=== PATIENT | male | born 1940 | race Caucasian/White ===

== ENCOUNTER 2017-08-26 00:15 | Inpatient (IN) | payer MEDICARE, OTHER ==
[2017-08-26] MEDS ORDERED: Sodium Chloride 0.9% 1,000 ML IV ONE (00:52)
--- NOTE | 2017-08-26 01:06 | ED PDOC ---
Arrival/HPI - General Chief Complaint: Altered Mental Status Time Seen by Provider: 08/26/17 00:44 Historian: Patient, Partner EM Caveat: Language Barrier - History of Present Illness Narrative History of Present Illness (Text): 08/26/17 01:05 77 year old male, whose past medical history includes stroke 1 1/2 years ago and hypertension, presents to the emergency department as per partner complaining of weakness and fatigue that began 4-6 hours ago. Partner reports he was eating dinner when he began to feel tired and weak. She states he was so weak he could not sit up and began bobbing his head. Patient also reports cough and fever of 101 measured at home, but denies any chills, chest pain, shortness of breath, nausea, vomiting, diarrhea, urinary symptoms, back pain, neck pain, headache, dizziness, or any other complaints. Time/Duration: 4-6 hours Symptom Onset: Sudden Symptom Course: Unchanged Activities at Onset: Light Context: Home Past Medical History - Provider Review Nursing Documentation Reviewed: Yes - Cardiac Hx Hypertension: Yes Other/Comment: CVA, - Musculoskeletal/Rheumatological Hx Arthritis: Yes - Psychiatric Hx Substance Use: No Family/Social History - Physician Review Nursing Documentation Reviewed: Yes Family/Social History: No Known Family HX Smoking Status: Never Smoked Hx Alcohol Use: No Frequency of alcohol use: Socially Hx Substance Use: No Allergies/Home Meds Allergies/Adverse Reactions: Allergies Penicillins Allergy (Verified 08/26/17 16:23) RASH Home Medications: Home Meds Medication Instructions Recorded Confirmed Allopurinol [Zyloprim] 100 mg PO TID 08/26/17 08/26/17 amLODIPine [Norvasc] 5 mg PO DAILY 08/26/17 08/26/17 Review of Systems - Physician Review All systems were reviewed & negative as marked: Yes - Review of Systems Constitutional: Fatigue, Fevers. absent: Other (Chills ) Respiratory: Cough. absent: SOB Cardiovascular: absent: Chest Pain Gastrointestinal: absent: Abdominal Pain, Diarrhea, Nausea, Vomiting Musculoskeletal: absent: Back Pain, Neck Pain Neurological: Other (weakness). absent: Headache, Dizziness Physical Exam Vital Signs Reviewed: Yes Vital Signs Temp Pulse Resp BP Pulse Ox 08/27/17 11:39 100.1 F H 08/27/17 10:57 90 141/93 H 01/09/18 07:42 86 18 157/92 H 99 08/26/17 19:18 98.9 F 75 20 135/82 08/26/17 19:15 77 20 140/64 08/26/17 19:00 75 20 135/82 08/26/17 18:45 72 20 132/74 08/26/17 18:30 74 20 130/72 08/26/17 18:15 98.9 F 75 20 138/85 08/26/17 18:00 90 20 150/101 H 08/26/17 17:45 96 H 20 199/118 H 08/26/17 17:30 100 H 20 177/102 H 08/26/17 17:15 104 H 20 176/99 H 08/26/17 17:06 101 H 177/102 H 08/26/17 17:00 102 H 20 171/87 H 08/26/17 16:45 105 H 20 170/82 H 08/26/17 16:30 99.8 F H 105 H 20 180/100 H 96 08/26/17 16:05 98.9 F 75 20 138/85 08/26/17 15:42 104 H 174/118 H 08/26/17 14:45 82 164/111 H 08/26/17 14:30 80 20 178/91 H 08/26/17 14:15 79 20 151/83 H 08/26/17 14:00 80 20 162/92 H 08/26/17 13:45 72 20 168/93 H 08/26/17 13:30 62 20 173/92 H 97 08/26/17 06:30 98.9 F 93 H 16 163/92 H 99 08/26/17 06:00 98.7 F 76 15 155/82 H 98 08/26/17 04:08 99 F 100 H 15 113/101 H 100 08/26/17 04:00 98.9 F 74 16 150/82 97 08/26/17 02:00 100 F H 99 H 16 151/93 H 99 08/26/17 00:37 99.8 F H 100 H 16 173/101 H 99 Temperature: Febrile Blood Pressure: Hypertensive Pulse: Tachycardic Respiratory Rate: Normal Appearance: Positive for: Well-Appearing, Non-Toxic, Comfortable Pain Distress: None Mental Status: Positive for: Confused, other Finger Stick Blood Glucose: 152 - Systems Exam Head: Present: Atraumatic, Normocephalic Pupils: Present: PERRL Extroacular Muscles: Present: EOMI Conjunctiva: Present: Normal Mouth: Present: Moist Mucous Membranes Neck: Present: Normal Range of Motion Respiratory/Chest: Present: Rhonchi. No: Respiratory Distress, Accessory Muscle Use Cardiovascular: Present: Regular Rate and Rhythm, Normal S1, S2. No: Murmurs Abdomen: Present: Normal Bowel Sounds. No: Tenderness, Distention, Peritoneal Signs Back: Present: Normal Inspection Upper Extremity: Present: Normal Inspection. No: Cyanosis, Edema Lower Extremity: Present: Normal Inspection. No: Edema Neurological: Present: GCS=15, CN II-XII Intact, Speech Normal Skin: Present: Warm, Dry, Normal Color. No: Rashes Psychiatric: Present: Alert, Oriented x 3, Normal Insight, Normal Concentration Medical Decision Making ED Course and Treatment: 08/26/17 01:05 Impression: 77 year old male presents as per partner, for fatigue, cough, fever, and weakness hat began 4-6 hours ago. PE shows Rhonchi Plan: -- VBG -- EKG -- Chest X-ray -- Labs -- Blood Culture -- Urine Culture -- Urinalysis -- Tylenol -- Reassess and disposition Progress Notes: 08/26/17 02:11 EKG shows Sinus Tachycardia at 126 BPM with Normal axis. Normal intervals. Interpreted by me. 08/26/17 02:30 CXR Impression: As read by me, Atelectasis VS infiltrate in the right lower lobe. 08/26/17 08:31 Attempted LP in usual fashion, patient sitting up; 3-4 attempts with no CSF. 08/26/17 08:[address] Rodrigez, radiologist, who is willing to do LP under fluoroscopy. I ordered fluids, Dr. Rodrgiez will collect CSF from LP and give it to lab. - Lab Interpretations Microbiology Results: Microbiology Results 08/26/17 00:30 Blood Blood Culture - Preliminary NO GROWTH AFTER 4 DAYS 08/26/17 01:00 Blood Blood Culture - Preliminary NO GROWTH AFTER 4 DAYS 08/26/17 01:12 Urine,Clean Catch Urine Culture - Final No Growth (<1,000 CFU/ML) Lab Results: 08/26/17 01:00 08/26/17 01:00 Lab Results 08/26/17 01:12: Urine Color Yellow, Urine Appearance Clear, Urine pH 8.5, Ur Specific [place] 1.020, Urine Protein 100 H, Urine Glucose (UA) Negative, Urine Ketones Negative, Urine Blood Trace-intact H, Urine Nitrate Negative, Urine Bilirubin Negative, Urine Urobilinogen 0.2, Ur Leukocyte Esterase Negative, Urine RBC 2 - 5, Urine WBC 0 - 2, Ur Epithelial Cells 0 - 2 08/26/17 01:00: Procalcitonin 0.05 L 08/26/17 01:00: Prostate Specific Ag 2.7 H 08/26/17 01:00: Uric Acid 9.3 H 08/26/17 01:00: Sodium 138, Chloride 101, Potassium 4.3, Carbon Dioxide 28, Anion Gap 13, BUN 25 H, Creatinine 2.5 H, Est GFR ( Amer) 31, Est GFR ( Non-Af Amer) 25, Random Glucose 141 H, Calcium 9.7, Phosphorus 2.0 L, Magnesium 2.2, Total Bilirubin 0.3, AST 34, ALT 18, Alkaline Phosphatase 60, Total Protein 8.2, Albumin 4.4, Globulin 3.8, Albumin/Globulin Ratio 1.2 08/26/17 01:00: pO2 31, VBG pH 7.39, VBG pCO2 50.0, VBG HCO3 30.3 H, VBG Total CO2 31.8 H, VBG O2 Sat (Calc) 62.8, VBG Base Excess 4.2 H, VBG Potassium 4.5, Sodium 136.0, Chloride 101.0, Glucose 140 H, Lactate 1.4, FiO2 21.0, Venous Blood Potassium 4.5 08/26/17 01:00: PT 11.4, INR 1.00, APTT 40.0 H 08/26/17 01:00: WBC 11.5 H, RBC 4.74, Hgb 13.3 L, Hct 40.5 L, MCV 85.4, MCH 28.1 , MCHC 32.8, RDW 15.0 H, Plt Count 299, MPV 10.4, Gran % 81.5 H, Lymph % (Auto) 8.1 L, [place] % (Auto) 7.8 H, Eos % (Auto) 2.3, Baso % (Auto) 0.3, Gran # 9.38 H, Lymph # 0.9 L, [place] # 0.9 H, Eos # 0.3, Baso # 0.03 08/26/17 00:33: POC Glucose (mg/dL) 135 H I have reviewed the lab results: Yes - RAD Interpretation Radiology Orders: 08/26/17 00:53 CHEST PORTABLE [RAD] Stat 08/26/17 03:07 HEAD W/O CONTRAST [CT] Stat - EKG Interpretation Interpreted by ED Physician: Yes Type: 12 lead EKG - Medication Orders Current Medication Orders: Discontinued Medications Acetaminophen (Tylenol 325mg Tab) 975 mg PO ONCE PRN PRN Reason: Fever >100.4 F Last Admin: 08/26/17 01:57 Dose: 975 mg MAR Pain/Vitals Document 08/26/17 01:57 AB (Rec: 08/26/17 01:57 AB [facility] [id number] Pain Reassessment Is This A Pain ReAssessment? No Acetaminophen (Tylenol 325 Mg Supp) 650 mg RC Q6H PRN PRN Reason: FOR TEMP>=99.5F Acetaminophen (Tylenol 325mg Tab) 650 mg PO Q6H PRN PRN Reason: FOR TEMP>=99.5F Last Admin: 08/27/17 12:00 Dose: 650 mg MAR Pain/Vitals Document 08/27/17 12:00 SF (Rec: 08/27/17 12:00 SF [facility] [id number]) Pain Reassessment Is This A Pain ReAssessment? Yes Sleep Is patient sleeping during reassessment? No Presence of Pain Presence of Pain Yes Pain Scale Used Pain Scale Used Numeric Vitals Temperature (97.6 F-99.6 F) 100.1 F Temperature Source Oral Acetylcysteine (Acetylcysteine 20%) 4 ml IH [id number] [facility] Last Admin: 08/29/17 07:38 Dose: 4 ml Allopurinol (Zyloprim) 100 mg PO TID [facility] Last Admin: 08/29/17 13:50 Dose: 100 mg Amlodipine Besylate (Norvasc) 5 mg PO DAILY [facility] Last Admin: 08/26/17 15:42 Dose: 5 mg MAR Pulse and Blood Pressure Document 08/26/17 15:42 JFR (Rec: 08/26/17 15:42 JFR [facility] [id number]) Pulse Pulse Rate (60-90) 104 Blood Pressure Blood Pressure (100/60-150/90) 174/118 Amlodipine Besylate (Norvasc) 5 mg PO DAILY [facility] Last Admin: 08/29/17 09:32 Dose: 5 mg MAR Pulse and Blood Pressure Document 08/29/17 09:32 SPA (Rec: 08/29/17 09:33 SPA [id number]) Pulse Pulse Rate (60-90) 80 Blood Pressure Blood Pressure (100/60-150/90) 162/96 Aspirin (Ecotrin) 325 mg PO DAILY [facility] Last Admin: 08/29/17 09:32 Dose: 325 mg Atorvastatin Calcium (Lipitor) 10 mg PO DIN [facility] Last Admin: 08/27/17 18:11 Dose: 10 mg Atorvastatin Calcium (Lipitor) 40 mg PO DIN [facility] Last Admin: 08/28/17 17:58 Dose: 40 mg Benzonatate (Tessalon Perles) 200 mg PO TID [facility] Last Admin: 08/29/17 13:50 Dose: 200 mg Clonidine HCl (Catapres) 0.1 mg PO Q6 PRN PRN Reason: Other Last Admin: 08/29/17 05:54 Dose: 0.1 mg MAR Pulse and Blood Pressure Document 08/29/17 05:54 MS (Rec: 08/29/17 05:54 MS [id number]) Blood Pressure Blood Pressure (100/60-150/90) 190/94 Clonidine HCl (Catapres) 0.2 mg PO BID PRN PRN Reason: Other Enoxaparin Sodium (Lovenox) 40 mg SC DAILY [facility] PRN Reason: Protocol Last Admin: 08/26/17 13:24 Dose: Enoxaparin Sodium (Lovenox) 30 mg SC DAILY [facility] PRN Reason: Protocol Last Admin: 08/29/17 09:33 Dose: 30 mg Subcutaneous Administrations Document 08/29/17 09:33 SPA (Rec: 08/29/17 09:33 SPA [id number]) Charges for Administration # of Subcutaneous Administrations 1 Guaifenesin (Robitussin) 100 mg PO Q4H PRN PRN Reason: Cough Sodium Chloride (Sodium Chloride 0.9%) 1,000 mls @ 2,000 mls/hr IV .Q30M ONE Stop: 08/26/17 01:21 Last Admin: 08/26/17 01:57 Dose: 2,000 mls/hr eMAR Start Stop Document 08/26/17 01:57 AB (Rec: 08/26/17 01:57 AB [facility] [id number][place] Intravenous Solution Start Date 08/26/17 Start Time 01:57 End Date 08/26/17 Levofloxacin/Dextrose (Levaquin 750mg) 750 mg in 150 mls @ 100 mls/hr IVPB STAT STA PRN Reason: Protocol Stop: 08/26/17 04:01 Last Admin: 08/26/17 03:06 Dose: 100 mls/hr eMAR Start Stop Document 08/26/17 03:06 AB (Rec: 08/26/17 03:06 AB [facility] [id number]) Intravenous Solution Start Date 08/26/17 Start Time 03:06 End Date 08/26/17 Doxycycline Hyclate 100 mg/ (Sodium Chloride) 100 mls @ 100 mls/hr IVPB Q12 CAROL PRN Reason: Protocol Last Admin: 08/27/17 21:53 Dose: Ceftriaxone Sodium (Rocephin 2 Gm Ivpb) 2 gm in 100 mls @ 100 mls/hr IVPB DAILY CAROL PRN Reason: Protocol Last Admin: 08/26/17 13:25 Dose: Sodium Chloride (Sodium Chloride 0.9%) 1,000 mls @ 100 mls/hr IV .Q10H CAROL Stop: 08/30/17 21:44 Last Admin: 08/28/17 05:15 Dose: 100 mls/hr eMAR Start Stop Document 08/28/17 05:15 MS (Rec: 08/28/17 05:15 MS [id number]) Intravenous Solution Start Date 08/28/17 Start Time 05:15 Acyclovir 500 mg/ Sodium (Chloride) 100 mls @ 100 mls/hr IV Q12H CAROL PRN Reason: Protocol Last Admin: 08/26/17 13:25 Dose: Acyclovir 900 mg/ Sodium (Chloride) 100 mls @ 100 mls/hr IV Q12H CAROL PRN Reason: Protocol Last Admin: 08/27/17 23:37 Dose: 100 mls/hr eMAR Start Stop Document 08/27/17 23:37 MS (Rec: 08/27/17 23:38 MS [id number]) Intravenous Solution Start Date 08/27/17 Start Time 23:38 End Date 08/28/17 End time 00:38 Total Infusion Time 60 Meropenem 500 mg/ Sodium (Chloride) 50 mls @ 100 mls/hr IVPB Q12 CAROL PRN Reason: Protocol Stop: 09/02/17 10:31 Last Admin: 08/27/17 11:04 Dose: 100 mls/hr Comments: discontinued eMAR Start Stop Document 08/27/17 11:04 MANAGER [employer]FORMAT[employer] (Rec: 08/27/17 11:04 MANAGER CLINICAL INFORMATICS [facility] [id number][place] Intravenous Solution Start Date 08/27/17 Start Time 11:04 Meropenem 500 mg/ Sodium (Chloride) 100 mls @ 100 mls/hr IVPB Q12 CAROL Last Admin: 08/28/17 11:28 Dose: 100 mls/hr eMAR Start Stop Document 08/28/17 11:28 KARLAMIRLANDE (Rec: 08/28/17 11:28 DINORA [id number]) Intravenous Solution Start Date 08/28/17 Start Time 11:28 End Date 08/28/17 End time 12:28 Total Infusion Time 60 Levalbuterol HCl (Xopenex) 0.63 mg IH [id number] [facility] Last Admin: 08/29/17 14:33 Dose: Memantine (Namenda) 10 mg PO DAILY [facility] Last Admin: 08/29/17 09:33 Dose: 10 mg Metoprolol Tartrate (Lopressor) 25 mg PO Q12 [facility] Last Admin: 08/29/17 09:33 Dose: 25 mg MAR Pulse and Blood Pressure Document 08/29/17 09:33 SPA (Rec: 08/29/17 09:33 SPA [id number]) Pulse Pulse Rate (60-90) 80 Blood Pressure Blood Pressure (100/60-150/90) 162/96 Oseltamivir Phosphate (Tamiflu Susp) 30 mg PO DAILY CAROL PRN Reason: Protocol Last Admin: 08/27/17 11:03 Dose: 30 mg Pantoprazole Sodium (Protonix Ec Tab) 40 mg PO DAILY [facility] Last Admin: 08/29/17 10:54 Dose: 40 mg Pneumococcal Polyvalent Vaccine (Pneumovax 23 Vaccine) 0.5 ml IM .ONCE ONE Stop: 08/26/17 19:50 Last Admin: 01/08/18 21:51 Dose: 0.5 ml MAR Immunization Data Document 08/26/17 21:51 AB (Rec: 08/26/17 21:51 AB [facility] [id number][place] Immunization Data Vaccine Information Sheet Given Yes Immunization Registry Document 08/26/17 21:51 AB (Rec: 08/26/17 21:51 AB [facility] [id number]) Immunization Registry Consent Date 08/26/17 - PA / [employer]OO[employer] 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 - Scribe Statement The provider has reviewed the documentation as recorded by the Scribe Sonido Landeros Provider Scribe Attestation: All medical record entries made by the Ericibbhumi were at my direction and personally dictated by me. I have reviewed the chart and agree that the record accurately reflects my personal performance of the history, physical exam, medical decision making, and the department course for this patient. I have also personally directed, reviewed, and agree with the discharge instructions and disposition. Disposition/Present on Arrival - Present on Arrival Any Indicators Present on Arrival: No History of DVT/PE: No History of Uncontrolled Diabetes: No Urinary Catheter: No History of Decub. Ulcer: No History Surgical Site Infection Following: None - Disposition Have Diagnosis and Disposition been Completed?: Yes Diagnosis: Fever, Weakness, Cough, Confusion Disposition: HOSPITALIZED Disposition Time: 09:00 Patient Plan: Admission Condition: IMPROVED
[2017-08-26 01:30] LABS: BASO # 0.03 K/mm3 (0.0-2.0); BASO % 0.3 % (0.0-3.0); EOS # 0.3 (0.0-0.7); EOS % 2.3 % (1.5-5.0); GRAN # 9.38 (1.4-6.5); GRAN % 81.5 % (50.0-68.0); HEMOGLOBIN 13.3 g/dL (14.0-18.0); LYMPH # 0.9 (1.2-3.4); LYMPH % 8.1 % (22.0-35.0); MEAN CELL VOLUME 85.4 fl (80.0-105.0); MEAN CORPUSCULAR HEMOGLOBIN 28.1 pg (25.0-35.0); MEAN CORPUSCULAR HGB CONC 32.8 g/dl (31.0-37.0); MEAN PLATELET VOLUME 10.4 fl (7.0-11.0); MONO # 0.9 (0.1-0.6); MONO % 7.8 % (1.0-6.0); RBC 4.74 10^6/uL (3.5-6.1); VENOUS BLOOD GAS BASE EXCESS 4.2 mmol/L (0.0-2.0); VENOUS BLOOD GAS PO2 31 mm/Hg (30-55); VENOUS BLOOD PH 7.39 (7.32-7.43); WHITE BLOOD COUNT 11.5 10^3/ul (4.5-11.0)
[2017-08-26 01:35] LABS: ALB/GLOB RATIO 1.2 (1.1-1.8); ALBUMIN 4.4 g/dL (3.0-4.8); CALCIUM 9.7 mg/dL (8.4-10.5); MAGNESIUM 2.2 mg/dL (1.7-2.2)
[2017-08-26 01:37] LABS: PROTHROMBIN TIME 11.4 SECONDS (9.4-12.5)
[2017-08-26 01:41] LABS: PH,URINE 8.5 (4.7-8.0); URINE BILIRUBIN NEGATIVE (NEGATIVE); URINE BLOOD TRACE-INTACT (NEGATIVE); URINE GLUCOSE (UA) NEGATIVE (NEGATIVE); URINE LEUKOCYTE ESTERASE NEGATIVE Leu/uL (NEGATIVE); URINE NITRATE NEGATIVE (NEGATIVE); URINE PROTEIN 100 mg/dL (<30 mg/dL); URINE UROBILINOGEN 0.2 E.U./dL (<1 E.U./dL)
[2017-08-26 01:44] LABS: URINE APPEARANCE CLEAR (CLEAR); URINE COLOR YELLOW (YELLOW)
[2017-08-26 01:51] LABS: URINE EPITHELIAL CELLS 0 - 2 /hpf (0-5); URINE WBC 0 - 2 /hpf (0-6)
[2017-08-26] MEDS ORDERED: levoFLOXacin 750 mg in D5W 750 MG/150 ML BAG IVPB STA (02:32)
--- NOTE | 2017-08-26 06:57 | CT ---
EXAM: CT Head Without Intravenous Contrast CLINICAL HISTORY: 77 years old, male; Signs and symptoms; Altered mental status/memory loss; Confusion or disorientation TECHNIQUE: Axial computed tomography images of the head/brain without intravenous contrast. All CT scans at this facility use one or more dose reduction techniques, viz.: automated exposure control; ma/kV adjustment per patient size (including targeted exams where dose is matched to indication; i.e. head); or iterative reconstruction technique. Coronal and sagittal reformatted images were created and reviewed. COMPARISON: No relevant prior studies available. FINDINGS: Brain: There is low attenuation abnormality in the periventricular white matter, likely reflecting chronic microvascular ischemic disease. No hemorrhage. Ventricles: Unremarkable. No ventriculomegaly. Bones/joints: Unremarkable. No acute fracture. Soft tissues: Unremarkable. Sinuses: Unremarkable as visualized. No acute sinusitis. Mastoid air cells: Unremarkable as visualized. No mastoid effusion. IMPRESSION: There is low attenuation abnormality in the periventricular white matter, likely reflecting chronic microvascular ischemic disease.
[2017-08-26] MEDS ORDERED: Lidocaine 1% Inj (20ml) ONE (08:15)
[2017-08-26] MEDS ORDERED: Acyclovir 500 MG in Sodium Chloride 0.9% 100 ML IV SCH (09:30)
[2017-08-26 09:51] LABS: TROPONIN I 0.05 ng/mL
[2017-08-26 09:57] LABS: FREE T4 1.02 ng/dL (0.78-2.19); T4 7.4 ug/dL (5.5-11.0)
--- NOTE | 2017-08-26 09:59 | RAD ---
HISTORY: Sepsis patient. Portable study 01:32. COMPARISON: No prior. FINDINGS: LUNGS: No active pulmonary disease. PLEURA: No significant pleural effusion identified, no pneumothorax apparent. CARDIOVASCULAR: No radiographic findings to suggest acute or significant cardiovascular disease. OSSEOUS STRUCTURES: No significant abnormalities. VISUALIZED UPPER ABDOMEN: Normal. OTHER FINDINGS: None. IMPRESSION: No active disease.
[2017-08-26] MEDS ORDERED: cefTRIAXone 2 GM IN NS 2 GM/100 ML BAG IVPB SCH ×2 (10:00→18:00)
[2017-08-26] MEDS ORDERED: Enoxaparin 40 mg Syringe SC SCH (10:00)
[2017-08-26] MEDS: Acetylcysteine 20% Inhal Soln (4ml) IH SCH ×2 (10:00→16:04)
[2017-08-26] MEDS: Levalbuterol 0.63 MG/3 ML Inhal Soln UD IH SCH ×2 (10:00→16:04)
--- NOTE | 2017-08-26 11:17 | US ---
PROCEDURE: Ultrasound of the Kidneys HISTORY: ISABELL COMPARISON: None available. TECHNIQUE: Sonogram of the kidneys. FINDINGS: RIGHT KIDNEY: Measures: 4.6 x 4.6 x 9.8 cm. Normal in size, contour and echogenicity. No stone, solid mass lesion or hydronephrosis visualized. LEFT KIDNEY: Measures: 4.6 x 5 x 9.8 cm. Normal in size, contour and echogenicity. No stone, solid mass lesion or hydronephrosis visualized. Incidental finding(s): Cyst lower pole 2.1 x 2.4 x 2 cm OTHER FINDINGS: None. IMPRESSION: Unremarkable renal sonogram.
--- NOTE | 2017-08-26 11:30 | CP.PCM.HP ---
History of Present Illness - History of Present Illness History of Present Illness: Laura Doe, PGY1, Medicine H&P for Dr Asencio: CC: cough, generalized weakness 77 years old male with PMH 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 at bedside, history obtained from patient and his . Patient has been having an ongoing cough for past few months, however, the cough has worsened since yesterday with white sputum, low grade fever. Pt also verbalizes ongoing dizziness for many years that has worsened since yesterday. As per , pt seemed altered last night and was not appropriately responding to her questions. However, she states that he is back to his baseline currently. Pt also c/o increased fatigue and generalized weakness. Denies LOC, sob, wheezing, cp, nausea, vomiting, appetite changes, weight loss, back pain, neck stiffness, headache, abdominal pain, urinary symptoms, leg swelling. In ED, pt had low grade fever 100F, BP 163/93, HR 93, saturating well on RA. Labs showed mild leukocytosis 11.5, elevated BUN/Cr 25/2.5, initial trop 0.05. Given 2L NS bolus and Levaquin IVx1. CT head neg for any acute changes. CXR neg for any infiltrates. 12 point ROS neg, except as noted per HPI. PMH: CVA 1.5 years ago ([facility] [place]), HTN, dementia, gout, venous stasis - left leg ulcer healed, nephrolithiasis, enlarged prostate? PSH: None All: PCN - rash FH: HTN SH: lives with . Walks by self/sometimes, uses a cane. Denies etoh/tobacco/ drug use. PMD: Dr Francisco Barnes Present on Admission - Present on Admission Any Indicators Present on Admission: No History of DVT/PE: No History of Uncontrolled Diabetes: No Urinary Catheter: No Decubitus Ulcer Present: No Review of Systems - Review of Systems All systems: reviewed and no additional remarkable complaints except Review of Systems: as per hPI Past Patient History - Past Social History Smoking Status: Never Smoked - CARDIAC Hx Hypertension: Yes Other/Comment: CVA, - MUSCULOSKELETAL/RHEUMATOLOGICAL Hx Arthritis: Yes - PSYCHIATRIC Hx Substance Use: No Meds Allergies/Adverse Reactions: Allergies Allergy/AdvReac Type Severity Reaction Status Date / Time Penicillins Allergy RASH Verified 08/26/17 00:52 Physical Exam - Constitutional Appears: Non-toxic, No Acute Distress - Head Exam Head Exam: ATRAUMATIC, NORMOCEPHALIC - Eye Exam Eye Exam: EOMI, PERRL. absent: Conjunctival injection, Scleral icterus Pupil Exam: PERRL - ENT Exam ENT Exam: Mucous Membranes Moist - Neck Exam Neck exam: Positive for: Full Rom, Normal Inspection. Negative for: Tenderness , Thyromegaly - Respiratory Exam Respiratory Exam: Decreased Breath Sounds. absent: Accessory Muscle Use, Chest Wall Tenderness, Rales, Rhonchi, Wheezes, Respiratory Distress - Cardiovascular Exam Cardiovascular Exam: RRR, +S1, +S2. absent: Systolic Murmur - GI/Abdominal Exam GI & Abdominal Exam: Normal Bowel Sounds, Soft. absent: Distended, Guarding, Rebound, Rigid, Tenderness - Extremities Exam Extremities exam: Positive for: pedal edema, pedal pulses present. Negative for : calf tenderness Additional comments: + venous stasis changes bilaterally. - Back Exam Back exam: NORMAL INSPECTION. absent: CVA tenderness (L), CVA tenderness (R) - Neurological Exam Neurological exam: Alert, Oriented x3 - Psychiatric Exam Psychiatric exam: Agitated - Skin Skin Exam: Dry, Normal Color, Warm Results - Vital Signs Recent Vital Signs: Last Vital Signs Temp 98.9 F 08/26/17 06:30 Pulse 93 H 08/26/17 06:30 Resp 16 08/26/17 06:30 BP 163/92 H 08/26/17 06:30 Pulse Ox 99 08/26/17 06:30 - Labs Result Diagrams: 08/26/17 01:00 08/26/17 01:00 Labs: Laboratory Results - last 24 hr 08/26/17 08/26/17 08/26/17 09:00 09:00 09:00 Lactic Acid 0.9 Total Creatine Kinase 213 Troponin I 0.05 Free T4 1.02 Thyroxine (T4) 7.4 TSH 3rd Generation 0.76 Influenza Typ A,B (EIA) 08/26/17 09:40 Lactic Acid Total Creatine Kinase Troponin I Free T4 Thyroxine (T4) TSH 3rd Generation Influenza Typ A,B (EIA) Negative for flu a/b Assessment & Plan - Assessment and Plan (Free Text) Assessment: 77 years old male with PMH CVA (with residual dementia), HTN, gout, presents for cough, generalized weakness, transient AMS: Transient AMS: - likely TIA vs worsening dementia - Started on ASA 325 mg daily. F/u lipid panel and carotid doppler - CT head negative. MRI brain w/o contrast ordered. F/u results. - Neurology consulted. F/u recs. Generalized weakness: 2/2 hypothyroid vs influenza vs dehydration vs sepsis related - Given 2L NS bolus in ED - Thyroid panel normal. Influenza neg. - C/w IVF - F/u orthostatics - CXR negative for any infiltrates. UA neg for infection. F/u CT chest/abd/ pelvis for sepsis source. - Lactate 1.4. - Temp 100F, wbc 11.5 - Started Robitussin for cough - ID and Neurology consulted. f/u recs. - Started on IV Vanco, Merrem, Acyclovir, Tamiflu per ID. Elevated trop: - Initial trop 0.05. EKG HR 126 Sinus tachy. - F/u serial trops. - Consider Cardio consult. Elevated BUN/Cr 25/2.5: likely prerenal vs intrarenal, r/o obstructive uropathy - Renal US neg for hydronephrosis or stones. - Pt denies hx of kidney disease - IVF @ 100. Cont to monitor Elevated PSA: - PSA 2.7. Consider Urology consult. Hx of Dementia: - Continue home Memantine Hx of HTN: - C/w home med Norvasc. - Will hold ARB in setting of ISABELL PPX: Protonix, Lovenox Sq Discussed with Dr Asencio. Laura Doe, PGY1 - Date & Time Date: 08/26/17 Time: 11:30
[2017-08-26] MEDS ORDERED: guaiFENesin 100 mg/5 ml Syrup UD PO PRN (11:40)
[2017-08-26 11:54] LABS: FLUID TYPE SPINAL FLUID
--- NOTE | 2017-08-26 12:24 | CT ---
PROCEDURE: CT Chest, Abdomen and Pelvis without intravenous contrast HISTORY: ISABELL/SEPSIS COMPARISON: None. TECHNIQUE: Radiation dose: Total exam DLP = 1413 mGy-cm. This CT exam was performed using one or more of the following dose reduction techniques: Automated exposure control, adjustment of the mA and/or kV according to patient size, and/or use of iterative reconstruction technique. FINDINGS: CT CHEST WITHOUT CONTRAST: LUNGS: Clear. No nodule, mass or consolidation. MEDIASTINUM: Unremarkable. Normal caliber aorta and pulmonary arterial trunk. Normal size heart. LYMPH NODES: Unremarkable. PLEURA: Unremarkable. No pneumothorax. No pleural fluid. BONES: Unremarkable. OTHER FINDINGS: Coronary artery calcifications are seen. CT ABDOMEN AND PELVIS: LIVER: Unremarkable. No gross lesion or ductal dilatation. GALLBLADDER AND BILE DUCTS: Unremarkable. PANCREAS: Unremarkable. No gross lesion or ductal dilatation. SPLEEN: Unremarkable. ADRENALS: Unremarkable. No mass. KIDNEYS AND URETERS: Unremarkable. No hydronephrosis. No solid mass. VASCULATURE: Unremarkable. No aortic aneurysm. BOWEL: Unremarkable. No obstruction. No gross mural thickening. Mild diverticulosis of the descending and sigmoid colon APPENDIX: Normal appendix. PERITONEUM: Unremarkable. No free fluid. No free air. LYMPH NODES: Unremarkable. No enlarged lymph nodes. BLADDER: Unremarkable. REPRODUCTIVE: Unremarkable. BONES: No acute fracture. OTHER FINDINGS: None. IMPRESSION: No acute findings
--- NOTE | 2017-08-26 12:29 | RAD ---
PROCEDURE: Fluoro lumbar puncture spinal tap HISTORY: Confusion and Fever, Spoke with Dr. Rodrigez COMPARISON: TECHNIQUE: Spinal tap was attempted earlier but was unsuccessful in the emergency department. Using sterile technique under fluoroscopic guidance a 20 gauge needle was placed in the spinal canal at the L3 level. 10 cc of clear colorless CSF were obtained. The patient tolerated the procedure well. FINDINGS: IMPRESSION: Successful lumbar puncture
[2017-08-26 12:30] LABS: CSF APPEARANCE CLEAR/COLORLESS (CLEAR); CSF VOLUME 3 mL (0-1)
[2017-08-26] MEDS: Sodium Chloride 0.9% 1,000 ML IV SCH ×2 (13:01→17:54)
[2017-08-26] MEDS: Meropenem 500 MG in Sodium Chloride 0.9% 50 ML IVPB SCH (13:02)
[2017-08-26] MEDS: Oseltamivir 6 MG/ML PO SCH (13:02)
[2017-08-26] MEDS: Pantoprazole 40 mg EC Tab PO SCH (13:05)
[2017-08-26] MEDS: Aspirin 325 mg EC Tablets PO SCH (13:05)
[2017-08-26 13:44] LABS: TROPONIN I 0.05 ng/mL
[2017-08-26 13:50] LABS: CK-MB 0.7 ng/mL (0.0-3.6)
--- NOTE | 2017-08-26 13:50 | CP.PCM.CON ---
History of Present Illness - History of Present Illness History of Present Illness: 77 year old male with PMH of HTN, CVA, obesity with BMI 30 was brought in to [facility] [place] because of weakness and lethargy since yesterday. The patient has been feeling tired and weak for the past 2 days and was also having cough and a fever of 101 F at home. He was brought in weak but currently more awake and able to answer questions. He denies headache or dizziness, no SOB, no sore throat, no rhinorrhea, no chest pain, no abdominal pain, no diarrhea, no dysuria , no nausea or vomiting. CT C/A/P was done without acute findings and LP has been done. Infectious diseases consult is requested to further evaluate and manage. Review of Systems - Review of Systems All systems: reviewed and no additional remarkable complaints except (as per HPI ) Past Patient History - Past Social History Smoking Status: Never Smoked - CARDIAC Hx Hypertension: Yes Other/Comment: CVA, - MUSCULOSKELETAL/RHEUMATOLOGICAL Hx Arthritis: Yes - PSYCHIATRIC Hx Substance Use: No Meds Allergies/Adverse Reactions: Allergies Allergy/AdvReac Type Severity Reaction Status Date / Time Penicillins Allergy RASH Verified 08/26/17 00:52 - Medications Medications: Current Medications Acetaminophen (Tylenol 325 Mg Supp) 650 mg RC Q6H PRN PRN Reason: FOR TEMP>=99.5F Acetaminophen (Tylenol 325mg Tab) 650 mg PO Q6H PRN PRN Reason: FOR TEMP>=99.5F Acetylcysteine (Acetylcysteine 20%) 4 ml IH [id number] CAROL Aspirin (Ecotrin) 325 mg PO DAILY CAROL Enoxaparin Sodium (Lovenox) 40 mg SC DAILY CAROL PRN Reason: Protocol Doxycycline Hyclate 100 mg/ (Sodium Chloride) 100 mls @ 100 mls/hr IVPB Q12 CAROL PRN Reason: Protocol Sodium Chloride (Sodium Chloride 0.9%) 1,000 mls @ 100 mls/hr IV .Q10H CAROL Stop: 08/30/17 21:44 Acyclovir 900 mg/ Sodium (Chloride) 100 mls @ 100 mls/hr IV Q12H CAROL PRN Reason: Protocol Meropenem 500 mg/ Sodium (Chloride) 50 mls @ 100 mls/hr IVPB Q12 CAROL PRN Reason: Protocol Stop: 09/02/17 10:31 Levalbuterol HCl (Xopenex) 0.63 mg IH [id number] CAROL Pantoprazole Sodium (Protonix Ec Tab) 40 mg PO DAILY CAROL Physical Exam - Constitutional Appears: Non-toxic - Head Exam Head Exam: NORMAL INSPECTION - ENT Exam ENT Exam: Mucous Membranes Moist - Neck Exam Neck exam: Negative for: Meningismus - Respiratory Exam Respiratory Exam: Decreased Breath Sounds - Cardiovascular Exam Cardiovascular Exam: +S1, +S2 - GI/Abdominal Exam GI & Abdominal Exam: Soft. absent: Tenderness Results - Vital Signs Recent Vital Signs: Last Vital Signs Temp 98.9 F 08/26/17 06:30 Pulse 93 H 08/26/17 06:30 Resp 16 08/26/17 06:30 BP 163/92 H 08/26/17 06:30 Pulse Ox 99 08/26/17 06:30 - Labs Result Diagrams: 08/26/17 01:00 08/26/17 01:00 Labs: Laboratory Results - last 24 hr 08/26/17 08/26/17 08/26/17 09:00 09:00 09:00 Lactic Acid 0.9 Total Creatine Kinase 213 Troponin I 0.05 Free T4 1.02 Thyroxine (T4) 7.4 TSH 3rd Generation 0.76 Influenza Typ A,B (EIA) 08/26/17 09:40 Lactic Acid Total Creatine Kinase Troponin I Free T4 Thyroxine (T4) TSH 3rd Generation Influenza Typ A,B (EIA) Negative for flu a/b Assessment & Plan - Assessment and Plan (Free Text) Plan: Assessment Systemic Inflammatory Response Syndrome, R/O sepsis from upper respiratory tract infection, R/O meningitis HTN CVA obesity with BMI 30 Plan Patient has been started on a dose of IV Vancomycin and started on Merrem, Acyclovir and Tamiflu pending blood cx, urine cx, CSF cx and analysis reviewed CT C/A/P and did not show acute findings will monitor clinically follow up MRI brain
--- NOTE | 2017-08-26 16:03 | US ---
PROCEDURE: Bilateral carotid artery duplex ultrasound HISTORY: Carotid stenosis TIA PHYSICIAN(S): Epifanio Hubbard MD. TECHNIQUE: Duplex sonography and color-flow Doppler were used to evaluate the carotid bifurcations and limited segments of the vertebral arteries bilaterally. FINDINGS: There is mild smooth heterogeneous plaque noted at the carotid bifurcations bilaterally. The peak systolic velocity in the proximal right internal carotid artery is 85 cm/sec. This corresponds to a 20 to 39% proximal right ICA stenosis. Normal systolic velocities are noted in the proximal right external carotid artery. There is antegrade flow in the dominant right vertebral artery. The peak systolic velocity in the proximal left internal carotid artery is 53 cm/sec. This corresponds to a 20 to 39% proximal left ICA stenosis. Normal systolic velocities are noted in the proximal left external carotid artery. There is antegrade flow in the small left vertebral artery. IMPRESSION: 1. Bilateral 20-39% proximal ICA stenoses. 2. Antegrade flow in both vertebral arteries.
[2017-08-26 17:35] LABS: FOLATE > 20.0 ng/mL
--- NOTE | 2017-08-26 19:45 | CON ---
DATE: 08/26/2017 CHIEF COMPLAINT: Generalized weakness. HISTORY OF PRESENT ILLNESS: A 77-year-old male with past medical history of CVA one and half years ago with some cognitive impairment, hypertension, gout, with elevated uric acid, today came with cough, generalized weakness. Apparently, verbalized dizziness many years ago worsened today. but was not appropriate, asking us questions . Currently, he is back to his baseline. CAT scan of the head showed no acute intracranial abnormalities, had a lumbar puncture which showed no features consistent with meningitis, his protein was normal. His WBC was normal. He moves all extremities, has minimal movement on his left shoulder due to injury while pulling out an air condition in his apartment with no focal paraesthesia of the extremities. PAST MEDICAL HISTORY: History of CVA one and half years ago, hypertension, cognitive impairment, gout, venous stasis of left leg ulcer healed, nephrolithiasis. PAST SURGICAL HISTORY: None. FAMILY HISTORY: None. SOCIAL HISTORY: No illicit drug use, smoking or EtOH abuse. REVIEW OF SYSTEMS: A 14-point review of systems is negative except as per the HPI. ALLERGIES: PENICILLIN GIVES RASH. MEDICATIONS: Reviewed by nurse per reconciliation sheet. PHYSICAL EXAMINATION: VITAL SIGNS: Temperature 99.8, pulse rate 101, blood pressure 177/102, respiratory rate 20 and oxygen saturation 96% by room air. GENERAL: The patient is sitting up in bed in no acute distress. HEENT: Head is atraumatic and normocephalic. PERRLA. Extraocular muscles intact. NECK: Supple. No JVD. No adenopathy noted. LUNGS: Clear to auscultation. No adventitious sounds. HEART: S1 and S2. Normal rate and rhythm. No murmurs, rubs, or gallops. ABDOMEN: Soft, nontender and nondistended. Bowel sounds are present. EXTREMITIES: No clubbing, no cyanosis. Peripheral pulses are 2+ felt bilaterally. NEUROLOGIC: The patient is alert and oriented to person, place, and year. Recall after 5 minutes is 0/3. Poor attention span. Slow thought process. Cranial nerves II through XII are intact. Motor exam, moves all extremities equally. Toes are downgoing bilaterally. Sensory exam, decreased light touch, pinprick, proprioception up to the calves bilaterally. Decreased vibration to the toes. DTRs are 1 to 2+ throughout, 1 at the knees and ankles. Coordination, [id number] intact. LABORATORY DATA: CSF; protein is 556 which is normal, glucose normal and CSF WBC is normal. Uric acid elevated 9.3. Sodium is 138, potassium 4.3, chloride 101, carbon dioxide 28, BUN of 13, glucose 141. Lactic acid 0.9. Carotid Doppler showed 20% to 39% proximal ICA stenosis with antegrade flow in the vertebral arteries. ASSESSMENT AND PLAN: This is a 77-year-old male with history of questionable transient ischemic attack with residual cognitive impairment, hypertension, gout, presented with cough, generalized weakness and change in altered mental status and change in altered mental status could be secondary to hypertensive emergency superimposed and underlying cognitive impairment. 1. Recommend MRI of the brain to rule out for any acute infarction. 2. Aspirin 325 mg p.o. daily and atorvastatin 40 mg p.o. daily for stroke prevention. 3. IV hydration and orthostatic vital signs. 4. Continue with ID recommendations this is not meningitis at all. 5. Has elevated BUN and creatinine, likely prerenal. Ultrasound of the renal is negative acute. At this time continue with Namenda 10 mg p.o. daily for cognitive impairment and continue to keep his blood pressure between 130 to 140 systolic and diastolic 70 and 80. Thank you for this consult. Johnny Solares MD
[2017-08-26 19:49] VITALS: BMI 30.4
[2017-08-26] MEDS ORDERED: Pneumococcal 23-Valent Vaccine IM ONE (19:49)
[2017-08-26] MEDS ORDERED: Influenza Vaccine 60 mcg/0.5 mL SYR (4YR UP) IM ONE (19:49)
--- NOTE | 2017-08-26 20:32 | CARD ---
APPROVED REPORT EKG Measurement Heart [id number] <Conclusion> Normal sinus rhythm Normal ECG
--- NOTE | 2017-08-26 20:51 | CARD ---
APPROVED REPORT EKG Measurement Heart [id number] <Conclusion> Sinus tachycardia Otherwise normal ECG
[2017-08-27 04:31] LABS: BARBITURATES, UR NEGATIVE (NEGATIVE); BENZODIAZEPINES, UR NEGATIVE (NEGATIVE); OPIATES, UR NEGATIVE (NEGATIVE); PHENCYCLIDINE, UR NEGATIVE (NEGATIVE)
[2017-08-27] MEDS: Levalbuterol 0.63 MG/3 ML Inhal Soln UD IH SCH ×6 (05:40→19:24)
[2017-08-27] MEDS: Acetylcysteine 20% Inhal Soln (4ml) IH SCH ×5 (05:40→19:24)
[2017-08-27 07:11] LABS: BASO # 0.03 K/mm3 (0.0-2.0); BASO % 0.4 % (0.0-3.0); EOS # 0.2 (0.0-0.7); GRAN # 4.72 (1.4-6.5); GRAN % 64.1 % (50.0-68.0); HEMOGLOBIN 11.9 g/dL (14.0-18.0); LYMPH # 1.6 (1.2-3.4); LYMPH % 21.1 % (22.0-35.0); MEAN CELL VOLUME 84.3 fl (80.0-105.0); MEAN CORPUSCULAR HEMOGLOBIN 27.5 pg (25.0-35.0); MEAN CORPUSCULAR HGB CONC 32.6 g/dl (31.0-37.0); MEAN PLATELET VOLUME 10.5 fl (7.0-11.0); MONO # 0.9 (0.1-0.6); MONO % 12.4 % (1.0-6.0); RBC 4.33 10^6/uL (3.5-6.1); RED CELL DISTRIBUTION WIDTH 15.1 % (11.5-14.5); WHITE BLOOD COUNT 7.4 10^3/ul (4.5-11.0)
[2017-08-27 07:24] LABS: TROPONIN I 0.06 ng/mL
[2017-08-27 07:46] LABS: ALB/GLOB RATIO 1.1 (1.1-1.8); ALBUMIN 3.4 g/dL (3.0-4.8); BILIRUBIN,DIRECT 0.3 mg/dL (0.0-0.4); CALCIUM 8.8 mg/dL (8.4-10.5); MAGNESIUM 1.7 mg/dL (1.7-2.2)
[2017-08-27 08:11] LABS: CK-MB 0.6 ng/mL (0.0-3.6)
--- NOTE | 2017-08-27 08:28 | HP ---
HISTORY OF PRESENT ILLNESS: The patient is a 77-year-old male came to the Emergency Room, accompanied by the patient's via EMS, [facility]. According to the patient's 's history obtained through the patient's and through the medical coordinator pesticide use and through the ER chart and ER physician. The patient has been found to have altered mental status since 08:00 p.m. last night. The patient's stated that the patient's altered mental status was new. The patient had a stroke a year ago. The patient also complained of some cough and dizziness according to the ER residents. In addition according to the ER physician evaluation, the patient's past medical history is significant stroke and dementia and hypertension. According to the , the patient complained of weakness, fatigue, which became 4-6 hours ago, also feels tired and weak and unable to sit up. Also had a fever of 101 which was checked at home. A 13 system review was done, pertinent positive negative dictated above. CODE STATUS: Full code. LIVING WILL ADVANCE DIRECTIVE: None. Height is 5 feet 8 inches. Body weight is 200. BMI is 30.4. HOME MEDICATIONS: Allopurinol 100 mg three times a day, Micardis 80 mg daily, memantine 10 mg daily, and Norvasc 5 mg daily. SOCIAL HISTORY: Negative for smoking. Negative for alcohol. Negative for substance abuse. OCCUPATIONAL HISTORY: Disabled. FAMILY HISTORY: Not available. PAST MEDICAL AND SURGICAL HISTORY: History of hypertension, history of questionable dementia, history of cerebral infarct, history of CVA, history of arthritis, history of hyperuricemia, history of social alcohol use, history of penicillin allergy. The patient's previous [facility] stay was reviewed from 2006. The patient has history of hypertension and alcohol use. The patient has been seen in the Emergency Room for that. The patient's past medical history is significant for hypertension, history of arthritis, history of questionable dementia, history of cerebral infarct. The patient is seen in the Emergency Room, in the ultrasound and on the floor. PHYSICAL EXAMINATION: VITAL SIGNS: T-max is 100 degrees Fahrenheit in the ER. Telemetry shows sinus tachycardia, heart rate 93, 99, 100, blood pressure 173/101, 151/93, 113/101, 163/92, respiration 16, O2 sat 99-100%. The patient is seen lying in the stretcher. HEAD: Normocephalic, atraumatic. HEENT: Shows pinkish pale conjunctivae. Dry oral mucosa. No neck rigidity. Questionable soft carotid bruit. CHEST: Kyphosis. LUNGS: Shows positive rhonchi bilaterally, occasional crepitus. CARDIOVASCULAR: Shows S1, S2, tachycardic rhythm. Questionable soft systolic murmur, right second intercostal space, left sternal border. ABDOMEN: Soft. Positive bowel sounds. No hepatosplenomegaly noted. GENITALIA: Male. Rectal examination is deferred. Extremity shows no pitting, no calf tenderness, no Homans' sign. NEUROLOGIC: The patient is alert, awake, responsive at present. Cranial nerves II-XII was grossly intact and limited. The patient at present in the ER was noted to be alert, awake, oriented x3. The patient follows command, able to move upper lower extremity.. MUSCULOSKELETAL: Shows a body mass index of 30. DIAGNOSTICS: WBC 11.5, hemoglobin/hematocrit 13.3, 40.5, platelet 299. Granulocytes 81% segs. PT/PTT 11.4, 40.0. ABG shows a pH of 7.39. Lactate is 1.4. Sodium 138, potassium 4.3, chloride 101, CO2 28, anion gap 13, BUN 25, creatinine 2.5, GFR 25, glucose 141, uric acid 9.3, lactic acid 0.9, phosphorus 2.0, magnesium 2.2. LFTs are normal. PSA is 2.7, which is slightly elevated. Troponin 0.05. Urine pH 8.5, specific gravity 1.020, urine protein 100, trace blood. Influenza A and B negative. The patient had a chest x-ray done in the Emergency Room, which shows questionable atelectasis and increased marking as per my interpretation at the right lower lobe and the left lower lobe. CAT scan of the head was done. The patient had a renal ultrasound done for acute kidney injury, which was reviewed. EKG done in the emergency room shows sinus tachycardia, Q-wave in lead III, left ventricular hypertrophy noted. The patient was seen in the emergency room by Dr. Gauthier, ER physician. ER physician attempted a lumbar puncture without any success. The patient's case was then referred by the ER physician to the Radiologist, Dr. Rodrigez to do an LP under fluoroscopy. The patient was given IV fluid. The patient was given Levaquin in the Emergency Room. The patient was given IV fluid in the emergency room. The patient was advised to be admitted. IMPRESSION AND PLAN: This is a 77-year-old male with history of dementia, hypertension, cerebrovascular accident, presents with cough, dizziness altered mental status. and also had a fever at home. 1. Questionable systemic inflammatory response syndrome. 2. Fever. 3. Tachycardia. 4. Uncontrolled hypertension. 5. Leukocytosis with granulocytosis. 6. Questionable acute kidney injury versus underlying chronic kidney disease stage III. 7. Hyperglycemia. 8. Hyperuricemia. 9. Mildly elevated PSA of 2.7. 10. Proteinuria, microscopic hematuria. 11. Questionable bibasilar atelectasis. 12. Left renal cyst. 13. Chronic microvascular ischemic disease of the brain. 14. Sinus tachycardia. 15. Questionable cardiomegaly. PLAN: At this time, the patient will be admitted to telemetry in front of the nursing station. The patient will be started on broad-spectrum IV antibiotics. The patient has been ordered ammonia level, urine drug screen, B12, folate, hemoglobin A1c, lipid panel, B12, repeat CMP, CPK, LFT, magnesium, phosphorus has been ordered, repeat troponin ordered, repeat CBC ordered. Blood urine cultures ordered. CONSULTATION: Infectious Disease and Neurology ordered. Procalcitonin level and RPR ordered. MEDICATIONS: The patient has been ordered Mucomyst nebulizer every 6 hours with Xopenex nebulizer. The patient is on doxycycline 100 mg IV q. 12, aspirin 325 daily. The patient received Levaquin 750 one dose in the ER. The patient is on DVT prophylaxis with Lovenox 40 mg subcu daily. The patient is started on meropenem 500 IV q. 12, Protonix 40 daily. the patient is on IV fluid 0.9 normal saline at 100 mL an hour. The patient was given Tamiflu suppository 30 mg p.o. daily. The patient is on Tylenol suppository p.o. for fever. The patient is on Zovirax 900 mg IV q. 12. The patient has been ordered. Carotid Doppler, MRI of the brain without CT chest, abdomen, pelvis without repeat EKG ordered. Carotid Doppler ordered. MRA of the brain without contrast ordered. The patient will be ordered out of bed to chair. The patient will be ordered Physical Therapy and Occupational Therapy. At present, the patient was seen and evaluated. The patient's further management will be dependent upon the patient's clinical condition, hemodynamic status and as per the patient response to therapeutic intervention as per the patient's diagnostic test results and as per recommendation by all the biometrics consultant involved in the care of the patient... Dictated and electronically signed, not read. Signing off, Bogdan Asencio MD
--- NOTE | 2017-08-27 08:40 | MRI ---
PROCEDURE: MRI BRAIN WITHOUT CONTRAST HISTORY: AMS COMPARISON: None. TECHNIQUE: Multiplanar, multisequence MR images of the brain were obtained without intravenous contrast enhancement. FINDINGS: HEMORRHAGE: None DWI: There is a small 6 mm focus of restricted diffusion in the left parietal white matter consistent with a small acute or subacute lacunar type infarct. The finding is seen on image 20 series 3 BRAIN PARENCHYMA: No mass effect or edema. Severe chronic microvascular changes are seen in the periventricular white matter. VENTRICLES: Moderate atrophy CRANIUM: Unremarkable. ORBITS: Grossly unremarkable. PARANASAL SINUSES/MASTOIDS: Clear VASCULAR SYSTEM: Skull base flow voids intact. OTHER FINDINGS: The report concurs with the preliminary [facility] report IMPRESSION: 6 mm acute or subacute white matter infarct in the left parietal lobe. Severe chronic microvascular changes. Moderate atrophy
--- NOTE | 2017-08-27 08:43 | MRI ---
PROCEDURE: Magnetic Resonance Angiography Brain HISTORY: AMS COMPARISON: None available. TECHNIQUE: 3D time of flight MR angiography of the intracranial arteries was performed. Rotating maximum intensity projection images were generated. FINDINGS: INTERNAL CAROTID ARTERIES: Unremarkable. The skull base, petrous, cavernous and supraclinoid segments are bilaterally widely patient. ANTERIOR CEREBRAL ARTERIES: Unremarkable. A1 and A2 segments are widely patent. Smaller distal branches unremarkable, as visualized. MIDDLE CEREBRAL ARTERIES: Unremarkable. M1 and M2 segments are widely patent. Perisylvian branches grossly symmetric. POSTERIOR CIRCULATION: Basilar Artery: Unremarkable. Distal Vertebral Arteries: Unremarkable. Posterior Cerebral Arteries: Unremarkable. Posterior Inferior Cerebellar Arteries: Unremarkable. ANEURYSM/ VASCULAR MALFORMATIONS: None. OTHER FINDINGS: The report concurs with the preliminary [facility] report IMPRESSION: Unremarkable MR angiography of the brain.
--- NOTE | 2017-08-27 10:16 | CP.PCM.PN ---
Subjective - Date & Time of Evaluation Date of Evaluation: 08/27/17 Time of Evaluation: 10:12 - Subjective Subjective: Laura Doe, PGY1, Medicine Progress Note for Dr Asencio: Patient seen and examined at bedside. No acute events overnight. Denies any new focal deficits, cp, sob, fever, chills, nausea, vomiting. States that his cough is better. Objective - Vital Signs/Intake and Output Vital Signs (last 24 hours): Temp Pulse Resp BP Pulse Ox 98.9 F 86 18 157/92 H 99 08/26/17 19:18 08/27/17 07:42 08/27/17 07:42 08/27/17 07:42 08/27/17 07:42 - Medications Medications: Current Medications Acetaminophen (Tylenol 325 Mg Supp) 650 mg RC Q6H PRN PRN Reason: FOR TEMP>=99.5F Acetaminophen (Tylenol 325mg Tab) 650 mg PO Q6H PRN PRN Reason: FOR TEMP>=99.5F Acetylcysteine (Acetylcysteine 20%) 4 ml IH [id number] [facility] Last Admin: 08/27/17 08:37 Dose: 4 ml Allopurinol (Zyloprim) 100 mg PO TID [facility] Last Admin: 08/26/17 18:54 Dose: 100 mg Aspirin (Ecotrin) 325 mg PO DAILY [facility] Last Admin: 08/26/17 13:05 Dose: 325 mg Atorvastatin Calcium (Lipitor) 10 mg PO DIN [facility] Benzonatate (Tessalon Perles) 200 mg PO TID [facility] Last Admin: 08/26/17 18:54 Dose: 200 mg Clonidine HCl (Catapres) 0.1 mg PO Q6 PRN PRN Reason: Other Last Admin: 08/26/17 17:06 Dose: 0.1 mg Enoxaparin Sodium (Lovenox) 30 mg SC DAILY [facility] PRN Reason: Protocol Guaifenesin (Robitussin) 100 mg PO Q4H PRN PRN Reason: Cough Doxycycline Hyclate 100 mg/ (Sodium Chloride) 100 mls @ 100 mls/hr IVPB Q12 [facility] PRN Reason: Protocol Last Admin: 08/27/17 04:22 Dose: 100 mls/hr Sodium Chloride (Sodium Chloride 0.9%) 1,000 mls @ 100 mls/hr IV .Q10H [facility] Stop: 08/30/17 21:44 Last Admin: 08/26/17 17:54 Dose: Not Given Acyclovir 900 mg/ Sodium (Chloride) 100 mls @ 100 mls/hr IV Q12H [facility] PRN Reason: Protocol Last Admin: 08/27/17 04:22 Dose: 100 mls/hr Meropenem 500 mg/ Sodium (Chloride) 50 mls @ 100 mls/hr IVPB Q12 [facility] PRN Reason: Protocol Stop: 09/02/17 10:31 Last Admin: 08/26/17 13:02 Dose: 100 mls/hr Meropenem 500 mg/ Sodium (Chloride) 100 mls @ 100 mls/hr IVPB Q12 [facility] Levalbuterol HCl (Xopenex) 0.63 mg IH [id number] [facility] Last Admin: 08/27/17 08:36 Dose: 0.63 mg Memantine (Namenda) 10 mg PO DAILY [facility] Last Admin: 08/26/17 15:42 Dose: 10 mg Metoprolol Tartrate (Lopressor) 25 mg PO Q12 [facility] Last Admin: 08/27/17 04:36 Dose: Not Given Oseltamivir Phosphate (Tamiflu Susp) 30 mg PO DAILY [facility] PRN Reason: Protocol Last Admin: 08/26/17 13:02 Dose: 30 mg Pantoprazole Sodium (Protonix Ec Tab) 40 mg PO DAILY [facility] Last Admin: 08/26/17 13:05 Dose: 40 mg - Labs Labs: 08/27/17 06:30 08/27/17 06:30 PT 11.4 SECONDS (9.4-12.5) 08/26/17 01:00 INR 1.00 (0.93-1.08) 08/26/17 01:00 APTT 40.0 Seconds (25.1-36.5) H 08/26/17 01:00 - Additional Findings Additional findings: - Constitutional Appears: Non-toxic, No Acute Distress - Head Exam Head Exam: ATRAUMATIC, NORMOCEPHALIC - Eye Exam Eye Exam: EOMI, PERRL. absent: Conjunctival injection, Scleral icterus Pupil Exam: PERRL - ENT Exam ENT Exam: Mucous Membranes Moist - Neck Exam Neck exam: Positive for: Full Rom, Normal Inspection. Negative for: Tenderness , Thyromegaly - Respiratory Exam Respiratory Exam: Decreased Breath Sounds. absent: Accessory Muscle Use, Chest Wall Tenderness, Rales, Rhonchi, Wheezes, Respiratory Distress - Cardiovascular Exam Cardiovascular Exam: RRR, +S1, +S2. absent: Systolic Murmur - GI/Abdominal Exam GI & Abdominal Exam: Normal Bowel Sounds, Soft. absent: Distended, Guarding, Rebound, Rigid, Tenderness - Extremities Exam Extremities exam: Positive for: pedal edema, pedal pulses present. Negative for : calf tenderness Additional comments: + venous stasis changes bilaterally. - Back Exam Back exam: NORMAL INSPECTION. absent: CVA tenderness (L), CVA tenderness (R) - Neurological Exam Neurological exam: Alert, Oriented x3 - Psychiatric Exam Psychiatric exam: Agitated - Skin Skin Exam: Dry, Normal Color, Warm Assessment and Plan - Assessment and Plan (Free Text) Assessment: 77 years old male with PMH CVA (with residual dementia), HTN, gout, presents for cough, generalized weakness, transient AMS, found to have acute left parietal lobe infarct: Transient AMS: - 2/2 acute ischemic CVA stroke vs worsening dementia - Triglycerides 77, Chol 155, LDL 95, HDL 36. - Carotid doppler US neg for significant stenosis. - CT head negative. MRI brain shows 6 mm acute.subacute white matter infarct in left parietal lobe. Moderate atrophy. - Neurology consulted. Appreciate recs. - C/w ASA 325 mg daily. Added low dose lipitor. Generalized weakness: 2/2 hypothyroid vs influenza vs dehydration vs sepsis related - Temp 100F, wbc 11.5 in ED. Given 2L NS bolus in ED - Thyroid panel normal. Influenza neg. - F/u orthostatics - CXR negative for any infiltrates. UA neg for infection. F/u CT chest/abd/ pelvis for sepsis source. - Lactate 1.4. - Lumbar puncture done yesterday negative for any infection, clear, colorless, 0 wbcs, 8 rbcs, glucose 55, protein 56. - C/w IVF, Robitussin for cough - ID and Neurology consulted. f/u recs. - Started on IV Vanco, Merrem, Acyclovir, Tamiflu per ID. Elevated trop: - Trop 0.05->0.05->0.06. EKG HR 126 Sinus tachy. - pt has no complaints of chest pain. - Consider Cardio consult. Elevated BUN/Cr: likely prerenal vs intrarenal; obstructive uropathy ruled out - Renal US neg for hydronephrosis or stones. - Pt denies hx of kidney disease - IVF @ 100. Cont to monitor Elevated PSA: - PSA 2.7. Consider Urology consult. Hx of Dementia: - Continue home Memantine Hx of HTN: - C/w home med Norvasc. - Will hold ARB in setting of ISABELL PPX: Protonix, Lovenox Sq Discussed with Dr Asencio. Laura Doe, PGY1
[2017-08-27] MEDS: Pantoprazole 40 mg EC Tab PO SCH (10:57)
[2017-08-27] MEDS: Aspirin 325 mg EC Tablets PO SCH (10:57)
[2017-08-27] MEDS: Enoxaparin 30 mg Syringe SC SCH (11:02)
[2017-08-27] MEDS: Oseltamivir 6 MG/ML PO SCH (11:03)
[2017-08-27] MEDS: Meropenem 500 MG in Sodium Chloride 0.9% 50 ML IVPB SCH (11:04)
[2017-08-27] MEDS: Meropenem 500 MG in Sodium Chloride 0.9% 100 ML IVPB SCH ×3 (13:01→21:54)
--- NOTE | 2017-08-27 14:44 | PN ---
DATE: 08/27/2017 NEUROLOGY FOLLOWUP CHIEF COMPLAINT: Followup for altered mental status. SUBJECTIVE: The patient was seen and examined at bedside. No acute events overnight. No focal deficits. His MRI of the brain showed an acute small left 6 mm parietal lobe infarct, likely secondary to uncontrolled hypertension and diffuse atherosclerotic disease. He is on the baby aspirin of 325 mg p.o. daily and Lipitor 10 mg. His blood pressures are much more controlled today. The carotid Doppler showed 20% to 39% proximal ICA stenosis with antegrade flow in the vertebral arteries. No acute events overnight. He is on Namenda for dementia at home. PAST MEDICAL HISTORY: TIA, hypertension, cognitive impairment, gout, venous stasis of left leg ulcer healed, nephrolithiasis. PAST SURGICAL HISTORY: None. FAMILY HISTORY: None. SOCIAL HISTORY: No illicit drug use, smoking, or EtOH abuse. REVIEW OF SYSTEMS: A 14-point review of systems is negative except as per the HPI. ALLERGIES: ALLERGIC TO PENICILLIN GIVES RASH. MEDICATIONS: Reviewed by nurse per reconciliation sheet. PHYSICAL EXAMINATION: VITAL SIGNS: Temperature 99.5, pulse rate 74, blood pressure 124/80, and respiratory rate 19. GENERAL: The patient is sitting up in bed, in no acute distress. HEENT: Head is atraumatic and normocephalic. PERRLA. Extraocular muscles are intact. NECK: Supple. No JVD. No adenopathy noted. LUNGS: Clear to auscultation. No adventitious sounds. HEART: S1 and S2. Normal rate and rhythm. No murmurs, rubs, or gallops. ABDOMEN: Soft, nontender, and nondistended. Bowel sounds are present. EXTREMITIES: No clubbing. No cyanosis. Peripheral pulses are 2+ bilaterally. NEUROLOGIC: The patient is alert and oriented to person, place, month, and year. Speech is fluent without any errors. Recall after 5 minutes is 0 out of 3. Poor attention. Slow thought process. Cranial nerves II through XII intact. Motor exam: Moves all extremities equally except for some reduced finger tap on the right when compared to the left. Toes are equivocal. Sensory exam: Decreased light touch, pinprick up to the calves bilaterally, decreased vibration of the toes and knees. DTRs are 1+ throughout. Coordination, [id number] intact. Gait is deferred for now. LABORATORY DATA: MRI of the brain shows a 6 mm left parietal acute infarct. Sodium was 140, potassium 4.1, chloride of 107, carbon dioxide 24, BUN of 25, creatinine 2.2, and random glucose is 96. ASSESSMENT: A 77-year-old man with history of transient ischemic attack, history of cognitive impairment on Namenda, hypertension, gout, presented with cough, generalized weakness, and had change in mental status with hypertensive urgency, found to have an acute infarct in the left parietal lobe small in nature secondary to uncontrolled hypertension and diffuse atherosclerotic disease. PLAN: At this time, we will recommend; 1. Aspirin 325 p.o. daily and atorvastatin of 40 mg daily for stroke prevention. 2. Continue on hydration and orthostatic vital signs. 3. Follow up with ID in regards to his generalized weakness and cough and continue current present medical management and get PT/OT evaluation. Thank you for this followup. No further neurological workup needed at this time. Johnny Solares MD
[2017-08-27] MEDS: Sodium Chloride 0.9% 1,000 ML IV SCH ×2 (15:35→15:36)
--- NOTE | 2017-08-27 16:39 | CP.PCM.PN ---
Subjective - Date & Time of Evaluation Date of Evaluation: 08/27/17 Time of Evaluation: 11:25 - Subjective Subjective: Comfortable, no fevers, not in distress. More awake. Objective - Vital Signs/Intake and Output Vital Signs (last 24 hours): Temp Pulse Resp BP Pulse Ox 98.9 F 86 18 157/92 H 99 08/26/17 19:18 08/27/17 07:42 08/27/17 07:42 08/27/17 07:42 08/27/17 07:42 - Medications Medications: Current Medications Acetaminophen (Tylenol 325 Mg Supp) 650 mg RC Q6H PRN PRN Reason: FOR TEMP>=99.5F Acetaminophen (Tylenol 325mg Tab) 650 mg PO Q6H PRN PRN Reason: FOR TEMP>=99.5F Acetylcysteine (Acetylcysteine 20%) 4 ml IH [id number] [facility] Last Admin: 08/27/17 05:40 Dose: Not Given Allopurinol (Zyloprim) 100 mg PO TID [facility] Last Admin: 08/26/17 18:54 Dose: 100 mg Aspirin (Ecotrin) 325 mg PO DAILY [facility] Last Admin: 08/26/17 13:05 Dose: 325 mg Benzonatate (Tessalon Perles) 200 mg PO TID [facility] Last Admin: 08/26/17 18:54 Dose: 200 mg Clonidine HCl (Catapres) 0.1 mg PO Q6 PRN PRN Reason: Other Last Admin: 08/26/17 17:06 Dose: 0.1 mg Enoxaparin Sodium (Lovenox) 30 mg SC DAILY [facility] PRN Reason: Protocol Guaifenesin (Robitussin) 100 mg PO Q4H PRN PRN Reason: Cough Doxycycline Hyclate 100 mg/ (Sodium Chloride) 100 mls @ 100 mls/hr IVPB Q12 [facility] PRN Reason: Protocol Last Admin: 08/27/17 04:22 Dose: 100 mls/hr Sodium Chloride (Sodium Chloride 0.9%) 1,000 mls @ 100 mls/hr IV .Q10H [facility] Stop: 08/30/17 21:44 Last Admin: 08/26/17 17:54 Dose: Not Given Acyclovir 900 mg/ Sodium (Chloride) 100 mls @ 100 mls/hr IV Q12H [facility] PRN Reason: Protocol Last Admin: 08/27/17 04:22 Dose: 100 mls/hr Meropenem 500 mg/ Sodium (Chloride) 50 mls @ 100 mls/hr IVPB Q12 [facility] PRN Reason: Protocol Stop: 09/02/17 10:31 Last Admin: 08/26/17 13:02 Dose: 100 mls/hr Meropenem 500 mg/ Sodium (Chloride) 100 mls @ 100 mls/hr IVPB Q12 [facility] Levalbuterol HCl (Xopenex) 0.63 mg IH [id number] [facility] Last Admin: 08/27/17 05:40 Dose: 0.63 mg Memantine (Namenda) 10 mg PO DAILY [facility] Last Admin: 08/26/17 15:42 Dose: 10 mg Metoprolol Tartrate (Lopressor) 25 mg PO Q12 [facility] Last Admin: 08/27/17 04:36 Dose: Not Given Oseltamivir Phosphate (Tamiflu Susp) 30 mg PO DAILY [facility] PRN Reason: Protocol Last Admin: 08/26/17 13:02 Dose: 30 mg Pantoprazole Sodium (Protonix Ec Tab) 40 mg PO DAILY [facility] Last Admin: 08/26/17 13:05 Dose: 40 mg - Labs Labs: 08/27/17 06:30 08/27/17 06:30 PT 11.4 SECONDS (9.4-12.5) 08/26/17 01:00 INR 1.00 (0.93-1.08) 08/26/17 01:00 APTT 40.0 Seconds (25.1-36.5) H 08/26/17 01:00 - Constitutional Appears: Non-toxic, No Acute Distress - Head Exam Head Exam: NORMAL INSPECTION - ENT Exam ENT Exam: Mucous Membranes Moist - Neck Exam Neck Exam: absent: Meningismus - Respiratory Exam Respiratory Exam: Decreased Breath Sounds - Cardiovascular Exam Cardiovascular Exam: +S1, +S2 - GI/Abdominal Exam GI & Abdominal Exam: Soft. absent: Tenderness Assessment and Plan - Assessment and Plan (Free Text) Plan: Assessment Systemic Inflammatory Response Syndrome, R/O sepsis from upper respiratory tract infection, R/O meningitis HTN CVA obesity with BMI 30 Plan Patient has been started on a dose of IV Vancomycin and continue Merrem, Acyclovir and Tamiflu pending final blood cx, urine cx, CSF cx; CSF not showing WBC's making meningitis and encephalitis unlikely reviewed CT C/A/P and did not show acute findings will monitor clinically follow up MRI brain
--- NOTE | 2017-08-27 21:44 | CARD ---
APPROVED REPORT EKG Measurement Heart [id number] <Conclusion> Sinus rhythm with premature atrial complexes Otherwise normal ECG
--- NOTE | 2017-08-27 22:51 | PN ---
DATE: 08/27/2017 SUBJECTIVE: The patient is still in the ER holding, bed 17. The patient is seen lying in the bed. The patient's is at bedside. Overnight nurse's notes were reviewed. The patient is alert, awake, and responsive. The patient denies any falls or syncope today in last 24 hours. PHYSICAL EXAMINATION: VITAL SIGNS: T-max is 100.1. Telemetry shows sinus rhythm, heart rate [id number]. Respirations 18-19. Blood pressure in the last 24 hours ranging going up to 180/100, 170/82, 177/106, 199/118, 150/101, 130/85, 132/74, 140/64, 157/92, 124/80, 137/85. O2 sat is 96-99%. HEENT: Head, normocephalic, atraumatic. HEENT examination shows pinkish conjunctivae. Anicteric sclerae. No oropharyngeal lesion. Questionable soft carotid bruit. No jugular venous distention noted. Chest: Kyphosis. LUNGS: Shows no rales, crackles, or wheezing. CARDIOVASCULAR: S1, S2, regular rhythm. Questionable soft systolic murmur left sternal border, right second intercostal space. ABDOMEN: Protuberant, soft. Positive bowel sounds noted. No hepatosplenomegaly. No organomegaly noted. No costovertebral angle tenderness. Genitalia: Male. RECTAL: Examination is deferred. EXTREMITIES: Shows no pitting, no calf tenderness, no Homans' sign. NEUROLOGIC: The patient is alert, awake, responsive. MUSCULOSKELETAL: Shows a body mass index of 30. Gait examination is not tested. Motor strength; the patient is able to move upper and lower extremity without assistance. PSYCHIATRIC: Negative. DIAGNOSTIC DATA: 08/27/2017, WBC down to 7.4, hemoglobin/hematocrit 12 and 36.5, platelet 244. Sodium 140, potassium 4.1, chloride 107, CO2 24, anion gap 14, BUN still 25, creatinine is still elevated at 2.3, GFR 34, glucose 96, hemoglobin A1c 6.2, magnesium is 1.7. LFTs are normal. Ammonia is less than 9. CPK is 450. Troponin is 0.06. Cholesterol 155, LDL 95, HDL 36, vitamin B12 greater than 1000. Thyroid profile is within normal limit. Phosphorus is 2.9 which is normal. Urine drug screen is negative. RPR negative. Influenza negative. CSF cultures, no growth. Urine cultures, no growth. Blood cultures, no growth. The patient underwent fluoroscopy-guided lumbar puncture done by Radiology. MRI of the brain, carotid ultrasound, MRA of the head reviewed. IMPRESSION AND PLAN: 1. 6-mm ifqhx-hb-sowybmqm white matter infarct of the left parietal lobe with 6-mm focus of restricted diffusion in the left parietal white matter consistent with small piwqk-pq-tulynxqb lacunar-type infarct. 2. Severe microvascular ischemic disease of the periventricular white mater. 3. Cerebral cortical atrophy of the brain. 4. Status post fluoroscopy-guided spinal tap. 5. Left renal cyst. 6. Fever. 7. Coronary artery calcification. 8. Diverticulosis of the descending and sigmoid colon. 9. Sinus tachycardia. 10. Systemic inflammatory response. 11. Obesity. 12. Deconditioning. 13. Gait dysfunction. 14. History of transient ischemic attack. 15. Cough cognitive impairment. 16. Uncontrolled hypertension. 17. History of gout. 18. Hypertensive urgency. 19. Vgner-sz-fjwvqovl left parietal lobe infarct secondary to uncontrolled hypertension and diffuse atherosclerotic disease. 20. Tachycardia. 21. Mild normocytic anemia. 22. Granulocytosis. 23. Proteinuria. 24. Microscopic hematuria. 25. Acute kidney injury with underlying chronic kidney disease. 26. Hyperuricemia. 27. Mildly elevated prostate-specific antigen. 28. Prediabetes with hemoglobin A1c of 6.2. Plan at this time, the patient has been seen by Infectious Disease. The patient has been seen by Neurology. Their recommendations are noted. Serial repeat labs ordered. Requested consults are Infectious Disease. The patient has been also requested to be evaluated by Nephrology. TCU evaluation ordered. CURRENT MEDICATIONS: 1. Mucomyst nebulizer with Xopenex nebulizer every 6 hours. 2. Clonidine 0.1 mg q.6h. p.r.n. for systolic blood pressure greater than or equal to 170, and diastolic blood pressure greater than or equal to 100. 3. Doxycycline 100 mg IV q.12. 4. Ecotrin 325 mg p.o. daily. 5. Lipitor 10 mg daily, which will be increased to Lipitor 40 mg daily. 6. The patient is on Lopressor 25 mg q.12. 7. Lovenox 30 mg subcu daily. 8. Meropenem 500 mg IV q.12. 9. Namenda 10 mg daily. 10. Protonix 40 mg daily. 11. The patient is on Tessalon Perles 200 mg three times a day. 12. The patient is on IV fluid 0.9 normal saline at 100 mL an hour. 13. The patient is on Tamiflu 30 mg daily by Infectious Disease. 14. Tylenol suppository p.o. q.6. p.r.n. for temperature greater than or equal to 99.5. 15. Xopenex nebulizer q.6 hours. 16. The patient is on acyclovir 900 mg IV q.12. 17. Allopurinol 100 mg three times a day. The patient has been ordered heart healthy diet. The patient has been ordered out of bed to chair. SCDs, ELICEO stockings has been ordered. At present, the patient's further management will be dependent upon the patient's clinical condition, hemodynamic status, and after evaluation by the physical therapist. The patient is yet to be evaluated by Physical Therapy. Occupational Therapy evaluation was noted. Physical Therapy evaluation is pending. The patient's case is referred for Transitional Care Unit evaluation. The patient's blood pressure has been stable in the last 12-24 hours, we will keep an eye on the blood pressure and medications will be titrated depending upon the patient's clinical condition. Dictated and electronically signed, not read. Bogdan Asencio MD
[2017-08-28] MEDS: Levalbuterol 0.63 MG/3 ML Inhal Soln UD IH SCH ×4 (02:07→20:50)
[2017-08-28] MEDS: Acetylcysteine 20% Inhal Soln (4ml) IH SCH ×4 (02:07→20:50)
[2017-08-28] MEDS: Sodium Chloride 0.9% 1,000 ML IV SCH (05:15)
[2017-08-28 06:27] LABS: BASO # 0.04 K/mm3 (0.0-2.0); BASO % 0.5 % (0.0-3.0); EOS # 0.4 (0.0-0.7); EOS % 4.9 % (1.5-5.0); GRAN # 4.96 (1.4-6.5); GRAN % 57.7 % (50.0-68.0); HEMOGLOBIN 12.1 g/dL (14.0-18.0); LYMPH # 2.2 (1.2-3.4); LYMPH % 25.6 % (22.0-35.0); MEAN CELL VOLUME 84.8 fl (80.0-105.0); MEAN CORPUSCULAR HEMOGLOBIN 27.4 pg (25.0-35.0); MEAN CORPUSCULAR HGB CONC 32.3 g/dl (31.0-37.0); MEAN PLATELET VOLUME 10.8 fl (7.0-11.0); MONO % 11.3 % (1.0-6.0); RBC 4.42 10^6/uL (3.5-6.1); RED CELL DISTRIBUTION WIDTH 15.3 % (11.5-14.5); WHITE BLOOD COUNT 8.6 10^3/ul (4.5-11.0)
[2017-08-28 06:48] LABS: ALBUMIN 3.3 g/dL (3.0-4.8); BILIRUBIN,DIRECT 0.4 mg/dL (0.0-0.4); CALCIUM 8.7 mg/dL (8.4-10.5); MAGNESIUM 1.8 mg/dL (1.7-2.2)
[2017-08-28 06:49] LABS: TROPONIN I 0.04 ng/mL
[2017-08-28 07:06] LABS: CK-MB 0.9 ng/mL (0.0-3.6)
--- NOTE | 2017-08-28 08:52 | CON ---
DATE: 08/28/2017 CARDIOLOGY CONSULTATION HISTORY OF PRESENT ILLNESS: The patient is a 77-year-old male who presents with confusion. Currently, his symptoms have improved. However, the patient still remains slow in mentation. PAST MEDICAL HISTORY: The patient's past medical history is notable for hypertension. He is unaware of whether he has had a history of cardiac disease, no diabetes mellitus. He denies chest pain, denies shortness of breath. SOCIAL HISTORY: He denies smoking. REVIEW OF SYSTEMS: 14 point review of systems is reviewed in detail. No cardiac symptomatology is noted. PHYSICAL EXAMINATION: VITAL SIGNS: Blood pressure 136/94, heart rate in the 60s. NECK: Negative JVD. LUNGS: Without rales. HEART: S1, S2. EXTREMITIES: Without edema. LABORATORY DATA; Includes EKG which is unremarkable. BUN and creatinine is 31 and 2.2 with a troponin of 0.04. The hemoglobin is 12.1. IMPRESSION: 1. Altered mental status. 2. Renal insufficiency. 3. Hypertension. 4. Need to rule out cerebrovascular accident. 5. Confusion. PLAN: Given these findings, it is likely the patient's altered mental status represents a new ischemic cerebral event. His borderline troponins are likely from his renal insufficiency. We will obtain an echocardiogram today to evaluate LV function. Epifanio Martinez MD
--- NOTE | 2017-08-28 11:21 | CARD ---
APPROVED REPORT EXAM: Two-dimensional and M-mode echocardiogram with Doppler and color Doppler. INDICATION CVA/TIA 2D DIMENSIONS Left Atrium (2D)3.5 (1.6-4.0cm)IVSd1.2 (0.7-1.1cm) LVDd4.6 (3.9-5.9cm)PWd1.0 (0.7-1.1cm) LVDs2.8 (2.5-4.0cm)FS (%) 39.0 % LVEF (%)69.6 (>50%) Aortic Valve AoV Peak Wkjxeryo546.0cm/Bobby Peak GR.8mmHg Mitral Valve MV E Kyzrmzbr01.5cm/sMV A Mtseyqel69.1cm/sE/A ratio0.6 TDI E/Lateral E'0.0E/Medial E'0.0 Tricuspid Valve TR Peak Ppxboble857hg/sRAP [id number] Peak Gr.6mmHg [id number] LEFT VENTRICLE The left ventricle is normal size. There is borderline concentric left ventricular hypertrophy. The left ventricular ejection fraction is within the normal range. Apical hypokinesis Transmitral Doppler flow pattern is Grade I-abnormal relaxation pattern. RIGHT VENTRICLE The right ventricle is normal size. There is normal right ventricular wall thickness. The right ventricular systolic function is normal. ATRIA The left atrium size is normal. The right atrium size is normal. AORTIC VALVE The aortic valve is not well visualized. No aortic regurgitation is present. There is no aortic valvular stenosis. MITRAL VALVE The mitral valve is mildly thickened. There is no mitral valve regurgitation noted. There is no mitral valve stenosis. TRICUSPID VALVE The tricuspid valve is normal in structure. GREAT VESSELS The aortic root is normal in size. The IVC collapses <50% with inspiration. PERICARDIAL EFFUSION There is a trace loculated anterior pericardial effusion. <Conclusion> The left ventricle is normal size. There is borderline concentric left ventricular hypertrophy. The left ventricular ejection fraction is within the normal range. Apical hypokinesis Transmitral Doppler flow pattern is Grade I-abnormal relaxation pattern.
[2017-08-28] MEDS: Pantoprazole 40 mg EC Tab PO SCH (11:27)
[2017-08-28] MEDS: Meropenem 500 MG in Sodium Chloride 0.9% 100 ML IVPB SCH (11:28)
[2017-08-28] MEDS: Enoxaparin 30 mg Syringe SC SCH (11:28)
[2017-08-28] MEDS: Aspirin 325 mg EC Tablets PO SCH (11:29)
--- NOTE | 2017-08-28 12:35 | US ---
PROCEDURE: Ultrasound of the Kidneys HISTORY: renal insuff COMPARISON: 04/05/2018 renal ultrasound. TECHNIQUE: Sonogram of the kidneys. FINDINGS: RIGHT KIDNEY: Measures: 4.5 x 10.4 cm. Normal in size, contour and echogenicity. No stone, solid mass lesion or hydronephrosis visualized. LEFT KIDNEY: Measures: 5.3 x 80.9 cm. Normal in size, contour and echogenicity. No stone, solid mass lesion or hydronephrosis visualized. Poorly visualized cyst lower pole left kidney 2.3 x 2.5 cm. OTHER FINDINGS: None. IMPRESSION: No acute findings related to/accounting for the clinical presentation. No significant interval change compared to the prior examination(s).
--- NOTE | 2017-08-28 13:16 | CP.PCM.PN ---
Subjective - Date & Time of Evaluation Date of Evaluation: 08/28/17 Time of Evaluation: 13:08 - Subjective Subjective: Laura Doe, PGY1, Medicine Progress Note for Dr Asencio: Patient seen and examined at bedside. No acute events overnight. Denies any new focal deficits, cp, sob, fever, chills, nausea, vomiting. States that his cough is better. Objective - Vital Signs/Intake and Output Vital Signs (last 24 hours): Temp Pulse Resp BP Pulse Ox 98.7 F 83 20 135/90 99 08/28/17 12:00 08/28/17 12:00 08/28/17 12:00 08/28/17 12:00 08/28/17 05:47 Intake and Output: 08/28/17 08/28/17 06:59 18:59 Intake Total 1360 Output Total 1700 Balance -340 - Medications Medications: Current Medications Acetaminophen (Tylenol 325 Mg Supp) 650 mg RC Q6H PRN PRN Reason: FOR TEMP>=99.5F Acetaminophen (Tylenol 325mg Tab) 650 mg PO Q6H PRN PRN Reason: FOR TEMP>=99.5F Last Admin: 08/27/17 12:00 Dose: 650 mg Acetylcysteine (Acetylcysteine 20%) 4 ml IH [id number] [facility] Last Admin: 08/28/17 08:10 Dose: 4 ml Allopurinol (Zyloprim) 100 mg PO TID [facility] Last Admin: 08/28/17 11:27 Dose: 100 mg Aspirin (Ecotrin) 325 mg PO DAILY [facility] Last Admin: 08/28/17 11:29 Dose: 325 mg Atorvastatin Calcium (Lipitor) 40 mg PO DIN [facility] Benzonatate (Tessalon Perles) 200 mg PO TID [facility] Last Admin: 08/28/17 11:27 Dose: 200 mg Clonidine HCl (Catapres) 0.1 mg PO Q6 PRN PRN Reason: Other Last Admin: 08/28/17 05:15 Dose: 0.1 mg Enoxaparin Sodium (Lovenox) 30 mg SC DAILY [facility] PRN Reason: Protocol Last Admin: 08/28/17 11:28 Dose: 30 mg Guaifenesin (Robitussin) 100 mg PO Q4H PRN PRN Reason: Cough Sodium Chloride (Sodium Chloride 0.9%) 1,000 mls @ 100 mls/hr IV .Q10H [facility] Stop: 08/30/17 21:44 Last Admin: 08/28/17 05:15 Dose: 100 mls/hr Meropenem 500 mg/ Sodium (Chloride) 100 mls @ 100 mls/hr IVPB Q12 [facility] Last Admin: 08/28/17 11:28 Dose: 100 mls/hr Levalbuterol HCl (Xopenex) 0.63 mg IH [id number] [facility] Last Admin: 08/28/17 08:10 Dose: 0.63 mg Memantine (Namenda) 10 mg PO DAILY [facility] Last Admin: 08/28/17 11:27 Dose: 10 mg Metoprolol Tartrate (Lopressor) 25 mg PO Q12 [facility] Last Admin: 08/28/17 11:26 Dose: 25 mg Oseltamivir Phosphate (Tamiflu Susp) 30 mg PO DAILY [facility] PRN Reason: Protocol Last Admin: 08/27/17 11:03 Dose: 30 mg Pantoprazole Sodium (Protonix Ec Tab) 40 mg PO DAILY [facility] Last Admin: 08/28/17 11:27 Dose: 40 mg - Labs Labs: 08/28/17 06:00 08/28/17 06:00 PT 11.4 SECONDS (9.4-12.5) 08/26/17 01:00 INR 1.00 (0.93-1.08) 08/26/17 01:00 APTT 40.0 Seconds (25.1-36.5) H 08/26/17 01:00 Assessment and Plan - Assessment and Plan (Free Text) Assessment: 77 years old male with PMH 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 - Carotid doppler US neg for significant stenosis. - CT head negative. MRI brain shows 6 mm acute/subacute white matter infarct in left parietal lobe. Moderate atrophy. - Neurology consulted. Appreciate recs. - C/w ASA 325 mg daily. Added low dose lipitor. Generalized weakness, resolved: 2/2 hypothyroid vs influenza vs dehydration vs sepsis related - Temp 100F, wbc 11.5 in ED. Given 2L NS bolus in ED - Thyroid panel normal. Influenza neg. - CXR negative for any infiltrates. UA neg for infection. F/u CT chest/abd/ pelvis for sepsis source. - Lactate 1.4. - Lumbar puncture done yesterday negative for any infection, clear, colorless, 0 wbcs, 8 rbcs, glucose 55, protein 56. - C/w IVF, Robitussin for cough - ID and Neurology consulted. Appreciate recs. Elevated trop: 2/2 renal insufficiency - Trop 0.05->0.05->0.06. EKG HR 126 Sinus tachy. - pt has no complaints of chest pain. - Cardio consulted. Appreciate recs Elevated BUN/Cr: likely prerenal vs intrarenal; obstructive uropathy ruled out - Renal US neg for hydronephrosis or stones. - Pt denies hx of kidney disease - IVF @ 100. Cont to monitor - Avoid nephrotoxic drugs. - renal consulted. F/u recs. Elevated PSA: - PSA 2.7. Consider Urology consult. Hx of Dementia: - Continue home Memantine Hx of HTN: - C/w home med Norvasc. - Will hold ARB in setting of ISABELL PPX: Protonix, Lovenox Sq Discussed with Dr Asencio. Laura Doe, PGY1
--- NOTE | 2017-08-28 14:52 | CP.PCM.PN ---
Subjective - Date & Time of Evaluation Date of Evaluation: 08/28/17 Time of Evaluation: 10:05 - Subjective Subjective: Comfortable, much more awake, no fevers, not in distress, improved cough, no diarrhea, no abdominal pain. Objective - Vital Signs/Intake and Output Vital Signs (last 24 hours): Temp Pulse Resp BP Pulse Ox 98.6 F 68 20 136/94 H 99 08/28/17 05:47 08/28/17 05:47 08/28/17 05:47 08/28/17 06:41 08/28/17 05:47 Intake and Output: 08/27/17 08/28/17 18:59 06:59 Intake Total 1360 Output Total 1700 Balance -340 - Medications Medications: Current Medications Acetaminophen (Tylenol 325 Mg Supp) 650 mg RC Q6H PRN PRN Reason: FOR TEMP>=99.5F Acetaminophen (Tylenol 325mg Tab) 650 mg PO Q6H PRN PRN Reason: FOR TEMP>=99.5F Last Admin: 08/27/17 12:00 Dose: 650 mg Acetylcysteine (Acetylcysteine 20%) 4 ml IH [id number] [facility] Last Admin: 08/28/17 02:07 Dose: 4 ml Allopurinol (Zyloprim) 100 mg PO TID [facility] Last Admin: 08/27/17 18:11 Dose: 100 mg Aspirin (Ecotrin) 325 mg PO DAILY [facility] Last Admin: 08/27/17 10:57 Dose: 325 mg Atorvastatin Calcium (Lipitor) 40 mg PO DIN [facility] Benzonatate (Tessalon Perles) 200 mg PO TID [facility] Last Admin: 08/27/17 18:11 Dose: 200 mg Clonidine HCl (Catapres) 0.1 mg PO Q6 PRN PRN Reason: Other Last Admin: 08/28/17 05:15 Dose: 0.1 mg Enoxaparin Sodium (Lovenox) 30 mg SC DAILY [facility] PRN Reason: Protocol Last Admin: 08/27/17 11:02 Dose: 30 mg Guaifenesin (Robitussin) 100 mg PO Q4H PRN PRN Reason: Cough Doxycycline Hyclate 100 mg/ (Sodium Chloride) 100 mls @ 100 mls/hr IVPB Q12 [facility] PRN Reason: Protocol Last Admin: 08/27/17 21:53 Dose: Not Given Sodium Chloride (Sodium Chloride 0.9%) 1,000 mls @ 100 mls/hr IV .Q10H [facility] Stop: 08/30/17 21:44 Last Admin: 08/28/17 05:15 Dose: 100 mls/hr Meropenem 500 mg/ Sodium (Chloride) 100 mls @ 100 mls/hr IVPB Q12 [facility] Last Admin: 08/27/17 21:54 Dose: 100 mls/hr Levalbuterol HCl (Xopenex) 0.63 mg IH [id number] [facility] Last Admin: 08/28/17 02:07 Dose: 0.63 mg Memantine (Namenda) 10 mg PO DAILY [facility] Last Admin: 08/27/17 10:57 Dose: 10 mg Metoprolol Tartrate (Lopressor) 25 mg PO Q12 [facility] Last Admin: 08/27/17 22:27 Dose: 25 mg Oseltamivir Phosphate (Tamiflu Susp) 30 mg PO DAILY [facility] PRN Reason: Protocol Last Admin: 08/27/17 11:03 Dose: 30 mg Pantoprazole Sodium (Protonix Ec Tab) 40 mg PO DAILY [facility] Last Admin: 08/27/17 10:57 Dose: 40 mg - Labs Labs: 08/28/17 06:00 08/28/17 06:00 PT 11.4 SECONDS (9.4-12.5) 08/26/17 01:00 INR 1.00 (0.93-1.08) 08/26/17 01:00 APTT 40.0 Seconds (25.1-36.5) H 08/26/17 01:00 - Constitutional Appears: Non-toxic - Head Exam Head Exam: NORMAL INSPECTION - Neck Exam Neck Exam: absent: Meningismus - Respiratory Exam Respiratory Exam: Decreased Breath Sounds - Cardiovascular Exam Cardiovascular Exam: +S1, +S2 - GI/Abdominal Exam GI & Abdominal Exam: Soft. absent: Tenderness Assessment and Plan - Assessment and Plan (Free Text) Plan: Assessment Systemic Inflammatory Response Syndrome, probably from acute CVA on the left lacunar area, no evidence of infection noted HTN CVA obesity with BMI 30 Plan will d/c antibiotics and observe, discussed with Dr. Asencio
--- NOTE | 2017-08-28 17:10 | PN ---
DATE: 08/28/2017 SUBJECTIVE: The patient is seen in room 275, bed 1. The patient is sitting up in the bed with the patient's at bedside. The patient was seen and examined with the medical oncologist. Overnight nurse's notes were reviewed.. The patient offered no complaint. The patient was found to be alert, awake, oriented x3 as per the nurse's notes. The patient stayed at the bedside most of the time during the last overnight nurse's notes. The patient was found to be alert, awake, oriented x3. PHYSICAL EXAMINATION: VITAL SIGNS: T-max is 100.1, down to 98.6. Telemetry shows sinus rhythm, heart rate in 70s/80s beats per minute, blood pressure 136/84, 136/94, 196/104, 151/98, 186/102, 175/100, 137/85, 124/80, respirations 20, O2 sat 99%. HEENT: Head: Normocephalic, atraumatic. HEENT: Shows pink conjunctivae. Anicteric sclerae. No facial asymmetry. NECK: Questionable soft carotid bruit. No visible jugular venous distention. CHEST: Kyphosis. LUNGS: Examination shows no rales, crackles, or wheezing. CARDIOVASCULAR: S1, S2, regular rhythm. Questionable soft systolic murmur, left sternal border, right second intercostal space, left second intercostal space, left sternal border. ABDOMEN: Soft, protuberant. Positive bowel sounds. No hepatosplenomegaly noted. No costovertebral angle tenderness. No guarding. No rigidity. No rebound tenderness. GENITALIA: Male. RECTAL: Deferred. EXTREMITIES: Show no pitting edema, no calf tenderness, no Homans signs. VASCULAR: Palpable pulses. No clubbing, no cyanosis. MUSCULOSKELETAL: Shows a body mass index of 30. Gait examination not tested. NEUROLOGIC: Cranial nerves II-XII limited. The patient is alert, awake, oriented x3. DIAGNOSTICS: From 08/28/2017: WBC 8.6, hemoglobin/hematocrit 12.1/37.5, platelets 261. Sodium 141, potassium 4.1, chloride 109, CO2 24, anion gap 12, BUN 31, creatinine 2.2, GFR 35, glucose 94, calcium 8.7, phosphorus 3.7, magnesium 1.8. LFTs are normal. CPK is down to 397. Troponin peak is 0.06, down to 0.04. Urine drug screen negative. RPR influenza negative. Microbiology, CSF, urine and blood cultures negative. The patient's renal ultrasound was done, report pending. Echocardiogram was reviewed. IMPRESSION AND PLAN: 1. 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 2. 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 3. Episodic uncontrolled hypertension. 4. Leukocytosis. 5. Mild normocytic anemia. 6. Transient granulocytosis leukocytosis. 7. Acute kidney injury versus underlying chronic kidney disease stage 3. 8. Prediabetes with hyperglycemia and hemoglobin A1c of 6.2. 9. Hyperuricemia. 10. Slightly elevated PSA of 2.7. 11. Most likely underlying chronic kidney disease stage 3. 12. Mild rhabdomyolysis with elevated CPK. 13. Proteinuria. 14. Microscopic hematuria. 15. Status post fluoroscopic guided spinal tap. 16. Left ventricular ejection fraction of 70%. 17. Concentric left ventricular hypertrophy. 18. Apical hypokinesis with grade 1 abnormal relaxation pattern. 19. Mildly thickened mitral valve. 20. Apical hypokinesis. 21. Deconditioning. 22. Gait dysfunction. 23. History of hypertension, dementia and hyperuricemia. 24. Hypertension. 25. Dyslipidemia. 26. Dementia. 27. Cough. PLAN: At this time, the patient's case has been referred for TCU evaluation. The patient has been ordered repeat chemistry. Current medications, Mucomyst and Xopenex nebulizer every 6 hours, clonidine 0.1 mg q.6 h. p.r.n., Ecotrin 325 daily, Lipitor 40 mg daily, Lopressor 25 mg q.12 h., Lovenox 30 mg subcu daily, meropenem 500 mg IV q.12 h., Namenda 10 mg daily, Protonix 40 mg daily, Robitussin 100 mg q.4 h. p.r.n. The patient is on 0.9 normal saline at 100 mL an hour, Tamiflu 30 mg p.o. daily, Tessalon Perles 200 three times a day, Tylenol 650 q.6 h. p.r.n., Xopenex 0.63 mg every 6 hours, Zyloprim 100 mg three times a day. The patient's case was discussed with Dr. De Jesus. He is recommending we will stop all the IV antibiotics. The patient was ordered renal ultrasound after the patient was seen by Dr. Epifanio Martinez. Current consultation: Cardiology, Infectious Disease, Nephrology, Neurology. The patient's case has been referred for physical therapy, occupational therapy, Tonya, ELICEO herbert. The patient's condition, diagnosis, test results, recommendation by all the physician involved in the care of the patient were extensively explained to the patient's who was present at the bedside. All questions and concerns answered. I have explained to the patient's and the patient in layman's language about the patient having a brain stroke and all other diagnostic details, test results were explained to the patient and the patient's in layman's language. All questions and concerns answered. At present, the patient is yet to be seen by the physical therapist though the physical therapy and occupational therapy orders are in since 08/26/2017 Dictated and electronically signed, not read. Bogdan Asencio MD
--- NOTE | 2017-08-28 17:18 | CP.PCM.PN ---
Subjective - Date & Time of Evaluation Date of Evaluation: 08/28/17 Time of Evaluation: 16:00 - Subjective Subjective: DATE: 08/28/2017 NEUROLOGY FOLLOWUP CHIEF COMPLAINT: Followup for altered mental status. SUBJECTIVE: The patient was seen and examined at bedside. No acute events overnight. No focal deficits. His MRI of the brain showed an acute small left 6 mm parietal lobe infarct, likely secondary to uncontrolled hypertension and diffuse atherosclerotic disease. He is on the baby aspirin of 325 mg p.o. daily and Lipitor 10 mg. The carotid Doppler showed 20% to 39% proximal ICA stenosis with antegrade flow in the vertebral arteries. No acute events overnight. PAST MEDICAL HISTORY: TIA, hypertension, cognitive impairment, gout, venous stasis of left leg ulcer healed, nephrolithiasis. PAST SURGICAL HISTORY: None. FAMILY HISTORY: None. SOCIAL HISTORY: No illicit drug use, smoking, or EtOH abuse. REVIEW OF SYSTEMS: A 14-point review of systems is negative except as per the HPI. ALLERGIES: ALLERGIC TO PENICILLIN GIVES RASH. MEDICATIONS: Reviewed by nurse per reconciliation sheet. PHYSICAL EXAMINATION: VITAL SIGNS: Reviewed GENERAL: The patient is sitting up in bed, in no acute distress. HEENT: Head is atraumatic and normocephalic. PERRLA. Extraocular muscles are intact. NECK: Supple. No JVD. No adenopathy noted. LUNGS: Clear to auscultation. No adventitious sounds. HEART: S1 and S2. Normal rate and rhythm. No murmurs, rubs, or gallops. ABDOMEN: Soft, nontender, and nondistended. Bowel sounds are present. EXTREMITIES: No clubbing. No cyanosis. Peripheral pulses are 2+ bilaterally. NEUROLOGIC: The patient is alert and oriented to person, place, month, and year. Speech is fluent without any errors. Recall after 5 minutes is 0 out of 3. Poor attention. Slow thought process. Cranial nerves II through XII intact. Motor exam: Moves all extremities equally except for some reduced finger tap on the right when compared to the left. Toes are equivocal. Sensory exam: Decreased light touch, pinprick up to the calves bilaterally, decreased vibration of the toes and knees. DTRs are 1+ throughout. Coordination, [id number] intact. Gait is deferred for now. LABORATORY DATA: MRI of the brain shows a 6 mm left parietal acute infarct. ASSESSMENT: A 77-year-old man with history of transient ischemic attack, history of cognitive impairment on Namenda, hypertension, gout, presented with cough, generalized weakness, and had change in mental status with hypertensive urgency, found to have an acute infarct in the left parietal lobe small in nature secondary to uncontrolled hypertension and diffuse atherosclerotic disease. PLAN: At this time, we will recommend; 1. Aspirin 325 p.o. daily and atorvastatin of 40 mg daily for stroke prevention. 2. Continue on hydration and orthostatic vital signs. 3. Follow up with ID in regards to his generalized weakness and cough and continue current present medical management and get PT/OT evaluation. Thank you for this followup. Johnny Solares MD Objective - Vital Signs/Intake and Output Vital Signs (last 24 hours): Temp Pulse Resp BP Pulse Ox 98.7 F 83 20 135/90 99 08/28/17 12:00 08/28/17 12:00 08/28/17 12:00 08/28/17 12:00 08/28/17 05:47 Intake and Output: 08/28/17 08/28/17 06:59 18:59 Intake Total 1360 300 Output Total 1700 300 Balance -340 0 - Medications Medications: Current Medications Acetaminophen (Tylenol 325 Mg Supp) 650 mg RC Q6H PRN PRN Reason: FOR TEMP>=99.5F Acetaminophen (Tylenol 325mg Tab) 650 mg PO Q6H PRN PRN Reason: FOR TEMP>=99.5F Last Admin: 08/27/17 12:00 Dose: 650 mg Acetylcysteine (Acetylcysteine 20%) [id number] [facility] Last Admin: 08/28/17 08:10 Dose: 4 ml Allopurinol (Zyloprim) [address] [facility] Last Admin: 08/28/17 14:41 Dose: 100 mg Aspirin (Ecotrin) [address] [facility] Last Admin: 08/28/17 11:29 Dose: 325 mg Atorvastatin Calcium (Lipitor) [address] [facility] Benzonatate (Tessalon Perles) [address] [facility] Last Admin: 08/28/17 14:41 Dose: 200 mg Clonidine HCl (Catapres) 0.1 mg PO Q6 PRN PRN Reason: Other Last Admin: 08/28/17 05:15 Dose: 0.1 mg Enoxaparin Sodium (Lovenox) [address] [facility] PRN Reason: Protocol Last Admin: 08/28/17 11:28 Dose: 30 mg Guaifenesin (Robitussin) 100 mg PO Q4H PRN PRN Reason: Cough Levalbuterol HCl (Xopenex) 0.[id number] [facility] Last Admin: 08/28/17 08:10 Dose: 0.63 mg Memantine (Namenda) [address] [facility] Last Admin: 08/28/17 11:27 Dose: 10 mg Metoprolol Tartrate (Lopressor) [address] [facility] Last Admin: 08/28/17 11:26 Dose: 25 mg Pantoprazole Sodium (Protonix Ec Tab) [address] [facility] Last Admin: 08/28/17 11:27 Dose: 40 mg - Labs Labs: 08/28/17 06:00 08/28/17 06:00 PT 11.4 SECONDS (9.4-12.5) 08/26/17 01:00 INR 1.00 (0.93-1.08) 08/26/17 01:00 APTT 40.0 Seconds (25.1-36.5) H 08/26/17 01:00
[2017-08-28 23:24] VITALS: O2SAT 94
[2017-08-29] MEDS: Acetylcysteine 20% Inhal Soln (4ml) IH SCH ×2 (01:39→07:38)
[2017-08-29] MEDS: Levalbuterol 0.63 MG/3 ML Inhal Soln UD IH SCH ×3 (01:39→14:33)
--- NOTE | 2017-08-29 02:10 | CON ---
DATE: REASON FOR CONSULTATION: Renal insufficiency, altered mental status, CVA? HISTORY OF PRESENT ILLNESS: A 77-year-old male previously unknown to me, was admitted on 08/26/2017. The patient was brought to the emergency room with complaints of weakness and fatigue that started 4-6 hours prior to presentation. As per the history the patient was eating dinner when he began to feel tired and weak. He was unable to keep his head up. Reportedly the patient had cough and fever of 101 at home. There was no history of chills or chest pain. No history of any shortness of breath, nausea, vomiting or diarrhea. Extreme weakness, inability to walk. Some dizziness. Some lightheadedness. In the emergency room, he was found to have blood pressure of 178/91, temperature of 99.8. He was also found to have elevated BUN and creatinine of 25/2.5. The patient was admitted for an altered mental status. His CT of the head showed no attenuation abnormality in periventricular white matter consistent with microvascular disease. CT of the abdomen, pelvis and chest showed no acute findings. Renal ultrasound showed right kidney to be 9.8 cm and left kidney to be also 9.8 cm, no stone or masses. MRI of the brain showed a 6 mm acute or subacute white matter infarct in the left parietal lobe. The patient is being treated for acute stroke. All his cultures have been negative. He is also receiving IV fluids. Consultation is requested for elevated BUN and creatinine. PAST MEDICAL AND SURGICAL HISTORY: Longstanding hypertension, CVA x2, chronic kidney disease, no history of diabetes, no history of any CAD. FAMILY HISTORY: Hypertension. REFERRING PHYSICIAN: No smoking, no alcohol use, no IV drug abuse. ALLERGIES: PENICILLIN. MEDICATIONS AT HOME: Amlodipine 5 mg daily, Micardis 80 mg daily, Namenda and Allopurinol. CURRENT MEDICATIONS: Clonidine 0.1 q.6 p.r.n., aspirin 325, Lipitor 40, Lopressor 25 q.12, Lovenox 30, Namenda 10, Protonix 40, normal saline at 100, Tylenol, Xopenex and allopurinol. PHYSICAL EXAMINATION GENERAL: Elderly male lying in bed. VITAL SIGNS: Blood pressure 135/90, heart rate 83, respiratory rate 20 and temperature 98.7. HEENT: Normocephalic and atraumatic, positive pallor. NECK: Supple, no JVD. LUNGS: Bilateral equal air entry, bilateral equal expansion, no rales. CARDIAC: S1 and S2, regular rate and rhythm, no murmur, no rub. ABDOMEN: Obese, distended, soft, nontender, bowel sounds present. EXTREMITIES: No lower extremity edema. INTAKE AND OUTPUT: 1365/1700. LABORATORY DATA: WBC 8.6, hemoglobin 12, hematocrit 37.5 and platelets 261. Sodium 141, potassium 4.1, chloride 109, CO2 of 24, BUN 31, creatinine 2.2, glucose 94, calcium 8.7, phosphorus 3.7 magnesium 1.8 and albumin 3.3. REVIEW OF SYSTEMS: All systems are reviewed, pertinent positives as mentioned in history of presenting illness, rest unremarkable. ASSESSMENT: 1. Acute kidney injury superimposed on chronic kidney disease stage 3, suspect. 2. Acute cerebrovascular accident. 3. Severe hypertension. 4. Mild hypernatremia. 5. Proteinuria. PLAN: 1. Continue to monitor urine output closely. 2. Monitor daily electrolytes. 3. Continue current antihypertensives. 4. Discontinue IV fluids. 5. Get outpatient lab work from primary care doctor. 6. Further recommendations to follow. Thank you for the courtesy of this consultation. We will follow this patient closely with you. Jo Prieto MD
[2017-08-29 06:45] LABS: ALBUMIN 3.2 g/dL (3.0-4.8); BILIRUBIN,DIRECT 0.4 mg/dL (0.0-0.4); CALCIUM 8.6 mg/dL (8.4-10.5); MAGNESIUM 1.7 mg/dL (1.7-2.2)
[2017-08-29 06:47] LABS: TROPONIN I 0.03 ng/mL
[2017-08-29] MEDS: Aspirin 325 mg EC Tablets PO SCH (09:32)
[2017-08-29] MEDS: Enoxaparin 30 mg Syringe SC SCH (09:33)
--- NOTE | 2017-08-29 10:30 | PN ---
DATE: 08/29/2017 CARDIOLOGY FOLLOWUP SUBJECTIVE: The patient is comfortable in bed. OBJECTIVE: VITAL SIGNS: Blood pressure 162/96, heart rate is in the 80s. NECK: Negative JVD. LUNGS: Without rales. HEART: S1, S2. EXTREMITIES: Without edema. LABORATORY DATA: Includes a hemoglobin which was 12.1. Chemistries, BUN and creatinine are 35 and 2.1 which is stable over the past several days. Echocardiogram reveals good LV function without aortic stenosis. There is report of segmental wall motion abnormality of the apex. Renal ultrasound reveals no acute findings. IMPRESSION: 1. Confusion. 2. Hypertension which is better controlled. 3. Rule out cerebrovascular accident. 4. Normal left ventricular function. 5. Renal insufficiency. 6. Segmental wall motion abnormality of the left ventricle implying coronary artery disease. Given these findings, we will DC telemetry today. From a cardiac perspective, the patient will need to go home on antihypertensive medications. We will increase his increase clonidine to 0.2 q.8 h. We will arrange for an outpatient stress test for next week. Epifanio Martinez MD
[2017-08-29] MEDS: Pantoprazole 40 mg EC Tab PO SCH (10:54)
[2017-08-29 13:23] VITALS: BP 160/90; PULSE 60; RESP 18; TEMP 98.1
--- NOTE | 2017-08-29 14:34 | CP.PCM.PN ---
Subjective - Date & Time of Evaluation Date of Evaluation: 08/29/17 Time of Evaluation: 10:20 - Subjective Subjective: Comfortable, no fevers. Objective - Vital Signs/Intake and Output Vital Signs (last 24 hours): Temp Pulse Resp BP Pulse Ox 99.3 F 63 20 190/94 H 94 L 08/29/17 06:00 08/29/17 06:00 08/29/17 06:00 08/29/17 06:00 08/29/17 06:00 Intake and Output: 08/28/17 08/29/17 18:59 06:59 Intake Total 300 100 Output Total 300 150 Balance 0 -50 - Medications Medications: Current Medications Acetaminophen (Tylenol 325 Mg Supp) 650 mg RC Q6H PRN PRN Reason: FOR TEMP>=99.5F Acetaminophen (Tylenol 325mg Tab) 650 mg PO Q6H PRN PRN Reason: FOR TEMP>=99.5F Last Admin: 08/27/17 12:00 Dose: 650 mg Acetylcysteine (Acetylcysteine 20%) 4 ml IH [id number] [facility] Last Admin: 08/29/17 01:39 Dose: Not Given Allopurinol (Zyloprim) 100 mg PO TID [facility] Last Admin: 08/28/17 17:58 Dose: 100 mg Aspirin (Ecotrin) 325 mg PO DAILY [facility] Last Admin: 08/28/17 11:29 Dose: 325 mg Atorvastatin Calcium (Lipitor) 40 mg PO DIN [facility] Last Admin: 08/28/17 17:58 Dose: 40 mg Benzonatate (Tessalon Perles) 200 mg PO TID [facility] Last Admin: 08/28/17 17:58 Dose: 200 mg Clonidine HCl (Catapres) 0.1 mg PO Q6 PRN PRN Reason: Other Last Admin: 08/29/17 05:54 Dose: 0.1 mg Enoxaparin Sodium (Lovenox) 30 mg SC DAILY [facility] PRN Reason: Protocol Last Admin: 08/28/17 11:28 Dose: 30 mg Guaifenesin (Robitussin) 100 mg PO Q4H PRN PRN Reason: Cough Levalbuterol HCl (Xopenex) 0.63 mg IH [id number] [facility] Last Admin: 08/29/17 01:39 Dose: Not Given Memantine (Namenda) 10 mg PO DAILY [facility] Last Admin: 08/28/17 11:27 Dose: 10 mg Metoprolol Tartrate (Lopressor) 25 mg PO Q12 [facility] Last Admin: 08/28/17 22:05 Dose: 25 mg Pantoprazole Sodium (Protonix Ec Tab) 40 mg PO DAILY [facility] Last Admin: 08/28/17 11:27 Dose: 40 mg - Labs Labs: 08/28/17 06:00 08/29/17 05:30 PT 11.4 SECONDS (9.4-12.5) 08/26/17 01:00 INR 1.00 (0.93-1.08) 08/26/17 01:00 APTT 40.0 Seconds (25.1-36.5) H 08/26/17 01:00 - Constitutional Appears: Non-toxic - Head Exam Head Exam: NORMAL INSPECTION - Respiratory Exam Respiratory Exam: Decreased Breath Sounds - Cardiovascular Exam Cardiovascular Exam: +S1, +S2 - GI/Abdominal Exam GI & Abdominal Exam: Soft. absent: Tenderness Assessment and Plan - Assessment and Plan (Free Text) Plan: Assessment Systemic Inflammatory Response Syndrome, probably from acute CVA on the left lacunar area, no evidence of infection noted HTN CVA obesity with BMI 30 Plan monitor off antibiotics and observe, discussed with Dr. Asencio previously
--- NOTE | 2017-08-29 15:00 | CP.PCM.DIS ---
Provider - Provider Date of Admission: 08/26/17 07:41 Attending physician: Bogdan Asencio MD Consults: Dr Estefany Lazo Time Spent in preparation of Discharge (in minutes): 35 Diagnosis - Discharge Diagnosis (1) CVA (cerebral vascular accident) Status: Acute (2) Bronchitis Status: Acute (3) Weakness Status: Acute Hospital Course - Lab Results Lab Results: Micro Results 08/26/17 07:45 Cerebral Spinal Fluid CSF Culture - Preliminary NO GROWTH AFTER 3 DAYS Most Recent Lab Values WBC 8.6 10^3/ul (4.5-11.0) 08/28/17 06:00 RBC 4.42 10^6/uL (3.5-6.1) 08/28/17 06:00 Hgb 12.1 g/dL (14.0-18.0) L 08/28/17 06:00 Hct 37.5 % (42.0-52.0) L 08/28/17 06:00 MCV 84.8 fl (80.0-105.0) 08/28/17 06:00 MCH 27.4 pg (25.0-35.0) 08/28/17 06:00 MCHC 32.3 g/dl (31.0-37.0) 08/28/17 06:00 RDW 15.3 % (11.5-14.5) H 08/28/17 06:00 Plt Count 261 10^3/uL (120.0-450.0) 08/28/17 06:00 MPV 10.8 fl (7.0-11.0) 08/28/17 06:00 Gran % 57.7 % (50.0-68.0) 08/28/17 06:00 Lymph % (Auto) 25.6 % (22.0-35.0) 08/28/17 06:00 [place] % (Auto) 11.3 % (1.0-6.0) H 08/28/17 06:00 Eos % (Auto) 4.9 % (1.5-5.0) 08/28/17 06:00 Baso % (Auto) 0.5 % (0.0-3.0) 08/28/17 06:00 Gran # 4.96 (1.4-6.5) 08/28/17 06:00 Lymph # 2.2 (1.2-3.4) 08/28/17 06:00 [place] # 1.0 (0.1-0.6) H 08/28/17 06:00 Eos # 0.4 (0.0-0.7) 08/28/17 06:00 Baso # 0.04 K/mm3 (0.0-2.0) 08/28/17 06:00 PT 11.4 SECONDS (9.4-12.5) 08/26/17 01:00 INR 1.00 (0.93-1.08) 08/26/17 01:00 APTT 40.0 Seconds (25.1-36.5) H 08/26/17 01:00 pO2 31 mm/Hg (30-55) 08/26/17 01:00 VBG pH 7.39 (7.32-7.43) 08/26/17 01:00 VBG pCO2 50.0 (40-60) 08/26/17 01:00 VBG HCO3 30.3 mmol/l (21-28) H 08/26/17 01:00 VBG Total CO2 31.8 mmol.L (22-28) H 08/26/17 01:00 VBG O2 Sat (Calc) 62.8 % (40-65) 08/26/17 01:00 VBG Base Excess 4.2 mmol/L (0.0-2.0) H 08/26/17 01:00 VBG Potassium 4.5 mmol/L (3.6-5.2) 08/26/17 01:00 Sodium 136.0 mmol/L (132-148) 08/26/17 01:00 Chloride 101.0 mmol/L (98-107) 08/26/17 01:00 Glucose 140 mg/dl (75-110) H 08/26/17 01:00 Lactate 1.4 mmol/L (0.7-2.1) 08/26/17 01:00 FiO2 21.0 % 08/26/17 01:00 Sodium 141 mmol/L (132-148) 08/29/17 05:30 Potassium 3.7 mmol/L (3.6-5.0) 08/29/17 05:30 Chloride 110 mmol/L (98-107) H 08/29/17 05:30 Carbon Dioxide 24 mmol/L (21-33) 08/29/17 05:30 Anion Gap 11 (10-20) 08/29/17 05:30 BUN 35 mg/dL (7-21) H 08/29/17 05:30 Creatinine 2.1 mg/dl (0.8-1.5) H 08/29/17 05:30 Est GFR ( Amer) 37 08/29/17 05:30 Est GFR (Non-Af Amer) 31 08/29/17 05:30 POC Glucose (mg/dL) 135 mg/dL (65-110) H 08/26/17 00:33 Random Glucose 93 mg/dL (70-110) 08/29/17 05:30 Hemoglobin A1c 6.2 % (4.2-6.5) 08/26/17 12:00 Lactic Acid 0.9 mmol/L (0.7-2.1) 08/26/17 09:00 Uric Acid 9.3 mg/dL (3.5-8.5) H 08/26/17 01:00 Calcium 8.6 mg/dL (8.4-10.5) 08/29/17 05:30 Phosphorus 4.1 mg/dL (2.5-4.5) 08/29/17 05:30 Magnesium 1.7 mg/dL (1.7-2.2) 08/29/17 05:30 Total Bilirubin 0.4 mg/dL (0.2-1.3) 08/29/17 05:30 Direct Bilirubin 0.4 mg/dL (0.0-0.4) 08/29/17 05:30 AST 34 U/L (17-59) 08/29/17 05:30 ALT 21 U/L (7-56) 08/29/17 05:30 Alkaline Phosphatase 37 U/L (38-126) L 08/29/17 05:30 Ammonia < 9 umol/L (9-33) L 08/26/17 13:10 Total Creatine Kinase 215 U/L (35-230) 08/29/17 05:30 CK-MB (CK-2) 0.9 ng/mL (0.0-3.6) 08/28/17 06:00 CK-MB (CK-2) % Cancelled 08/26/17 13:10 Troponin I 0.03 ng/mL D 08/29/17 05:30 Total Protein 6.4 g/dL (5.8-8.3) 08/29/17 05:30 Albumin 3.2 g/dL (3.0-4.8) 08/29/17 05:30 Globulin 3.2 gm/dL 08/29/17 05:30 Albumin/Globulin Ratio 1.0 (1.1-1.8) L 08/29/17 05:30 Triglycerides 77 mg/dL (35-160) 08/26/17 13:10 Cholesterol 155 mg/dL (130-200) 08/26/17 13:10 LDL Cholesterol Direct 95 mg/dL (0-129) 08/26/17 13:10 HDL Cholesterol 36 mg/dL (29-60) 08/26/17 13:10 Prostate Specific Ag 2.7 ng/mL (0.00-2.5) H 08/26/17 01:00 Vitamin B12 > 1000 pg/mL (239-931) H 08/26/17 09:00 Folate > 20.0 ng/mL 08/26/17 09:00 Procalcitonin 0.05 NG/ML (0.19-0.49) L 08/26/17 01:00 Free T4 1.02 ng/dL (0.78-2.19) 08/26/17 09:00 Thyroxine (T4) 7.4 ug/dL (5.5-11.0) 08/26/17 09:00 TSH 3rd Generation 0.76 mIU/mL (0.46-4.68) 08/26/17 09:00 Venous Blood Potassium 4.5 mmol/L (3.6-5.2) 08/26/17 01:00 Urine Color Yellow (YELLOW) 08/26/17 01:12 Urine Appearance Clear (CLEAR) 08/26/17 01:12 Urine pH 8.5 (4.7-8.0) 08/26/17 01:12 Ur Specific [place] 1.020 (1.005-1.035) 08/26/17 01:12 Urine Protein 100 mg/dL (<30 mg/dL) H 08/26/17 01:12 Urine Glucose (UA) Negative mg/dL (NEGATIVE) 08/26/17 01:12 Urine Ketones Negative mg/dL (NEGATIVE) 08/26/17 01:12 Urine Blood Trace-intact (NEGATIVE) H 08/26/17 01:12 Urine Nitrate Negative (NEGATIVE) 08/26/17 01:12 Urine Bilirubin Negative (NEGATIVE) 08/26/17 01:12 Urine Urobilinogen 0.2 E.U./dL (<1 E.U./dL) 08/26/17 01:12 Ur Leukocyte Esterase Negative Jany/uL (NEGATIVE) 08/26/17 01:12 Urine RBC 2 - 5 /hpf (0-2) 08/26/17 01:12 Urine WBC 0 - 2 /hpf (0-6) 08/26/17 01:12 Ur Epithelial Cells 0 - 2 /hpf (0-5) 08/26/17 01:12 Fluid Type Spinal fluid 08/26/17 07:45 CSF Volume 3 mL (0-1) H 08/26/17 07:45 CSF Appearance Clear/colorless (CLEAR) 08/26/17 07:45 CSF WBC 0.0 /uL (0.0-5.0) 08/26/17 07:45 CSF RBC 8.0 /uL (0.0-0.0) H 08/26/17 07:45 CSF Total Cell Counted TEST NOT PERFORMED 08/26/17 07:45 CSF Monos/Macrophages TEST NOT PERFORMED 08/26/17 07:45 CSF Comment TEST NOT PERFORMED 08/26/17 07:45 CSF Glucose 55 mg/dL (40-70) 08/26/17 07:45 CSF Total Protein 56.0 mg/dL (12-60) 08/26/17 07:45 Urine Opiates Screen Negative (NEGATIVE) 08/27/17 00:50 Urine Methadone Screen Negative (NEGATIVE) 08/27/17 00:50 Ur Barbiturates Screen Negative (NEGATIVE) 08/27/17 00:50 Ur Phencyclidine Scrn Negative (NEGATIVE) 08/27/17 00:50 Ur Amphetamines Screen Negative (NEGATIVE) 08/27/17 00:50 U Benzodiazepines Scrn Negative (NEGATIVE) 08/27/17 00:50 U Oth Cocaine Metabols Negative (NEGATIVE) 08/27/17 00:50 U Cannabinoids Screen Negative (NEGATIVE) 08/27/17 00:50 RPR Nonreactive (NONREACTIVE) 08/26/17 09:00 Influenza Typ A,B (EIA) Negative for flu a/b (NEGATIVE) 08/26/17 23:30 Ur L.pneumophila Ag Negative (NEGATIVE) 08/27/17 20:45 - Hospital Course Hospital Course: 77 years old male with PMH 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 at bedside, history obtained from patient and his . Patient has been having an ongoing cough for past few months, however, the cough has worsened since yesterday with white sputum, low grade fever. Pt also verbalizes ongoing dizziness for many years that has worsened since yesterday. As per , pt seemed altered last night and was not appropriately responding to her questions. However, she states that he is back to his baseline currently. Pt also c/o increased fatigue and generalized weakness. Denies LOC, sob, wheezing, cp, nausea, vomiting, appetite changes, weight loss, back pain, neck stiffness, headache, abdominal pain, urinary symptoms, leg swelling. In ED, pt had low grade fever 100F, BP 163/93, HR 93, saturating well on RA. Labs showed mild leukocytosis 11.5, elevated BUN/ Cr 25/2.5, initial trop 0.05. Given 2L NS bolus and Levaquin IVx1. CT head neg for any acute changes. CXR neg for any infiltrates. Carotid US neg for any significant stenosis. Brain MRI showed acute CVA 6 mm in left parietal lobe. Head MRA neg. Lumbar puncture in ED was also negative for any infetious/AI etiology. CSF culture showed no growth. Echocardiogram showed EF 70% and LH, no valvular abnormalities. Pt started on statin, ASA. Discussed the medication regimen well with patient and his . Follow up with PMD in 1 week. Discharge Exam - Head Exam Head Exam: NORMAL INSPECTION - Eye Exam Eye Exam: Normal appearance, PERRL Pupil Exam: PERRL - ENT Exam ENT Exam: Mucous Membranes Moist - Neck Exam Neck exam: Full Rom - Respiratory Exam Respiratory Exam: Clear to PA & Lateral. absent: Chest Wall Tenderness, Respiratory Distress - Cardiovascular Exam Cardiovascular Exam: RRR, +S1, +S2. absent: Systolic Murmur - GI/Abdominal Exam GI & Abdominal Exam: Normal Bowel Sounds, Soft. absent: Distended, Firm - Extremities Exam Extremities exam: normal inspection - Neurological Exam Neurological exam: Alert, Oriented x3 - Psychiatric Exam Psychiatric exam: Normal Mood - Skin Skin Exam: Dry, Normal Color, Warm Discharge Plan - Discharge Medications Prescriptions: Atorvastatin [Lipitor] 40 mg PO DAILY #30 tab Benzonatate [Tessalon Perles] 200 mg PO TID #30 sgl Memantine [Namenda] 10 mg PO DAILY #90 tab Pantoprazole [Protonix EC Tab] 40 mg PO DAILY #30 ect - Follow Up Plan Condition: GOOD Disposition: HOME/ ROUTINE Instructions: Ischemic Stroke (DC), Altered Mental Status (GEN) Additional Instructions: DISCHARGE HOME WITH VNA AND HOME PT FOLLOW UP WITHIN 1 WEEK DISCHARGE MEDS PER NEW SCRIPTS Referrals: Bogdan Asencio MD [Staff Provider] - 1 Week (DISCHARGE HOME WITH VNA AND HOME PT FOLLOW UP WITHIN 1 WEEK DISCHARGE MEDS PER NEW SCRIPTS )
--- NOTE | 2017-08-29 17:15 | PN ---
DATE: 08/29/2017 SUBJECTIVE: The patient is seen lying in bed. He is resting comfortably. He does not appear to be in any kind of distress. PHYSICAL EXAMINATION: GENERAL: Elderly male, lying in bed. VITAL SIGNS: Blood pressure 162/96, heart rate 80, respiratory rate 18, temperature 98.1. HEENT: Normocephalic, atraumatic. NECK: Supple, no JVD. LUNGS: Bilateral equal air entry, no rales. CARDIAC: S1, S2, regular rate and rhythm, no murmur, no rub. ABDOMEN: Obese, distended, soft, nontender, bowel sounds present. EXTREMITIES: No lower extremity edema. INTAKE AND OUTPUT: 400/450. LABORATORY DATA: WBC 8.6, hemoglobin 12, hematocrit 37.5, platelets 261. Sodium 141, potassium 3.7, chloride 110, CO2 of 24, BUN 35, creatinine 2.1, glucose 93, calcium 8.6, phosphorus 4.1 magnesium 1.7. CURRENT MEDICATIONS: Mucomyst, Catapres 0.2 b.i.d., Ecotrin, Lipitor, Lopressor 25 q.12, Lovenox, Namenda, amlodipine 5 started today, Protonix, Robitussin, Tessalon Perles, Tylenol, Xopenex, allopurinol. ASSESSMENT: 1. Altered mental status, fever. 2. Severe hypertension. 3. Acute cerebrovascular accident. 4. Acute kidney injury, superimposed on chronic kidney disease, stage III/IV? 5. Proteinuria. PLAN: 1. Acute kidney injury, appears to be resolving. Need to find out baseline creatinine from PMD. 2. Agree with addition of amlodipine, blood pressure remains high, recommend REJI inhibitor or ARB once renal function stabilizes. 3. Monitor daily labs. 4. Neuro followup. 5. Physical therapy. Jo Prieto MD
--- NOTE | 2017-08-30 12:38 | DS ---
LOCATION: Patient was seen with his in room 275, bed 1. Patient has been out of bed to chair. Patient is alert, awake and response. Overnight nurses' notes are reviewed. No adverse events documented. According to the nurses' notes, patient has been found to be alert, awake, oriented x3. Patient denies any chest pain. Denies shortness of breath. Denies nausea, vomiting or diarrhea. Denies constipation. Denies hemoptysis. Denies syncope. Denies fall. PHYSICAL EXAMINATION: VITAL SIGNS: T-max 98.4. Telemetry shows sinus rhythm. Heart rate 80, 77, 86. Blood pressure 174/100, 166/99, 162/96, 160/90. Respirations 18. O2 saturation 94% to 99%. HEENT: Head examination, normocephalic, atraumatic. HEENT examination shows pinkish conjunctivae. Anicteric sclerae. No oropharyngeal lesion. No visible jugular venous distention. Questionable soft carotid bruit. CHEST: Kyphosis. LUNGS: Shows no rales, crackles or wheezing. CARDIOVASCULAR: S1 and S2. Regular rhythm. Questionable soft systolic murmur, left sternal border, right second intercostal space and left second intercostal space. ABDOMEN: Soft, protuberant. Positive bowel sounds. No hepatomegaly noted. No costovertebral angle tenderness. No guarding. No rigidity. No rebound tenderness. GENITALIA: Male. RECTAL: Examination is deferred. EXTREMITIES: Shows no pitting edema. No calf tenderness. No Homans' sign. No clubbing, no cyanosis. VASCULAR: Palpable pulses. MUSCULOSKELETAL: Shows a body mass index of 30.3. Cranial nerves II-XII limited. Gait examination is not tested. DIAGNOSTICS: On 08/29, sodium 141, potassium 3.7, chloride 110, CO2 24, anion gap 11, BUN 35, creatinine 2.1, GFR 37, glucose 93, calcium 8.6, phosphorus 4.1, magnesium 1.7. LFTs are normal. CPK 215. Troponin 0.03. MICROBIOLOGY: Cultures negative. Patient seen by physical therapy. Recommend TCU, but the patient was declined by TCU because of the diagnosis versus home with services and outpatient physical therapy. FINAL IMPRESSION, PLAN AND DISCHARGE DIAGNOSES: 1. A 6-mm [id number] white matter left parietal lobe lacunar type infarct with restricted diffusion of the left parietal matter. 2. Severe chronic microvascular ischemic disease of the brain. 3. Cerebral cortical atrophy of the brain. 4. Uncontrolled hypertension. 5. Transient leukocytosis with granulocytosis. 6. Mild normocytic anemia. 7. Chronic kidney disease stage IV. 8. Hyperuricemia. 9. Prediabetes with hemoglobin A1c of 6.2. 10. Prostate surface antigen of 2.7, which is slightly elevated. 11. Mild rhabdomyolysis. 12. Proteinuria. 13. Microscopic hematuria. 14. Status post fluoroscopic guided lumbar puncture and spinal tap. 15. Left ventricle ejection fraction of 69% with concentric left ventricular hypertrophy and apical hypokinesis and grade 1 abnormal relaxation pattern. 16. Mildly thickened mitral valve. 17. Apical hypokinesis. 18. Left renal cyst. 19. Deconditioning. 20. Status post altered mental status. 21. Fever. 22. Questionable acute kidney injury superimposed on chronic kidney disease, stage III/IV. 23. Systemic inflammatory response syndrome. PLAN: Plan at this time, patient's case was referred to [facility] [employer] and TCU, but the patient was not eligible for TCU secondary to his diagnoses. Patient was seen by the physical therapist. Their recommendation was that the patient was not accepted to TCU. The patient can be discharged home with home with services with outpatient physical therapy. Patient was cleared for discharge. Patient's family and the patient was advised and explained about the logistics of discharge planning, which the and the understood. DISCHARGE MEDICATIONS: 1. Allopurinol 100 mg three times a day. 2. Norvasc 5 mg daily. 3. Lipitor 40 mg daily. 4. Tessalon Perles 200 three times a day. 5. Namenda 10 mg daily. 6. Lopressor 25 mg q.12. 7. Protonix 40 mg daily. Patient was discharged home. Discharge followup with Dr. Asencio within 1 week. Discharge home with VNA and home PT. Discharge medications as per new scripts. Patient's home medications were verified. Patient's Micardis was stopped. Time spent in the entire discharge process, more than 45 minutes. Bogdan Asencio MD [facility] # [id number]
== END 2017-08-29 15:03 | disposition home or self-care (01) | DRG 65 ==
LOC: ED 00:15 → ERH 07:41 → 2RSO 08-27 12:15
PROVIDERS: ADMIT Internal Medicine; ATTEND Internal Medicine
PROC: 009U3ZX Drainage of Spinal Canal, Percutaneous Approach, Diagnostic (ICD-10-PCS; principal; 2017-08-26)
PROC: B01BZZZ Fluoroscopy of Spinal Cord (ICD-10-PCS; 2017-08-26)
PROC: 3E0F7GC Introduction of Other Therapeutic Substance into Respiratory Tract, Via Natural or Artificial Opening (ICD-10-PCS; 2017-08-26)
DX: I63.9 Cerebral infarction, unspecified (principal); R65.10 Systemic inflammatory response syndrome (SIRS) of non-infectious origin without acute organ dysfunction; N17.9 Acute kidney failure, unspecified; F03.90 Unspecified dementia, unspecified severity, without behavioral disturbance, psychotic disturbance, mood disturbance, and anxiety; N28.1 Cyst of kidney, acquired; N18.3 Chronic kidney disease, stage 3 (moderate); R31.29 Other microscopic hematuria; J20.9 Acute bronchitis, unspecified; I16.0 Hypertensive urgency; M10.9 Gout, unspecified; R00.0 Tachycardia, unspecified; K57.30 Diverticulosis of large intestine without perforation or abscess without bleeding; R73.03 Prediabetes; R80.9 Proteinuria, unspecified; I12.9 Hypertensive chronic kidney disease with stage 1 through stage 4 chronic kidney disease, or unspecified chronic kidney disease; E78.5 Hyperlipidemia, unspecified; I65.23 Occlusion and stenosis of bilateral carotid arteries; E66.9 Obesity, unspecified; Z68.30 Body mass index [BMI] 30.0-30.9, adult; Z86.73 Personal history of transient ischemic attack (TIA), and cerebral infarction without residual deficits; Z88.0 Allergy status to penicillin

== ENCOUNTER 2018-07-27 09:38 | Observation (INO) | payer MEDICARE, OTHER ==
[2018-07-27 09:38] VITALS: BMI 30.4
--- NOTE | 2018-07-27 10:14 | ED PDOC ---
Arrival/HPI - General Chief Complaint: GI Problem Historian: Patient, Spouse - History of Present Illness Narrative History of Present Illness (Text): 07/27/18 10:08 78 y o male PMhx HTN, gout, prior CVA 2 y ago, dementia, presents to the ED c/o vomiting. Pt's at bedside provided most of history due to pt's current mental status. States that pt had 3 episodes of vomiting up food at around 2 am this morning, non-bloody, non-bilious emesis. Pt ate last night chicken drumstick, corn pasta, cabbage and carrots, and avocado. Has not eaten or had any PO fluids since vomiting episodes. Pt was also stating last evening that he was not feeling well and kept pointing to his mid-epigastric area, stating he had pain there. Also c/o at time feeling like acid was coming up his throat and associated heartburn-like symptoms. Further ROS unobtainable from pt due to current mental status. Pt's denies hx recent sick contacts, recent URI, or other persons at home with the same symptoms. PMHx: HTN, gout, prior CVA 2 y ago, dementia PSurgHx: hernia repair 9 y ago Allergies: PCN (rash) Home meds: Olmesartan 40 mg daily, Allopurinol 100 mg tid, Amlodipine 5 mg daily Fam hx: denies Soc hx: quit smoking cigarettes 50+ years ago; denies EtOH or illicit drug use PMD: Dr. Francisco Barnes ([place]) Time/Duration: 4-6 hours Symptom Onset: Sudden Symptom Course: Unchanged, Worsening Quality: Unable to Describe Activities at Onset: Sleeping Context: Home Past Medical History - Provider Review Nursing Documentation Reviewed: Yes - Cardiac Hx Cardiac Disorders: Yes Hx Hypertension: Yes - Pulmonary Hx Respiratory Disorders: Yes (USED TO SMOKE CIGARETTES) - Neurological HX Cerebrovascular Accident: Yes (1.5 years ago) - HEENT Hx HEENT Disorder: No - Renal Hx Renal Disorder: Yes (NEPHROLITHIASIS) Other/Comment: HIGH CREATININE - Endocrine/Metabolic Hx Endocrine Disorders: No - Hematological/Oncological Hx Blood Disorders: No - Integumentary Hx Dermatological Disorder: Yes - Musculoskeletal/Rheumatological Hx Musculoskeletal Disorders: Yes Hx Arthritis: Yes Hx Gout: Yes - Gastrointestinal Hx Gastrointestinal Disorders: Yes Hx Vomiting: Yes - Genitourinary/Gynecological Hx Genitourinary Disorders: Yes Hx Prostate Problems: Yes (ENLARGED) - Psychiatric Hx Psychophysiologic Disorder: No Hx Substance Use: No Family/Social History - Physician Review Nursing Documentation Reviewed: Yes Family/Social History: No Known Family HX Smoking Status: Never Smoked Hx Alcohol Use: No Hx Substance Use: No Allergies/Home Meds Allergies/Adverse Reactions: Allergies Penicillins Allergy (Verified 07/27/18 09:42) RASH Home Medications: Home Meds Medication Instructions Recorded Confirmed Allopurinol [Zyloprim] 100 mg PO TID 08/26/17 07/27/18 amLODIPine [Norvasc] 5 mg PO DAILY 08/26/17 07/27/18 Review of Systems - Review of Systems Systems not reviewed;Unavailable: Dementia Physical Exam Vital Signs Temp Pulse Resp BP Pulse Ox 07/27/18 09:57 98.3 F 95 H 18 120/72 97 Temperature: Afebrile Blood Pressure: Normal Pulse: Regular Respiratory Rate: Normal Appearance: Positive for: Well-Appearing, Non-Toxic, Comfortable Pain Distress: None Mental Status: Positive for: Confused - Systems Exam Head: Present: Atraumatic, Normocephalic Pupils: Present: PERRL Extroacular Muscles: Present: EOMI Conjunctiva: Present: Normal Mouth: Present: Moist Mucous Membranes Neck: Present: Normal Range of Motion. No: JVD, Lymphadenopathy Respiratory/Chest: Present: Clear to Auscultation, Good Air Exchange. No: Respiratory Distress, Accessory Muscle Use, Wheezes, Rales, Rhonchi Cardiovascular: Present: Regular Rate and Rhythm, Normal S1, S2. No: Murmurs, Rub, Gallop Abdomen: Present: Distention, Normal Bowel Sounds. No: Tenderness, Peritoneal Signs, Rebound, Guarding, Mass/Organomegaly Upper Extremity: Present: Normal Inspection, Normal ROM, NORMAL PULSES, Neurovascularly Intact, Capillary Refill < 2s. No: Cyanosis, Edema, Temperature Abnormalties Lower Extremity: Present: Normal Inspection, NORMAL PULSES, Normal ROM, Neurovascularly Intact, Capillary Refill < 2 s. No: Edema, CALF TENDERNESS, Tenderness Neurological: Present: GCS=15, CN II-XII Intact, Speech Normal, Motor Func Grossly Intact Skin: Present: Warm, Dry, Normal Color. No: Rashes Psychiatric: Present: Alert, Oriented x 3, Normal Insight, Normal Concentration Medical Decision Making ED Course and Treatment: 07/27/18 10:33 78 y o male PMHx HTN, gout, dementia, CVA 2 y ago presenting with vomiting. Plan: -Labs -EKG -CXR -IVF, [place] Will continue to monitor. 07/27/18 12:56 Cr 3.4 (elevated from 2.6 on outpt labs brought in by pt's on 06/11/18), WBC 12.9 Pt's states that she is POA and makes all medical decisions for pt. Pending Head and abd/pelvis CT. 07/27/18 13:53 CT head demonstrates no acute findings. Spoke with hospitalist Dr. Kauffman about pt case, states he will accept admission. Pt to be admitted under observation for ISABELL. - RAD Interpretation Radiology Orders: 07/27/18 10:05 CHEST PORTABLE [RAD] Stat Disposition/Present on Arrival - Present on Arrival Any Indicators Present on Arrival: No History of DVT/PE: No History of Uncontrolled Diabetes: No Urinary Catheter: No History of Decub. Ulcer: No History Surgical Site Infection Following: None - Disposition Have Diagnosis and Disposition been Completed?: Yes Diagnosis: Acute kidney injury Disposition: HOSPITALIZED Disposition Time: 13:55 Patient Plan: Admission Condition: GUARDED Forms: [employer] ([place])
[2018-07-27 10:42] LABS: BASO # 0.01 K/mm3 (0.0-2.0); BASO % 0.1 % (0.0-3.0); EOS # 0.2 (0.0-0.7); EOS % 1.7 % (1.5-5.0); GRAN # 11.48 (1.4-6.5); GRAN % 88.9 % (50.0-68.0); LYMPH # 0.8 (1.2-3.4); LYMPH % 6.5 % (22.0-35.0); MEAN CELL VOLUME 84.8 fl (80.0-105.0); MEAN CORPUSCULAR HEMOGLOBIN 27.9 pg (25.0-35.0); MEAN CORPUSCULAR HGB CONC 32.9 g/dl (31.0-37.0); MEAN PLATELET VOLUME 10.4 fl (7.0-11.0); MONO # 0.4 (0.1-0.6); MONO % 2.8 % (1.0-6.0); RBC 4.66 10^6/uL (3.5-6.1); RED CELL DISTRIBUTION WIDTH 15.2 % (11.5-14.5); WHITE BLOOD COUNT 12.9 10^3/uL (4.5-11.0)
[2018-07-27 10:49] LABS: INR 1.06; PARTIAL THROMBOPLASTIN TIME 33.9 Seconds (25.1-36.5); PROTHROMBIN TIME 12.2 SECONDS (9.4-12.5)
[2018-07-27 10:52] LABS: ALB/GLOB RATIO 1.1 (1.1-1.8); ALBUMIN 4.1 g/dL (3.0-4.8); ALT/SGPT 23 U/L (7-56); AST/SGOT 30 U/L (17-59); BLOOD UREA NITROGEN 54 mg/dL (7-21); CALCIUM 8.8 mg/dL (8.4-10.5); GFR NON-AFRICAN AMERICAN 18; URIC ACID 10.2 mg/dL (3.5-8.5)
[2018-07-27 11:01] LABS: URINE BILIRUBIN NEGATIVE (NEGATIVE); URINE BLOOD NEGATIVE (NEGATIVE); URINE GLUCOSE (UA) NEGATIVE (NEGATIVE); URINE LEUKOCYTE ESTERASE NEGATIVE Leu/uL (NEGATIVE); URINE PROTEIN >=300 mg/dL (<30 mg/dL); URINE UROBILINOGEN 0.2 E.U./dL (<1 E.U./dL)
[2018-07-27 11:02] LABS: TROPONIN I < 0.01 ng/mL
[2018-07-27 11:05] LABS: URINE APPEARANCE CLEAR (CLEAR); URINE COLOR YELLOW (YELLOW)
[2018-07-27 11:40] LABS: URINE EPITHELIAL CELLS 0 - 2 /hpf (0-5)
--- NOTE | 2018-07-27 11:40 | RAD ---
Date of service: 07/27/2018 HISTORY: epigastric pain COMPARISON: 08/26/2017 FINDINGS: LUNGS: No active pulmonary disease. PLEURA: No significant pleural effusion identified, no pneumothorax apparent. CARDIOVASCULAR: No aortic atherosclerotic calcification present. Aortic tortuosity Normal cardiac size. No pulmonary vascular congestion. OSSEOUS STRUCTURES: No significant abnormalities. VISUALIZED UPPER ABDOMEN: Normal. OTHER FINDINGS: None. IMPRESSION: No active disease.
[2018-07-27 13:44] LABS: INFLUENZA A B NEGATIVE FOR FLU A/B (NEGATIVE)
--- NOTE | 2018-07-27 13:46 | CT ---
Date of service: 07/27/2018 PROCEDURE: CT HEAD WITHOUT CONTRAST. HISTORY: vomiting, dementia at baseline COMPARISON: 08/26/2017 TECHNIQUE: Axial computed tomography images were obtained through the head/brain without intravenous contrast. Radiation dose: Total exam DLP = 914.79 mGy-cm. This CT exam was performed using one or more of the following dose reduction techniques: Automated exposure control, adjustment of the mA and/or kV according to patient size, and/or use of iterative reconstruction technique. FINDINGS: HEMORRHAGE: No intracranial hemorrhage. BRAIN: No mass effect or edema. Severe chronic microvascular changes in the periventricular white matter. VENTRICLES: Moderate atrophy CALVARIUM: Unremarkable. PARANASAL SINUSES: Unremarkable as visualized. No significant inflammatory changes. MASTOID AIR CELLS: Unremarkable as visualized. No inflammatory changes. OTHER FINDINGS: None. IMPRESSION: No acute intracranial findings
--- NOTE | 2018-07-27 13:53 | CT ---
Date of service: 07/27/2018 PROCEDURE: CT Abdomen and Pelvis without intravenous contrast HISTORY: vomiting COMPARISON: 08/26/2017 TECHNIQUE: Without contrast.. Contrast dose: Radiation dose: Total exam DLP = 1093.77 mGy-cm. This CT exam was performed using one or more of the following dose reduction techniques: Automated exposure control, adjustment of the mA and/or kV according to patient size, and/or use of iterative reconstruction technique. FINDINGS: LOWER THORAX: Aortic and coronary artery calcification LIVER: Unremarkable. No gross lesion or ductal dilatation. GALLBLADDER AND BILE DUCTS: Unremarkable. PANCREAS: Unremarkable. No gross lesion or ductal dilatation. SPLEEN: Unremarkable. ADRENALS: Unremarkable. No mass. KIDNEYS AND URETERS: Unremarkable. No hydronephrosis. No solid mass. VASCULATURE: Unremarkable. No aortic aneurysm. Aortic calcifications are seen BOWEL: There is diverticulosis of the sigmoid colon. No evidence of diverticulitis. There is moderate distention of the stomach with an air-fluid level. APPENDIX: Unremarkable. Normal appendix. PERITONEUM: Unremarkable. No free fluid. No free air. LYMPH NODES: Unremarkable. No enlarged lymph nodes. BLADDER: Unremarkable. REPRODUCTIVE: Unremarkable. BONES: No acute fracture. OTHER FINDINGS: None. IMPRESSION: Moderately dilated fluid-filled stomach. Possible gastroparesis. No evidence of small bowel obstruction
[2018-07-27] MEDS ORDERED: Sodium Chloride 0.9% 1,000 ML IV SCH ×2 (15:30→15:45)
--- NOTE | 2018-07-27 15:32 | CARD ---
APPROVED REPORT Date of service: 07/27/2018 EKG Measurement Heart [id number] <Conclusion> Sinus tachycardia with premature atrial complexes Otherwise normal ECG
--- NOTE | 2018-07-27 15:48 | CP.PCM.HP ---
<Jose Deras - Last Filed: 07/27/18 15:43> History of Present Illness - History of Present Illness History of Present Illness: H&P for hospitalist service - Alexis Akhtaradam PGY3 HPI: Patient is a 78yo male with past medical history of hypertension, gout, prior CVA, and dementia that presented to [facility] with c/o nausea/vomiting. Per patients , patient had 3 episodes of nausea and nonbilious, nonbloody vomiting that started suddenly at 2am. He reportedly had no questionable food ingestion the day prior. Since vomiting he has not had anything to eat and has been feeling fatigued with some reported epigastric abdominal discomfort. Prior to this episodes, patient was in his usual state of health and had not been feeling ill. Patients endorses that he had since his PMD 2 weeks prior and was made aware of a kidney problem for which the patient was referred to nephrology for further workup. Patient denied any fever, chills, cough, focal weakness, numbness, tingling, chest pain, palpitations, SOB. 12point ROS as per above otherwise negative PMH; as stated above PSH: hernia repair 9 yrs prior Allergies: PCN Family Hx: reviewd, noncontributory Social Hx: former tobacco use 50+ years ago; denies EtOH or illicit drug use PMD: Dr. Francisco Barnes ([place]) Present on Admission - Present on Admission Any Indicators Present on Admission: No Past Patient History - Past Social History Smoking Status: Former Smoker - CARDIAC Hx Cardiac Disorders: Yes Hx Hypertension: Yes - PULMONARY Hx Respiratory Disorders: Yes (USED TO SMOKE CIGARETTES) - NEUROLOGICAL HX Cerebrovascular Accident: Yes (1.5 years ago) - HEENT Hx HEENT Problems: No - RENAL Hx Chronic Kidney Disease: Yes (NEPHROLITHIASIS) Other/Comment: HIGH CREATININE - ENDOCRINE/METABOLIC Hx Endocrine Disorders: No - HEMATOLOGICAL/ONCOLOGICAL Hx Blood Disorders: No - INTEGUMENTARY Hx Dermatological Problems: Yes - MUSCULOSKELETAL/RHEUMATOLOGICAL Hx Falls: Yes - GASTROINTESTINAL Hx Gastrointestinal Disorders: Yes - GENITOURINARY/GYNECOLOGICAL Hx Genitourinary Disorders: Yes Hx Prostate Problems: Yes (ENLARGED) - PSYCHIATRIC Hx Psychophysiologic Disorder: No Hx Substance Use: No - SURGICAL HISTORY Hx Surgeries: No Meds Allergies/Adverse Reactions: Allergies Allergy/AdvReac Type Severity Reaction Status Date / Time Penicillins Allergy RASH Verified 07/27/18 09:42 Physical Exam - Constitutional Appears: No Acute Distress - Head Exam Head Exam: ATRAUMATIC, NORMAL INSPECTION, NORMOCEPHALIC - Eye Exam Eye Exam: EOMI, PERRL - ENT Exam ENT Exam: Mucous Membranes Moist - Respiratory Exam Respiratory Exam: Clear to Auscultation Bilateral. absent: Rales, Rhonchi, Wheezes - Cardiovascular Exam Cardiovascular Exam: RRR, +S1, +S2. absent: Gallop, JVD, Rubs - GI/Abdominal Exam GI & Abdominal Exam: Soft. absent: Distended, Firm, Guarding, Rebound, Rigid, Tenderness - Extremities Exam Extremities exam: Negative for: calf tenderness, pedal edema - Neurological Exam Neurological exam: Alert, Oriented x3 - Psychiatric Exam Psychiatric exam: Agitated - Skin Skin Exam: Dry, Intact, Normal Color, Warm Results - Vital Signs Recent Vital Signs: Last Vital Signs Temp 98.3 F 07/27/18 09:57 Pulse 88 07/27/18 15:13 Resp 18 07/27/18 15:24 BP 141/90 07/27/18 15:13 Pulse Ox 98 07/27/18 15:13 - Labs Result Diagrams: 07/27/18 10:00 07/27/18 10:00 Labs: Laboratory Results - last 24 hr 07/27/18 07/27/18 07/27/18 10:00 10:00 10:00 WBC 12.9 H RBC 4.66 Hgb 13.0 L Hct 39.5 L MCV 84.8 MCH 27.9 MCHC 32.9 RDW 15.2 H Plt Count 324 MPV 10.4 Gran % 88.9 H Lymph % (Auto) 6.5 L [place] % (Auto) 2.8 Eos % (Auto) 1.7 Baso % (Auto) 0.1 Gran # 11.48 H Lymph # (Auto) 0.8 L [place] # (Auto) 0.4 Eos # (Auto) 0.2 Baso # (Auto) 0.01 PT 12.2 INR 1.06 APTT 33.9 Sodium 139 Potassium 3.6 Chloride 99 Carbon Dioxide 30 Anion Gap 14 BUN 54 H Creatinine 3.4 H Est GFR ( Amer) 21 Est GFR (Non-Af Amer) 18 Random Glucose 137 H Uric Acid 10.2 H Calcium 8.8 Magnesium 3.0 H Total Bilirubin 0.5 AST 30 ALT 23 Alkaline Phosphatase 57 Troponin I < 0.01 D Total Protein 7.8 Albumin 4.1 Globulin 3.7 Albumin/Globulin Ratio 1.1 Urine Color Urine Appearance Urine pH Ur Specific [place] Urine Protein Urine Glucose (UA) Urine Ketones Urine Blood Urine Nitrate Urine Bilirubin Urine Urobilinogen Ur Leukocyte Esterase Urine RBC Urine WBC Ur Epithelial Cells Urine Other Influenza Typ A,B (EIA) Grp A Beta Strep Ag 07/27/18 07/27/18 10:40 13:06 WBC RBC Hgb Hct MCV MCH MCHC RDW Plt Count MPV Gran % Lymph % (Auto) [place] % (Auto) Eos % (Auto) Baso % (Auto) Gran # Lymph # (Auto) [place] # (Auto) Eos # (Auto) Baso # (Auto) PT INR APTT Sodium Potassium Chloride Carbon Dioxide Anion Gap BUN Creatinine Est GFR ( Amer) Est GFR (Non-Af Amer) Random Glucose Uric Acid Calcium Magnesium Total Bilirubin AST ALT Alkaline Phosphatase Troponin I Total Protein Albumin Globulin Albumin/Globulin Ratio Urine Color Yellow Urine Appearance Clear Urine pH 7.0 Ur Specific [place] 1.020 Urine Protein >=300 H Urine Glucose (UA) Negative Urine Ketones Negative Urine Blood Negative Urine Nitrate Negative Urine Bilirubin Negative Urine Urobilinogen 0.2 Ur Leukocyte Esterase Negative Urine RBC 2 - 5 Urine WBC 2 - 5 Ur Epithelial Cells 0 - 2 Urine Other Usperm Influenza Typ A,B (EIA) Negative for flu a/b Grp A Beta Strep Ag Negative Assessment & Plan - Assessment and Plan (Free Text) Plan: 78yo male with history of hypertension, gout, prior CVA, and dementia presents with c/o epigastric abdominal pain associated with nausea/vomiting 1. abdominal pain/nausea/vomiting possibly secondary to gastroparesis 2. ISABELL on CKD 3. hx of CVA x2 4. hx of hypertension 5. hx of gout 6. hx of dementia Plan: -CT Abd/pelvis reviewed; revealed dilated stomach with air-fluid level but no evidence of SBO; possibly secondary to gastroparesis -CXR revealed no active disease -EKG revealed sinus tachycardia @103bpm with PAC's -Head CT revealed no acute intracranial abnormalities -urine studies including urine sodium, creatinine pending -No reported further nausea/vomiting since episodes at 2am this morning -Patient started on CLD, to be advanced as tolerated -IVF hydration with NS @ 75cc/hr for 1 bag -Zofran PRN for nausea/vomiting -Norvasc/Losartan for hypertension -ASA 325/Lipitor 40 for stroke prevention -Allopurinol 100BID for gout -Namenda 10 for dementia -Pepcid 20 for GI prophylaxis -Heparin SC for DVT prophylaxis -GI consulted - Dr. Carrizales -Nephrology consulted - Dr. De La Garza <Jennifer King R - Last Filed: 07/28/18 14:43> Results - Vital Signs Recent Vital Signs: Last Vital Signs Temp 97.6 F 07/28/18 06:00 Pulse 87 07/28/18 06:00 Resp 20 07/28/18 06:00 BP 160/87 H 07/28/18 06:00 Pulse Ox 97 07/28/18 06:00 - Labs Result Diagrams: 07/28/18 06:30 07/28/18 06:30 Labs: Laboratory Results - last 24 hr 07/27/18 07/28/18 07/28/18 22:07 06:30 06:30 WBC 8.1 D RBC 4.42 Hgb 12.1 L Hct 37.9 L MCV 85.7 MCH 27.4 MCHC 31.9 RDW 15.5 H Plt Count 281 MPV 10.4 Gran % 63.3 Lymph % (Auto) 22.4 [place] % (Auto) 8.7 H Eos % (Auto) 5.5 H Baso % (Auto) 0.1 Gran # 5.14 Lymph # (Auto) 1.8 [place] # (Auto) 0.7 H Eos # (Auto) 0.5 Baso # (Auto) 0.01 Sodium 139 Potassium 3.7 Chloride 104 Carbon Dioxide 28 Anion Gap 12 BUN 46 H Creatinine 3.0 H Est GFR ( Amer) 25 Est GFR (Non-Af Amer) 20 Random Glucose 97 Hemoglobin A1c Calcium 8.0 L Phosphorus 3.1 Magnesium 2.6 H Total Bilirubin 0.3 AST 34 ALT 33 Alkaline Phosphatase 52 Total Protein 7.2 Albumin 3.6 Globulin 3.6 Albumin/Globulin Ratio 1.0 L Triglycerides 139 Cholesterol 145 LDL Cholesterol Direct 87 HDL Cholesterol 27 L Ur Random Creatinine 117 U Random Total Protein 513 Ur Random Sodium 57 07/28/18 06:30 WBC RBC Hgb Hct MCV MCH MCHC RDW Plt Count MPV Gran % Lymph % (Auto) [place] % (Auto) Eos % (Auto) Baso % (Auto) Gran # Lymph # (Auto) [place] # (Auto) Eos # (Auto) Baso # (Auto) Sodium Potassium Chloride Carbon Dioxide Anion Gap BUN Creatinine Est GFR ( Amer) Est GFR (Non-Af Amer) Random Glucose Hemoglobin A1c 6.2 Calcium Phosphorus Magnesium Total Bilirubin AST ALT Alkaline Phosphatase Total Protein Albumin Globulin Albumin/Globulin Ratio Triglycerides Cholesterol LDL Cholesterol Direct HDL Cholesterol Ur Random Creatinine U Random Total Protein Ur Random Sodium Attending/Attestation - Attestation I have personally seen and examined this patient.: Yes I have fully participated in the care of the patient.: Yes I have reviewed all pertinent clinical information: Yes Notes (Text): Patient seen and examined by me with resident at 2PM on 07/27/18. Case including HPI, physical exam, and assessment and plan discussed with resident. Agree with above with following additions/corrections. Patient is a 78 year old male with past medical history significant for CVA with right sided residual weakness, arthritis, gout, dementia, PAD, and hypertension that presented to the emergency room with nausea and vomiting. History taken from both patient and patients with patients permission. Per patients , patient started to have nonbilious, non-bloody vomiting around 2AM. She states that patient had a normal dinner. However, patient was having some abdominal discomfort prior to dinner. Patient had approximately 3-4 episodes of vomiting. Last episode was at 5AM. Patient was able to tolerate chamomile tea at home per . Patient states he did had abdominal discomfort at time of vom iting but he is unsure if he had pain. No associated diarrhea or constipation. Per , patient was been forgetful and overly emotional since CVA in August 2017. Patient is intermittently tearful throughout exam. Patients states that patient also has some right lower extremity weakness since his stroke. However, patient uses no assistive devices at home to ambulate. Patients states that patients primary care doctor wanted patient to see a i o psychologist for worsening of kidney function. Patient has appointment tomorrow with i o psychologist Dr. De La Garza. Patient denies any current nausea, vomiting, or abdominal pain. No chest pain or shortness of breath. No headaches or dizziness. No fevers or chills. No dysuria. 12 point review of systems reviewed by me. Please see above HPI, all other systems negative. Family history: Mother at 93 and had CVA. Father and history of CVA and heart problems. Medications at home: Norvasc 5mg PO daily, Allopurinol 100mg PO BID, Namenda 10mg PO daily, Olmesartan 40mg PO qHS, ASA 81mg PO daily, a lot of over the counter vitamins. Physical exam: General: Awake and alert lying in bed in no acute distress HEENT: Normocephalic, atraumatic. Extraocular muscles intact, pupils equal and reactive, no scleral icterus. Oropharynx is pink. Positive dry mucous membranes. Neck is supple. Cardiovascular: Normal rhythm. Normal S1 and S2. No murmurs, rubs, or gallops appreciated. Pulmonary: Normal respiratory effort. No rhonchi, rales, or wheezing appreciated. Gastrointestinal: Soft, nondistended. Nontender. Positive bowel sounds all 4 quadrants. No guarding. Musculoskeletal: Moves all extremities. Bilateral lower extremity chronic pain secondary to PAD. Left lower extremity chronic venous stasis color changes. No edema appreciated. Central nervous system: AAOx3 with periods of confusion. CN 2-12 grossly intact. Right lower extremity weaker when compared to left lower extremity (chronic from previous stroke). Dermatologic: Skin warm and dry. Assessment and plan: Patient is a 78 year old male with past medical history significant for CVA with right sided residual weakness, arthritis, gout, dementia, PAD, and hypertension that presented to the emergency room with nausea and vomiting. 1. Nausea and vomiting in an adult. CT abd/pelvis per radiologist showed moderately dilated fluid-filled stomach, possible gastroparesis, no evidence of small bowel obstruction. Nausea and vomiting resolved. GI consulted, follow up recommendations. Placed on clear liquid diet. Zofran as needed. 2. ISABELL on CKD. Started on IV fluids. [employer] System Operator consulted, follow up recommendations. Follow up urine studies. Follow up repeat labs in AM. 3. Gait instability. Residual right sided weakness s/p CVA in Aug 2017. Fall precautions. PT eval and treat. 4. History of CVA. With residual right sided weakness. Placed on home ASA. Started on statin as patient not taking at home. Follow up lipid panel. 5. Hypertension. Continue home Norvasc. Patient take olmesartan at home. Placed on cozaar here. 6. Gout. Continue home allopurinol 7. Dementia.Continue home namenda 8. PAD. Continue home ASA. Started on statin 9. GI/DVT prophylaxis. Pepcid/heparin 10. Patient is a full code. Case was discussed in detail with the patient and patient's at bedside regarding current diagnosis and treatment plan. All questions answered.
[2018-07-27 22:43] LABS: CREATININE,RANDOM URINE 117 mg/dL; TOTAL PROTEIN,RANDOM URINE 513 mg/L
[2018-07-28 07:10] LABS: BASO # 0.01 K/mm3 (0.0-2.0); BASO % 0.1 % (0.0-3.0); EOS # 0.5 (0.0-0.7); EOS % 5.5 % (1.5-5.0); GRAN # 5.14 (1.4-6.5); GRAN % 63.3 % (50.0-68.0); HEMOGLOBIN 12.1 g/dL (14.0-18.0); LYMPH # 1.8 (1.2-3.4); LYMPH % 22.4 % (22.0-35.0); MEAN CELL VOLUME 85.7 fl (80.0-105.0); MEAN CORPUSCULAR HEMOGLOBIN 27.4 pg (25.0-35.0); MEAN CORPUSCULAR HGB CONC 31.9 g/dl (31.0-37.0); MEAN PLATELET VOLUME 10.4 fl (7.0-11.0); MONO # 0.7 (0.1-0.6); MONO % 8.7 % (1.0-6.0); RBC 4.42 10^6/uL (3.5-6.1); RED CELL DISTRIBUTION WIDTH 15.5 % (11.5-14.5); WHITE BLOOD COUNT 8.1 10^3/uL (4.5-11.0)
[2018-07-28 07:25] LABS: ALBUMIN 3.6 g/dL (3.0-4.8)
--- NOTE | 2018-07-28 09:35 | CP.PCM.PN ---
<rTee Best - Last Filed: 07/28/18 14:57> Subjective - Date & Time of Evaluation Date of Evaluation: 07/28/18 Time of Evaluation: 11:11 - Subjective Subjective: PGY1 Medicine Progress Note for Dr. Zapata Patient was seen and evaluated today. in Patient's room. With consent of Patient, the conversation continued. Patient able to get into chair without assistance. Patient had no acute events overnight. Patient tolerating liquid diet. The Patient endorses diarrhea this morning (admits to watery stool). Patient otherwise denies nausea, vomiting, chest pain, abdominal pain, shortness of breath, dizziness, dysuria, fever, chills, and/or rash. Objective - Vital Signs/Intake and Output Vital Signs (last 24 hours): Temp Pulse Resp BP Pulse Ox 99 F 101 H 20 151/95 H 97 07/27/18 22:00 07/27/18 22:00 07/27/18 22:00 07/27/18 22:00 07/27/18 22:00 Intake and Output: 07/28/18 07/28/18 06:59 18:59 Intake Total 1120 Output Total 800 Balance 320 - Medications Medications: Current Medications Allopurinol (Zyloprim) 100 mg PO BID [facility] Last Admin: 07/27/18 18:25 Dose: 100 mg Amlodipine Besylate (Norvasc) 5 mg PO DAILY [facility] Aspirin (Aspirin) 325 mg PO DAILY [facility] Atorvastatin Calcium (Lipitor) 20 mg PO DIN [facility] Last Admin: 07/27/18 18:25 Dose: 20 mg Famotidine (Pepcid) 20 mg PO 1000 [facility] Heparin Sodium (Porcine) (Heparin) 5,000 units SC Q8 [facility]; Protocol Last Admin: 07/28/18 05:11 Dose: 5,000 units Losartan Potassium (Cozaar) 100 mg PO HS [facility] Last Admin: 07/27/18 21:33 Dose: 100 mg Memantine (Namenda) 10 mg PO DAILY [facility] Ondansetron HCl (Zofran Inj) 4 mg IVP Q6H PRN PRN Reason: Nausea/Vomiting - Labs Labs: 07/28/18 06:30 07/28/18 06:30 PT 12.2 SECONDS (9.4-12.5) 07/27/18 10:00 INR 1.06 07/27/18 10:00 APTT 33.9 Seconds (25.1-36.5) 07/27/18 10:00 - Constitutional Appears: Non-toxic, No Acute Distress - Head Exam Head Exam: ATRAUMATIC, NORMAL INSPECTION, NORMOCEPHALIC - Eye Exam Additional comments: Bilateral exopthalmos appreciated on inspection - ENT Exam ENT Exam: Mucous Membranes Moist, Normal Exam - Neck Exam Neck Exam: Full ROM, Normal Inspection. absent: Lymphadenopathy, Thyromegaly - Respiratory Exam Respiratory Exam: Clear to Ausculation Bilateral, NORMAL BREATHING PATTERN. absent: Accessory Muscle Use, Chest Wall Tenderness, Decreased Breath Sounds, Prolonged Expiratory Phase, Rales, Rhonchi, Wheezes, Respiratory Distress, Stridor - Cardiovascular Exam Cardiovascular Exam: REGULAR RHYTHM, +S1, +S2. absent: Tachycardia, Gallop, Murmur - GI/Abdominal Exam GI & Abdominal Exam: Firm, Normal Bowel Sounds. absent: Distended, Guarding, Rigid, Tenderness, Rebound - Extremities Exam Extremities Exam: Normal Inspection. absent: Pedal Edema - Back Exam Back Exam: NORMAL INSPECTION - Neurological Exam Neurological Exam: Alert, Awake, Oriented x3 - Psychiatric Exam Psychiatric exam: Normal Affect, Normal Mood - Skin Skin Exam: Dry, Intact, Normal Color, Warm Assessment and Plan - Assessment and Plan (Free Text) Assessment: Patient is a 78-year-old Male with PMH of Hypertension, Gout, CVA, Dementia who presents to [facility] ED with a chief complaint of epigastric abdominal pain associated with nausea and vomiting. Patient denies nausea and/or vomiting as of 07/27 in the morning. Abdominal pain / Nausea and Vomiting likely secondary to Gastroparesis vs Viral Etiology - CT Abd/pelvis 07/27: dilated stomach with air-fluid level but no evidence of SBO; possibly secondary to gastroparesis (please see official report for more detail) - CXR 07/27: no active disease (please see official report for more detail) - Influenza A/B negative - Patient complained of diarrhea today - Hepatitis Panel: - F/U C-Diff toxin - F/U Stool ova/parasite - F/U Stool cultures - F/U blood culture - GI consulted: Dr. Carrizales; recommendations appreciated - Zofran PRN for nausea/vomiting - Pepcid 20 for GI prophylaxis - Patient may be advanced to full liquid diet today, and advance as tolerated to soft diet tomorrow. - Monitor CBC, CMP Acute Kidney Injury - EKG revealed sinus tachycardia @103bpm with PAC's - Urine protein >=300 - Urine Random Ea=401 - Urine Random Na=57 - Cr=3 (was 3.4 07/27) - IVF hydration with NS @ 75cc/hr for 1 bag - Nephrology consulted - Dr. De La Garza - MATI strep negative - F/U urine culture - F/U ELENA IFA screen with reflex - F/U C3/C4 complement - Monitor CMP, Mg, Phos History of Hypertension - Norvasc/Losartan for hypertension - ASA 325/Lipitor 40 for stroke prevention History of Gout - Continue allopurinol 100mg PO BID - No acute issues History of CVA - Continue ASA 81mg - Continue Cozaar 100mg PO HS - No acute issues History of Dementia - Continue Namenda 10mg Daily for dementia - No acute issues PPx: - GI: Pepcid 20mg PO Daily - DVT: Heparin SC Daily Patient seen and case discussed in detail with Dr. Jodi Best PGY1 <Lyudmila Zapata - Last Filed: 07/30/18 16:27> Objective - Vital Signs/Intake and Output Vital Signs (last 24 hours): Temp Pulse Resp BP Pulse Ox 98.2 F 77 20 148/88 99 07/29/18 08:13 07/29/18 08:13 07/29/18 08:13 07/29/18 11:06 07/29/18 08:13 - Labs Labs: 07/28/18 06:30 07/29/18 08:40 PT 12.2 SECONDS (9.4-12.5) 07/27/18 10:00 INR 1.06 07/27/18 10:00 APTT 33.9 Seconds (25.1-36.5) 07/27/18 10:00 Attending/Attestation - Attestation I have personally seen and examined this patient.: Yes I have fully participated in the care of the patient.: Yes I have reviewed all pertinent clinical information, including history, physical exam and plan: Yes Notes (Text): 07/30/18 16:26 Attending note; Patient seen and examined with resident. Patient is alert and awake. Denies any nausea, vomiting. denies any diarrhea. Patient is a 78 year old male with past medical history significant for CVA with right sided residual weakness, arthritis, gout, dementia, PAD, and hypertension that presented to the emergency room with nausea and vomiting. 1. Nausea and vomiting; currently resolving . CT abd/pelvis showed moderately dilated fluid-filled stomach, possible gastroparesis, no evidence of small bowel obstruction. Nausea and vomiting resolved. GI evaluation appreciated . Started patient on clear liquid diet . Advance as tolerated. Placed on clear liquid diet. Zofran as needed. 2. ISABELL on CKD. Started on IV fluids. Electrocardiograph Operator consulted, follow up recommendations. 3. Gait instability. Residual right sided weakness s/p CVA in Aug 2017. Fall precautions. 4. History of CVA. With residual right sided weakness. Placed on home ASA. Started on statin as patient not taking at home. Follow up lipid panel. 5. Hypertension. Continue home Norvasc. Patient take olmesartan at home. Placed on cozaar here. 6. Gout. Continue home allopurinol 7. Dementia.Continue home namenda 8. PAD. Continue home ASA. Started on statin Will follow up with GI . Case was discussed in detail with the patient and patient's at bedside regarding current diagnosis and treatment plan.
--- NOTE | 2018-07-28 16:04 | CP.PCM.CON ---
<Hill Leiva - Last Filed: 07/28/18 20:09> History of Present Illness - History of Present Illness History of Present Illness: PGY6 GI Fellow Consult Note Patient is a 78yo male with PMHx significant for HTN, dementia, CVA and gout who presented to the ED with complaint of nausea/vomiting. The patient is a poor historian, thus his provides the patient's history. According to the makenna ent's , the patient awoke at 2am nauseated and began to vomit undigested food and bilious contents. Patient has not had an episode like this previously and had not complained of any abdominal pain prior to the event. Overall, patient has a good appetite and has not had any sick contacts or recent travel. The patient was recently started on Namenda and patient's notes weight gain and bloating since initiation. At this time, the patient has no complaints and is resting comfortably. 12 system ROS performed and negative except where stated PMHx: See HPI PSHx: Hernia repair FHx: NO significant family history noted Social: Former smoker (Quit >10 years ago); denies EtOH or illicit drug use Endo: Colonoscopy > 20 years ago - unknown results Past Patient History - Past Social History Smoking Status: Former Smoker - CARDIAC Hx Cardiac Disorders: Yes Hx Hypertension: Yes - PULMONARY Hx Respiratory Disorders: Yes (USED TO SMOKE CIGARETTES) - NEUROLOGICAL HX Cerebrovascular Accident: Yes (1.5 years ago) - HEENT Hx HEENT Problems: No - RENAL Hx Chronic Kidney Disease: Yes (NEPHROLITHIASIS) Other/Comment: HIGH CREATININE - ENDOCRINE/METABOLIC Hx Endocrine Disorders: No - HEMATOLOGICAL/ONCOLOGICAL Hx Blood Disorders: No - INTEGUMENTARY Hx Dermatological Problems: Yes - MUSCULOSKELETAL/RHEUMATOLOGICAL Hx Falls: Yes - GASTROINTESTINAL Hx Gastrointestinal Disorders: Yes - GENITOURINARY/GYNECOLOGICAL Hx Genitourinary Disorders: Yes Hx Prostate Problems: Yes (ENLARGED) - PSYCHIATRIC Hx Psychophysiologic Disorder: No Hx Substance Use: No - SURGICAL HISTORY Hx Surgeries: No Meds Allergies/Adverse Reactions: Allergies Allergy/AdvReac Type Severity Reaction Status Date / Time Penicillins Allergy RASH Verified 07/27/18 09:42 - Medications Medications: Current Medications Allopurinol (Zyloprim) 100 mg PO BID [facility] Last Admin: 07/28/18 10:56 Dose: 100 mg Amlodipine Besylate (Norvasc) 5 mg PO DAILY [facility] Last Admin: 07/28/18 10:56 Dose: 5 mg Aspirin (Aspirin) 325 mg PO DAILY [facility] Last Admin: 07/28/18 11:03 Dose: 325 mg Atorvastatin Calcium (Lipitor) 20 mg PO DIN [facility] Last Admin: 07/27/18 18:25 Dose: 20 mg Famotidine (Pepcid) 20 mg PO 1000 [facility] Last Admin: 07/28/18 10:56 Dose: 20 mg Heparin Sodium (Porcine) (Heparin) 5,000 units SC Q8 [facility]; Protocol Last Admin: 07/28/18 15:20 Dose: 5,000 units Losartan Potassium (Cozaar) 100 mg PO HS [facility] Last Admin: 07/27/18 21:33 Dose: 100 mg Memantine (Namenda) 10 mg PO DAILY [facility] Last Admin: 07/28/18 10:56 Dose: 10 mg Ondansetron HCl (Zofran Inj) 4 mg IVP Q6H PRN PRN Reason: Nausea/Vomiting Physical Exam - Constitutional Appears: Non-toxic, No Acute Distress - Eye Exam Eye Exam: EOMI, PERRL - ENT Exam ENT Exam: Mucous Membranes Moist - Respiratory Exam Respiratory Exam: Clear to Auscultation Bilateral. absent: Rales, Rhonchi, Wheezes - Cardiovascular Exam Cardiovascular Exam: RRR, +S1, +S2 - GI/Abdominal Exam GI & Abdominal Exam: Normal Bowel Sounds, Soft. absent: Distended, Firm, Guarding, Hernia, Organomegaly, Rigid, Tenderness - Extremities Exam Extremities exam: Positive for: pedal edema Additional comments: 1+ B/L LE edema - Neurological Exam Neurological exam: Alert, Oriented x3 - Psychiatric Exam Psychiatric exam: Normal Affect, Normal Mood - Skin Skin Exam: Dry, Warm Results - Vital Signs Recent Vital Signs: Last Vital Signs Temp 98.4 F 07/28/18 14:00 Pulse 86 07/28/18 14:00 Resp 20 07/28/18 14:00 BP 157/100 H 07/28/18 14:00 Pulse Ox 95 07/28/18 14:00 - Labs Result Diagrams: 07/28/18 06:30 07/28/18 06:30 Labs: Laboratory Results - last 24 hr 07/27/18 07/28/18 07/28/18 22:07 06:30 06:30 WBC 8.1 D RBC 4.42 Hgb 12.1 L Hct 37.9 L MCV 85.7 MCH 27.4 MCHC 31.9 RDW 15.5 H Plt Count 281 MPV 10.4 Gran % 63.3 Lymph % (Auto) 22.4 [place] % (Auto) 8.7 H Eos % (Auto) 5.5 H Baso % (Auto) 0.1 Gran # 5.14 Lymph # (Auto) 1.8 [place] # (Auto) 0.7 H Eos # (Auto) 0.5 Baso # (Auto) 0.01 Sodium 139 Potassium 3.7 Chloride 104 Carbon Dioxide 28 Anion Gap 12 BUN 46 H Creatinine 3.0 H Est GFR ( Amer) 25 Est GFR (Non-Af Amer) 20 Random Glucose 97 Hemoglobin A1c Calcium 8.0 L Phosphorus 3.1 Magnesium 2.6 H Total Bilirubin 0.3 AST 34 ALT 33 Alkaline Phosphatase 52 Total Protein 7.2 Albumin 3.6 Globulin 3.6 Albumin/Globulin Ratio 1.0 L Triglycerides 139 Cholesterol 145 LDL Cholesterol Direct 87 HDL Cholesterol 27 L Ur Random Creatinine 117 U Random Total Protein 513 Ur Random Sodium 57 07/28/18 06:30 WBC RBC Hgb Hct MCV MCH MCHC RDW Plt Count MPV Gran % Lymph % (Auto) [place] % (Auto) Eos % (Auto) Baso % (Auto) Gran # Lymph # (Auto) [place] # (Auto) Eos # (Auto) Baso # (Auto) Sodium Potassium Chloride Carbon Dioxide Anion Gap BUN Creatinine Est GFR ( Amer) Est GFR (Non-Af Amer) Random Glucose Hemoglobin A1c 6.2 Calcium Phosphorus Magnesium Total Bilirubin AST ALT Alkaline Phosphatase Total Protein Albumin Globulin Albumin/Globulin Ratio Triglycerides Cholesterol LDL Cholesterol Direct HDL Cholesterol Ur Random Creatinine U Random Total Protein Ur Random Sodium Assessment & Plan - Assessment and Plan (Free Text) Assessment: Patient is a 78yo male with PMHx significant for HTN, dementia, CVA and gout who presented to the ED with complaint of nausea/vomiting -Nausea/vomiting -CKD -Dementia Plan: -CT reviewed with noted distention of stomach -Patient tolerating liquid diet at this time, goal puree -Suspect acute viral syndrome which is resolving presently -If symptoms persist or worsen, consider EGD to R/O any gastric outlet obstruction -Gastroparesis in differential and goal diet can be small meals with low fat content -Monitor clinical course - Date & Time Date: 07/28/18 Time: 11:10 <Vaibhav Carrizales V - Last Filed: 07/28/18 23:18> Meds - Medications Medications: Current Medications Allopurinol (Zyloprim) 100 mg PO BID [facility] Amlodipine Besylate (Norvasc) 5 mg PO DAILY [facility] Aspirin (Aspirin) 325 mg PO DAILY [facility] Atorvastatin Calcium (Lipitor) 20 mg PO DIN [facility] Famotidine (Pepcid) 20 mg PO 1000 [facility] Heparin Sodium (Porcine) (Heparin) 5,000 units SC Q8 [facility]; Protocol Losartan Potassium (Cozaar) 100 mg PO HS [facility] Memantine (Namenda) 10 mg PO DAILY [facility] Ondansetron HCl (Zofran Inj) 4 mg IVP Q6H PRN PRN Reason: Nausea/Vomiting Results - Vital Signs Recent Vital Signs: Last Vital Signs Temp 98 F 07/28/18 22:00 Pulse 82 07/28/18 22:00 Resp 18 07/28/18 22:00 BP 150/84 07/28/18 22:00 Pulse Ox 100 07/28/18 22:00 - Labs Result Diagrams: 07/28/18 06:30 07/28/18 06:30 Labs: Laboratory Results - last 24 hr 07/28/18 07/28/18 07/28/18 06:30 06:30 06:30 WBC 8.1 D RBC 4.42 Hgb 12.1 L Hct 37.9 L MCV 85.7 MCH 27.4 MCHC 31.9 RDW 15.5 H Plt Count 281 MPV 10.4 Gran % 63.3 Lymph % (Auto) 22.4 [place] % (Auto) 8.7 H Eos % (Auto) 5.5 H Baso % (Auto) 0.1 Gran # 5.14 Lymph # (Auto) 1.8 [place] # (Auto) 0.7 H Eos # (Auto) 0.5 Baso # (Auto) 0.01 Sodium 139 Potassium 3.7 Chloride 104 Carbon Dioxide 28 Anion Gap 12 BUN 46 H Creatinine 3.0 H Est GFR ( Amer) 25 Est GFR (Non-Af Amer) 20 Random Glucose 97 Hemoglobin A1c 6.2 Calcium 8.0 L Phosphorus 3.1 Magnesium 2.6 H Total Bilirubin 0.3 AST 34 ALT 33 Alkaline Phosphatase 52 Total Protein 7.2 Albumin 3.6 Globulin 3.6 Albumin/Globulin Ratio 1.0 L Triglycerides 139 Cholesterol 145 LDL Cholesterol Direct 87 HDL Cholesterol 27 L Complement C3 Complement C4 Hepatitis A IgM Ab Hepatitis A Ab Total Hep Bs Antigen Hep B Core IgM Ab Hepatitis C Antibody 07/28/18 07/28/18 07/28/18 07:00 07:00 07:00 WBC RBC Hgb Hct MCV MCH MCHC RDW Plt Count MPV Gran % Lymph % (Auto) [place] % (Auto) Eos % (Auto) Baso % (Auto) Gran # Lymph # (Auto) [place] # (Auto) Eos # (Auto) Baso # (Auto) Sodium Potassium Chloride Carbon Dioxide Anion Gap BUN Creatinine Est GFR ( Amer) Est GFR (Non-Af Amer) Random Glucose Hemoglobin A1c Calcium Phosphorus Magnesium Total Bilirubin AST ALT Alkaline Phosphatase Total Protein Albumin Globulin Albumin/Globulin Ratio Triglycerides Cholesterol LDL Cholesterol Direct HDL Cholesterol Complement C3 109.0 Complement C4 34.2 Hepatitis A IgM Ab Reactive Hepatitis A Ab Total Antibody positive Hep Bs Antigen Negative Hep B Core IgM Ab Negative Hepatitis C Antibody Negative Attending/Attestation - Attestation I have personally seen and examined this patient.: Yes I have fully participated in the care of the patient.: Yes I have reviewed all pertinent clinical information: Yes Notes (Text): This is an addendum to GI consult report dictated by the GI Fellow.The patient was seen and examined earlier. Medical records, lab studies, imagings were reviewed. Last 24 hours events reviewed. Agreed with the above treatment plan as outlined in GI Fellow 's notes with the addition of the following No further episodes of vomitng while in the hospital On examination abdomen soft nontender Slowly advance diet in a.m. if the patient remains a symptomatic again will consider further workup 07/28/18 23:17
[2018-07-28 17:10] LABS: COMPLEMENT C4 34.2 mg/dL (14.0-44.0)
[2018-07-28 17:37] LABS: HEPATITIS B SURFACE AG Negative (NEGATIVE)
[2018-07-28 17:42] LABS: HEPATITIS B CORE AB NEGATIVE (NEGATIVE)
[2018-07-28 17:54] LABS: HEPATITIS C ANTIBODY NEGATIVE (NEGATIVE)
[2018-07-28 20:01] LABS: HEPATITIS A IGM REACTIVE (NEGATIVE)
--- NOTE | 2018-07-28 20:58 | CP.PCM.CON ---
History of Present Illness - History of Present Illness History of Present Illness: renal consult note 78yo male with hypertension, gout, prior CVA, and dementia is admitted with c/o nausea/vomiting and abdominal pain. history is obtained from as patient has ? dementia or uncooperative since the recent stroke. he has troy recently told about his ckd by his pcp and was scheduled to be seen in office by our group this week. no urinary complaints hx of remote kidney stone in no nsaid use complete ros is negative PMH; as above PSH: hernia repair 9 yrs prior Allergies: reviewed Family Hx: reviewd, noncontributory no kidney disease in family Social Hx: former tobacco use 50+ years ago; denies EtOH or illicit drug use PMD: Dr. Francisco Barnes ([place]) exam vss heent normal op moist no jvd s1s2 present no resp distress abd soft nd bs + no edema ao times 3 skin normal uncooperative labs reviewed A&P: jaja/?ckd/proteinuria/htn/cva/gout/abdominal pain cr elevation with 4 grams of proteinuria , microscopic hematuria, CT scan shows normal kidneys i have ordered spep flc, c3c4 erica and hep profile lytes ok volume stable abdominal pain with vomiting work up per primary team. gi on board i have also ordered a pth level gout: continue allopurinol, monitor levels, may need dose change if no improvement d/w primary team Past Patient History - Past Social History Smoking Status: Former Smoker - CARDIAC Hx Cardiac Disorders: Yes Hx Hypertension: Yes - PULMONARY Hx Respiratory Disorders: Yes (USED TO SMOKE CIGARETTES) - NEUROLOGICAL HX Cerebrovascular Accident: Yes (1.5 years ago) - HEENT Hx HEENT Problems: No - RENAL Hx Chronic Kidney Disease: Yes (NEPHROLITHIASIS) Other/Comment: HIGH CREATININE - ENDOCRINE/METABOLIC Hx Endocrine Disorders: No - HEMATOLOGICAL/ONCOLOGICAL Hx Blood Disorders: No - INTEGUMENTARY Hx Dermatological Problems: Yes - MUSCULOSKELETAL/RHEUMATOLOGICAL Hx Falls: Yes - GASTROINTESTINAL Hx Gastrointestinal Disorders: Yes - GENITOURINARY/GYNECOLOGICAL Hx Genitourinary Disorders: Yes Hx Prostate Problems: Yes (ENLARGED) - PSYCHIATRIC Hx Psychophysiologic Disorder: No Hx Substance Use: No - SURGICAL HISTORY Hx Surgeries: No Meds Allergies/Adverse Reactions: Allergies Allergy/AdvReac Type Severity Reaction Status Date / Time Penicillins Allergy RASH Verified 07/27/18 09:42 Results - Vital Signs Recent Vital Signs: Last Vital Signs Temp 98.4 F 07/28/18 14:00 Pulse 86 07/28/18 14:00 Resp 20 07/28/18 14:00 BP 157/100 H 07/28/18 14:00 Pulse Ox 95 07/28/18 14:00 - Labs Result Diagrams: 07/28/18 06:30 07/28/18 06:30 Labs: Laboratory Results - last 24 hr 07/27/18 07/28/18 07/28/18 22:07 06:30 06:30 WBC 8.1 D RBC 4.42 Hgb 12.1 L Hct 37.9 L MCV 85.7 MCH 27.4 MCHC 31.9 RDW 15.5 H Plt Count 281 MPV 10.4 Gran % 63.3 Lymph % (Auto) 22.4 [place] % (Auto) 8.7 H Eos % (Auto) 5.5 H Baso % (Auto) 0.1 Gran # 5.14 Lymph # (Auto) 1.8 [place] # (Auto) 0.7 H Eos # (Auto) 0.5 Baso # (Auto) 0.01 Sodium 139 Potassium 3.7 Chloride 104 Carbon Dioxide 28 Anion Gap 12 BUN 46 H Creatinine 3.0 H Est GFR ( Amer) 25 Est GFR (Non-Af Amer) 20 Random Glucose 97 Hemoglobin A1c Calcium 8.0 L Phosphorus 3.1 Magnesium 2.6 H Total Bilirubin 0.3 AST 34 ALT 33 Alkaline Phosphatase 52 Total Protein 7.2 Albumin 3.6 Globulin 3.6 Albumin/Globulin Ratio 1.0 L Triglycerides 139 Cholesterol 145 LDL Cholesterol Direct 87 HDL Cholesterol 27 L Ur Random Creatinine 117 U Random Total Protein 513 Ur Random Sodium 57 Complement C3 Complement C4 Hepatitis A IgM Ab Hep Bs Antigen Hep B Core IgM Ab Hepatitis C Antibody 07/28/18 07/28/18 07/28/18 06:30 07:00 07:00 WBC RBC Hgb Hct MCV MCH MCHC RDW Plt Count MPV Gran % Lymph % (Auto) [place] % (Auto) Eos % (Auto) Baso % (Auto) Gran # Lymph # (Auto) [place] # (Auto) Eos # (Auto) Baso # (Auto) Sodium Potassium Chloride Carbon Dioxide Anion Gap BUN Creatinine Est GFR ( Amer) Est GFR (Non-Af Amer) Random Glucose Hemoglobin A1c 6.2 Calcium Phosphorus Magnesium Total Bilirubin AST ALT Alkaline Phosphatase Total Protein Albumin Globulin Albumin/Globulin Ratio Triglycerides Cholesterol LDL Cholesterol Direct HDL Cholesterol Ur Random Creatinine U Random Total Protein Ur Random Sodium Complement C3 109.0 Complement C4 34.2 Hepatitis A IgM Ab Reactive Hep Bs Antigen Negative Hep B Core IgM Ab Negative Hepatitis C Antibody Negative
[2018-07-29 06:19] LABS: FREE KAPPA SERUM 98.9 mg/L (3.3-19.4)
[2018-07-29 08:13] VITALS: PULSE 77; RESP 20; TEMP 98.2; O2SAT 99
[2018-07-29 09:08] LABS: ALBUMIN 3.6 g/dL (3.0-4.8); CALCIUM 8.1 mg/dL (8.4-10.5)
[2018-07-29] MEDS ORDERED: Potassium Chloride 20 mEq ER Tab PO ONE (10:32)
[2018-07-29 11:15] VITALS: BP 148/88
--- NOTE | 2018-07-29 12:29 | CP.PCM.PN ---
Subjective - Date & Time of Evaluation Date of Evaluation: 07/29/18 Time of Evaluation: 12:26 - Subjective Subjective: enal consult note 78yo male with hypertension, gout, prior CVA, and dementia is admitted with c/o nausea/vomiting and abdominal pain. history is obtained from as patient has ? dementia or uncooperative since the recent stroke. he has t[place] recently told about his ckd by his pcp and was scheduled to be seen in office by our group this week. no urinary complaints hx of remote kidney stone in no nsaid use ROS limited from pt due to dementia. denies CP/SOB PMH; as above PSH: hernia repair 9 yrs prior Allergies: reviewed Family Hx: reviewd, noncontributory no kidney disease in family Social Hx: former tobacco use 50+ years ago; denies EtOH or illicit drug use PMD: Dr. Francisco Barnes ([place]) exam vss heent normal op moist no jvd s1s2 present no resp distress abd soft nd bs + 1+ edema alert awake and has dementia skin normal uncooperative labs reviewed A&P: jaja/?ckd 4/proteinuria/htn/cva/gout/abdominal pain cr elevation with 500 mg of proteinuria , microscopic hematuria, CT scan shows normal kidneys i have ordered spep flc, c3c4 erica and hep profile lytes ok add low dose lasix 20 mg/day abdominal pain with vomiting work up per primary team. gi on board i have also ordered a pth level gout: continue allopurinol, monitor levels contineu with ARB pt stable for d/c from renal perspective when planned. need outpt renal follow up d/w Objective - Vital Signs/Intake and Output Vital Signs (last 24 hours): Temp Pulse Resp BP Pulse Ox 98.2 F 77 20 148/88 99 07/29/18 08:13 07/29/18 08:13 07/29/18 08:13 07/29/18 11:06 07/29/18 08:13 Intake and Output: 07/29/18 07/29/18 06:59 18:59 Intake Total 620 Balance 620 - Medications Medications: Current Medications Allopurinol (Zyloprim) 100 mg PO BID [facility] Last Admin: 07/29/18 11:07 Dose: 100 mg Amlodipine Besylate (Norvasc) 5 mg PO DAILY [facility] Last Admin: 07/29/18 11:06 Dose: 5 mg Aspirin (Ecotrin) 81 mg PO DAILY [facility] Last Admin: 07/29/18 11:07 Dose: 81 mg Atorvastatin Calcium (Lipitor) 20 mg PO DIN [facility] Famotidine (Pepcid) 20 mg PO 1000 [facility] Last Admin: 07/29/18 11:05 Dose: 20 mg Heparin Sodium (Porcine) (Heparin) 5,000 units SC Q8 [facility]; Protocol Last Admin: 07/29/18 11:07 Dose: 5,000 units Losartan Potassium (Cozaar) 100 mg PO HS [facility] Last Admin: 07/29/18 00:21 Dose: 100 mg Memantine (Namenda) 10 mg PO DAILY [facility] Last Admin: 07/29/18 11:06 Dose: 10 mg Ondansetron HCl (Zofran Inj) 4 mg IVP Q6H PRN PRN Reason: Nausea/Vomiting - Labs Labs: 07/28/18 06:30 07/29/18 08:40 PT 12.2 SECONDS (9.4-12.5) 07/27/18 10:00 INR 1.06 07/27/18 10:00 APTT 33.9 Seconds (25.1-36.5) 07/27/18 10:00
--- NOTE | 2018-07-29 12:54 | CP.PCM.PN ---
Subjective - Date & Time of Evaluation Date of Evaluation: 07/29/18 Time of Evaluation: 09:10 - Subjective Subjective: PGY1 Medicine Progress Note for Dr. Zapata Patient was seen and evaluated today. in Patient's room. With consent of Patient, the conversation continued. Patient able to get into chair without assistance. Patient had no acute events overnight. Patient tolerating soft-food diet (pancake and oatmeal) without issues. Patient otherwise denies nausea, vomiting, chest pain, abdominal pain, shortness of breath, dizziness, dysuria, fever, chills, and/or rash. Objective - Vital Signs/Intake and Output Vital Signs (last 24 hours): Temp Pulse Resp BP Pulse Ox 98.2 F 77 20 148/88 99 07/29/18 08:13 07/29/18 08:13 07/29/18 08:13 07/29/18 11:06 07/29/18 08:13 Intake and Output: 07/29/18 07/29/18 06:59 18:59 Intake Total 620 Balance 620 - Medications Medications: Current Medications Allopurinol (Zyloprim) 100 mg PO BID [facility] Last Admin: 07/29/18 11:07 Dose: 100 mg Amlodipine Besylate (Norvasc) 5 mg PO DAILY [facility] Last Admin: 07/29/18 11:06 Dose: 5 mg Aspirin (Ecotrin) 81 mg PO DAILY [facility] Last Admin: 07/29/18 11:07 Dose: 81 mg Atorvastatin Calcium (Lipitor) 20 mg PO DIN [facility] Famotidine (Pepcid) 20 mg PO 1000 [facility] Last Admin: 07/29/18 11:05 Dose: 20 mg Furosemide (Lasix) 20 mg PO DAILY [facility] Heparin Sodium (Porcine) (Heparin) 5,000 units SC Q8 [facility]; Protocol Last Admin: 07/29/18 11:07 Dose: 5,000 units Losartan Potassium (Cozaar) 100 mg PO HS [facility] Last Admin: 07/29/18 00:21 Dose: 100 mg Memantine (Namenda) 10 mg PO DAILY [facility] Last Admin: 07/29/18 11:06 Dose: 10 mg Ondansetron HCl (Zofran Inj) 4 mg IVP Q6H PRN PRN Reason: Nausea/Vomiting - Labs Labs: 07/28/18 06:30 07/29/18 08:40 PT 12.2 SECONDS (9.4-12.5) 07/27/18 10:00 INR 1.06 07/27/18 10:00 APTT 33.9 Seconds (25.1-36.5) 07/27/18 10:00 - Additional Findings Additional findings: - Constitutional Appears: Non-toxic, No Acute Distress - Head Exam Head Exam: ATRAUMATIC, NORMAL INSPECTION, NORMOCEPHALIC - Eye Exam Additional comments: Bilateral exopthalmos appreciated on inspection - ENT Exam ENT Exam: Mucous Membranes Moist, Normal Exam - Neck Exam Neck Exam: Full ROM, Normal Inspection. absent: Lymphadenopathy, Thyromegaly - Respiratory Exam Respiratory Exam: Clear to Ausculation Bilateral, NORMAL BREATHING PATTERN. absent: Accessory Muscle Use, Chest Wall Tenderness, Decreased Breath Sounds, Prolonged Expiratory Phase, Rales, Rhonchi, Wheezes, Respiratory Distress, Stridor - Cardiovascular Exam Cardiovascular Exam: REGULAR RHYTHM, +S1, +S2. absent: Tachycardia, Gallop, Murmur - GI/Abdominal Exam GI & Abdominal Exam: Firm, Normal Bowel Sounds. absent: Distended, Guarding, Rigid, Tenderness, Rebound - Extremities Exam Extremities Exam: Normal Inspection. absent: Pedal Edema - Back Exam Back Exam: NORMAL INSPECTION - Neurological Exam Neurological Exam: Alert, Awake, Oriented x3 - Psychiatric Exam Psychiatric exam: Normal Affect, Normal Mood - Skin Skin Exam: Dry, Intact, Normal Color, Warm Assessment and Plan - Assessment and Plan (Free Text) Assessment: Patient is a 78-year-old Male with PMH of Hypertension, Gout, CVA, Dementia who presents to [facility] ED with a chief complaint of epigastric abdominal pain associated with nausea and vomiting. Patient denies nausea and/or vomiting as of 07/27 in the morning. Abdominal pain / Nausea and Vomiting likely secondary Acute Hepatitis A infection - Serology from 07/27 resulted 07/29: Hepatitis A IgM Ab reactive; Hepatitis A Ab total = positive - CT Abd/pelvis 07/27: dilated stomach with air-fluid level but no evidence of SBO; possibly secondary to gastroparesis (please see official report for more detail) - CXR 07/27: no active disease (please see official report for more detail) - Influenza A/B negative - Patient complained of diarrhea today - Hepatitis Panel: - F/U C-Diff toxin - F/U Stool ova/parasite - F/U Stool cultures - Blood cultures: no growth x48hrs - GI consulted: Dr. Carrizales; recommendations appreciated - Zofran PRN for nausea/vomiting - Pepcid 20 for GI prophylaxis - Patient may be advanced to full liquid diet today, and advance as tolerated to soft diet tomorrow. - Monitor CBC, CMP Acute Kidney Injury - EKG revealed sinus tachycardia @103bpm with PAC's - Urine protein >=300 - Urine Random Wk=647 - Urine Random Na=57 - Cr=2.7; downtrending (was 3 07/28) - BUN=38, downtrending - IVF hydration with NS @ 75cc/hr for 1 bag - Nephrology consulted - Dr. De La Garza - MATI strep negative - Urine culture: no growth x48hr - ELENA IFA screen with reflex - F/U C3/C4 complement - Monitor CMP, Mg, Phos History of Hypertension - Norvasc/Losartan for hypertension - ASA 325/Lipitor 40 for stroke prevention History of Gout - Continue allopurinol 100mg PO BID - No acute issues History of CVA - Continue ASA 81mg - Continue Cozaar 100mg PO HS - No acute issues History of Dementia - Continue Namenda 10mg Daily for dementia - No acute issues PPx: - GI: Pepcid 20mg PO Daily - DVT: Heparin SC Daily Patient seen and case discussed in detail with Dr. Jodi Best PGY1
--- NOTE | 2018-07-29 13:05 | CP.PCM.PN ---
<Hill Leiva - Last Filed: 07/29/18 16:27> Subjective - Date & Time of Evaluation Date of Evaluation: 07/29/18 Time of Evaluation: 08:35 - Subjective Subjective: PGY6 GI Fellow Progress Note Patient seen and examined bedside this morning. The patient's is at bedside during examination. Denies any complaints presently and no new episodes of nausea/vomiting. now giving history that ate fish from grocery sto re on Saturday evening, developed some abdominal cramping and loose stool. Did not feel well rest of weekend and had episode of nausea/vomiting recently prompting admission. Some confusion last night c/w known history of dementia. 12 system ROS performed and negative except where stated Objective - Vital Signs/Intake and Output Vital Signs (last 24 hours): Temp Pulse Resp BP Pulse Ox 98.2 F 77 20 148/88 99 07/29/18 08:13 07/29/18 08:13 07/29/18 08:13 07/29/18 11:06 07/29/18 08:13 Intake and Output: 07/29/18 07/29/18 06:59 18:59 Intake Total 620 Balance 620 - Medications Medications: Current Medications Allopurinol (Zyloprim) 100 mg PO BID [facility] Last Admin: 07/29/18 11:07 Dose: 100 mg Amlodipine Besylate (Norvasc) 5 mg PO DAILY [facility] Last Admin: 07/29/18 11:06 Dose: 5 mg Aspirin (Ecotrin) 81 mg PO DAILY [facility] Last Admin: 07/29/18 11:07 Dose: 81 mg Atorvastatin Calcium (Lipitor) 20 mg PO DIN [facility] Famotidine (Pepcid) 20 mg PO 1000 [facility] Last Admin: 07/29/18 11:05 Dose: 20 mg Furosemide (Lasix) 20 mg PO DAILY [facility] Heparin Sodium (Porcine) (Heparin) 5,000 units SC Q8 [facility]; Protocol Last Admin: 07/29/18 11:07 Dose: 5,000 units Losartan Potassium (Cozaar) 100 mg PO HS [facility] Last Admin: 07/29/18 00:21 Dose: 100 mg Memantine (Namenda) 10 mg PO DAILY [facility] Last Admin: 07/29/18 11:06 Dose: 10 mg Ondansetron HCl (Zofran Inj) 4 mg IVP Q6H PRN PRN Reason: Nausea/Vomiting - Labs Labs: 07/28/18 06:30 07/29/18 08:40 PT 12.2 SECONDS (9.4-12.5) 07/27/18 10:00 INR 1.06 07/27/18 10:00 APTT 33.9 Seconds (25.1-36.5) 07/27/18 10:00 - Constitutional Appears: Non-toxic, No Acute Distress - Eye Exam Eye Exam: EOMI, PERRL - ENT Exam ENT Exam: Mucous Membranes Moist - Respiratory Exam Respiratory Exam: Clear to Ausculation Bilateral. absent: Rales, Rhonchi, Wheezes - Cardiovascular Exam Cardiovascular Exam: RRR, +S1, +S2 - GI/Abdominal Exam GI & Abdominal Exam: Soft, Normal Bowel Sounds. absent: Distended, Firm, Guarding, Rigid, Tenderness, Organomegaly - Extremities Exam Extremities Exam: Normal Inspection. absent: Pedal Edema - Neurological Exam Neurological Exam: Alert, Awake. absent: Oriented x3 - Psychiatric Exam Psychiatric exam: Normal Affect, Normal Mood - Skin Skin Exam: Dry, Warm Assessment and Plan - Assessment and Plan (Free Text) Assessment: Patient is a 78yo male with PMHx significant for HTN, dementia, CVA and gout who presented to the ED with complaint of nausea/vomiting -Possible acute HAV, confirmatory testing pending -Nausea/vomiting -CKD -Dementia Plan: -HAV IgM Ab reactive on screening performed yesterday, ordered by nephrology team -LFTs WNL and no evidence of any hepatic dysfunction -Viral syndrome, nausea/vomiting could be consistent with acute HAV infection -Repeat HAV IgM Ab -If positive, supportive care and appropriate contact precautions (spread through fecal-oral route for up to 4 weeks), will request that patient's be tested for HAV and will need to report infection to local health department <Vaibhav Carrizales V - Last Filed: 07/29/18 23:10> Objective - Vital Signs/Intake and Output Vital Signs (last 24 hours): Temp Pulse Resp BP Pulse Ox 98.2 F 77 20 148/88 99 07/29/18 08:13 07/29/18 08:13 07/29/18 08:13 07/29/18 11:06 07/29/18 08:13 - Labs Labs: 07/28/18 06:30 07/29/18 08:40 PT 12.2 SECONDS (9.4-12.5) 07/27/18 10:00 INR 1.06 07/27/18 10:00 APTT 33.9 Seconds (25.1-36.5) 07/27/18 10:00 Attending/Attestation - Attestation I have personally seen and examined this patient.: Yes I have fully participated in the care of the patient.: Yes I have reviewed all pertinent clinical information, including history, physical exam and plan: Yes Notes (Text): This is an addendum to GI progress report dictated by the GI Fellow.The patient was seen and examined earlier. Medical records, lab studies, imagings were reviewed. Last 24 hours events reviewed. Agreed with the above treatment plan as outlined in GI Fellow 's notes with the addition of the following 07/29/18 23:09
--- NOTE | 2018-07-29 15:51 | CP.PCM.DIS ---
<Tree Best - Last Filed: 07/29/18 15:42> Provider - Provider Date of Admission: 07/27/18 13:53 Attending physician: Lyudmila Zapata MD Primary care physician: Francisco Barnes MD Consults: 07/27/18 15:37 Consult [Physician Consult] Routine Comment: Consulting Provider: Vaibhav Carrizales V Consulting Physician: Vaibhav Carrizales V Reason for Consult: nausea/vomiting; questionable gastroparesis 07/27/18 15:41 Consult [Physician Consult] Routine Comment: Consulting Provider: Rajeev De La Garza Consulting Physician: Rajeev De La Garza Reason for Consult: ISABELL on CKD Time Spent in preparation of Discharge (in minutes): 45 Diagnosis - Discharge Diagnosis (1) Hepatitis A infection Status: Acute Priority: Medium (2) Acute kidney injury Status: Acute Priority: Medium Hospital Course - Lab Results Lab Results: Micro Results 07/27/18 13:06 Blood Blood Culture - Preliminary NO GROWTH AFTER 48 HOURS 07/27/18 12:20 Blood Blood Culture - Preliminary NO GROWTH AFTER 48 HOURS 07/27/18 13:06 Throat Group A Strep Throat Culture - Final NO BETA STREP GROUP A ISOLATED. 07/27/18 10:40 Urine,Clean Catch Urine Culture - Final No Growth (<1,000 CFU/ML) Most Recent Lab Values WBC 8.1 10^3/uL (4.5-11.0) D 07/28/18 06:30 RBC 4.42 10^6/uL (3.5-6.1) 07/28/18 06:30 Hgb 12.1 g/dL (14.0-18.0) L 07/28/18 06:30 Hct 37.9 % (42.0-52.0) L 07/28/18 06:30 MCV 85.7 fl (80.0-105.0) 07/28/18 06:30 MCH 27.4 pg (25.0-35.0) 07/28/18 06:30 MCHC 31.9 g/dl (31.0-37.0) 07/28/18 06:30 RDW 15.5 % (11.5-14.5) H 07/28/18 06:30 Plt Count 281 10^3/uL (120.0-450.0) 07/28/18 06:30 MPV 10.4 fl (7.0-11.0) 07/28/18 06:30 Gran % 63.3 % (50.0-68.0) 07/28/18 06:30 Lymph % (Auto) 22.4 % (22.0-35.0) 07/28/18 06:30 [place] % (Auto) 8.7 % (1.0-6.0) H 07/28/18 06:30 Eos % (Auto) 5.5 % (1.5-5.0) H 07/28/18 06:30 Baso % (Auto) 0.1 % (0.0-3.0) 07/28/18 06:30 Gran # 5.14 (1.4-6.5) 07/28/18 06:30 Lymph # (Auto) 1.8 (1.2-3.4) 07/28/18 06:30 [place] # (Auto) 0.7 (0.1-0.6) H 07/28/18 06:30 Eos # (Auto) 0.5 (0.0-0.7) 07/28/18 06:30 Baso # (Auto) 0.01 K/mm3 (0.0-2.0) 07/28/18 06:30 PT 12.2 SECONDS (9.4-12.5) 07/27/18 10:00 INR 1.06 07/27/18 10:00 APTT 33.9 Seconds (25.1-36.5) 07/27/18 10:00 Sodium 139 mmol/L (132-148) 07/29/18 08:40 Potassium 3.5 mmol/L (3.6-5.0) L 07/29/18 08:40 Chloride 105 mmol/L (98-107) 07/29/18 08:40 Carbon Dioxide 27 mmol/L (21-33) 07/29/18 08:40 Anion Gap 11 (10-20) 07/29/18 08:40 BUN 38 mg/dL (7-21) H 07/29/18 08:40 Creatinine 2.7 mg/dl (0.8-1.5) H 07/29/18 08:40 Est GFR ( Amer) 28 07/29/18 08:40 Est GFR (Non-Af Amer) 23 07/29/18 08:40 POC Glucose (mg/dL) 120 mg/dL (65-110) H 07/29/18 06:40 Random Glucose 106 mg/dL (70-110) 07/29/18 08:40 Hemoglobin A1c 6.2 % (4.2-6.5) 07/28/18 06:30 Uric Acid 10.2 mg/dL (3.5-8.5) H 07/27/18 10:00 Calcium 8.1 mg/dL (8.4-10.5) L 07/29/18 08:40 Phosphorus 3.1 mg/dL (2.5-4.5) 07/28/18 06:30 Magnesium 2.6 mg/dL (1.7-2.2) H 07/28/18 06:30 Total Bilirubin 0.3 mg/dL (0.2-1.3) 07/29/18 08:40 AST 37 U/L (17-59) 07/29/18 08:40 ALT 45 U/L (7-56) 07/29/18 08:40 Alkaline Phosphatase 54 U/L (38-126) 07/29/18 08:40 Troponin I < 0.01 ng/mL D 07/27/18 10:00 Total Protein 7.3 g/dL (5.8-8.3) 07/29/18 08:40 Total Protein (PEP) 6.8 g/dL (6.1-8.1) 07/28/18 07:00 Albumin 3.6 g/dL (3.0-4.8) 07/29/18 08:40 Globulin 3.7 gm/dL 07/29/18 08:40 Albumin/Globulin Ratio 1.0 (1.1-1.8) L 07/29/18 08:40 Triglycerides 139 mg/dL (35-160) 07/28/18 06:30 Cholesterol 145 mg/dL (130-200) 07/28/18 06:30 LDL Cholesterol Direct 87 mg/dL (0-129) 07/28/18 06:30 HDL Cholesterol 27 mg/dL (29-60) L 07/28/18 06:30 PTH Intact Whole Molec 209 pg/mL (14-64) H 07/28/18 21:00 Urine Color Yellow (YELLOW) 07/27/18 10:40 Urine Appearance Clear (CLEAR) 07/27/18 10:40 Urine pH 7.0 (4.7-8.0) 07/27/18 10:40 Ur Specific [place] 1.020 (1.005-1.035) 07/27/18 10:40 Urine Protein >=300 mg/dL (<30 mg/dL) H 07/27/18 10:40 Urine Glucose (UA) Negative mg/dL (NEGATIVE) 07/27/18 10:40 Urine Ketones Negative mg/dL (NEGATIVE) 07/27/18 10:40 Urine Blood Negative (NEGATIVE) 07/27/18 10:40 Urine Nitrate Negative (NEGATIVE) 07/27/18 10:40 Urine Bilirubin Negative (NEGATIVE) 07/27/18 10:40 Urine Urobilinogen 0.2 E.U./dL (<1 E.U./dL) 07/27/18 10:40 Ur Leukocyte Esterase Negative Jany/uL (NEGATIVE) 07/27/18 10:40 Urine RBC 2 - 5 /hpf (0-2) 07/27/18 10:40 Urine WBC 2 - 5 /hpf (0-6) 07/27/18 10:40 Ur Epithelial Cells 0 - 2 /hpf (0-5) 07/27/18 10:40 Urine Other Usperm 07/27/18 10:40 Ur Random Creatinine 117 mg/dL 07/27/18 22:07 U Random Total Protein 513 mg/L 07/27/18 22:07 Ur Random Sodium 57 meq/L 07/27/18 22:07 Complement C3 109.0 mg/dL (88.0-165.0) 07/28/18 07:00 Complement C4 34.2 mg/dL (14.0-44.0) 07/28/18 07:00 Free [place] Light Chains 98.9 mg/L (3.3-19.4) H 07/28/18 07:00 Free Lambda Light Chain 92.0 mg/L (5.7-26.3) H 07/28/18 07:00 Free [place]/Lambda Ratio 1.08 (0.26-1.65) 07/28/18 07:00 Hepatitis A IgM Ab Reactive (NEGATIVE) 07/28/18 07:00 Hepatitis A Ab Total Antibody positive (NEGATIVE) 07/28/18 07:00 Hep Bs Antigen Negative (NEGATIVE) 07/28/18 07:00 Hep B Core IgM Ab Negative (NEGATIVE) 07/28/18 07:00 Hepatitis C Antibody Negative (NEGATIVE) 07/28/18 07:00 Influenza Typ A,B (EIA) Negative for flu a/b (NEGATIVE) 07/27/18 13:06 Grp A Beta Strep Ag Negative (NEGATIVE) 07/27/18 13:06 - Hospital Course Hospital Course: PGY1 Discharge Summary and Hospital Course for Dr. Zapata Patient is a 78 year old male with past medical history of hypertension, gout, prior CVA, and dementia that presented [place] [facility] with complaint of nausea/vomiting. Per patients , patient had 3 episodes of nausea and nonbilious, nonbloody vomiting that started suddenly the night prior to coming into the ED. Patients endorsed that he had since his PMD 2 weeks prior and was made aware of a kidney problem for which the patient was referred to nephrology for further workup. Patient denied any fever, chills, cough, focal weakness, numbness, tingling, chest pain, palpitations, SOB. Patient was subsequently admitted for evaluation and supportive care for gastroenteritis. Please see Patient's chart for details. Hepatitis panel was obtained and was serologically positive for Hepatitis A Ab total. Hepatitis A IgM Ab was reactive. CT Abd/pelvis 07/27: dilated stomach with air-fluid level but no evidence of SBO; possibly secondary to gastroparesis (please see official report for more detail). CXR 07/27: no active disease (please see official report for more detail). Influenza A/B negative. GI was consulted (Dr. Carrizales); Please see reports for details. Patient was treated with zofran for nausea, and pepcid for GI prophylaxis. Patient was also found to have labs consistent with ISABELL. Creatinine was down-trending throughout hospitalization. Patient was treated with IV hydration; NS. Nephrology was consulted; Dr. De La Garza. Please see reports for details. Patient also has history of HTN, Gout, CVA, and Dementia, and was restarted on home medications. On day of discharge, the Patient was seen and evaluated. in Patient's room. With consent of Patient, the conversation continued. Patient able to get into chair without assistance. Patient had no acute events overnight. Patient tolerating soft-food diet (pancake and oatmeal) without issues. Patient otherwise denies nausea, vomiting, chest pain, abdominal pain, shortness of breath, dizziness, dysuria, fever, chills, and/or rash. Physical exam was unremarkable. Patient was hemodynamically stable and medically optimized for discharge. Of note, the [place] state was notified of the hepatitis A. No further actions needed at this time, and Patient is able to be discharged. Patient was provided with both written and verbal detailed discharge instructions, which were explained to the level of Patient's comprehension. Patient both understands and agrees to all instructions. Please see chart for details. Patient seen and case discussed with Dr. Jodi Best PGY1 Discharge Exam - Additional Findings Additional findings: - Constitutional Appears: No Acute Distress - Head Exam Head Exam: ATRAUMATIC, NORMAL INSPECTION, NORMOCEPHALIC - Eye Exam Eye Exam: EOMI, PERRL - ENT Exam ENT Exam: Mucous Membranes Moist - Respiratory Exam Respiratory Exam: Clear to Auscultation Bilateral. absent: Rales, Rhonchi, Wheezes - Cardiovascular Exam Cardiovascular Exam: RRR, +S1, +S2. absent: Gallop, JVD, Rubs - GI/Abdominal Exam GI & Abdominal Exam: Soft. absent: Distended, Firm, Guarding, Rebound, Rigid, Tenderness - Extremities Exam Extremities exam: Negative for: calf tenderness, pedal edema - Neurological Exam Neurological exam: Alert, Oriented x3 - Psychiatric Exam Psychiatric exam: Agitated - Skin Skin Exam: Dry, Intact, Normal Color, Warm Discharge Plan - Discharge Medications Prescriptions: Aspirin [Ecotrin] 81 mg PO DAILY #30 tabec Atorvastatin [Lipitor] 20 mg PO DIN #30 tab Furosemide [Lasix] 20 mg PO DAILY #30 tab Losartan [Cozaar] 100 mg PO HS #30 tab - Follow Up Plan Condition: FAIR Disposition: HOME/ ROUTINE Instructions: Hepatitis A, High Blood Pressure in Adults, Preventing Falls in the Older Adult, Peripheral Vascular (Arterial) Disease (DC), Acute Kidney Failure (DC) Additional Instructions: Please follow up with primary medical doctor, Dr. Barnes in 3-5 days. You were given prescriptions for: 1. Aspirin 81mg daily 2. Lasix 20mg daily ( for blood pressure) 3. Losartan 100mg daily (for blood pressure) 4. Lipitor 20mg daily (for cholesterol) Continue all other home medication. Recommended your get tested for hepatits A. Advance diet slowly, start with soft diet. If symptoms worsen, please go to nearest emergency department. Referrals: Francisco Barnes MD [Primary Care Provider] - <Lyudmila Zapata - Last Filed: 07/30/18 16:02> Provider - Provider Date of Admission: 07/27/18 13:53 Attending physician: Lyudmila Zapata MD Primary care physician: Francisco aBrnes MD Consults: 07/27/18 15:37 Consult [Physician Consult] Routine Comment: Consulting Provider: Vaibhav Carrizales V Consulting Physician: Vaibhav Carrizales V Reason for Consult: nausea/vomiting; questionable gastroparesis 07/27/18 15:41 Consult [Physician Consult] Routine Comment: Consulting Provider: Rajeev De La Garza Consulting Physician: Rajeev De La Garza Reason for Consult: ISABELL on CKD Hospital Course - Lab Results Lab Results: Micro Results 07/27/18 13:06 Blood Blood Culture - Preliminary NO GROWTH AFTER 3 DAYS 07/27/18 12:20 Blood Blood Culture - Preliminary NO GROWTH AFTER 3 DAYS 07/27/18 13:06 Throat Group A Strep Throat Culture - Final NO BETA STREP GROUP A ISOLATED. 07/27/18 10:40 Urine,Clean Catch Urine Culture - Final No Growth (<1,000 CFU/ML) Most Recent Lab Values WBC 8.1 10^3/uL (4.5-11.0) D 07/28/18 06:30 RBC 4.42 10^6/uL (3.5-6.1) 07/28/18 06:30 Hgb 12.1 g/dL (14.0-18.0) L 07/28/18 06:30 Hct 37.9 % (42.0-52.0) L 07/28/18 06:30 MCV 85.7 fl (80.0-105.0) 07/28/18 06:30 MCH 27.4 pg (25.0-35.0) 07/28/18 06:30 MCHC 31.9 g/dl (31.0-37.0) 07/28/18 06:30 RDW 15.5 % (11.5-14.5) H 07/28/18 06:30 Plt Count 281 10^3/uL (120.0-450.0) 07/28/18 06:30 MPV 10.4 fl (7.0-11.0) 07/28/18 06:30 Gran % 63.3 % (50.0-68.0) 07/28/18 06:30 Lymph % (Auto) 22.4 % (22.0-35.0) 07/28/18 06:30 [place] % (Auto) 8.7 % (1.0-6.0) H 07/28/18 06:30 Eos % (Auto) 5.5 % (1.5-5.0) H 07/28/18 06:30 Baso % (Auto) 0.1 % (0.0-3.0) 07/28/18 06:30 Gran # 5.14 (1.4-6.5) 07/28/18 06:30 Lymph # (Auto) 1.8 (1.2-3.4) 07/28/18 06:30 [place] # (Auto) 0.7 (0.1-0.6) H 07/28/18 06:30 Eos # (Auto) 0.5 (0.0-0.7) 07/28/18 06:30 Baso # (Auto) 0.01 K/mm3 (0.0-2.0) 07/28/18 06:30 PT 12.2 SECONDS (9.4-12.5) 07/27/18 10:00 INR 1.06 07/27/18 10:00 APTT 33.9 Seconds (25.1-36.5) 07/27/18 10:00 Sodium 139 mmol/L (132-148) 07/29/18 08:40 Potassium 3.5 mmol/L (3.6-5.0) L 07/29/18 08:40 Chloride 105 mmol/L (98-107) 07/29/18 08:40 Carbon Dioxide 27 mmol/L (21-33) 07/29/18 08:40 Anion Gap 11 (10-20) 07/29/18 08:40 BUN 38 mg/dL (7-21) H 07/29/18 08:40 Creatinine 2.7 mg/dl (0.8-1.5) H 07/29/18 08:40 Est GFR ( Amer) 28 07/29/18 08:40 Est GFR (Non-Af Amer) 23 07/29/18 08:40 POC Glucose (mg/dL) 143 mg/dL (65-110) H 07/29/18 10:51 Random Glucose 106 mg/dL (70-110) 07/29/18 08:40 Hemoglobin A1c 6.2 % (4.2-6.5) 07/28/18 06:30 Uric Acid 10.2 mg/dL (3.5-8.5) H 07/27/18 10:00 Calcium 8.1 mg/dL (8.4-10.5) L 07/29/18 08:40 Phosphorus 3.1 mg/dL (2.5-4.5) 07/28/18 06:30 Magnesium 2.6 mg/dL (1.7-2.2) H 07/28/18 06:30 Total Bilirubin 0.3 mg/dL (0.2-1.3) 07/29/18 08:40 AST 37 U/L (17-59) 07/29/18 08:40 ALT 45 U/L (7-56) 07/29/18 08:40 Alkaline Phosphatase 54 U/L (38-126) 07/29/18 08:40 Troponin I < 0.01 ng/mL D 07/27/18 10:00 Total Protein 7.3 g/dL (5.8-8.3) 07/29/18 08:40 Total Protein (PEP) 6.8 g/dL (6.1-8.1) 07/28/18 07:00 Albumin 3.6 g/dL (3.0-4.8) 07/29/18 08:40 Albumin (PEP) 3.4 g/dL (3.8-4.8) L 07/28/18 07:00 Globulin 3.7 gm/dL 07/29/18 08:40 Albumin/Globulin Ratio 1.0 (1.1-1.8) L 07/29/18 08:40 Hwnpv-2-Bewnpkzrs 0.3 g/dL (0.2-0.3) 07/28/18 07:00 Sohiv-0-Tyhpcjjqd 0.8 g/dL (0.5-0.9) 07/28/18 07:00 Nntt-6-Wkvjugnu 0.5 g/dL (0.4-0.6) 07/28/18 07:00 Wprf-0-Ipofwoed 0.5 g/dL (0.2-0.5) 07/28/18 07:00 Gamma Globulins 1.3 g/dL (0.8-1.7) 07/28/18 07:00 Abnorm Protein Band 1 TEST NOT PERFORMED 07/28/18 07:00 Abnorm Protein Band 2 TEST NOT PERFORMED 07/28/18 07:00 Abnorm Protein Band 3 TEST NOT PERFORMED 07/28/18 07:00 Triglycerides 139 mg/dL (35-160) 07/28/18 06:30 Cholesterol 145 mg/dL (130-200) 07/28/18 06:30 LDL Cholesterol Direct 87 mg/dL (0-129) 07/28/18 06:30 HDL Cholesterol 27 mg/dL (29-60) L 07/28/18 06:30 PTH Intact Whole Molec 209 pg/mL (14-64) H 07/28/18 21:00 Urine Color Yellow (YELLOW) 07/27/18 10:40 Urine Appearance Clear (CLEAR) 07/27/18 10:40 Urine pH 7.0 (4.7-8.0) 07/27/18 10:40 Ur Specific [place] 1.020 (1.005-1.035) 07/27/18 10:40 Urine Protein >=300 mg/dL (<30 mg/dL) H 07/27/18 10:40 Urine Glucose (UA) Negative mg/dL (NEGATIVE) 07/27/18 10:40 Urine Ketones Negative mg/dL (NEGATIVE) 07/27/18 10:40 Urine Blood Negative (NEGATIVE) 07/27/18 10:40 Urine Nitrate Negative (NEGATIVE) 07/27/18 10:40 Urine Bilirubin Negative (NEGATIVE) 07/27/18 10:40 Urine Urobilinogen 0.2 E.U./dL (<1 E.U./dL) 07/27/18 10:40 Ur Leukocyte Esterase Negative Jany/uL (NEGATIVE) 07/27/18 10:40 Urine RBC 2 - 5 /hpf (0-2) 07/27/18 10:40 Urine WBC 2 - 5 /hpf (0-6) 07/27/18 10:40 Ur Epithelial Cells 0 - 2 /hpf (0-5) 07/27/18 10:40 Urine Other Usperm 07/27/18 10:40 Ur Random Creatinine 117 mg/dL 07/27/18 22:07 U Random Total Protein 513 mg/L 07/27/18 22:07 Ur Random Sodium 57 meq/L 07/27/18 22:07 TRE & SPEP Interp See note 07/28/18 07:00 ELENA Screen Negative (Negative) 07/28/18 07:00 ELENA Titer TEST NOT PERFORMED 07/28/18 07:00 ELENA Titer 2 TEST NOT PERFORMED 07/28/18 07:00 ELENA Pattern TEST NOT PERFORMED 07/28/18 07:00 ELE[place] Pattern 2 TEST NOT PERFORMED 07/28/18 07:00 Complement C3 109.0 mg/dL (88.0-165.0) 07/28/18 07:00 Complement C4 34.2 mg/dL (14.0-44.0) 07/28/18 07:00 Free [place] Light Chains 98.9 mg/L (3.3-19.4) H 07/28/18 07:00 Free [place] Chain 92.0 mg/L (5.7-26.3) H 07/28/18 07:00 Free [place]/Lambda Ratio 1.08 (0.26-1.65) 07/28/18 07:00 Hepatitis A IgM Ab Reactive (NEGATIVE) 07/29/18 08:00 Hepatitis A Ab Total Antibody pos (NEGATIVE) 07/29/18 08:00 Hep Bs Antigen Negative (NEGATIVE) 07/28/18 07:00 Hep B Core IgM Ab Negative (NEGATIVE) 07/28/18 07:00 Hepatitis C Antibody Negative (NEGATIVE) 07/28/18 07:00 Influenza Typ A,B (EIA) Negative for flu a/b (NEGATIVE) 07/27/18 13:06 Grp A Beta Strep Ag Negative (NEGATIVE) 07/27/18 13:06 Attending/Attestation - Attestation I have personally seen and examined this patient.: Yes I have fully participated in the care of the patient.: Yes I have reviewed all pertinent clinical information, including history, physical exam and plan: Yes Notes (Text): 07/30/18 15:56 Attending note; Patient seen and examined with resident. Patient is alert and awake. Denies any nausea, vomiting. denies any diarrhea. Patient is a 78 year old male with past medical history significant for CVA with right sided residual weakness, arthritis, gout, dementia, PAD, and hypertension that presented to the emergency room with nausea and vomiting. 1. Nausea and vomiting; currently resolving . CT abd/pelvis showed moderately dilated fluid-filled stomach, possible gastroparesis, no evidence of small bowel obstruction. Nausea and vomiting resolved. GI evaluation appreciated . Started patient on clear liquid diet . Advance as tolerated. Placed on clear liquid diet. Zofran as needed. 2. ISABELL on CKD. Started on IV fluids. Senior Living Advisor consulted, follow up recommendations. 3. Gait instability. Residual right sided weakness s/p CVA in Aug 2017. Fall precautions. 4. History of CVA. With residual right sided weakness. Placed on home ASA. St arted on statin as patient not taking at home. Follow up lipid panel. 5. Hypertension. Continue home Norvasc. Patient take olmesartan at home. Placed on cozaar here. 6. Gout. Continue home allopurinol 7. Dementia.Continue home namenda 8. PAD. Continue home ASA. Started on statin Will follow up with GI . Case was discussed in detail with the patient and patient's at bedside regarding current diagnosis and treatment plan.
[2018-07-29 21:09] LABS: HEPATITIS A IGM REACTIVE (NEGATIVE)
[2018-07-30 00:06] LABS: ALBUMIN (PEP) 3.4 g/dL (3.8-4.8); ALPHA-1-GLOBULIN (PEP) 0.3 g/dL (0.2-0.3)
== END 2018-07-29 17:52 | disposition home or self-care (01) ==
LOC: ED 09:38 → ERH 13:53 → 5RNO 15:18 → UNDODISOB 07-28 20:33
PROVIDERS: ADMIT Internal Medicine; ATTEND Internal Medicine
DX: B15.9 Hepatitis A without hepatic coma (principal); N17.9 Acute kidney failure, unspecified; I12.9 Hypertensive chronic kidney disease with stage 1 through stage 4 chronic kidney disease, or unspecified chronic kidney disease; N18.4 Chronic kidney disease, stage 4 (severe); F03.90 Unspecified dementia, unspecified severity, without behavioral disturbance, psychotic disturbance, mood disturbance, and anxiety; I69.351 Hemiplegia and hemiparesis following cerebral infarction affecting right dominant side; M10.9 Gout, unspecified; I73.9 Peripheral vascular disease, unspecified; R31.29 Other microscopic hematuria; R26.9 Unspecified abnormalities of gait and mobility; Z79.82 Long term (current) use of aspirin; Z87.891 Personal history of nicotine dependence; Z87.442 Personal history of urinary calculi; Z82.3 Family history of stroke; Z88.0 Allergy status to penicillin
CPT/HCPCS: 36415; 70450; 71045; 74176; 80053; 80061; 80074; 81001; 82570; 82948; 83036; 83735; 83883; 83970; 84100; 84155; 84156; 84165; 84300; 84484; 84550; 85025; 85610; 85730; 86039; 86160; 86708; 86709; 87040; 87070; 87086; 87430; 87804; 93005; 97116; 97161; 99284; G0378; G8978; G8979; J1644; J7030

== ENCOUNTER 2018-09-01 09:46 | Observation (INO) | payer MEDICARE, OTHER ==
[2018-09-01] MEDS ORDERED: Iodixanol 320 MG/ML 100 ML BOTTLE IV ONE (10:14)
--- NOTE | 2018-09-01 10:19 | ED PDOC ---
Arrival/HPI - General Chief Complaint: Altered Mental Status Time Seen by Provider: 09/01/18 09:59 Historian: Spouse () - History of Present Illness Narrative History of Present Illness (Text): 09/01/18 10:15 A 78 year old male, whose past medical history includes hypertension, hyperlipidemia, CVA 2 yrs ago, dementia, gout, and arthritis, brought in by EMS into the emergency department for AMS. Per , patient has not been himself since this morning. Patient has recently become forgetful and having difficulty remembering things. Mentions patient told her he feels lost. Today, patient was keeping his eyes close and stated he does this due to consistent dizziness. Other times, patient would not answer 's questions and experiencing aphasia. Patient did not have any complaints last night. Has no history of vertigo, however has experienced dizziness in the past. Code stroke called at 10:00. Limited HPI and ROS due to patient's AMS. PMD: Dr. Francisco Barnes Time/Duration: Other (approximately AMS began 08:30 according to triage.) Past Medical History - Provider Review Nursing Documentation Reviewed: Yes - Cardiac Hx Cardiac Disorders: Yes Hx Hypertension: Yes - Pulmonary Hx Respiratory Disorders: Yes (USED TO SMOKE CIGARETTES) - Neurological HX Cerebrovascular Accident: Yes (1.5 years ago) - HEENT Hx HEENT Disorder: No - Renal Hx Renal Disorder: Yes (NEPHROLITHIASIS) Other/Comment: HIGH CREATININE - Endocrine/Metabolic Hx Endocrine Disorders: No - Hematological/Oncological Hx Blood Disorders: No - Integumentary Hx Dermatological Disorder: Yes - Musculoskeletal/Rheumatological Hx Falls: Yes - Gastrointestinal Hx Gastrointestinal Disorders: Yes - Genitourinary/Gynecological Hx Genitourinary Disorders: Yes Hx Prostate Problems: Yes (ENLARGED) - Psychiatric Hx Psychophysiologic Disorder: No Hx Substance Use: No Family/Social History - Physician Review Nursing Documentation Reviewed: Yes Family/Social History: No Known Family HX Smoking Status: Former Smoker Hx Alcohol Use: No Hx Substance Use: No Allergies/Home Meds Allergies/Adverse Reactions: Allergies Penicillins Allergy (Verified 07/27/18 09:42) RASH Home Medications: Home Meds Medication Instructions Recorded Confirmed RX: Allopurinol [Zyloprim] 100 mg PO TID 08/26/17 09/01/18 RX: amLODIPine [Norvasc] 5 mg PO DAILY 08/26/17 09/01/18 Olmesartan/Hydrochlorothiazide 1 tab PO DAILY 09/01/18 09/01/18 [Olmesartan-Hctz 40-25 mg Tab] Review of Systems - Review of Systems Systems not reviewed;Unavailable: Altered Mental Status Physical Exam - Physical Exam Narrative Physical Exam (Text): Gen: VS reviewed, alert, slow verbal response however appropriate, well developed, well nourished, nontoxic, mild distress. ENT: normal pharynx. Eye: EOMI, PERRL. Neck: no JVD, supple, no adenopathy. CV: regular rate, regular rhythm, no rubs, no murmur, no gallops, S1, S2, pulses equal and strong. Pulm: no distress, clear to auscultation, no wheeze, no rhonchi, breath sounds equal, no rales. Abd: soft, nontender, no guarding, no rebound, no rigidity, normal bowel sounds. Ext: no edema. Skin: good color, no rash, no cyanosis. Psych: responds appropriately to questions, normal affect. Neuro: oriented x 3, CN2-12 intact grossly, motor intact, sensation intact. Medical Decision Making ED Course and Treatment: 09/01/18 10:17 Impression 78 year old male brought in for AMS. Code stroke called at 10:00. AMS began approximately 08:30 as stated in triage. Plan: -- EKG -- Head CT -- Head/Neck CTA -- Labs -- Chest X-ray -- IV Fluids -- Urine Culture -- Urinalysis -- Reassess and disposition Prior Visits: Notes and results from previous visits were reviewed. Patient was last seen here in the emergency department on 07/27/2018 for vomiting. Patient was admitted for acute kidney injury. Progress Notes: 09/01/18 10:04 Stroke consult paged. 09/01/18 10:[address] randall, neurology. agrees that the patient's current presentation is not consistent with acute stroke that would warrant thrombolysis, particularly since the patient's symptoms have rapidly resolved. recommends CTA head and neck and to add plavix to medication regimen. 09/01/18 13:[address] weaver. patient to be admitted for transient aphasia, now back to baseline mental status. in light of stroke protocol and abnormal kidney function, patient was hydrated in the ED with IVF. consult to neurology. 09/02/18 20:36 - Lab Interpretations I have reviewed the lab results: Yes - RAD Interpretation Narrative RAD Interpretations (Text): 09/01/2018 10:[address] IMPRESSION: No acute intracranial findings. Dictator: Titus Rodrigez MD 09/01/2018 10:55 Head/Neck CTA IMPRESSION: Unremarkable CT Angiography of the Brain. Dictator: Titus Rodrigez MD 09/01/2018 13:07 Chest X-ray IMPRESSION: No active disease. Dictator: Titus Rodrigez MD Radiology Orders: 09/01/18 10:04 HEAD W/O (CODE STROKE) [CT] Stat CHEST PORTABLE [RAD] Stat 09/01/18 10:05 CTA HEAD/NECK CODE STROKE [CT] Stat - EKG Interpretation EKG Interpretation (Text): 09/01/18 10:38 1001: sinus rhythm at 80 bpm, 1st degree av block, nml qrs, nml axis, nosprcific t wave abn Interpreted by ED Physician: Yes - Medication Orders Current Medication Orders: Sodium Chloride (Sodium Chloride 0.9%) 1,000 mls @ 100 mls/hr IV .Q10H [facility] NIHSS Scale ([place]) Time Performed: 13:23 - How Severe is the Stoke Baseline Level of Consciousness: 0=Alert LOC to Questions: 0=Both comments correct LOC to commands: 0=Obeys both correctly Best Gaze: 0=Normal Visual: 0=No visual loss Facial: 0=Normal Motor Arm - Left: 0=No drift Motor Arm - Right: 0=No drift Motor Leg - Left: 0=No drift Motor Leg - Right: 0=No drift Limb Ataxia: 0=Absent Sensory: 0=Normal Best Language: 0=No aphasia Dysarthia: 0=Normal articulation Extinction & Inattention (Neglect): 0=Normal, no object (initial stroke scale performed at time of initial bedside evaluation) Score: 0 Risk Level: No Stroke Risk rTPA Inclusion/Exclusion - Refusal of Treatment Patient Refused Treatment: No - Inclusion Criteria for Altepase Patient is 18 years or Older: Yes The Clinical Diagnosis of Ischemic Stroke That is Causing a Potentially Disabling Neurological Deficit: Yes Time of Onset is Well Established to be Less Than 270 Minute Before Treatment Would Begin: Yes Risk/Benefit Discussed With Patient/Family Member Present: Yes - Warning to TPA With Conditions Condition: Rapid Improvement Disposition/Present on Arrival - Present on Arrival Any Indicators Present on Arrival: No History of DVT/PE: No History of Uncontrolled Diabetes: No Urinary Catheter: No History of Decub. Ulcer: No History Surgical Site Infection Following: None - Disposition Have Diagnosis and Disposition been Completed?: Yes Diagnosis: TIA (transient ischemic attack) Disposition: HOSPITALIZED Disposition Time: 13:22 Patient Plan: Admission Patient Problems: Current Active Problems Problem Status Onset TIA (transient ischemic attack) Acute Condition: STABLE
--- NOTE | 2018-09-01 10:32 | CT ---
Date of service: 09/01/2018 PROCEDURE: CT HEAD WITHOUT CONTRAST. HISTORY: Code Stroke COMPARISON: 07/27/2018 TECHNIQUE: Axial computed tomography images were obtained through the head/brain without intravenous contrast. Radiation dose: Total exam DLP = 944.81 mGy-cm. This CT exam was performed using one or more of the following dose reduction techniques: Automated exposure control, adjustment of the mA and/or kV according to patient size, and/or use of iterative reconstruction technique. FINDINGS: HEMORRHAGE: No intracranial hemorrhage. BRAIN: No mass effect or edema. Severe chronic microvascular changes are seen in the periventricular white matter. VENTRICLES: Unremarkable. No hydrocephalus. CALVARIUM: Unremarkable. PARANASAL SINUSES: Unremarkable as visualized. No significant inflammatory changes. MASTOID AIR CELLS: Unremarkable as visualized. No inflammatory changes. OTHER FINDINGS: Dr. Garcia was called at 10:25 a.m. IMPRESSION: No acute intracranial findings
[2018-09-01 10:58] LABS: BASO # 0.03 K/mm3 (0.0-2.0); BASO % 0.2 % (0.0-3.0); EOS % 8.1 % (1.5-5.0); GRAN # 8.76 (1.4-6.5); HEMOGLOBIN 13.1 g/dL (14.0-18.0); LYMPH # 2.3 (1.2-3.4); MEAN CELL VOLUME 86.4 fl (80.0-105.0); MEAN CORPUSCULAR HEMOGLOBIN 28.3 pg (25.0-35.0); MEAN CORPUSCULAR HGB CONC 32.8 g/dl (31.0-37.0); MEAN PLATELET VOLUME 10.8 fl (7.0-11.0); MONO # 0.5 (0.1-0.6); MONO % 3.7 % (1.0-6.0); RBC 4.63 10^6/uL (3.5-6.1); RED CELL DISTRIBUTION WIDTH 16.1 % (11.5-14.5); WHITE BLOOD COUNT 12.5 10^3/uL (4.5-11.0)
--- NOTE | 2018-09-01 10:59 | CT ---
Date of service: 09/01/2018 PROCEDURE: CT Angiography of the neck with contrast HISTORY: cva, transient aphasia COMPARISON: None. TECHNIQUE: Contiguous axial images of the neck were obtained from the level of the skull-base to the superior mediastinum in the arteriographic phase of enhancement. Coronal and sagittal reformats or also generated. IV contrast dose: 100 cc of Visipaque Radiation dose: Total exam DLP = 708.23 mGy-cm. This CT exam was performed using one or more of the following dose reduction techniques: Automated exposure control, adjustment of the mA and/or kV according to patient size, and/or use of iterative reconstruction technique. FINDINGS: RIGHT CAROTID ARTERIES: There is calcified plaque and severe tortuosity but no significant stenosis LEFT CAROTID ARTERIES: There is calcified plaque in severe tortuosity but no significant carotid stenosis VERTEBRAL ARTERIES: Right Vertebral Artery: Normal. Left Vertebral Artery: Normal. OTHER FINDINGS: no aortic atherosclerotic calcification or mural plaque present. IMPRESSION: There is calcified plaque in severe tortuosity but no significant carotid stenosis CT Angiography of the Brain. HISTORY: cva, transient aphasia COMPARISON: None available. TECHNIQUE: CT angiography of the intracranial arteries was performed. Coronal and sagittal maximum intensity projection reformated images were generated. Radiation dose: Total exam DLP = 708.23 mGy-cm. This CT exam was performed using one or more of the following dose reduction techniques: Automated exposure control, adjustment of the mA and/or kV according to patient size, and/or use of iterative reconstruction technique. FINDINGS: INTERNAL CEREBRAL ARTERIES: Unremarkable. The skull base, petrous, cavernous and supraclinoid segments are bilaterally widely patent. ANTERIOR CEREBRAL ARTERIES: Unremarkable. A1 and A2 segments are widely patent. Smaller distal branches unremarkable, as visualized. MIDDLE CEREBRAL ARTERIES: Unremarkable. M1 and M2 segments are widely patent. Perisylvian branches grossly symmetric. POSTERIOR CIRCULATION: Basilar Artery: Unremarkable. Distal Vertebral Arteries: Unremarkable. Posterior Cerebral Arteries: Unremarkable. Posterior Inferior Cerebellar Arteries: Unremarkable. ANEURYSM/ VASCULAR MALFORMATIONS: None. OTHER FINDINGS: None. IMPRESSION: Unremarkable CT Angiography of the Brain.
[2018-09-01 11:01] LABS: INR 0.93; PARTIAL THROMBOPLASTIN TIME 22.2 Seconds (25.1-36.5); PROTHROMBIN TIME 10.7 SECONDS (9.4-12.5)
[2018-09-01 11:46] LABS: ALB/GLOB RATIO 1.1 (1.1-1.8); ALBUMIN 4.4 g/dL (3.0-4.8); ALT/SGPT 19 U/L (7-56); AST/SGOT 31 U/L (17-59); BLOOD UREA NITROGEN 68 mg/dL (7-21); CALCIUM 9.5 mg/dL (8.4-10.5); GFR NON-AFRICAN AMERICAN 15; HDL CHOLESTEROL 33 mg/dL (29-60)
[2018-09-01 11:57] LABS: LDL CHOLESTEROL 109 mg/dL (0-129)
[2018-09-01 12:00] LABS: TROPONIN I < 0.01 ng/mL
[2018-09-01 12:38] LABS: URINE BILIRUBIN NEGATIVE (NEGATIVE); URINE BLOOD NEGATIVE (NEGATIVE); URINE GLUCOSE (UA) NEGATIVE (NEGATIVE); URINE LEUKOCYTE ESTERASE NEGATIVE Leu/uL (NEGATIVE); URINE PROTEIN 100 mg/dL (<30 mg/dL); URINE UROBILINOGEN 0.2 E.U./dL (<1 E.U./dL)
[2018-09-01 12:40] LABS: URINE APPEARANCE CLEAR (CLEAR); URINE COLOR YELLOW (YELLOW)
[2018-09-01 12:46] LABS: URINE BACTERIA MOD /hpf; URINE RBC 0 - 2 /hpf (0-2)
--- NOTE | 2018-09-01 13:10 | RAD ---
Date of service: 09/01/2018 HISTORY: Code Stroke COMPARISON: 07/27/2018 FINDINGS: LUNGS: No active pulmonary disease. PLEURA: No significant pleural effusion identified, no pneumothorax apparent. CARDIOVASCULAR: Aortic tortuosity Normal cardiac size. No pulmonary vascular congestion. OSSEOUS STRUCTURES: No significant abnormalities. VISUALIZED UPPER ABDOMEN: Normal. OTHER FINDINGS: None. IMPRESSION: No active disease.
[2018-09-01] MEDS: Sodium Chloride 0.9% 1,000 ML IV SCH ×2 (13:12→22:33)
[2018-09-01 18:26] VITALS: BMI 30.7
--- NOTE | 2018-09-01 20:53 | CP.PCM.CON ---
History of Present Illness - History of Present Illness History of Present Illness: 78 yr old male who had a spell of aphasia and dysarthria whose symptoms resolved so he was not considered a TPA candidate. Patient has a history of stroke in the past, hypertension, hyperlipidemia, CVA 2 yrs ago, dementia, gout, and arthritis,and is on aspirin. THere is no weakness, facial droop or ataxia, with no history of afib or heart disease. CT and CTA head was done and they were both normal. MRI has not been done as of yet, and the patients NIH stroke scale is 0. ROS: no headache, no nause, no vomiting. PMH/PSH: FH/SH:NO tobacco, no etoh. All:nkda ON exam: Normal neurological exam. Gait normal. Past Patient History - Past Social History Smoking Status: Former Smoker - CARDIAC Hx Cardiac Disorders: Yes Hx Hypercholesterolemia: Yes Hx Hypertension: Yes Hx Peripheral Vascular Disease: Yes Other/Comment: HEALED STASIS ULCER LLE - PULMONARY Hx Respiratory Disorders: Yes (USED TO SMOKE CIGARETTES) - NEUROLOGICAL HX Cerebrovascular Accident: Yes (1.5 years ago) Hx Transient Ischemic Attacks (TIA): Yes - HEENT Hx HEENT Problems: No - RENAL Hx Chronic Kidney Disease: Yes (NEPHROLITHIASIS) Other/Comment: ISABELL - ENDOCRINE/METABOLIC Hx Endocrine Disorders: No - HEMATOLOGICAL/ONCOLOGICAL Hx Hepatitis A: Yes - INTEGUMENTARY Hx Dermatological Problems: Yes - MUSCULOSKELETAL/RHEUMATOLOGICAL Hx Falls: Yes - GASTROINTESTINAL Hx Gastrointestinal Disorders: Yes - GENITOURINARY/GYNECOLOGICAL Hx Genitourinary Disorders: Yes Hx Prostate Problems: Yes (ENLARGED) - PSYCHIATRIC Hx Psychophysiologic Disorder: No - SURGICAL HISTORY Hx Surgeries: No Meds Allergies/Adverse Reactions: Allergies Allergy/AdvReac Type Severity Reaction Status Date / Time Penicillins Allergy RASH Verified 07/27/18 09:42 - Medications Medications: Current Medications Sodium Chloride (Sodium Chloride 0.9%) 1,000 mls @ 100 mls/hr IV .Q10H CAROL Last Admin: 09/01/18 13:12 Dose: 100 mls/hr Results - Vital Signs Recent Vital Signs: Last Vital Signs Temp 98.0 F 09/01/18 17:40 Pulse 85 09/01/18 17:40 Resp 20 09/01/18 18:25 BP 135/69 09/01/18 17:40 Pulse Ox 99 09/01/18 17:40 - Labs Result Diagrams: 09/01/18 10:35 09/01/18 11:30 Labs: Laboratory Results - last 24 hr 09/01/18 09/01/18 09/01/18 10:35 10:35 10:35 WBC 12.5 H D RBC 4.63 Hgb 13.1 L Hct 40.0 L MCV 86.4 MCH 28.3 MCHC 32.8 RDW 16.1 H Plt Count 293 MPV 10.8 Gran % 70.0 H Lymph % (Auto) 18.0 L [place] % (Auto) 3.7 Eos % (Auto) 8.1 H Baso % (Auto) 0.2 Gran # 8.76 H Lymph # (Auto) 2.3 [place] # (Auto) 0.5 Eos # (Auto) 1.0 H Baso # (Auto) 0.03 PT 10.7 INR 0.93 APTT 22.2 L Sodium Potassium Chloride Carbon Dioxide Anion Gap BUN Creatinine Est GFR ( Amer) Est GFR (Non-Af Amer) Random Glucose Hemoglobin A1c 6.5 Calcium Total Bilirubin AST ALT Alkaline Phosphatase Troponin I Total Protein Albumin Globulin Albumin/Globulin Ratio Triglycerides Cholesterol LDL Cholesterol Direct HDL Cholesterol Urine Color Urine Appearance Urine pH Ur Specific [place] Urine Protein Urine Glucose (UA) Urine Ketones Urine Blood Urine Nitrate Urine Bilirubin Urine Urobilinogen Ur Leukocyte Esterase Urine RBC Urine WBC Ur Epithelial Cells Urine Bacteria Blood Type Antibody Screen BBK History Checked 09/01/18 09/01/18 09/01/18 11:30 12:30 13:19 WBC RBC Hgb Hct MCV MCH MCHC RDW Plt Count MPV Gran % Lymph % (Auto) [place] % (Auto) Eos % (Auto) Baso % (Auto) Gran # Lymph # (Auto) [place] # (Auto) Eos # (Auto) Baso # (Auto) PT INR APTT Sodium 135 Potassium 4.3 Chloride 96 L Carbon Dioxide 30 Anion Gap 14 BUN 68 H Creatinine 3.9 H Est GFR ( Amer) 18 Est GFR (Non-Af Amer) 15 Random Glucose 133 H Hemoglobin A1c Calcium 9.5 Total Bilirubin 0.2 AST 31 ALT 19 Alkaline Phosphatase 64 Troponin I < 0.01 Total Protein 8.2 Albumin 4.4 Globulin 3.9 Albumin/Globulin Ratio 1.1 Triglycerides 185 H Cholesterol 171 LDL Cholesterol Direct 109 HDL Cholesterol 33 Urine Color Yellow Urine Appearance Clear Urine pH 6.0 Ur Specific [place] 1.015 Urine Protein 100 H Urine Glucose (UA) Negative Urine Ketones Negative Urine Blood Negative Urine Nitrate Negative Urine Bilirubin Negative Urine Urobilinogen 0.2 Ur Leukocyte Esterase Negative Urine RBC 0 - 2 Urine WBC 1 - 3 Ur Epithelial Cells None Urine Bacteria Mod Blood Type A POSITIVE Antibody Screen Negative BBK History Checked No verified bt Assessment & Plan - Assessment and Plan (Free Text) Assessment: CT head: normal CTA head: normal. A/P: 78 yr old male with TIA, not TPA candidate now with resolved symptoms. He will need stroke workup. Plan: 1. MRI BRain without ilia 2. Admit to telemetry 3. Continue aspirin and plavix. 4. ECHO 5. PT ST OT THank you Dr. Shukla Neurology
--- NOTE | 2018-09-02 03:05 | CON ---
DATE OF CONSULTATION: 09/01/2018 REFERRING PHYSICIAN: Parvin Rouse MD REASON FOR CONSULTATION: Cough, shortness of breath, near syncopal episode, may have sleep apnea syndrome. HISTORY OF PRESENT ILLNESS: This is a 78-year-old gentleman with history of hypertension, hyperlipidemia, history of stroke in the past, Alzheimer-type dementia, gout, arthritis, obesity. According to , he had been having near syncopal episode. No headache, no rhinitis. Admits to have loud snoring, daytime sleepiness and tiredness. Also has some cough. No sputum production. No nausea, vomiting, diarrhea, leg pain or leg swelling. In ER, he had a code stroke called. No TPA was given. Presently admitted for further workup. PAST MEDICAL HISTORY: As per history of present illness. remission significant cardiopulmonary disease reported allergies to penicillin. SOCIAL HISTORY: Former smoker. Denies any alcohol use. MEDICATIONS: He is on Ecotrin 81 mg daily, Lasix 20 mg daily, Namenda 10 mg daily, Norvasc 5 mg daily, also on hydrochlorothiazide and olmesartan 40 mg/25 one tablet daily, Pepcid 20 mg daily, IV flow normal saline, allopurinol 100 mg three times a day. REVIEW OF SYSTEMS: No headache, no rhinitis. Has some cough and shortness of breath. Admits to have snoring at nighttime, daytime sleepiness and tiredness. No chest pain. No nausea, vomiting, diarrhea, leg pain or leg swelling. PHYSICAL EXAMINATION: GENERAL: No acute distress. VITAL SIGNS: Temperature is 98, heart rate is 85, respiratory rate is 20, blood pressure 135/69, pulse ox 99% on room air. HEENT: Moist mucous membranes. Crowded airway. Mallampati score is 4. NECK: Supple. No JVD. LUNGS: Few scattered rhonchi and wheezing. HEART: S1 and S2. ABDOMEN: Soft, nontender. No hepatomegaly. EXTREMITIES: No edema. NEUROLOGIC: Awake, alert, follows simple commands. LABORATORY DATA: Hemoglobin 13.1, hematocrit 40.0, WBC 12.5, platelet count is 293,000. INR 0.90. PTT is 22. Has a VBG done, which shows pH 7.39, pCO2 is 50, O2 is 31. Sodium 134, potassium 4.3, chloride 96, bicarbonate 30, BUN 68, creatinine 3.9, glucose 133, calcium 9.5. AST 31, ALT 19, alk phos is 64. Albumin is 4.4. Triglycerides 185, cholesterol is 171, LDL is 109, HDL is 33. PTH intact is 209. Urine culture positive for protein, otherwise unremarkable. Has a CAT scan of the head and neck done with contrast shows unremarkable CT angiogram of the brain. Also has a CT of the head done, which shows no acute intracranial finding. Chest x-ray done this morning shows no infiltrate or effusion. IMPRESSION AND PLAN: Near syncope, chronic obstructive lung disease, may have obstructive sleep apnea syndrome, history of stroke, hypertension, gout, [id number] renal failure, also history of Alzheimer-type dementia, hypertension. Agree with the present treatment. The patient seen by Neurology. I spoke to the patient and the patient's at bedside. All the questions answered. We will add inhaled bronchodilator given the patient has a history of smoking, has a cough and shortness of breath. We will also recommend attended sleep study. Gastric prophylaxis. SCD to lower extremities. May use heparin. Neurology workup including EEG pending. Thank you and we will follow with you. Gini Chapa MD
[2018-09-02 07:13] LABS: IRON 78 ug/dL (45-180)
[2018-09-02 07:18] LABS: HDL CHOLESTEROL 28 mg/dL (29-60)
[2018-09-02 07:29] LABS: % IRON SATURATION 26 % (20-55); LDL CHOLESTEROL 90 mg/dL (0-129); TOTAL IRON BINDING CAPACITY 305 ug/dL (261-462)
[2018-09-02] MEDS: Budesonide 0.5 mg/2 ml Inhal Susp UD IH SCH ×2 (08:09→19:53)
[2018-09-02] MEDS: Arformoterol 15 mcg/2 ml Inh Sol IH SCH ×2 (08:09→19:53)
--- NOTE | 2018-09-02 08:16 | HP ---
DATE OF EXAM: 09/01/2018 The patient was seen and examined in his room on 09/01/2018. CHIEF COMPLAINT: Altered mental status, aphasia. HISTORY OF PRESENT ILLNESS: The patient is a 78-year-old male with past medical history of hypertension, hypercholesterolemia, CVA 2 years ago, dementia, gouty arthritis, brought to the emergency room by EMS. Per , the patient has been himself since this morning. The patient has recently became forgetful and having difficulty remembering things. The patient told her that he feels lost. Today, the patient was keeping his eyes closed and stated that he does this due to consistent dizziness. Other times, the patient would not answer 's questions. The patient looks like having aphasia. The patient did not have any complaint like shortness of breath. No history of vertigo, however, has experienced dizziness in the past. Code stroke was called at 10. Limited history and physical, range of motion due to the patient's altered mental status. PAST MEDICAL HISTORY: As above, hypertension, history of smoking, history of CVA x2, hypercholesterolemia, nephrolithiasis, dermatological disorder, falls, cardiac history. FAMILY HISTORY: Father and mother, noncontributory. HABITS: Former smoker. No alcohol. No drugs. ALLERGIES: THE PATIENT IS ALLERGIC WITH PENICILLIN. HOME MEDICATIONS: Allopurinol, Norvasc. REVIEW OF SYSTEMS: The patient was seen and examined at the bedside, little bit aphasic, do not want to move much. No fever. No chills. No hematuria or hematochezia. No headache or dizziness. No chest pain. No palpitation. PHYSICAL EXAMINATION: VITAL SIGNS: Temperature 98.0, pulse 95, blood pressure 135/69, respiratory rate 20. HEENT: Head: Normocephalic, atraumatic. Eyes: PERRLA. Extraocular muscles are intact. Conjunctivae clear. Nose patent. Mucous membranes moist. NECK: Supple. No carotid bruit. No JVD or thyromegaly. CHEST: Bilaterally symmetrical. HEART: S1 and S2, positive. LUNGS: Clear to auscultation. ABDOMEN: Soft. Bowel sounds present. No organomegaly. EXTREMITIES: No edema. No cyanosis. NEUROLOGIC: The patient is awake and alert. Moving all 4 extremities. No focal deficit. LABORATORY DATA: White blood cells 12.5, hemoglobin 13.1, hematocrit 40.0, platelets 293. Sodium 135, potassium 4.2, BUN 16, creatinine 3.9, random glucose 133, triglyceride 185. ASSESSMENT AND PLAN: The patient is a 78-year-old male with leukocytosis, anemia, hyperchloremia, renal insufficiency, hyperglycemia, hypertriglyceridemia, proteinuria, came with a stroke, seen by Dr. Valente Shukla. When the patient came, his aphasia and weakness resolved. Then, according to nurse, the patient is not a good candidate for tissue plasminogen activator. The patient has history of stroke in the past. Hypertension was stable. Cerebrovascular accident . CT of the head and CTA of the neck are done. No headache. No dizziness. No chest pain. No palpitation. We admitted the patient upon Neurology consult. Need a good physical therapy. History of chronic kidney disease, hepatitis A, dermatological problems, fall, gastroesophageal reflux disease, dyspepsia. Gastrointestinal and deep venous thrombosis prophylaxis. Repeat labs. Out of bed, physical therapy. We will follow up. Parvin Rouse MD
--- NOTE | 2018-09-02 10:04 | MRI ---
Date of service: 09/02/2018 PROCEDURE: MRI BRAIN WITHOUT CONTRAST HISTORY: F/U CODE STROKE COMPARISON: 08/26/2017 MRI TECHNIQUE: Multiplanar, multisequence MR images of the brain were obtained without intravenous contrast enhancement. FINDINGS: HEMORRHAGE: None DWI: No evidence of an acute or early subacute infarction. BRAIN PARENCHYMA: No mass effect or edema. Severe chronic microvascular changes in the periventricular white matter. Moderate atrophy VENTRICLES: Unremarkable. No hydrocephalus. CRANIUM: Unremarkable. ORBITS: Grossly unremarkable. PARANASAL SINUSES/MASTOIDS: Clear VASCULAR SYSTEM: There is vascular tortuosity with flattening of the right side of the medulla. OTHER FINDINGS: None. IMPRESSION: Severe chronic microvascular changes in the periventricular white matter. Moderate atrophy No acute intracranial findings
--- NOTE | 2018-09-02 11:12 | CARD ---
APPROVED REPORT Date of service: 09/01/2018 EKG Measurement Heart [id number] <Conclusion> Sinus rhythm with 1st degree AV block with premature atrial complexes Cannot rule out Inferior infarct, age undetermined Abnormal ECG
[2018-09-02 12:09] LABS: HEMOGLOBIN 11.8 g/dL (14.0-18.0); MEAN CELL VOLUME 85.9 fl (80.0-105.0); MEAN CORPUSCULAR HEMOGLOBIN 27.8 pg (25.0-35.0); MEAN CORPUSCULAR HGB CONC 32.3 g/dl (31.0-37.0); MEAN PLATELET VOLUME 11.4 fl (7.0-11.0); RBC 4.25 10^6/uL (3.5-6.1); RED CELL DISTRIBUTION WIDTH 16.3 % (11.5-14.5); WHITE BLOOD COUNT 12.2 10^3/uL (4.5-11.0)
[2018-09-02 12:12] LABS: ALB/GLOB RATIO 1.1 (1.1-1.8); ALBUMIN 3.8 g/dL (3.0-4.8); CALCIUM 9.1 mg/dL (8.4-10.5)
--- NOTE | 2018-09-02 12:49 | CP.PCM.PN ---
<Blaise Mcconnell - Last Filed: 09/02/18 14:10> Subjective - Date & Time of Evaluation Date of Evaluation: 09/02/18 Time of Evaluation: 10:15 - Subjective Subjective: Progress Note for Neurology Service, Dr. Vazquez Mcconnell, DO PGY-1 Pt seen and examined at bedside. Denies any acute complaints, states he feels well. Observed eating breakfast at bedside with without any concerns. No acute events reported overnight by staff. Per pt's , she states that pt was not acting like himself and responding to her in an appropriate manner prior to bringing him to the ED. Denies headache, dizziness, chest pain, sob, n/v/d/c, abd pain, urinary complaints, slurred speech, difficulty formulating words, or other symptoms currently. Objective - Vital Signs/Intake and Output Vital Signs (last 24 hours): Temp Pulse Resp BP Pulse Ox 97.7 F 79 20 145/72 97 09/02/18 08:08 09/02/18 10:00 09/02/18 08:08 09/02/18 09:52 09/02/18 08:08 Intake and Output: 09/02/18 09/02/18 06:59 18:59 Intake Total 420 Output Total 300 Balance 120 - Medications Medications: Current Medications Allopurinol (Zyloprim) 100 mg PO TID [facility] Last Admin: 09/02/18 09:52 Dose: 100 mg Amlodipine Besylate (Norvasc) 5 mg PO DAILY [facility] Last Admin: 09/02/18 09:52 Dose: 5 mg Arformoterol Tartrate (Brovana) 15 mcg IH [id number] [facility] Last Admin: 09/02/18 08:09 Dose: 15 mcg Aspirin (Ecotrin) 81 mg PO DAILY [facility] Last Admin: 09/02/18 09:52 Dose: 81 mg Budesonide (Pulmicort Respules) 0.5 mg IH [id number] [facility] Last Admin: 09/02/18 08:09 Dose: 0.5 mg Famotidine (Pepcid) 20 mg PO HS [facility] Last Admin: 09/01/18 21:33 Dose: 20 mg Furosemide (Lasix) 20 mg PO DAILY [facility] Last Admin: 09/02/18 09:52 Dose: 20 mg Hydrochlorothiazide (Hydrodiuril) 25 mg PO DAILY [facility] Last Admin: 09/02/18 09:52 Dose: 25 mg Sodium Chloride (Sodium Chloride 0.9%) 1,000 mls @ 100 mls/hr IV .Q10H [facility] Last Admin: 09/01/18 22:33 Dose: 100 mls/hr Losartan Potassium (Cozaar) 100 mg PO DAILY [facility] Last Admin: 09/02/18 09:53 Dose: 100 mg Memantine (Namenda) 10 mg PO DAILY [facility] Last Admin: 09/02/18 09:52 Dose: 10 mg - Labs Labs: 09/02/18 11:55 09/02/18 11:55 PT 10.7 SECONDS (9.4-12.5) 09/01/18 10:35 INR 0.93 09/01/18 10:35 APTT 22.2 Seconds (25.1-36.5) L 09/01/18 10:35 - Constitutional Appears: Non-toxic, No Acute Distress - Head Exam Head Exam: ATRAUMATIC, NORMOCEPHALIC - Eye Exam Eye Exam: EOMI, Normal appearance, PERRL - ENT Exam ENT Exam: Mucous Membranes Moist - Neck Exam Neck Exam: Full ROM, Normal Inspection. absent: Tenderness - Respiratory Exam Respiratory Exam: Clear to Ausculation Bilateral, NORMAL BREATHING PATTERN. absent: Rales, Rhonchi, Wheezes - Cardiovascular Exam Cardiovascular Exam: REGULAR RHYTHM, +S1, +S2. absent: Gallop, Rubs, Murmur - GI/Abdominal Exam GI & Abdominal Exam: Soft, Normal Bowel Sounds. absent: Distended, Tenderness, Organomegaly - Extremities Exam Extremities Exam: Full ROM, Normal Capillary Refill, Normal Inspection. absent: Pedal Edema, Tenderness - Neurological Exam Neurological Exam: Alert, Awake, CN II-XII Intact Additional comments: Wide-based gait, AAOx2 - Psychiatric Exam Psychiatric exam: Normal Affect, Normal Mood - Skin Skin Exam: Dry, Intact, Normal Color, Warm Assessment and Plan - Assessment and Plan (Free Text) Assessment: 78 y o male PMhx stroke, HTN, HLD, CVA 2 y ago, dementia, gout and arthritis, who presented with aphasia and dysarthria which have since resolved. Pt was not tPA candidate. Plan: TIA CT and CTA head/neck wnl. MRI brain 09/02: severe chronic microvascular changes in the periventricular white matter. Moderate atrophy. No acute intracranial findings. C/w ASA and Plavix. F/u echo and carotid U/s results. PT/ST/OT NIH stroke scale 0. Pt seen, examined with, and plan discussed with Dr. Shukla, attending physician. Blaise Mcconnell DO PGY-1, [employer] Pager #[phone] <Valente Shukla - Last Filed: 09/04/18 18:09> Objective - Vital Signs/Intake and Output Vital Signs (last 24 hours): Temp Pulse Resp BP Pulse Ox 98.0 F 78 18 152/92 H 96 09/03/18 06:00 09/03/18 10:19 09/03/18 06:00 09/03/18 10:19 09/03/18 06:00 - Labs Labs: 09/03/18 07:45 09/03/18 07:45 PT 10.7 SECONDS (9.4-12.5) 09/01/18 10:35 INR 0.93 09/01/18 10:35 APTT 22.2 Seconds (25.1-36.5) L 09/01/18 10:35 Assessment and Plan - Assessment and Plan (Free Text) Plan: I examined the patient independently and with the resident and agree with the assessment and plan. Dr. Valente Lugo MD DPN [facility]
--- NOTE | 2018-09-02 13:21 | PN ---
DATE: 09/02/2018 PULMONARY PROGRESS NOTE REFERRING PHYSICIAN: Parvin Rouse MD SUBJECTIVE: The patient is sitting up at bedside. No acute distress. No overnight events reported. The patient does report having cough occasionally. He denies shortness of breath. No headache, rhinitis, chest pain, abdominal pain, nausea, vomiting, diarrhea, leg pain or leg swelling reported. OBJECTIVE: GENERAL: No acute distress. VITAL SIGNS: Blood pressure 119/62, pulse 75, temperature 97.7 and oxygen saturation 97% on room air. HEENT: Moist mucous membranes. Crowded airway. Mallampati score of 4. NECK: Supple. No JVD. LUNGS: Few scattered rhonchi bilaterally. CARDIOVASCULAR: S1 and S2, audible. ABDOMEN: Soft and nontender. No distension. No organomegaly. EXTREMITIES: No bilateral lower extremity edema. NEUROLOGIC: Awake, alert and verbal. Follows commands. MEDICATIONS: Reviewed. Allopurinol 100 mg three times a day, Norvasc 5 mg daily, Brovana 15 mcg every 12 hours, aspirin 81 mg daily, Pulmicort 0.5 mg every 12 hours, Pepcid 20 mg at bedtime, Lasix 20 mg daily, hydrochlorothiazide 25 mg daily, Cozaar 100 mg daily, Namenda 10 mg daily, sodium chloride 0.95 at 1000 mL and 100 mL per hour. LABORATORY DATA: Reviewed. Iron 78, TIBC 305, percent saturation 26, triglyceride 177, cholesterol 163, LDL cholesterol 90, HDL cholesterol 28. Carotid artery ultrasound report pending. Brain MRI shows severe chronic microvascular changes in the periventricular white matter, moderate atrophy. No acute intracranial findings. Extremity ultrasound pending repots. IMPRESSION AND PLAN: Near syncope, chronic obstructive lung disease, may have obstructive sleep apnea syndrome, history of stroke, hypertension, gout, [id number] renal failure, history of Alzheimer type dementia and hypertension. Continue inhaled bronchodilators. Continue gastric prophylaxis and sequential compression devices to bilateral lower extremities, deep venous thrombosis prophylaxis. Continue followup with neurology. Need to follow BUN and creatinine closely. Monitor orthostatic blood pressures, fall precaution. The patient would benefit from physical therapy. Out of bed to chair. This patient was seen and examined with Dr. Chapa. Discussed assessment and plan as described above. Thank you for this consult. We will follow with you. Dipak Watkins APN Gini Chapa MD [facility] # [phone]
[2018-09-02 14:00] LABS: FOLATE > 20.0 ng/mL
--- NOTE | 2018-09-02 16:47 | CP.PCM.APN ---
Subjective - Date & Time of Evaluation Date of Evaluation: 09/02/18 Time of Evaluation: 11:00 - Subjective Subjective: Pt. seen and examined, denied any complaints,speech appears normal, denied dysphagia, ate and tolerated breakfast, states has walked to bathroom without dizziness or weakness. Review of Systems - Constitutional Constitutional: Weakness - EENT Eyes: absent: As Per HPI, Blind Spots, Blurred Vision, Change in Vision, Decreased Night Vision, Diplopia, Discharge, Dry Eye, Exophthalmos, Floaters, Irritation, Itchy Eyes, Loss of Peripheral Vision, Pain, Photophobia, Requires Corrective Lenses, Sees Flashes, Spots in Vision, Tunnel Vision, Other Visual Disturbances, Loss of Vision, Other Ears: absent: As Per HPI, Decreased Hearing, Ear Discharge, Ear Pain, Tinnitus, Abnormal Hearing, Disequilibrium, Dizziness, Other Nose/Mouth/Throat: absent: As Per HPI, Epistaxis, Nasal Congestion, Nasal Discharge, Nasal Obstruction, Nasal Trauma, Nose Pain, Post Nasal Drip, Sinus Pain, Sinus Pressure, Bleeding Gums, Change in Voice, Dental Pain, Dry Mouth, Dysphagia, Halitosis, Hoarsness, Lip Swelling, Mouth Lesions, Mouth Pain, Odynophagia, Sore Throat, Throat Swelling, Tongue Swelling, Facial Pain, Neck Pain, Neck Mass, Other - Cardiovascular Cardiovascular: absent: As Per HPI, Acrocyanosis, Chest Pain, Chest Pain at Rest, Chest Pain with Activity, Claudication, Diaphoresis, Dyspnea, Dyspnea on Exertion, Edema, Irregular Heart Rhythm, Pain Radiating to Arm/Neck/Jaw, Leg Edema, Leg Ulcers, Lightheadedness, Orthopnea, Palpitations, Paroxysmal Nocturnal Dyspnea, Pedal Edema, Radiating Pain, Rapid Heart Rate, Slow Heart Rate, Syncope, Other - Respiratory Respiratory: absent: As Per HPI, Cough, Dyspnea, Hemoptysis, Dyspnea on Exertion, Wheezing, Snoring, Stridor, Pain on Inspiration, Chest Congestion, Excessive Mucous Production, Change in Mucous Color, Pain with Coughing, Other - Gastrointestinal Gastrointestinal: absent: As Per HPI, Abdominal Pain, Belching, Bloating, Change in Bowel Habits, Change in Stool Character, Coffee Ground Emesis, Constipation, Cramping, Diarrhea, Dyspepsia, Dysphagia, Early Satiety, Excessive Flatus, Fecal Incontinence, Heartburn, Hematemesis, Hematochezia, Loose Stools, Melena, Nausea, Odynophagia, Temesmus, Vomiting, Other - Genitourinary Genitourinary: absent: As Per HPI, Change in Urinary Stream, Difficulty Urinating, Dysuria, Flank Pain, Hematuria, Pyuria, Nocturia, Urinary I ncontinence, Urinary Frequency, Urinary Hesitance, Urinary Urgency, Voiding Freq/Small Amts, Freq UTI, Hx Renal/Bladder Calculi, Hx /Renal Surgery, Bladder Distension, Other - Musculoskeletal Musculoskeletal: absent: As Per HPI, Abnormal Gait, Arthralgias, Atrophy, Back Pain, Deformity, Joint Swelling, Limited Range of Motion, Loss of Height, Muscle Cramps, Muscle Weakness, Myalgias, Neck Pain, Numbness, Radiating Pain into Limb, Stiffness, Tingling, Other - Integumentary Integumentary: absent: As Per HPI, Acne, Alopecia, Bleeding Lesions, Change in Hair, Change in Nails, Change in Pigmentation, Changing Lesions, Dry Skin, Erythema, Furuncle, Hirsutism, Lesions, New Lesions, Non-Healing Lesions, Photosensitivity, Pruritus, Rash, Skin Pain, Skin Ulcer, Sores, Striae, Swelling, Unusual Bruising, Wounds, Jaundice, Other - Neurological Neurological: As Per HPI - Psychiatric Psychiatric: absent: As Per HPI, Abnormal Sleep Pattern, Anhedonia, Anxiety, Auditory Hallucinations, Behavioral Changes, Change in Appetite, Change in Libido, Confusion, Depression, Difficulty Concentrating, Hallucinations, Homicidal Ideation, Hopelessness, Irritability, Memory Loss, Mood Swings, Panic Attacks, Paranoia, Suicidal Ideation, Visual Hallucinations, Tactile Hallucinations, Other - Endocrine Endocrine: absent: As Per HPI, Change in Body Appearance, Change in Libido, Cold Intolorance, Deepening of Voice, Excessive Sweating, Fatigue, Flushing, Heat Intolorance, Increase in Ring/Shoe/Hat Size, Palpitations, Polydipsia, Polyphagia, Polyuria, Other - Hematologic/Lymphatic Hematologic: absent: As Per HPI, Easy Bleeding, Easy Bruising, Lymphadenopathy, Other Objective - Vital Signs/Intake and Output Vital Signs (last 24 hours): Temp Pulse Resp BP Pulse Ox 98.3 F 81 20 127/79 98 09/02/18 16:17 09/02/18 16:17 09/02/18 16:17 09/02/18 16:17 09/02/18 16:17 Intake and Output: 09/02/18 09/02/18 06:59 18:59 Intake Total 420 Output Total 300 Balance 120 - Medications Medications: Current Medications Allopurinol (Zyloprim) 100 mg PO TID [facility] Last Admin: 09/02/18 13:10 Dose: 100 mg Amlodipine Besylate (Norvasc) 5 mg PO DAILY [facility] Last Admin: 09/02/18 09:52 Dose: 5 mg Arformoterol Tartrate (Brovana) 15 mcg IH [id number] [facility] Last Admin: 09/02/18 08:09 Dose: 15 mcg Aspirin (Ecotrin) 81 mg PO DAILY [facility] Last Admin: 09/02/18 09:52 Dose: 81 mg Budesonide (Pulmicort Respules) 0.5 mg IH [id number] [facility] Last Admin: 09/02/18 08:09 Dose: 0.5 mg Famotidine (Pepcid) 20 mg PO HS [facility] Last Admin: 09/01/18 21:33 Dose: 20 mg Furosemide (Lasix) 20 mg PO DAILY [facility] Last Admin: 09/02/18 09:52 Dose: 20 mg Hydrochlorothiazide (Hydrodiuril) 25 mg PO DAILY [facility] Last Admin: 09/02/18 09:52 Dose: 25 mg Sodium Chloride (Sodium Chloride 0.9%) 1,000 mls @ 100 mls/hr IV .Q10H [facility] Last Admin: 09/01/18 22:33 Dose: 100 mls/hr Losartan Potassium (Cozaar) 100 mg PO DAILY [facility] Last Admin: 09/02/18 09:53 Dose: 100 mg Memantine (Namenda) 10 mg PO DAILY [facility] Last Admin: 09/02/18 09:52 Dose: 10 mg - Labs Labs: 09/02/18 11:55 09/02/18 11:55 PT 10.7 SECONDS (9.4-12.5) 09/01/18 10:35 INR 0.93 09/01/18 10:35 APTT 22.2 Seconds (25.1-36.5) L 09/01/18 10:35 - Head Exam Head Exam: NORMAL INSPECTION - Eye Exam Eye Exam: Normal appearance - ENT Exam ENT Exam: Mucous Membranes Moist, Normal Exam - Neck Exam Neck Exam: Full ROM, Normal Inspection - Respiratory Exam Respiratory Exam: Clear to Ausculation Bilateral - Cardiovascular Exam Cardiovascular Exam: REGULAR RHYTHM, +S1, +S2 - GI/Abdominal Exam GI & Abdominal Exam: Soft, Normal Bowel Sounds - Rectal Exam Rectal Exam: Deferred - Exam Exam: absent: Circumcision, NORMAL INSPECTION, Scrotal Swelling, Testicular Tenderness, Uretheral Discharge, Testicular Vertical Lie, Bladder Distension External exam: absent: Ecchymosis, Erythema, Lacerations, Lesions, NORMAL EXTERNAL EXAM, Swelling - Extremities Exam Extremities Exam: Full ROM - Neurological Exam Neurological Exam: Alert, Oriented x3 - Psychiatric Exam Psychiatric exam: Flat Affect - Skin Skin Exam: Normal Color, Warm Additional comments: venous stasis discoloration noted to left leg Assessment and Plan - Assessment and Plan (Free Text) Assessment: ITS Impressions Chest X-Ray 09/01/18 10:04 IMPRESSION: No active disease. Head CT 09/01/18 10:04 IMPRESSION: No acute intracranial findings Head/Neck CTA 09/01/18 10:05 IMPRESSION: There is calcified plaque in severe tortuosity but no significant carotid stenosis CT Angiography of the Brain. HISTORY: cva, transient aphasia COMPARISON: None available. TECHNIQUE: CT angiography of the intracranial arteries was performed. Coronal and sagittal maximum intensity projection reformated images were generated. Radiation dose: Total exam DLP = 708.23 mGy-cm. This CT exam was performed using one or more of the following dose reduction techniques: Automated exposure control, adjustment of the mA and/or kV according to patient size, and/or use of iterative reconstruction technique. FINDINGS: INTERNAL CEREBRAL ARTERIES: Unremarkable. The skull base, petrous, cavernous and supraclinoid segments are bilaterally widely patent. ANTERIOR CEREBRAL ARTERIES: Unremarkable. A1 and A2 segments are widely patent. Smaller distal branches unremarkable, as visualized. MIDDLE CEREBRAL ARTERIES: Unremarkable. M1 and M2 segments are widely patent. Perisylvian branches grossly symmetric. POSTERIOR CIRCULATION: Basilar Artery: Unremarkable. Distal Vertebral Arteries: Unremarkable. Posterior Cerebral Arteries: Unremarkable. Posterior Inferior Cerebellar Arteries: Unremarkable. ANEURYSM/ VASCULAR MALFORMATIONS: None. OTHER FINDINGS: None. IMPRESSION: Unremarkable CT Angiography of the Brain. Brain MRI 09/02/18 06:00 IMPRESSION: Severe chronic microvascular changes in the periventricular white matter. Moderate atrophy No acute intracranial findings Assessment/Plan: A/P: 78 yr old male with TIA, not TPA candidate now with resolved symptoms, admitted for stroke work up and evaluation 1. TIA symptoms resolved, MRI BRain resulted no acute finding, chronic. continue Aspirin and Plavix, Lipitor Echo pending carotid result pending check orthostatic vital signs per cardiology 2. Leukocytosis Trend WBC, Cx pending 3. ISABELL -likely r/t dehydration, continue IVF, monitor Bun/ Creatinine PT recommended HWS, Will continue to monitor clinical status and follow closely.
--- NOTE | 2018-09-02 19:18 | US ---
HISTORY: Leg pain and swelling. Evaluate for DVT PHYSICIAN(S): Epifanio Hubbard MD. TECHNIQUE: Duplex sonography and color-flow Doppler with graded compression were used to evaluate the deep venous systems of both lower extremities. FINDINGS: The visualized deep venous systems of both lower extremities are sonographically normal and compressible. Normal wave forms and augmentation are seen. There is no sonographic evidence for deep venous thrombosis in the visualized segments of both lower extremities. IMPRESSION: No sonographic evidence for deep venous thrombosis in the visualized segments of both lower extremities.
--- NOTE | 2018-09-02 19:20 | US ---
PROCEDURE: Bilateral carotid artery duplex ultrasound HISTORY: Carotid stenosis CVA PHYSICIAN(S): Epifanio Hubbard MD. TECHNIQUE: Duplex sonography and color-flow Doppler were used to evaluate the carotid bifurcations and limited segments of the vertebral arteries bilaterally. FINDINGS: There is mild smooth heterogeneous plaque noted at the carotid bifurcations bilaterally. The peak systolic velocity in the proximal right internal carotid artery is 72 cm/sec. This corresponds to a 20 to 39% proximal right ICA stenosis. Normal systolic velocities are noted in the proximal right external carotid artery. There is antegrade flow in the right vertebral artery. The peak systolic velocity in the proximal left internal carotid artery is 58 cm/sec. This corresponds to a 20 to 39% proximal left ICA stenosis. Normal systolic velocities are noted in the proximal left external carotid artery. There is antegrade flow in the left vertebral artery. IMPRESSION: 1. Bilateral 20-39% proximal ICA stenoses. 2. Antegrade flow in both vertebral arteries.
--- NOTE | 2018-09-02 20:08 | CON ---
DATE: 09/02/2018 REASON FOR CONSULTATION: Followup cardiac evaluation, rule out arrhythmia, history of possible admitted with TIA. BRIEF CLINICAL HISTORY: This is a 78-year-old male with past medical history significant for hypertension, hyperlipidemia, chronic dizziness for many years more than 10 years, CVA 2 years ago, history of gouty arthritis, came to the emergency room after being brought by the . The patient is very emotionally labile during the history couple of times he cried that he has a chronic dizziness and unable to get rid of this from more than 10 years and couple of times, interrupted him during the interview to calm him down because he was started crying again. The states that after having the breakfast, the patient feel dizziness of not new since last 10 years and suddenly the patient does not respond and looks like he is going to pass out and the patient still did not respond, so called the ambulance and brought here. Some questionable history of slurring for speech as well when the patient woke up. The patient brought to the ER with the family, but the symptoms resolved and did not apparently get tPA. Denies any chest pain. Denies any shortness of breath. Denies any palpitation. The patient is very active and according to goes up and down, but no chest pain. 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 PAST SURGICAL HISTORY: Significant for right inguinal hernia 11 years ago, enlarged prostate and prostatectomy 10 years ago, history of chronic venous stasis of the left em of the tibia, status post injection and minor surgical procedure for the ulcer. No significant history of coronary artery disease, stent in the past. SOCIAL HISTORY: Denies any smoking. Denies any history of alcohol abuse. FAMILY HISTORY: Significant for mom has a stroke and father had with NH. ALLERGIES: TO PENICILLIN. CURRENT MEDICATIONS: The patient at home was taking olmesartan 40 mg combined with 25 of hydrochlorothiazide, Norvasc 5 mg daily, Namenda 10 mg daily, Lasix 20 mg daily, aspirin 81 mg daily, and allopurinol 100 mg daily. REVIEW OF SYSTEMS: As per HPI. No chest pain. No shortness of breath. No palpitation. PHYSICAL EXAMINATION: GENERAL: Height of the patient 5 feet 10 inches, weight of the patient 214 pounds, and body mass index 30.7 kg/m2. VITAL SIGNS: Temperature afebrile, heart rate 79, and blood pressure 119/62. HEENT: PERRLA. Extraocular muscles intact. NECK: Supple. No carotid bruit or thyromegaly. CHEST: Clear to auscultation. HEART: S1 and S2 regular. ABDOMEN: Soft. EXTREMITIES: Clubbing and cyanosis negative. LABORATORY DATA: Blood workup; WBC 12.5, hemoglobin 13.1, hematocrit 40, and platelet count 293. Chemistry shows sodium 135, potassium , chloride 96, carbon dioxide 30, anion gap of 14, BUN 60, and creatinine 3.9. Triglyceride 177, cholesterol 163, LDL 90, and HDL 28. EKG showed normal sinus, first-degree A-V block, no acute ST-T changes noted. IMPRESSION: A 78-year-old male with past medical history of hypertension, hyperlipidemia, history of cerebrovascular accident, history of benign prostatic hypertrophy, status post prostatectomy, history of chronic venous stasis on the left tibia, history of chronic dizziness, admitted with transient ischemic attack type of symptoms, and near syncopal episode while sitting. RECOMMENDATIONS: The patient is going for MRI as well as bilateral carotid duplex. We will order lipid profile, TSH, and hemoglobin A1C as well as we will order echo. Laboratory data shows elevated BUN and creatinine consistent with stage V CKD, it is not sure old or new, is unaware of the details. We will followup. So far, the patient is on telemetry did not show any evidence of NH. We will repeat the lab in the morning. We will put hydration and we will see the response and the repeat blood workup in the morning. We will also put orthostatic change and repeat the lab in the morning. Old electronic medical record reviewed, the patient had stress test on 09/04/2017 that shows normal myocardial perfusion study, ejection fraction 74%. Also report reviewed blood workup shows the patient in 08/2017, the patient has creatinine 2.3, so the patient has baseline some renal insufficiency, it got worst yesterday 3.4 and today is 3, we will continue hydration. We will repeat the lab in the morning. Though, the patient has some underlying renal insufficiency, CKD since 08/2017, creatinine at baseline 2.3 with creatinine clearance 28 stage III to IV CKD. We will check for orthostatic for high blood pressure and charted. We will follow with you. Thank you Dr. Rouse for providing us the opportunity in taking care of the patient, Jose A Adam. Gini Oquendo MD
[2018-09-02] MEDS: Sodium Chloride 0.9% 1,000 ML IV SCH (21:22)
--- NOTE | 2018-09-02 23:43 | PN ---
DATE: 09/02/2018 SUBJECTIVE: The patient is a 78-year-old male. The patient was seen and examined at the bedside on 09/02/2018, having dinner. was helping the patient, and he was eating without any problem. Power in all 4 extremities is back. No fever. No chills. No headache. No dizziness. No chest pain. No nausea, vomiting, diarrhea. No hematuria or hematochezia. No urinary problem. Still having a little bit of speech problem. Difficulty formulating words. PHYSICAL EXAMINATION: VITAL SIGNS: Temperature 97.7, pulse 79, respiratory rate 20, blood pressure 140/72, pulse oximetry of 97. HEENT: Head: Normocephalic, atraumatic. Eyes: PERRLA. Extraocular muscles are intact. Conjunctivae clear. Nose patent. NECK: Supple. No carotid bruit. No JVD or thyromegaly. CHEST: Bilaterally symmetrical. HEART: S1 and S2, positive. LUNGS: Clear to auscultation. ABDOMEN: Soft. Bowel sounds present. No organomegaly. EXTREMITIES: No edema. No cyanosis. NEUROLOGICAL: The patient is awake and alert. Moving all 4 extremities. No focal deficit. MEDICATIONS: Allopurinol, amlodipine, Brovana, aspirin, Pulmicort, Pepcid, Lasix, hydrochlorothiazide, , Cozaar, Namenda. LABORATORY DATA: White blood cell is 12.2, hemoglobin 11.8, hematocrit 33.5, platelets 297. Sodium 138, potassium 3.9, BUN 56, creatinine 3.8, glucose 133. CT of the head and neck reviewed by me. MRI of the brain reviewed shows severe chronic microvascular changes in the perivascular white matter, moderate atrophy. No acute intracranial findings. ASSESSMENT AND PLAN: Mr. Jose A Adam is a 78-year-old male with leukocytosis, anemia, renal insufficiency, hyperglycemia, has past medical history of stroke, hypertension, hypercholesterolemia, cerebrovascular accident x2 years ago, dementia, gouty arthritis, came with aphasia and dysarthria, which have been resolved. The patient was not a tissue plasminogen activator candidate, so tissue plasminogen activator was not given. Continue aspirin and Plavix. Followup echocardiogram and carotid Doppler. Discussion done with the patient's . She was on the bedside. Reviewed Dr. Shukla's notes. Gastrointestinal and deep venous thrombosis prophylaxis. Need good physical therapy. Reviewed Dr. Chapa and Dr. Oquendo's notes also. Leukocytosis is trending down. Acute kidney injury, likely due to maybe dehydration. Continue IV fluid. Monitor BUN and creatinine. We will follow up. Parvin Rouse MD
[2018-09-03 00:05] VITALS: TEMP 98
[2018-09-03 06:47] VITALS: BP 152/92; PULSE 78; RESP 18; O2SAT 96
[2018-09-03] MEDS: Arformoterol 15 mcg/2 ml Inh Sol IH SCH (08:02)
[2018-09-03] MEDS: Budesonide 0.5 mg/2 ml Inhal Susp UD IH SCH (08:02)
[2018-09-03 08:13] LABS: HEMOGLOBIN 11.7 g/dL (14.0-18.0); MEAN CELL VOLUME 86.4 fl (80.0-105.0); MEAN CORPUSCULAR HEMOGLOBIN 27.5 pg (25.0-35.0); MEAN CORPUSCULAR HGB CONC 31.9 g/dl (31.0-37.0); MEAN PLATELET VOLUME 10.4 fl (7.0-11.0); RBC 4.25 10^6/uL (3.5-6.1); RED CELL DISTRIBUTION WIDTH 16.3 % (11.5-14.5)
[2018-09-03 09:23] LABS: ALB/GLOB RATIO 1.1 (1.1-1.8); ALBUMIN 3.8 g/dL (3.0-4.8)
--- NOTE | 2018-09-03 13:13 | PN ---
DATE: 09/03/2018 REASON FOR CONSULTATION AND FOLLOWUP: Cardiac evaluation. Rule out arrhythmia. Admitted with possible TIA. SUBJECTIVE: The patient denies any chest pain, shortness of breath, or any palpitation. is at the bedside. Emotionally, the patient is very labile. Not in apparent distress. The patient had echo yesterday, awaiting to merge to bubble study to rule out PFO. PHYSICAL EXAMINATION GENERAL: Not in apparent distress. VITAL SIGNS: Temperature afebrile, heart rate 78, blood pressure 152/92. HEENT: PERRLA. Extraocular muscles are intact. NECK: Supple. No carotid bruit or thyromegaly. CHEST: Clear to auscultation. HEART: S1 and S2 regular. ABDOMEN: Soft. EXTREMITIES: Clubbing and cyanosis negative. LABORATORY DATA: Blood workup as follows; WBC 10, hemoglobin 11.7, hematocrit 36,7, and platelet count 275. Chemistry shows sodium 141, potassium 3.7, chloride 106, carbon dioxide 26, anion gap of 12, BUN 59, and creatinine 0.8. IMPRESSION: The patient is a 78-year-old male with a past medical history significant for hypertension, hyperlipidemia, chronic kidney disease, admitted with transient ischemic attack type of symptoms that have completely resolved. Did not get tPA. Echo was done. Preserved left ventricular function. Awaiting for bubble study to be completed, so we can the merge the study and finalize. So far, workup for transient ischemic attack including brain MRI, severe chronic microvascular changes, perivascular white matter, moderate atrophy, no acute intracranial findings noted. Unremarkable CT angio of the brain and posterior circulation as well as cerebral arteries. Bilateral carotid duplex, bilateral 20% to 39% proximal internal carotid artery stenosis. As mentioned, the patient has also renal insufficiency, possibly is acute and chronic; history of hypertension, poorly controlled. RECOMMENDATIONS: Followup echo when he has completed the study. We will put low dose of beta megan. The patient is on hydrochlorothiazide, losartan. Monitor renal function closely. Avoid nephrotoxic medications. Creatinine is trending down. We will follow with you. Thank you Dr. Rouse for providing us the opportunity in taking care of the patient, Jose A Adam. Gini Oquendo MD
--- NOTE | 2018-09-03 13:38 | PN ---
DATE: 09/03/2018 PULMONARY PROGRESS NOTE REFERRING PHYSICIAN: Parvin Rouse MD SUBJECTIVE: Patient is sitting at bedside with present. No acute distress noted. The patient reports feeling well this morning. Denies cough, shortness of breath. No headache, rhinitis, chest pain, abdominal pain, nausea, vomiting, diarrhea, leg pain or leg swelling reported. reports the patient being discharge home today. OBJECTIVE: GENERAL: No acute distress. VITAL SIGNS: Blood pressure 152/92, pulse 78, temperature 98 and oxygen saturation 96% on room air. HEENT: Moist mucous membranes. Crowded airway. Mallampati score of 4. NECK: Supple. No JVD. LUNGS: Clear bilaterally. CARDIOVASCULAR: S1 and S2, audible. ABDOMEN: Soft and nontender. No distension. No organomegaly. EXTREMITIES: No bilateral lower extremity edema. NEUROLOGIC: Awake, alert and verbal. Follows commands. MEDICATIONS: Reviewed. Allopurinol 100 mg 3 times a day, Norvasc 5 mg daily, Brovana 15 mcg every 12 hours, aspirin 81 mg daily, Lipitor 20 mg at dinner, Pulmicort 0.5 mg every 12 hours, Pepcid 20 mg at bedtime, fenofibrate 145 mg daily, Lasix 20 mg daily, hydrochlorothiazide 25 mg daily, Cozaar 100 mg daily, Namenda 10 mg daily, metoprolol tartrate 25 mg twice a day, sodium chloride 0.9% at 1000 mL at 100 mL per hour. LABORATORY DATA: Reviewed. WBC 10, RBC 4.25, hemoglobin 11.7, hematocrit 36.7. and platelets 275. Sodium 141, potassium 3.7, chloride 106, carbon dioxide 26, anion gap 12, BUN 59, creatinine 3.3, GFR is 18, random glucose 120, calcium 9, total bilirubin 0.4, AST 25, ALT 26, alkaline phosphatase 54, total protein 7.4, albumin 3.8, globulin 3.6 and albumin-globulin ratio 1.1. TSH 1.15, HDL 28, LDL 90, cholesterol 163, triglycerides 177, urine culture final no growth. Carotid artery ultrasound shows bilateral 20% to 39% proximal ICA stenosis antegrade flow in both vertebral arteries. Echocardiogram report pending. IMPRESSION AND PLAN: Near syncope, chronic obstructive lung disease, suspected sleep apnea syndrome, anemia, renal insufficiency, history of stroke, hypertension, gout, history of Alzheimer type dementia, hypertension, and arthritis. Need to followup urine and creatinine closely. Gastric prophylaxis, deep venous thrombosis prophylaxis, sequential compression devices in use, inhaled bronchodilators, fall precaution. Recommend the patient have full pulmonary function test and sleep study as outpatient. This patient was seen and examined with Dr. Chapa. Discussed the assessment and plan as described above. Thank you for this consult. We will follow with you. Dipak Watkins APN Gini Chapa MD [id number]
--- NOTE | 2018-09-03 19:33 | CARD ---
APPROVED REPORT Date of service: 09/02/2018 EXAM: Two-dimensional and M-mode echocardiogram with Doppler and color Doppler. INDICATION CVA/TIA 2D DIMENSIONS Left Atrium (2D)3.3 (1.6-4.0cm)IVSd1.6 (0.7-1.1cm) LVDd3.9 (3.9-5.9cm)PWd1.3 (0.7-1.1cm) LVDs2.6 (2.5-4.0cm)FS (%) 33.8 % LVEF (%)63.3 (>50%) M-Mode DIMENSIONS Aortic Root2.70 (2.2-3.7cm)Aortic Cusp Exc.1.30 (1.5-2.0cm) Aortic Valve AoV Peak Cmpfoccx226.0cm/Bobby Peak GR.8mmHg Mitral Valve MV E Kwcxqoym95.3cm/sMV A Mgyqurpf98.0cm/sE/A ratio0.7 TDI E/Lateral E'0.0E/Medial E'0.0 Tricuspid Valve TR Peak [id number] [id number] Peak Gr.13mmHg [id number] LEFT VENTRICLE The left ventricle is normal size. There is mild to moderate concentric left ventricular hypertrophy. The left ventricular function is normal.EF-60-65% There is normal LV segmental wall motion. Transmitral Doppler flow pattern is Grade III-reversible restrictive diastolic dysfunction. No left ventricle thrombus noted on this study. There is no ventricular septal defect visualized. There is no left ventricular aneurysm. There is no mass noted in the left ventricle. RIGHT VENTRICLE The right ventricle is normal size. There is normal right ventricular wall thickness. The right ventricular systolic function is normal. ATRIA The left atrium size is normal. The right atrium size is normal. The interatrial septum is intact with no evidence for an atrial septal defect. AORTIC VALVE The aortic valve is calcified but opens well. The aortic valve is moderately sclerotic. There is trace aortic regurgitation. Aotic Sclerosis VS Mild There is no aortic valvular vegetation. MITRAL VALVE The mitral valve is thickened but opens well. Mitral annular calcification is mild. Trivial MR. There is no mitral valve stenosis. There is no evidence of mitral valve prolapse. TRICUSPID VALVE The tricuspid valve leaflets are thickened , but open well. There is trace to mild tricuspid regurgitation.RVSP-23 mmof hg. There is no tricuspid valve stenosis. There is no tricuspid valve prolapse or vegetation. PULMONIC VALVE The pulmonic valve is not well visualized. There is no pulmonic valvular regurgitation. There is no pulmonic valvular stenosis. GREAT VESSELS The aortic root is normal in size. The ascending aorta is normal in size. The pulmonary artery is normal. The IVC is normal in size and collapses >50% with inspiration. PERICARDIAL EFFUSION There is no pleural effusion. There is no pericardial effusion. <Conclusion> Normal Chamber SIZE. EF_60-65%, Mild to moderate LVH. There is trace aortic regurgitation. Aotic Sclerosis VS Mild Trivial MR. There is trace to mild tricuspid regurgitation.RVSP-23 mmof hg. The IVC is normal in size and collapses >50% with inspiration. There is no pericardial effusion. Echo was done and was read yesterday , but Bubble Study was not done, awaited for bubble study to be done so whple study can be megred ( completed), but it was learnt that pt was d/c'ed home without bubble study completed.so studt is being released.
== END 2018-09-03 12:52 | disposition home or self-care (01) ==
LOC: ED 09:46 → ERH 16:24 → INTOOBSV 16:24 → ERH 16:55 → 3RNO 17:50
PROVIDERS: ADMIT Internal Medicine; ATTEND Internal Medicine
DX: R47.01 Aphasia (principal); R47.1 Dysarthria and anarthria; R55 Syncope and collapse; R41.82 Altered mental status, unspecified; I12.0 Hypertensive chronic kidney disease with stage 5 chronic kidney disease or end stage renal disease; N18.5 Chronic kidney disease, stage 5; N17.9 Acute kidney failure, unspecified; E86.0 Dehydration; M10.9 Gout, unspecified; D64.9 Anemia, unspecified; E78.1 Pure hyperglyceridemia; G30.9 Alzheimer's disease, unspecified; F02.80 Dementia in other diseases classified elsewhere, unspecified severity, without behavioral disturbance, psychotic disturbance, mood disturbance, and anxiety; I73.9 Peripheral vascular disease, unspecified; I65.23 Occlusion and stenosis of bilateral carotid arteries; I87.2 Venous insufficiency (chronic) (peripheral); J44.9 Chronic obstructive pulmonary disease, unspecified; K21.9 Gastro-esophageal reflux disease without esophagitis; E78.5 Hyperlipidemia, unspecified; N40.0 Benign prostatic hyperplasia without lower urinary tract symptoms; B15.9 Hepatitis A without hepatic coma; R73.9 Hyperglycemia, unspecified; E66.9 Obesity, unspecified; Z68.30 Body mass index [BMI] 30.0-30.9, adult; Z79.02 Long term (current) use of antithrombotics/antiplatelets; Z87.891 Personal history of nicotine dependence; Z86.73 Personal history of transient ischemic attack (TIA), and cerebral infarction without residual deficits; Z79.82 Long term (current) use of aspirin; Z88.0 Allergy status to penicillin
CPT/HCPCS: 36415; 70450; 70496; 70498; 70551; 71045; 80053; 80061; 81001; 82607; 82746; 83036; 83540; 83550; 84443; 84484; 85025; 85027; 85610; 85730; 86850; 86900; 87086; 93005; 93306; 93880; 93970; 94640; 97116; 97162; 99285; G0378; G8978; G8979; G8980; J7030; Q9967

== ENCOUNTER 2018-09-22 15:29 | Inpatient (IN) | payer MEDICARE, OTHER ==
--- NOTE | 2018-09-22 16:29 | ED PDOC ---
Arrival/HPI - General Time Seen by Provider: 09/22/18 15:57 Historian: Patient - History of Present Illness Narrative History of Present Illness (Text): 09/22/18 16:26 78-year-old male with a history of hypertension and TIA presents today with generalized weakness and near syncopal episode at home yesterday. Patient states yesterday he was feeling dizzy and he stood up and was walking and felt dizzy and fell to the ground sustaining a head injury. Patient states ambulance came to the house but he refuses treatment. Patient denies chest pain or shortness of breath. Patient states he's been feeling dizzy. Patient states he feels generalized weakness. Patient's states that he had a nosebleed today which prompted them to come to the emergency room. Patient states he's been being followed by Dr. Rouse recently. Patient denies headaches no neck or back pain. He denies chest pain or shortness of breath. No abdominal pain. No urinary symptoms. No other complaints Past Medical History - Provider Review Nursing Documentation Reviewed: Yes - Travel History Have you recently traveled outside [place] w/in the past 3 mons?: No - Cardiac Hx Cardiac Disorders: Yes Hx Hypertension: Yes - Pulmonary Hx Respiratory Disorders: Yes (USED TO SMOKE CIGARETTES) - Neurological HX Cerebrovascular Accident: Yes (1.5 years ago) - HEENT Hx HEENT Disorder: No - Renal Hx Renal Disorder: Yes (NEPHROLITHIASIS) Other/Comment: HIGH CREATININE - Endocrine/Metabolic Hx Endocrine Disorders: No - Hematological/Oncological Hx Blood Disorders: No - Integumentary Hx Dermatological Disorder: Yes - Musculoskeletal/Rheumatological Hx Falls: Yes - Gastrointestinal Hx Gastrointestinal Disorders: Yes - Genitourinary/Gynecological Hx Genitourinary Disorders: Yes Hx Prostate Problems: Yes (ENLARGED) - Psychiatric Hx Psychophysiologic Disorder: No Hx Substance Use: No - Surgical History Hx Inguinal Hernia Repair: Yes Family/Social History - Physician Review Nursing Documentation Reviewed: Yes Family/Social History: Unknown Family HX Smoking Status: Former Smoker Hx Alcohol Use: No Hx Substance Use: No Allergies/Home Meds Allergies/Adverse Reactions: Allergies Penicillins Allergy (Verified 09/22/18 17:00) RASH Home Medications: Home Meds Medication Instructions Recorded Confirmed Allopurinol [Zyloprim] 100 mg PO TID 08/26/17 09/22/18 amLODIPine [Norvasc] 5 mg PO DAILY 08/26/17 09/22/18 Olmesartan/Hydrochlorothiazide 1 tab PO DAILY 09/01/18 09/22/18 [Olmesartan-Hctz 40-25 mg Tab] Review of Systems - Review of Systems Constitutional: Fatigue. absent: Fevers ENT: Epistaxis. absent: Sore Throat, Sinus Congestion Respiratory: absent: SOB, Cough Cardiovascular: absent: Chest Pain, Palpitations Gastrointestinal: absent: Abdominal Pain, Nausea, Vomiting Genitourinary Male: absent: Dysuria, Frequency, Hematuria Musculoskeletal: absent: Arthralgias, Back Pain, Neck Pain Skin: Other (abrasion, forehead) Neurological: Dizziness. absent: Headache, Focal Weakness, Speech Changes, Facial Droop Psychiatric: absent: Anxiety, Depression Physical Exam Vital Signs Reviewed: Yes Vital Signs Temp Pulse Resp BP Pulse Ox 09/22/18 16:23 98.6 F 78 18 112/62 96 Temperature: Afebrile Blood Pressure: Normal Pulse: Regular Respiratory Rate: Normal Appearance: Positive for: Well-Appearing, Non-Toxic, Comfortable Pain Distress: None Mental Status: Positive for: Alert and Oriented X 3 - Systems Exam Head: Present: Abrasion (4x 4superficial abrasion noted to right forehead.) Pupils: Present: PERRL Extroacular Muscles: Present: EOMI Conjunctiva: Present: Normal Ears: Present: Normal Mouth: Present: Moist Mucous Membranes. No: Drooling, Trismus Pharnyx: Present: Normal. No: ERYTHEMA, EXUDATE, TONSILS ENLARGED, Muffled/Hoarse Voice Nose (External): Present: Atraumatic Nose (Internal): Present: No Active Bleeding. No: Epistaxis (dried blood noted in right nostril.) Neck: Present: Normal Range of Motion, Trachea Midline. No: MIDLINE TENDERNESS, Paraspinal Tenderness Respiratory/Chest: Present: Clear to Auscultation, Good Air Exchange. No: Respiratory Distress, Accessory Muscle Use, Tender to Palpation Cardiovascular: Present: Regular Rate and Rhythm Abdomen: No: Tenderness, Distention, Rebound, Guarding Back: Present: Normal Inspection. No: Midline Tenderness, Paraspinal Tenderness Upper Extremity: Present: Normal ROM Lower Extremity: Present: Normal ROM Neurological: Present: GCS=15, Speech Normal, Motor Func Grossly Intact, Normal Sensory Function Skin: Present: Warm, Dry, Normal Color Psychiatric: Present: Alert, Oriented x 3 Medical Decision Making ED Course and Treatment: 09/22/18 16:30 78yr old male presenting with generalized weakness and near syncopal episode yesterday resulting in abrasion to forehead with nose bleed x 1 today. vitals stable. EKG: Sinus rhythm with first-degree AV block at 74 bpm normal axis no ST elevations QTC 435 CBC: wnl CMP: bun; 82 cr; 5.2 glucose; 160 Troponin: wnl Urinalysis: + protein Head CT:FINDINGS: HEMORRHAGE: No intracranial hemorrhage. BRAIN: Diffuse atrophy with prominence of the ventricles and sulci noted. No mass effect or edema. Intracranial atherosclerosis. Moderate to severe scattered periventricular and subcortical white matter hyp odensities, which are nonspecific, but often seen with chronic microvascular ischemic disease. Please note that MRI with diffusion imaging is more sensitive in the detection of acute ischemic event. VENTRICLES: No hydrocephalus. CALVARIUM: Unremarkable. PARANASAL SINUSES: Unremarkable as visualized. No significant inflammatory changes. MASTOID AIR CELLS: Unremarkable as visualized. No inflammatory changes. OTHER FINDINGS: Small right frontal scalp hematoma. IMPRESSION: Moderate to severe nonspecific white matter changes. Small right frontal scalp hematoma. Patient reassessment: pt resting comfortably; alert and oriented. no distress. I discussed results in depth with patient and . they would prefer to be admitted to dr. fish as he has seen the patient in the past. Discussed with Dr. Fish accepts admission. case discussed with the resident. impression; renal insufficiency, dizziness, near syncope, abrasion, forehead. admit to tele Reassessment Condition: Re-examined (resting comfortably. no distress) - RAD Interpretation Radiology Orders: 09/22/18 16:17 CHEST PORTABLE [RAD] Stat 09/22/18 16:18 HEAD W/O CONTRAST [CT] Stat Disposition/Present on Arrival - Present on Arrival Any Indicators Present on Arrival: No History of DVT/PE: No History of Uncontrolled Diabetes: No Urinary Catheter: No History of Decub. Ulcer: No History Surgical Site Infection Following: None - Disposition Have Diagnosis and Disposition been Completed?: Yes Diagnosis: Dizziness, Near syncope, Head injury, Abrasion of forehead, Renal insufficiency Disposition: HOSPITALIZED Disposition Time: 16:33 Patient Plan: Observation Patient Problems: Current Active Problems Problem Status Onset Abrasion of forehead Acute Dizziness Acute Head injury Acute Near syncope Acute Renal insufficiency Acute Condition: FAIR
[2018-09-22 17:10] LABS: BASO # 0.05 K/mm3 (0.0-2.0); BASO % 0.6 % (0.0-3.0); EOS # 0.7 (0.0-0.7); EOS % 7.6 % (1.5-5.0); HEMOGLOBIN 11.1 g/dL (14.0-18.0); LYMPH # 1.8 (1.2-3.4); LYMPH % 21.1 % (22.0-35.0); MEAN CELL VOLUME 85.6 fl (80.0-105.0); MEAN CORPUSCULAR HEMOGLOBIN 27.5 pg (25.0-35.0); MEAN CORPUSCULAR HGB CONC 32.1 g/dl (31.0-37.0); MEAN PLATELET VOLUME 10.7 fl (7.0-11.0); MONO # 0.5 (0.1-0.6); MONO % 5.4 % (1.0-6.0); RBC 4.04 10^6/uL (3.5-6.1); RED CELL DISTRIBUTION WIDTH 16.2 % (11.5-14.5); WHITE BLOOD COUNT 8.7 10^3/uL (4.5-11.0)
[2018-09-22 17:13] LABS: URINE BILIRUBIN NEGATIVE (NEGATIVE); URINE BLOOD NEGATIVE (NEGATIVE); URINE GLUCOSE (UA) NEGATIVE (NEGATIVE); URINE LEUKOCYTE ESTERASE NEGATIVE Leu/uL (NEGATIVE); URINE PROTEIN 100 mg/dL (<30 mg/dL); URINE UROBILINOGEN 0.2 E.U./dL (<1 E.U./dL)
[2018-09-22 17:14] LABS: URINE APPEARANCE TURBID (CLEAR); URINE COLOR YELLOW (YELLOW)
[2018-09-22 17:17] LABS: URINE WBC 0 - 2 /hpf (0-6)
[2018-09-22 17:23] LABS: ALB/GLOB RATIO 1.1 (1.1-1.8); ALBUMIN 3.9 g/dL (3.0-4.8); CALCIUM 8.9 mg/dL (8.4-10.5)
[2018-09-22 17:29] LABS: TROPONIN I 0.01 ng/mL
[2018-09-22] MEDS ORDERED: Sodium Chloride 0.9% 1,000 ML IV STA (18:05)
--- NOTE | 2018-09-22 18:17 | CT ---
Date of service: 09/22/2018 PROCEDURE: CT HEAD WITHOUT CONTRAST. HISTORY: fall head injury COMPARISON: Noncontrast brain MRI performed 09/02/18, noncontrast head CT performed 09/01/18 TECHNIQUE: Axial computed tomography images were obtained through the head/brain without intravenous contrast. Radiation dose: Total exam DLP = 998.18 mGy-cm. This CT exam was performed using one or more of the following dose reduction techniques: Automated exposure control, adjustment of the mA and/or kV according to patient size, and/or use of iterative reconstruction technique. FINDINGS: HEMORRHAGE: No intracranial hemorrhage. BRAIN: Diffuse atrophy with prominence of the ventricles and sulci noted. No mass effect or edema. Intracranial atherosclerosis. Moderate to severe scattered periventricular and subcortical white matter hypodensities, which are nonspecific, but often seen with chronic microvascular ischemic disease. Please note that MRI with diffusion imaging is more sensitive in the detection of acute ischemic event. VENTRICLES: No hydrocephalus. CALVARIUM: Unremarkable. PARANASAL SINUSES: Unremarkable as visualized. No significant inflammatory changes. MASTOID AIR CELLS: Unremarkable as visualized. No inflammatory changes. OTHER FINDINGS: Small right frontal scalp hematoma. IMPRESSION: Moderate to severe nonspecific white matter changes. Small right frontal scalp hematoma.
[2018-09-22] MEDS ORDERED: Sodium Chloride 0.9% 1,000 ML IV SCH (19:15)
[2018-09-22 19:50] LABS: INR 1.1; PARTIAL THROMBOPLASTIN TIME 39.7 Seconds (26.9-38.3); PROTHROMBIN TIME 12.2 SECONDS (9.4-12.5)
--- NOTE | 2018-09-22 20:17 | CP.PCM.HP ---
History of Present Illness - History of Present Illness History of Present Illness: Hanna Beasley, PGY-1 Medicine H&P Note for Dr. Asencio: CC: Epistaxis and fall Pt is a 78yo M with pmhx of HTN, dementia, TIA 2 years ago, Arthritis, gout, and BPH who presents to the ED s/p syncopal episode yesterday. Pt is accompanied by as pt is poor historian. Pt states that he was standing up from his bed and then felt lightheaded and fell forward. This episode was witnessed by the who states that the pt hit his head against the wall in front of him. The pt states that he did not lose consciousness and the confirmed that after he hit the wall infront of him he yelled out loud and was active throughout the ent jeet episode. Pts who witnessed the episode states that she did not notice and irregular movements of the limbs or jerking prior to or after the fall. Pts states that today she noticed that there was a large clot of blood that came from the pts nose and the pts nose began to bleed. Per the she denies any clear substance coming out of the nose or the ears and states that it was only blood and it was limited to one occurance. This is what prompted the pts to bring in the pt to the ED. Pts states that the pt is currently at baseline. The pt denies any tongue biting or any bladder or bowel incontinence. Pt states that at this time he has no fevers, chills, headache, lightheadedness, numbness, tingling, chest pain, palpitations, SOB, cough, abd pain, n/v, c/d, dysuria or hematuria. Pmhx: HTN, dementia, TIA 2 years ago, Arthritis, gout, and BPH Pshx: Hernia repair Meds: Metoprolol, Memantine, Allopurinol, Furosemide, ASA, Olemesartan, plavix, lipitor, fenofibrate All: PCN - Rash Social: Quit smoking 54 yrs ago, denies recent etoh or illicit drug use Fam: Mom: HTN, DM, CVA. Dad: HTN Pharm: [facility] in Present on Admission - Present on Admission Any Indicators Present on Admission: No Review of Systems - Review of Systems Review of Systems: 12 point ROS reviewed and negative except for noted in HPI above. Past Patient History - Past Social History Smoking Status: Former Smoker - CARDIAC Hx Cardiac Disorders: Yes Hx Hypertension: Yes - PULMONARY Hx Respiratory Disorders: Yes (USED TO SMOKE CIGARETTES) - NEUROLOGICAL HX Cerebrovascular Accident: Yes (1.5 years ago) - HEENT Hx HEENT Problems: No - RENAL Hx Chronic Kidney Disease: Yes (NEPHROLITHIASIS) Other/Comment: HIGH CREATININE - ENDOCRINE/METABOLIC Hx Endocrine Disorders: No - HEMATOLOGICAL/ONCOLOGICAL Hx Blood Disorders: No - INTEGUMENTARY Hx Dermatological Problems: Yes - MUSCULOSKELETAL/RHEUMATOLOGICAL Hx Falls: Yes - GASTROINTESTINAL Hx Gastrointestinal Disorders: Yes - GENITOURINARY/GYNECOLOGICAL Hx Genitourinary Disorders: Yes Hx Prostate Problems: Yes (ENLARGED) - PSYCHIATRIC Hx Psychophysiologic Disorder: No Hx Substance Use: No - SURGICAL HISTORY Hx Surgeries: No Meds Allergies/Adverse Reactions: Allergies Allergy/AdvReac Type Severity Reaction Status Date / Time Penicillins Allergy RASH Verified 09/22/18 17:00 Physical Exam - Constitutional Appears: Non-toxic, No Acute Distress - Head Exam Additional comments: Pt has 3cm circular ecchymotic abrasion on R side of forehead. - Eye Exam Eye Exam: EOMI, Normal appearance, PERRL - Neck Exam Neck exam: Positive for: Full Rom, Normal Inspection. Negative for: Meningismus, Tenderness - Respiratory Exam Respiratory Exam: Clear to Auscultation Bilateral, NORMAL BREATHING PATTERN. absent: Accessory Muscle Use, Rales, Rhonchi, Wheezes, Respiratory Distress, Stridor - Cardiovascular Exam Cardiovascular Exam: RRR, +S1, +S2. absent: Gallop, Rubs - GI/Abdominal Exam GI & Abdominal Exam: Normal Bowel Sounds, Soft. absent: Distended, Firm, Guarding, Tenderness - Extremities Exam Extremities exam: Positive for: normal capillary refill, normal inspection, pedal pulses present Additional comments: R leg weaker than L. - Back Exam Back exam: NORMAL INSPECTION. absent: CVA tenderness (L), CVA tenderness (R), muscle spasm, paraspinal tenderness, vertebral tenderness Additional comments: Pts cervical, thoracic and lumbar vertebrae were assessed for tenderness, which was negative. Pt also did not admit to paraspinal tenderness upon palpation. Pt had no areas of focal weakness except for the RLE which per the pts is chr onic from CVA over 2 years ago. - Neurological Exam Neurological exam: Alert, Oriented x3 - Psychiatric Exam Psychiatric exam: Normal Affect, Normal Mood - Skin Skin Exam: Dry, Normal Color, Warm Results - Vital Signs Recent Vital Signs: Last Vital Signs Temp 98.6 F 09/22/18 16:23 Pulse 79 09/22/18 20:05 Resp 16 09/22/18 19:03 BP 119/82 09/22/18 20:05 Pulse Ox 98 09/22/18 19:03 - Labs Result Diagrams: 09/22/18 17:00 09/22/18 17:00 Labs: Laboratory Results - last 24 hr 09/22/18 09/22/18 09/22/18 17:00 17:00 17:00 WBC 8.7 RBC 4.04 Hgb 11.1 L Hct 34.6 L MCV 85.6 MCH 27.5 MCHC 32.1 RDW 16.2 H Plt Count 323 MPV 10.7 Neut % (Auto) 65.3 Lymph % (Auto) 21.1 L [place] % (Auto) 5.4 Eos % (Auto) 7.6 H Baso % (Auto) 0.6 Lymph # (Auto) 1.8 [place] # (Auto) 0.5 Eos # (Auto) 0.7 Baso # (Auto) 0.05 Absolute Neuts (auto) 5.68 PT INR APTT Sodium 135 Potassium 3.7 Chloride 98 Carbon Dioxide 25 Anion Gap 15 BUN 82 H Creatinine 5.2 H Est GFR ( Amer) 13 Est GFR (Non-Af Amer) 11 Random Glucose 160 H Calcium 8.9 Total Bilirubin 0.2 AST 20 ALT 7 Alkaline Phosphatase 49 Lactate Dehydrogenase 373 Total Creatine Kinase 192 Troponin I 0.01 Total Protein 7.4 Albumin 3.9 Globulin 3.5 Albumin/Globulin Ratio 1.1 Urine Color Yellow Urine Appearance Turbid Urine pH 7.0 Ur Specific Steward 1.020 Urine Protein 100 H Urine Glucose (UA) Negative Urine Ketones Negative Urine Blood Negative Urine Nitrate Negative Urine Bilirubin Negative Urine Urobilinogen 0.2 Ur Leukocyte Esterase Negative Urine RBC None Urine WBC 0 - 2 09/22/18 17:00 WBC RBC Hgb Hct MCV MCH MCHC RDW Plt Count MPV Neut % (Auto) Lymph % (Auto) [place] % (Auto) Eos % (Auto) Baso % (Auto) Lymph # (Auto) [place] # (Auto) Eos # (Auto) Baso # (Auto) Absolute Neuts (auto) PT 12.2 INR 1.10 APTT 39.7 H Sodium Potassium Chloride Carbon Dioxide Anion Gap BUN Creatinine Est GFR ( Amer) Est GFR (Non-Af Amer) Random Glucose Calcium Total Bilirubin AST ALT Alkaline Phosphatase Lactate Dehydrogenase Total Creatine Kinase Troponin I Total Protein Albumin Globulin Albumin/Globulin Ratio Urine Color Urine Appearance Urine pH Ur Specific Steward Urine Protein Urine Glucose (UA) Urine Ketones Urine Blood Urine Nitrate Urine Bilirubin Urine Urobilinogen Ur Leukocyte Esterase Urine RBC Urine WBC Assessment & Plan - Assessment and Plan (Free Text) Assessment: Pt is a 78yo M with pmhx of HTN, dementia, TIA 2 years ago, Arthritis, gout, and BPH who presents to the ED s/p syncopal episode yesterday. Pt is accompanied by as pt is poor historian. Plan: 1) Syncope: - CT head - MRI Brain - Carotid and Vertebral US - EKG - EEG - Echo - Vitamin B12, folate - TSH, Free T4 - Cont ASA, Lipitor, Plavix - Hbg a1c, glycomark, fructoasmine - Lipid panel - PTH - Mag next day - Phos next day - Serial trops q4 - Serial CPK q4 - Neuro checks q2 - Elevate HOB 30 degrees - Seizure precautions - Cardio - Dr. Martinez - Neuro - Dr. Solares - OT/PT eval 2) ISABELL: - Likely 2/2 pre-renal azotemia, cannot rule out obstructive pathology - CT Abd/ Pelvis - NS @100/hr - Abd complete US - Renal US - UA - UCx - Eosinophils in urine - Bladder scan q6h - Straight cath if residual volume is >=50mL - Nephro - Dr. Ulloa 3) Hx of Demenitia: - F/u RPR - F/u lyme serology - Cpnt home memantine 4) Hx of BPH: - PSA 5) Hx of Gout: - Uric acid next day 6) Hx of HTN: - Lopressor 50 BID PPx: DVT: Heparin sc Case seen and Discussed with Dr. Elif Beasley, PGY-1
--- NOTE | 2018-09-22 23:50 | CARD ---
APPROVED REPORT Date of service: 09/22/2018 EKG Measurement Heart [id number] <Conclusion> Sinus rhythm with 1st degree AV block NDSTT abnormalities [facility] ECG
[2018-09-23] MEDS: Mupirocin 2% Ointment 15 GM TUBE TOP SCH ×4 (00:53→22:55)
--- NOTE | 2018-09-23 02:41 | HP ---
DATE OF EXAM: 09/22/2018 HISTORY OF PRESENT ILLNESS: The patient is a 78-year-old male who was brought into the [facility] emergency room by the ambulance complaining of dizziness for several days. According to the patient's , the patient fell yesterday, hit the forehead and developed today nosebleed. According to the , the patient did not lose consciousness, but there is a question in the emergency room while the patient was found to be weak and had a near syncopal episode yesterday at home according to the ER physician evaluation. CODE STATUS: Full code. LIVING WILL ADVANCE DIRECTIVE: None. ALLERGIES: PENICILLIN. Height is 5 feet 9 inches. Weight is 204. BMI is 30.1. HOME MEDICATIONS: Aspirin 81 mg daily, Lasix 20 mg daily, Lipitor 20 mg daily, Lopressor 50 mg twice a day, Namenda 10 mg daily, Norvasc 5 mg daily, olmesartan and hydrochlorothiazide 40/25 daily, Plavix 75 mg daily, TriCor 145 mg daily, allopurinol 100 mg daily. PAST MEDICAL AND SURGICAL HISTORY: History of hypertension, hyperlipidemia, history of dementia, the patient's past medical history is significant for dementia, history of questionable peripheral vascular disease, hyperlipidemia, history of inguinal hernia, history of prostatic hypertrophy, history of nephrolithiasis, history of gait dysfunction, history of cerebrovascular accident, history of near syncope, history of chronic kidney disease, history of Alzheimer's dementia. Past medical history is significant for history of chronic vertigo, history of chronic venous stasis ulceration, history of venous stasis, history of prostatectomy, history of chronic venous stasis of the lower extremity, left more than the right, history of hepatitis A, history of acute kidney injury, history of the EEG history of for hyperuricemia, history of cerebrovascular accident. 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, history of cerebral cortical atrophy of the brain, history of chronic kidney disease stage IV, history of hyperuricemia, history of prediabetes, history of mildly elevated prostate-specific antigen, history of rhabdomyolysis, history of spinal tap, history of left ventricular hypertrophy with grade 1 abnormal relaxation pattern, history of apical hypokinesis, history of left renal cyst, history of systemic inflammatory response syndrome, history of acute and subacute left parietal lobe infarct, history of severe microvascular skin disease of the brain, history of prediabetes, history of noncompliance, history of apical hypokinesis, history of diverticulosis of the descending and sigmoid colon, history of cognitive impairment. Past medical history is also significant for altered mental status, history of cerebral infarct, history of social alcohol use, history of penicillin allergies, history of questionable cerebral versus systemic inflammatory response syndrome. Past medical history is also significant for history of poor compliance, history of severe chronic microvascular ischemic disease of the brain with cerebral cortical atrophy of the brain, history of right carotid artery calcified plaque and left carotid artery calcified plaque with severe toxicity, history of severe tortuous carotid arteries with calcified plaque, history of gait dysfunction, history of sigmoid diverticulosis, history of gastroparesis, history of grade 3 reversible restrictive diastolic dysfunction, history of calcified aortic valve with aortic sclerosis versus mild aortic stenosis, history of mild mitral annular calcification, history of mild tricuspid regurgitation, history of deconditioning, history of hypertensive cardiovascular disease, history of hyperlipidemia, hypertriglyceridemia, history of gout, history of asthma, history of gait dysfunction, history of recurrent falls. SOCIAL HISTORY: Positive for smoker, former smoker. Denies alcohol or drug use. OCCUPATIONAL HISTORY: Disabled. REVIEW OF SYSTEMS: A 14 system review is positive for dizziness. Positive for near syncope. Positive for weak. Positive for forehead bruise. Positive for nosebleed today. Apparently, the patient refused ambulance services yesterday. PHYSICAL EXAMINATION: GENERAL: The patient is seen and examined in room number #9 in the emergency room. The patient's is at bedside. The entire history of about the patient's condition was given by the patient's . Patient is alert, awake, responsive, confused, disoriented. The patient was seen and examined in room #9. VITAL SIGNS: T-max 98.6, heart rate 77, 75, 79, blood pressure 112/62, 105/62, respiration 18 to 19, O2 sat 96% to 98%. HEENT: Positive bruising of the right frontal forehead noted.. Pinkish pale conjunctivae. Anicteric sclerae. Dry oral mucosa. NECK: No neck rigidity. Questionable soft carotid bruit. CHEST: Kyphosis. CARDIOPULMONARY: S1 and S2. Questionable soft systolic murmur at left sternal border, right second intercostal space, left second intercostal space. LUNGS: Shows no audible crackle, rales, or wheezing. Questionable decreased breath sound at the bases. ABDOMEN: Soft. Positive bowel sounds. No palpable hepatosplenomegaly noted. GENITALIA: Male. RECTAL: Deferred. EXTREMITIES: Shows questionable calf tenderness. VASCULAR: Shows questionable decreased pulses. MUSCULOSKELETAL: Shows a body mass index of 30. NEUROLOGIC: Cranial nerves II-XII. The patient is able to move upper and lower extremity without assistance. Gait examination is not tested. DIAGNOSTICS: Hemoglobin and hematocrit 11.1, 34.6. PT/PTT is okay. Chemistry shows sodium 135, potassium 3.7, chloride 98, CO2 25, anion gap 15, BUN is up to 82, creatinine 5.2, GFR 11, glucose 160. LFTs are normal. Troponin is negative. The patient's baseline creatinine is around 2 and 3. Today's creatinine is almost double at 5.2. Urine shows 100 protein. Chest x-ray shows questionable cardiomegaly, portable film. CT of the head was done for fall which shows cerebral cortical atrophy of the brain, severe nonspecific white matter changes, right frontal scalp hematoma. The patient had an abdominal ultrasound and CAT scan of the abdomen and pelvis done which was reviewed. The patient's EKG was done in the emergency room by the physician technical support assistant which shows sinus rhythm. The patient was evaluated in the emergency room. The patient was advised to be admitted to telemetry by the PA. IMPRESSION: 1. Near syncope. 2. Dizziness. 3. Status post fall. 4. Right frontal forehead aberration contusion. 5. Acute kidney injury and acute renal failure. 6. Hypotension and hypovolemia. 7. Normocytic anemia. 8. Acute renal failure. 9. Hyperglycemia. 10. Proteinuria. 11. Diffuse cerebral cortical atrophy of the brain with ventriculomegaly. 12. 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 13. Small right frontal scalp hematoma. 14. Sigmoid diverticulosis. 15. Hepatomegaly with liver size of 19.7 cm. 16. Hepatic steatosis with increased hepatic echogenicity. 17. Right renal cyst. 18. Left renal mid pole nephrolithiasis. 19. Bilateral renal echogenicity compatible with medical renal disease. 20. Questionable first degree atrioventricular block. PLAN: At this time, the patient has been admitted to telemetry. Serial cardiac enzymes, repeat labs, thyroid panel, repeat troponin, uric acid, Lyme titers, PSA, PTH, CBC, urine cultures all ordered. CONSULTATION: Nephrology, Neurology, Cardiology. Lyme titers, RPR ordered. The patient has been started on Bactroban cream to the frontal forehead area three times a day, Colace 100 mg three times a day, Ecotrin 81 mg daily, heparin 5000 subcutaneously every 8, Lopressor 50 mg twice a day, Namenda 10 mg daily. The patient is started on 0.9 normal saline at 100 mL an hour, Tylenol p.o. suppository every 6 p.r.n., Zofran 4 IV every 4, p.r.n. Ultrasound of the abdomen, arterial venous Doppler of the lower extremity, carotid Doppler, MRI, MRA of the brain, CAT scan of the abdomen and pelvis, p.o. contrast. Repeat EKG and EEG has been ordered. ELICEO stockings, SCDs, head of the bed at 30 to 45 degrees, neuro checks, seizure precaution, out of bed to chair, physical therapy, occupational therapy, ambulation therapy all ordered. The patient's Lasix, olmesartan, TriCor, allopurinol at this time has been stopped. The patient will be considered for resumption of his aspirin, Lipitor will be resumed. At present, the patient was seen in the emergency room. The patient is awaiting for a telemetry bed. The patient's further management will be dependent upon the patient's clinical condition, hemodynamic status, and as per the patient response to therapeutic intervention, as per the patient's diagnostic test results and as per recommendation by Nephrology, Neurology, Cardiology. The patient is pending. CAT scan of the abdomen, pelvis, ultrasound of the abdomen, arterial venous Doppler of the lower extremity, carotid Doppler, MRI, MRA of the brain, EEG. The patient's was explained about the details of the patient's medical condition, need for hospitalization, need for further treatment, evaluation, management was discussed and explained to the patient and the patient's at length, and all questions concerned answered, which they acknowledged and understand. Dictated and electronically signed, not read. Bogdan Asencio MD
[2018-09-23 03:43] LABS: BASO # 0.04 K/mm3 (0.0-2.0); BASO % 0.4 % (0.0-3.0); EOS % 8.9 % (1.5-5.0); HEMOGLOBIN 11.2 g/dL (14.0-18.0); LYMPH # 2.8 (1.2-3.4); LYMPH % 25.6 % (22.0-35.0); MEAN CELL VOLUME 85.1 fl (80.0-105.0); MEAN CORPUSCULAR HEMOGLOBIN 28.2 pg (25.0-35.0); MEAN CORPUSCULAR HGB CONC 33.1 g/dl (31.0-37.0); MEAN PLATELET VOLUME 9.4 fl (7.0-11.0); MONO # 0.6 (0.1-0.6); MONO % 5.1 % (1.0-6.0); RBC 3.97 10^6/uL (3.5-6.1); RED CELL DISTRIBUTION WIDTH 16.1 % (11.5-14.5); WHITE BLOOD COUNT 10.8 10^3/uL (4.5-11.0)
[2018-09-23 04:12] LABS: LDL CHOLESTEROL 56 mg/dL (0-129); TROPONIN I 0.02 ng/mL
[2018-09-23 04:14] VITALS: BMI 30.1
[2018-09-23 05:16] LABS: FREE T4 1.17 ng/dL (0.78-2.19); T4 6.7 ug/dL (5.5-11.0)
[2018-09-23 05:42] LABS: ALB/GLOB RATIO 1.1 (1.1-1.8); ALBUMIN 3.9 g/dL (3.0-4.8); ALT/SGPT < 6 U/L (7-56); AST/SGOT 38 U/L (17-59); BILIRUBIN,DIRECT 0.3 mg/dL (0.0-0.4); BLOOD UREA NITROGEN 82 mg/dL (7-21); CALCIUM 8.9 mg/dL (8.4-10.5); GFR NON-AFRICAN AMERICAN 11; HDL CHOLESTEROL 34 mg/dL (29-60); URIC ACID 10.5 mg/dL (3.5-8.5)
[2018-09-23 06:32] LABS: URINE BILIRUBIN NEGATIVE (NEGATIVE); URINE BLOOD NEGATIVE (NEGATIVE); URINE GLUCOSE (UA) NEGATIVE (NEGATIVE); URINE LEUKOCYTE ESTERASE NEGATIVE Leu/uL (NEGATIVE); URINE PROTEIN 100 mg/dL (<30 mg/dL); URINE UROBILINOGEN 0.2 E.U./dL (<1 E.U./dL)
[2018-09-23 06:36] LABS: URINE APPEARANCE CLEAR (CLEAR); URINE COLOR YELLOW (YELLOW)
[2018-09-23 06:50] LABS: URINE RBC 0 - 2 /hpf (0-2)
[2018-09-23 06:52] LABS: URINE BACTERIA RARE /hpf
--- NOTE | 2018-09-23 08:39 | RAD ---
Date of service: 09/22/2018 HISTORY: dizziness, generalized weakness COMPARISON: 09/01/2018 FINDINGS: LUNGS: No active pulmonary disease. PLEURA: No significant pleural effusion identified, no pneumothorax apparent. CARDIOVASCULAR: Severe aortic tortuosity. Minimal aortic calcification Mild cardiomegaly. No pulmonary vascular congestion. OSSEOUS STRUCTURES: No significant abnormalities. VISUALIZED UPPER ABDOMEN: Normal. OTHER FINDINGS: None. IMPRESSION: No active disease.
--- NOTE | 2018-09-23 09:10 | US ---
Date of service: 09/22/2018 HISTORY: RENAL FAILURE COMPARISON: None. TECHNIQUE: Sonographic evaluation of the abdomen. FINDINGS: LIVER: Measures 15.1 cm. Diffusely increased echogenicity of the liver parenchyma. Consistent with fatty infiltration. GALLBLADDER: Partially contracted. No cholelithiasis. No significant mural thickening. No pericholecystic fluid. Negative sonographic Prasad sign. COMMON BILE DUCT: Measures 4 mm. No stones. No dilatation. PANCREAS: Unremarkable as visualized. No mass. No ductal dilatation. RIGHT KIDNEY: Measures 10.0cm. Diffusely increased cortical echogenicity. No calculus or hydronephrosis. Simple mid renal cyst, 12 mm. LEFT KIDNEY: Measures 8.8cm. Diffusely increased cortical echogenicity. No calculus or hydronephrosis. Mid renal cyst, 2 x 3 x 3 mm. Second mid renal cyst, 3 x 4 x 5 mm. Two tiny punctate echogenic foci in the left kidney, 3 mm in the mid kidney and 4 mm in the lower pole. Possible cortical calcification versus nonobstructing calculi in the collecting system. These do not correspond to evident calculi on CT examination of the same date, however. Significance uncertain. SPLEEN: Normal in size and contour. No mass. AORTA: No aneurysmal dilatation. IVC: Unremarkable. OTHER FINDINGS: None. IMPRESSION: No evidence of cholelithiasis or cholecystitis. Fatty infiltration of the liver. Diffusely increased renal cortical echogenicity bilaterally consistent with diffuse medical renal disease. Bilateral renal cortical cysts. 2 punctate foci in the left kidney, possibly small calculi. No additional abnormality.
--- NOTE | 2018-09-23 10:52 | CT ---
Date of service: 09/22/2018 PROCEDURE: CT Abdomen and Pelvis without intravenous contrast HISTORY: ISABELL COMPARISON: 07/27/2018 TECHNIQUE: Without contrast.. Contrast dose: 0 Radiation dose: Total exam DLP = 1041.42 mGy-cm. This CT exam was performed using one or more of the following dose reduction techniques: Automated exposure control, adjustment of the mA and/or kV according to patient size, and/or use of iterative reconstruction technique. FINDINGS: LOWER THORAX: Unremarkable. LIVER: Unremarkable. No gross lesion or ductal dilatation. GALLBLADDER AND BILE DUCTS: Unremarkable. PANCREAS: Unremarkable. No gross lesion or ductal dilatation. SPLEEN: Unremarkable. ADRENALS: Unremarkable. No mass. KIDNEYS AND URETERS: 1.5 cm mid right renal cortical cyst. 7 mm exophytic mass upper pole right kidney. These may correlate with right renal cysts identified on ultrasound examination of the same date. VASCULATURE: Unremarkable. No aortic aneurysm. There is atherosclerotic calcification of the abdominal aorta. BOWEL: Mild sigmoid diverticulosis. No evidence of diverticulitis no bowel obstruction. No other abnormal bowel loops. APPENDIX: Unremarkable. Normal appendix. PERITONEUM: Unremarkable. No free fluid. No free air. LYMPH NODES: Unremarkable. No enlarged lymph nodes. BLADDER: Unremarkable. REPRODUCTIVE: Normal prostate BONES: No acute fracture. OTHER FINDINGS: None. IMPRESSION: Sigmoid diverticulosis without evidence of diverticulitis no bowel obstruction. No evidence of urinary tract obstruction. Exophytic mass upper pole right kidney, 7 mm. Unchanged from prior. Probable mid right renal cortical cyst, 1.5 cm. Evaluation limited on noncontrast CT. Correlating with ultrasound examination of 09/22/2018, a 1.2 cm cyst was identified in the mid right kidney. Questionable 11 mm low-density left lower pole mass not corresponding to any mass identified on sonographic examination. No other significant abnormality. The preliminary findings for this examination were reported by [facility] at 8:36 p.m. on 09/22/2018. There is concurrence of this report with the preliminary findings.
--- NOTE | 2018-09-23 11:22 | CP.PCM.PN ---
Subjective - Date & Time of Evaluation Date of Evaluation: 09/23/18 Time of Evaluation: 07:00 - Subjective Subjective: Patient seen and examined at bedside in no acute distress having breakfast. Patient's is at bedside. He has no complaints overnight. Physical Exam - Constitutional Appears: Non-toxic, No Acute Distress - Head Exam Additional comments: Pt has 3cm circular ecchymotic abrasion on R side of forehead. - Eye Exam Eye Exam: EOMI, Normal appearance, PERRL - Neck Exam Neck exam: Positive for: Full Rom, Normal Inspection. Negative for: Meningismus, Tenderness - Respiratory Exam Respiratory Exam: Clear to Auscultation Bilateral, NORMAL BREATHING PATTERN. absent: Accessory Muscle Use, Rales, Rhonchi, Wheezes, Respiratory Distress, Stridor - Cardiovascular Exam Cardiovascular Exam: RRR, +S1, +S2. absent: Gallop, Rubs - GI/Abdominal Exam GI & Abdominal Exam: Normal Bowel Sounds, Soft. absent: Distended, Firm, Guarding, Tenderness - Extremities Exam Extremities exam: Positive for: normal capillary refill, normal inspection, pedal pulses present Additional comments: R leg weaker than L. - Back Exam Back exam: NORMAL INSPECTION. absent: CVA tenderness (L), CVA tenderness (R), muscle spasm, paraspinal tenderness, vertebral tenderness Additional comments: Pts cervical, thoracic and lumbar vertebrae were assessed for tenderness, which was negative. Pt also did not admit to paraspinal tenderness upon palpation. Pt had no areas of focal weakness except for the RLE which per the pts is chronic from CVA over 2 years ago. - Neurological Exam Neurological exam: Alert, Oriented x3 - Psychiatric Exam Psychiatric exam: Normal Affect, Normal Mood - Skin Skin Exam: Dry, Normal Color, Warm Objective - Vital Signs/Intake and Output Vital Signs (last 24 hours): Temp Pulse Resp BP Pulse Ox 98.7 F 63 20 151/79 H 98 09/23/18 06:00 09/23/18 06:00 09/23/18 06:00 09/23/18 06:00 09/22/18 22:52 Intake and Output: 09/23/18 09/23/18 06:59 18:59 Intake Total 300 Output Total 400 Balance -100 - Medications Medications: Current Medications Acetaminophen (Tylenol 325mg Tab) 650 mg PO Q6 PRN PRN Reason: TEMP>=99.5F Acetaminophen (Tylenol 650 Mg Supp) 650 mg RC Q6H PRN PRN Reason: TEMP>=99.5F Aspirin (Ecotrin) 81 mg PO DAILY [facility] Last Admin: 09/23/18 10:24 Dose: Not Given Aspirin (Ecotrin) 81 mg PO DAILY [facility] Last Admin: 09/23/18 10:46 Dose: 81 mg Atorvastatin Calcium (Lipitor) 20 mg PO DIN [facility] Last Admin: 09/23/18 00:45 Dose: 20 mg Clopidogrel Bisulfate (Plavix) 75 mg PO DAILY [facility] Last Admin: 09/23/18 10:46 Dose: 75 mg Docusate Sodium (Colace) 100 mg PO TID [facility] Last Admin: 09/23/18 10:46 Dose: 100 mg Ferrous Gluconate (Fergon) 324 mg PO TID [facility] Last Admin: 09/23/18 10:46 Dose: 324 mg Heparin Sodium (Porcine) (Heparin) 5,000 units SC Q8 [facility]; Protocol Last Admin: 09/23/18 06:31 Dose: 5,000 units Sodium Chloride (Sodium Chloride 0.9%) 1,000 mls @ 100 mls/hr IV .Q10H [facility] Stop: 09/24/18 01:14 Memantine (Namenda) 10 mg PO DAILY [facility] Last Admin: 09/23/18 10:47 Dose: 10 mg Metoprolol Tartrate (Lopressor) 25 mg PO BID [facility] Mupirocin (Bactroban Ointment) 0 gm TOP Q8H [facility] Last Admin: 09/23/18 10:47 Dose: 1 applic Ondansetron HCl (Zofran Inj) 4 mg IVP Q4H PRN PRN Reason: Nausea/Vomiting Vitamin B Complex/Vit C/Folic Acid (Nephro-Zay) 1 tab PO 0800 [facility] - Labs Labs: 09/23/18 03:25 09/23/18 03:25 PT 12.2 SECONDS (9.4-12.5) 09/22/18 17:00 INR 1.10 09/22/18 17:00 APTT 39.7 Seconds (26.9-38.3) H 09/22/18 17:00 Assessment and Plan - Assessment and Plan (Free Text) Assessment: Pt is a 78yo M with pmhx of HTN, dementia, TIA 2 years ago, Arthritis, gout, and BPH who presents to the ED s/p syncopal episode yesterday. Pt is accompanied by as pt is poor historian. Plan: 1) Syncope: - CT head reveals mod to severe white matter changes and small right frontal scalp hematoma - MRI Brain reveals no acute abnormalities - Carotid and Vertebral US ordered - Echo ordered - Vitamin B12, folate levels normal to high - Neuro checks q2 - Elevate HOB 30 degrees - Seizure precautions - Cardio - Dr. Martinez - Neuro - Dr. 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 Asencio Patient list of medications verified with pharmacy: [email or web address] one daily namenda 10 daily olmersartan-hctz 40-25 allopurinol 100 bid plavix 75 daily fenofribate 145 daily atorvastatin 20 qhs metoprolol tartate 25 BID amodipine 5 daily
--- NOTE | 2018-09-23 11:25 | MRI ---
Date of service: 09/23/2018 PROCEDURE: MRI BRAIN WITHOUT CONTRAST HISTORY: SYNCOPE COMPARISON: 09/02/2018 MRI TECHNIQUE: Multiplanar, multisequence MR images of the brain were obtained without intravenous contrast enhancement. FINDINGS: HEMORRHAGE: None DWI: No evidence of an acute or early subacute infarction. BRAIN PARENCHYMA: No mass effect or edema. Severe chronic microvascular changes in the periventricular white matter. Moderate atrophy VENTRICLES: Unremarkable. No hydrocephalus. CRANIUM: Unremarkable. ORBITS: Grossly unremarkable. PARANASAL SINUSES/MASTOIDS: Clear VASCULAR SYSTEM: There tortuosity of the vertebrobasilar system with some flattening of the medulla OTHER FINDINGS: None. IMPRESSION: No acute intracranial findings
--- NOTE | 2018-09-23 11:27 | MRI ---
Date of service: 09/23/2018 PROCEDURE: Magnetic Resonance Angiography Brain HISTORY: SYNCOPE COMPARISON: None available. TECHNIQUE: 3D time of flight MR angiography of the intracranial arteries was performed. Rotating maximum intensity projection images were generated. FINDINGS: INTERNAL CAROTID ARTERIES: Unremarkable. The skull base, petrous, cavernous and supraclinoid segments are bilaterally widely patient. ANTERIOR CEREBRAL ARTERIES: Unremarkable. A1 and A2 segments are widely patent. Smaller distal branches unremarkable, as visualized. MIDDLE CEREBRAL ARTERIES: Unremarkable. M1 and M2 segments are widely patent. Perisylvian branches grossly symmetric. POSTERIOR CIRCULATION: Basilar Artery: Unremarkable. Distal Vertebral Arteries: Severe tortuosity and moderate dilatation Posterior Cerebral Arteries: Unremarkable. Posterior Inferior Cerebellar Arteries: Unremarkable. ANEURYSM/ VASCULAR MALFORMATIONS: None. OTHER FINDINGS: None. IMPRESSION: Unremarkable MR angiography of the brain.
--- NOTE | 2018-09-23 12:10 | CARD ---
APPROVED REPORT Date of service: 09/23/2018 EKG Measurement Heart [id number] <Conclusion> Sinus rhythm with 1st degree AV block with premature atrial complexes Otherwise normal ECG
--- NOTE | 2018-09-23 13:10 | CP.PCM.CON ---
History of Present Illness - History of Present Illness History of Present Illness: Nephrology Consultation Note: Assessment: Stable Acute Kidney Injury (N17.9) likely due to low BP/hemodynamic. peripheral eosinophila + symptomatic hypotension with fall Hypertensive Chronic Kidney Disease (I12.9) Chronic Kidney Disease (N18.4) Stage 4 with 500 mg proteinuria (R80.9) likely due to HTn Anemia (D64.9), Hyperphosphatemia (E83.39), Secondary Hyperparathyroidism (E21.1), HTN (I12.9) BPH, TIA hyperlipidemia gout Plan No acute need for renal replacement therapy at this time. was told that dialysis will be needed in future. pt himself refused for it. says she will d/w her children and decide later Hypertension control with meds as ordered. Maintain hemodynamics stable. Avoid hypotension. Patient not on ACEI/ARB due to recent ISABELL. hold diuretic Monitor Input/Output, daily weights and renal function with basic metabolic panel continue with IVF with peripheral eosinophilia and ISABELL, hold allopurinol for now Dose meds/antibiotics for reduced GFR. Avoid fleets enema/magnesium based laxatives. Avoid nephrotoxins/NSAIDs/ iodinated contrast (unless needed emergently) Glycemic control Further work up/management as per primary team Thanks for allowing me to participate in care of your patient. Will follow patient with you. Please call if any Qs. had d/w team and Dr Zaheer Ulloa Office: [phone] Chief Complaint; fall Reason for consult: Acute Kidney Injury HPI: Pt is a 78 M with hx of hypertension (years) BPH, TIA hyperlipidemia gout and CKD 4 with baseline cr ~ 3 presented with complaints of feeling weak and dizzy with fall. low BP as per Denies OTC/herbal meds or NSAIDs No recent iodinated contrast exposure. Noted obvious episodes of low BP (105/60). ROS: pt not very reliable in his hx and irritable Cardiovascular: No chest pain. Pulmonary: No shortness of breath Gastrointestinal: denies abdominal pain No nausea. No vomiting. Genitourinary: No pain while urinating. Denies blood in urine. All other negative except as mentioned in HPI Physical Examination: General Appearance: Comfortable, in no acute respiratory distress, somewhat unco-operative . Vitals reviewed and noted as below Head; Rt forehead superficial abrasion + normocephalic ENT: no ulcers no thrush. Tongue is midline. Oropharynx: no rash or ulcers. EYES: Pupils are equal, round and reactive to light accommodation. Eye muscles and extraocular movement intact. Sclera is anicteric. Neck; supple no lymphadenopathy, no thyromegaly or bruit Lungs: Normal respiratory rate/effort. Breath sounds bilateral equal and clear Heart: Normal rate. s1s2 normal. No rub or gallop. Extremities: no edema. No varicose veins Neurological: Patient is alert, awake and has dementia. No focal deficit. Strength bilateral appropriate and equal Skin: Warm and dry. Normal turgor. No rash. Palpitation: Normal elasticity for age Abdomen: Abdomen is soft. Bowel sounds +. There is no abdominal tenderness, no guarding/rigidity no organomegaly Psych: lack insight and irritable MSK: no joint tenderness or swelling. Digits and nails normal, no deformity : kidney or bladder not palpable Labs/imaging reviewed. Past medical history, past surgical history, family history, social history, allergy reviewed and noted as below Family hx: no hx of CKD. Rest non-contributory renal sono: increased echogenicity and b/l cyst urin p/c 500 mg/g PTH 209 Hep B/C neg SPEP and TRE neg urine no eos echo normal LVEF Past Patient History - Past Social History Smoking Status: Former Smoker - CARDIAC Hx Cardiac Disorders: Yes Hx Hypercholesterolemia: Yes Hx Hypertension: Yes Hx Peripheral Edema: Yes Hx Peripheral Vascular Disease: Yes - PULMONARY Hx Respiratory Disorders: Yes (USED TO SMOKE CIGARETTES) - NEUROLOGICAL HX Cerebrovascular Accident: Yes (1.5 years ago) Hx Dementia: Yes Hx Dizziness: Yes Hx Transient Ischemic Attacks (TIA): Yes - HEENT Hx HEENT Problems: No - RENAL Hx Chronic Kidney Disease: Yes (NEPHROLITHIASIS) Other/Comment: HIGH CREATININE - ENDOCRINE/METABOLIC Hx Endocrine Disorders: No - HEMATOLOGICAL/ONCOLOGICAL Hx Blood Disorders: Yes Hx Hepatitis A: Yes - INTEGUMENTARY Hx Dermatological Problems: Yes - MUSCULOSKELETAL/RHEUMATOLOGICAL Hx Falls: Yes - GASTROINTESTINAL Hx Gastrointestinal Disorders: Yes - GENITOURINARY/GYNECOLOGICAL Hx Genitourinary Disorders: Yes Hx Prostate Problems: Yes (ENLARGED) - PSYCHIATRIC Hx Psychophysiologic Disorder: No Hx Anxiety: Yes Hx Substance Use: No - SURGICAL HISTORY Hx Surgeries: No Meds Allergies/Adverse Reactions: Allergies Allergy/AdvReac Type Severity Reaction Status Date / Time Penicillins Allergy RASH Verified 09/22/18 17:00 - Medications Medications: Current Medications Acetaminophen (Tylenol 325mg Tab) 650 mg PO Q6 PRN PRN Reason: TEMP>=99.5F Acetaminophen (Tylenol 650 Mg Supp) 650 mg RC Q6H PRN PRN Reason: TEMP>=99.5F Aspirin (Ecotrin) 81 mg PO DAILY [facility] Last Admin: 09/23/18 10:24 Dose: Not Given Aspirin (Ecotrin) 81 mg PO DAILY [facility] Last Admin: 09/23/18 10:46 Dose: 81 mg Atorvastatin Calcium (Lipitor) 20 mg PO DIN [facility] Last Admin: 09/23/18 00:45 Dose: 20 mg Clopidogrel Bisulfate (Plavix) 75 mg PO DAILY [facility] Last Admin: 09/23/18 10:46 Dose: 75 mg Docusate Sodium (Colace) 100 mg PO TID [facility] Last Admin: 09/23/18 10:46 Dose: 100 mg Ferrous Gluconate (Fergon) 324 mg PO TID [facility] Last Admin: 09/23/18 10:46 Dose: 324 mg Heparin Sodium (Porcine) (Heparin) 5,000 units SC Q8 [facility]; Protocol Last Admin: 09/23/18 06:31 Dose: 5,000 units Sodium Chloride (Sodium Chloride 0.9%) 1,000 mls @ 100 mls/hr IV .Q10H [facility] Stop: 09/24/18 01:14 Memantine (Namenda) 10 mg PO DAILY [facility] Last Admin: 09/23/18 10:47 Dose: 10 mg Metoprolol Tartrate (Lopressor) 25 mg PO BID [facility] Mupirocin (Bactroban Ointment) 0 gm TOP Q8H [facility] Last Admin: 09/23/18 10:47 Dose: 1 applic Ondansetron HCl (Zofran Inj) 4 mg IVP Q4H PRN PRN Reason: Nausea/Vomiting Vitamin B Complex/Vit C/Folic Acid (Nephro-Zay) 1 tab PO 0800 [facility] Results - Vital Signs Recent Vital Signs: Last Vital Signs Temp 98.7 F 09/23/18 06:00 Pulse 59 L 09/23/18 10:00 Resp 20 09/23/18 06:00 BP 151/79 H 09/23/18 06:00 Pulse Ox 98 09/22/18 22:52 - Labs Result Diagrams: 09/23/18 03:25 09/23/18 03:25 Labs: Laboratory Results - last 24 hr 09/22/18 09/22/18 09/22/18 17:00 17:00 17:00 WBC 8.7 RBC 4.04 Hgb 11.1 L Hct 34.6 L MCV 85.6 MCH 27.5 MCHC 32.1 RDW 16.2 H Plt Count 323 MPV 10.7 Neut % (Auto) 65.3 Lymph % (Auto) 21.1 L [place] % (Auto) 5.4 Eos % (Auto) 7.6 H Baso % (Auto) 0.6 Lymph # (Auto) 1.8 [place] # (Auto) 0.5 Eos # (Auto) 0.7 Baso # (Auto) 0.05 Absolute Neuts (auto) 5.68 PT INR APTT Sodium 135 Potassium 3.7 Chloride 98 Carbon Dioxide 25 Anion Gap 15 BUN 82 H Creatinine 5.2 H Est GFR ( Amer) 13 Est GFR (Non-Af Amer) 11 Random Glucose 160 H Hemoglobin A1c Fructosamine Uric Acid Calcium 8.9 Phosphorus Magnesium Total Bilirubin 0.2 Direct Bilirubin AST 20 ALT 7 Alkaline Phosphatase 49 Lactate Dehydrogenase 373 Total Creatine Kinase 192 Troponin I 0.01 Total Protein 7.4 Albumin 3.9 Globulin 3.5 Albumin/Globulin Ratio 1.1 Triglycerides Cholesterol LDL Cholesterol Direct HDL Cholesterol Prostate Specific Ag Free T4 Thyroxine (T4) TSH 3rd Generation Urine Color Yellow Urine Appearance Turbid Urine pH 7.0 Ur Specific [place] 1.020 Urine Protein 100 H Urine Glucose (UA) Negative Urine Ketones Negative Urine Blood Negative Urine Nitrate Negative Urine Bilirubin Negative Urine Urobilinogen 0.2 Ur Leukocyte Esterase Negative Urine RBC None Urine WBC 0 - 2 Ur Epithelial Cells Urine Bacteria Urine Eosinophils Ur Random Creatinine Ur Random Sodium RPR 09/22/18 09/22/18 09/22/18 17:00 20:10 20:10 WBC RBC Hgb Hct MCV MCH MCHC RDW Plt Count MPV Neut % (Auto) Lymph % (Auto) [place] % (Auto) Eos % (Auto) Baso % (Auto) Lymph # (Auto) [place] # (Auto) Eos # (Auto) Baso # (Auto) Absolute Neuts (auto) PT 12.2 INR 1.10 APTT 39.7 H Sodium Potassium Chloride Carbon Dioxide Anion Gap BUN Creatinine Est GFR ( Amer) Est GFR (Non-Af Amer) Random Glucose Hemoglobin A1c Fructosamine Uric Acid Calcium Phosphorus Magnesium Total Bilirubin Direct Bilirubin AST ALT Alkaline Phosphatase Lactate Dehydrogenase Total Creatine Kinase Troponin I 0.01 Total Protein Albumin Globulin Albumin/Globulin Ratio Triglycerides Cholesterol LDL Cholesterol Direct HDL Cholesterol Prostate Specific Ag Free T4 Thyroxine (T4) TSH 3rd Generation Urine Color Urine Appearance Urine pH Ur Specific [place] Urine Protein Urine Glucose (UA) Urine Ketones Urine Blood Urine Nitrate Urine Bilirubin Urine Urobilinogen Ur Leukocyte Esterase Urine RBC Urine WBC Ur Epithelial Cells Urine Bacteria Urine Eosinophils Ur Random Creatinine Ur Random Sodium RPR Nonreactive 09/22/18 09/22/18 09/23/18 20:10 22:55 03:25 WBC RBC Hgb Hct MCV MCH MCHC RDW Plt Count MPV Neut % (Auto) Lymph % (Auto) [place] % (Auto) Eos % (Auto) Baso % (Auto) Lymph # (Auto) [place] # (Auto) Eos # (Auto) Baso # (Auto) Absolute Neuts (auto) PT INR APTT Sodium 136 Potassium 3.8 Chloride 100 Carbon Dioxide 27 Anion Gap 13 BUN 82 H Creatinine 5.3 H Est GFR ( Amer) 13 Est GFR (Non-Af Amer) 11 Random Glucose 113 H Hemoglobin A1c Fructosamine 252 Uric Acid 10.5 H Calcium 8.9 Phosphorus 4.7 H Magnesium 3.1 H Total Bilirubin 0.4 Direct Bilirubin 0.3 AST 38 ALT < 6 L Alkaline Phosphatase 45 Lactate Dehydrogenase Total Creatine Kinase 202 Troponin I 0.02 D Total Protein 7.4 Albumin 3.9 Globulin 3.5 Albumin/Globulin Ratio 1.1 Triglycerides 83 Cholesterol 108 L LDL Cholesterol Direct 56 HDL Cholesterol 34 Prostate Specific Ag 2.7 H Free T4 Thyroxine (T4) TSH 3rd Generation Urine Color Urine Appearance Urine pH Ur Specific [place] Urine Protein Urine Glucose (UA) Urine Ketones Urine Blood Urine Nitrate Urine Bilirubin Urine Urobilinogen Ur Leukocyte Esterase Urine RBC Urine WBC Ur Epithelial Cells Urine Bacteria Urine Eosinophils Ur Random Creatinine Ur Random Sodium RPR 09/23/18 09/23/18 09/23/18 03:25 03:25 03:25 WBC 10.8 D RBC 3.97 Hgb 11.2 L Hct 33.8 L MCV 85.1 MCH 28.2 MCHC 33.1 RDW 16.1 H Plt Count 292 MPV 9.4 Neut % (Auto) 60.0 Lymph % (Auto) 25.6 [place] % (Auto) 5.1 Eos % (Auto) 8.9 H Baso % (Auto) 0.4 Lymph # (Auto) 2.8 [place] # (Auto) 0.6 Eos # (Auto) 1.0 H Baso # (Auto) 0.04 Absolute Neuts (auto) 6.51 H PT INR APTT Sodium Potassium Chloride Carbon Dioxide Anion Gap BUN Creatinine Est GFR ( Amer) Est GFR (Non-Af Amer) Random Glucose Hemoglobin A1c 6.8 H Fructosamine Uric Acid Calcium Phosphorus Magnesium Total Bilirubin Direct Bilirubin AST ALT Alkaline Phosphatase Lactate Dehydrogenase Total Creatine Kinase Troponin I Total Protein Albumin Globulin Albumin/Globulin Ratio Triglycerides Cholesterol LDL Cholesterol Direct HDL Cholesterol Prostate Specific Ag Free T4 1.17 Thyroxine (T4) 6.7 TSH 3rd Generation 1.17 Urine Color Urine Appearance Urine pH Ur Specific [place] Urine Protein Urine Glucose (UA) Urine Ketones Urine Blood Urine Nitrate Urine Bilirubin Urine Urobilinogen Ur Leukocyte Esterase Urine RBC Urine WBC Ur Epithelial Cells Urine Bacteria Urine Eosinophils Ur Random Creatinine Ur Random Sodium RPR 09/23/18 09/23/18 09/23/18 06:15 06:30 12:00 WBC RBC Hgb Hct MCV MCH MCHC RDW Plt Count MPV Neut % (Auto) Lymph % (Auto) [place] % (Auto) Eos % (Auto) Baso % (Auto) Lymph # (Auto) [place] # (Auto) Eos # (Auto) Baso # (Auto) Absolute Neuts (auto) PT INR APTT Sodium Potassium Chloride Carbon Dioxide Anion Gap BUN Creatinine Est GFR ( Amer) Est GFR (Non-Af Amer) Random Glucose Hemoglobin A1c Fructosamine Uric Acid Calcium Phosphorus Magnesium Total Bilirubin Direct Bilirubin AST ALT Alkaline Phosphatase Lactate Dehydrogenase Total Creatine Kinase Troponin I Total Protein Albumin Globulin Albumin/Globulin Ratio Triglycerides Cholesterol LDL Cholesterol Direct HDL Cholesterol Prostate Specific Ag Free T4 Thyroxine (T4) TSH 3rd Generation Urine Color Yellow Urine Appearance Clear Urine pH 7.0 Ur Specific [place] 1.015 Urine Protein 100 H Urine Glucose (UA) Negative Urine Ketones Negative Urine Blood Negative Urine Nitrate Negative Urine Bilirubin Negative Urine Urobilinogen 0.2 Ur Leukocyte Esterase Negative Urine RBC 0 - 2 Urine WBC 1 - 3 Ur Epithelial Cells 1 - 3 Urine Bacteria Rare Urine Eosinophils Negative Ur Random Creatinine Ur Random Sodium 53 RPR 02/05/19 12:00 WBC RBC Hgb Hct MCV MCH MCHC RDW Plt Count MPV Neut % (Auto) Lymph % (Auto) [place] % (Auto) Eos % (Auto) Baso % (Auto) Lymph # (Auto) [place] # (Auto) Eos # (Auto) Baso # (Auto) Absolute Neuts (auto) PT INR APTT Sodium Potassium Chloride Carbon Dioxide Anion Gap BUN Creatinine Est GFR ( Amer) Est GFR (Non-Af Amer) Random Glucose Hemoglobin A1c Fructosamine Uric Acid Calcium Phosphorus Magnesium Total Bilirubin Direct Bilirubin AST ALT Alkaline Phosphatase Lactate Dehydrogenase Total Creatine Kinase Troponin I Total Protein Albumin Globulin Albumin/Globulin Ratio Triglycerides Cholesterol LDL Cholesterol Direct HDL Cholesterol Prostate Specific Ag Free T4 Thyroxine (T4) TSH 3rd Generation Urine Color Urine Appearance Urine pH Ur Specific [place] Urine Protein Urine Glucose (UA) Urine Ketones Urine Blood Urine Nitrate Urine Bilirubin Urine Urobilinogen Ur Leukocyte Esterase Urine RBC Urine WBC Ur Epithelial Cells Urine Bacteria Urine Eosinophils Ur Random Creatinine 64 Ur Random Sodium RPR
[2018-09-23 13:33] LABS: FOLATE > 20.0 ng/mL
--- NOTE | 2018-09-23 13:41 | CON ---
DATE: 09/23/2018 CARDIOLOGY CONSULTATION HISTORY: The patient is a 78-year-old male, who presents with weakness. He complains of intermittent dizziness. PAST MEDICAL HISTORY: The patient's past medical history is notable for history of hypertension, hypercholesterolemia as well as progressive renal disease. He is currently not on dialysis. He denies chest pain, denies shortness of breath. The patient underwent cardiac workup in the past, which showed good LV function with mild aortic stenosis. He has chronic dizziness for than 10 years and has had multiple CVAs in the past week. He denies angina. SOCIAL HISTORY: He denies smoking. REVIEW OF SYSTEMS: Review of systems was free of cardiac symptomatology. PHYSICAL EXAMINATION: VITAL SIGNS: Blood pressure 151/79, the heart rate is in the 60s, normal sinus rhythm. NECK: Negative JVD. LUNGS: Without rales. CARDIAC: Heart rate S1, S2. EXTREMITIES: Without edema. EKG shows sinus bradycardia with nonspecific ST-T changes. LABORATORY DATA: BUN and creatinine are 82 over 5.3. Hemoglobin is 11.2. IMPRESSION: 1. Weakness. 2. Chronic dizziness. 3. Renal insufficiency. 4. Mild aortic stenosis. 5. Bradycardia. PLAN: Given these findings, we will decrease his beta-blockers at this time. We will await results of his MRI. Epifanio Martinez MD
--- NOTE | 2018-09-23 14:49 | CP.PCM.APN ---
Subjective - Date & Time of Evaluation Date of Evaluation: 09/23/18 Time of Evaluation: 13:50 - Subjective Subjective: Pt. seen resting comfortabley in bed, at bedside. Per nurse BP elevated earlier today, no other complaints. Review of Systems - Constitutional Constitutional: absent: As Per HPI, Anorexia, Chills, Daytime Sleepiness, Excessive Sweating, Fatigue, Fever, Frequent Falls, Headache, Increased Appetite, Lethargy, Malaise, Night Sweats, Snoring, Sleep Apnea, Weight Gain, Weight Loss, Weakness, Other - EENT Eyes: absent: As Per HPI, Blind Spots, Blurred Vision, Change in Vision, Decreased Night Vision, Diplopia, Discharge, Dry Eye, Exophthalmos, Floaters, Irritation, Itchy Eyes, Loss of Peripheral Vision, Pain, Photophobia, Requires Corrective Lenses, Sees Flashes, Spots in Vision, Tunnel Vision, Other Visual Disturbances, Loss of Vision, Other Ears: absent: As Per HPI, Decreased Hearing, Ear Discharge, Ear Pain, Tinnitus, Abnormal Hearing, Disequilibrium, Dizziness, Other Nose/Mouth/Throat: absent: As Per HPI, Epistaxis, Nasal Congestion, Nasal Discharge, Nasal Obstruction, Nasal Trauma, Nose Pain, Post Nasal Drip, Sinus Pain, Sinus Pressure, Bleeding Gums, Change in Voice, Dental Pain, Dry Mouth, Dysphagia, Halitosis, Hoarsness, Lip Swelling, Mouth Lesions, Mouth Pain, Odynophagia, Sore Throat, Throat Swelling, Tongue Swelling, Facial Pain, Neck Pain, Neck Mass, Other - Cardiovascular Cardiovascular: absent: As Per HPI, Acrocyanosis, Chest Pain, Chest Pain at Rest, Chest Pain with Activity, Claudication, Diaphoresis, Dyspnea, Dyspnea on Exertion, Edema, Irregular Heart Rhythm, Pain Radiating to Arm/Neck/Jaw, Leg Edema, Leg Ulcers, Lightheadedness, Orthopnea, Palpitations, Paroxysmal Nocturnal Dyspnea, Pedal Edema, Radiating Pain, Rapid Heart Rate, Slow Heart Rate, Syncope, Other - Respiratory Respiratory: Snoring - Gastrointestinal Gastrointestinal: absent: As Per HPI, Abdominal Pain, Belching, Bloating, Change in Bowel Habits, Change in Stool Character, Coffee Ground Emesis, Constipation, Cramping, Diarrhea, Dyspepsia, Dysphagia, Early Satiety, Excessive Flatus, Fecal Incontinence, Heartburn, Hematemesis, Hematochezia, Loose Stools, Melena, Nausea, Odynophagia, Temesmus, Vomiting, Other - Genitourinary Genitourinary: absent: As Per HPI, Change in Urinary Stream, Difficulty Urinating, Dysuria, Flank Pain, Hematuria, Pyuria, Nocturia, Urinary Incontinence, Urinary Frequency, Urinary Hesitance, Urinary Urgency, Voiding Freq/Small Amts, Freq UTI, Hx Renal/Bladder Calculi, Hx /Renal Surgery, Bladder Distension, Other - Musculoskeletal Musculoskeletal: absent: As Per HPI, Abnormal Gait, Arthralgias, Atrophy, Back Pain, Deformity, Joint Swelling, Limited Range of Motion, Loss of Height, Muscle Cramps, Muscle Weakness, Myalgias, Neck Pain, Numbness, Radiating Pain into Limb, Stiffness, Tingling, Other - Integumentary Integumentary: absent: As Per HPI, Acne, Alopecia, Bleeding Lesions, Change in Hair, Change in Nails, Change in Pigmentation, Changing Lesions, Dry Skin, Erythema, Furuncle, Hirsutism, Lesions, New Lesions, Non-Healing Lesions, Photosensitivity, Pruritus, Rash, Skin Pain, Skin Ulcer, Sores, Striae, Swelling, Unusual Bruising, Wounds, Jaundice, Other - Neurological Neurological: Memory Loss - Psychiatric Psychiatric: absent: As Per HPI, Abnormal Sleep Pattern, Anhedonia, Anxiety, Auditory Hallucinations, Behavioral Changes, Change in Appetite, Change in Libido, Confusion, Depression, Difficulty Concentrating, Hallucinations, Homicidal Ideation, Hopelessness, Irritability, Memory Loss, Mood Swings, Panic Attacks, Paranoia, Suicidal Ideation, Visual Hallucinations, Tactile Hallucinations, Other - Endocrine Endocrine: absent: As Per HPI, Change in Body Appearance, Change in Libido, Cold Intolorance, Deepening of Voice, Excessive Sweating, Fatigue, Flushing, Heat Intolorance, Increase in Ring/Shoe/Hat Size, Palpitations, Polydipsia, Polyphagia, Polyuria, Other - Hematologic/Lymphatic Hematologic: absent: As Per HPI, Easy Bleeding, Easy Bruising, Lymphadenopathy, Other Objective - Vital Signs/Intake and Output Vital Signs (last 24 hours): Temp Pulse Resp BP Pulse Ox 97.7 F 71 20 147/83 98 09/23/18 12:00 09/23/18 12:00 09/23/18 12:00 09/23/18 12:09/22/18 22:52 Intake and Output: 09/23/18 09/23/18 06:59 18:59 Intake Total 300 Output Total 400 Balance -100 - Medications Medications: Current Medications Acetaminophen (Tylenol 325mg Tab) 650 mg PO Q6 PRN PRN Reason: TEMP>=99.5F Acetaminophen (Tylenol 650 Mg Supp) 650 mg RC Q6H PRN PRN Reason: TEMP>=99.5F Amlodipine Besylate (Norvasc) 5 mg PO DAILY [facility] Aspirin (Ecotrin) 81 mg PO DAILY [facility] Last Admin: 09/23/18 10:24 Dose: Not Given Aspirin (Ecotrin) 81 mg PO DAILY [facility] Last Admin: 09/23/18 10:46 Dose: 81 mg Atorvastatin Calcium (Lipitor) 20 mg PO DIN [facility] Last Admin: 09/23/18 00:45 Dose: 20 mg Clopidogrel Bisulfate (Plavix) 75 mg PO DAILY [facility] Last Admin: 09/23/18 10:46 Dose: 75 mg Docusate Sodium (Colace) 100 mg PO TID [facility] Last Admin: 09/23/18 10:46 Dose: 100 mg Ferrous Gluconate (Fergon) 324 mg PO TID [facility] Last Admin: 09/23/18 10:46 Dose: 324 mg Heparin Sodium (Porcine) (Heparin) 5,000 units SC Q8 [facility]; Protocol Last Admin: 09/23/18 06:31 Dose: 5,000 units Sodium Chloride (Sodium Chloride 0.9%) 1,000 mls @ 100 mls/hr IV .Q10H [facility] Stop: 09/24/18 01:14 Memantine (Namenda) 10 mg PO DAILY [facility] Last Admin: 09/23/18 10:47 Dose: 10 mg Metoprolol Tartrate (Lopressor) 25 mg PO BID [facility] Mupirocin (Bactroban Ointment) 0 gm TOP Q8H [facility] Last Admin: 09/23/18 10:47 Dose: 1 applic Ondansetron HCl (Zofran Inj) 4 mg IVP Q4H PRN PRN Reason: Nausea/Vomiting Vitamin B Complex/Vit C/Folic Acid (Nephro-Zay) 1 tab PO 0800 [facility] - Labs Labs: 09/23/18 03:25 09/23/18 03:25 PT 12.2 SECONDS (9.4-12.5) 09/22/18 17:00 INR 1.10 09/22/18 17:00 APTT 39.7 Seconds (26.9-38.3) H 09/22/18 17:00 - Constitutional Appears: Well, Non-toxic - Head Exam Head Exam: NORMOCEPHALIC - Eye Exam Eye Exam: EOMI, Normal appearance, PERRL - Rectal Exam Rectal Exam: Deferred - Exam Exam: absent: Circumcision, NORMAL INSPECTION, Scrotal Swelling, Testicular Tenderness, Uretheral Discharge, Testicular Vertical Lie, Bladder Distension External exam: absent: Ecchymosis, Erythema, Lacerations, Lesions, NORMAL EXTERNAL EXAM, Swelling Speculum exam: absent: Cervical Discharge, Erythema, Foreign Body, Laceration, NORMAL SPECULUM EXAM, Tissue, Vaginal Bleeding, Vaginal Discharge Bimanual exam: absent: Adenexal Mass, Adnexal, Cervical Motion Tendernes, NORMAL BIMANUAL EXAM, Uterine Enlargement, Uterine Tenderness - Neurological Exam Neurological Exam: absent: Abnormal Gait, Alert, Altered, Awake, CN II-XII Intact, Motor Sensory Deficit, Normal Gait, Oriented x3, Reflexes Normal - Psychiatric Exam Psychiatric exam: absent: Agitated, Anxious, Depressed, Flat Affect, Homicidal Ideation, Manic, Normal Affect, Normal Mood, Suicidal Ideation - Skin Skin Exam: Dry, Intact Assessment and Plan - Assessment and Plan (Free Text) Assessment: ITS Impressions Chest X-Ray 09/22/18 16:17 IMPRESSION: No active disease. Head CT 09/22/18 16:18 IMPRESSION: Moderate to severe nonspecific white matter changes. Small right frontal scalp hematoma. Abdomen Ultrasound 09/22/18 18:50 IMPRESSION: No evidence of cholelithiasis or cholecystitis. Fatty infiltration of the liver. Diffusely increased renal cortical echogenicity bilaterally consistent with diffuse medical renal disease. Bilateral renal cortical cysts. 2 punctate foci in the left kidney, possibly small calculi. No additional abnormality. Abdomen/Pelvis CT 09/22/18 18:50 IMPRESSION: Sigmoid diverticulosis without evidence of diverticulitis no bowel obstruction. No evidence of urinary tract obstruction. Exophytic mass upper pole right kidney, 7 mm. Unchanged from prior. Probable mid right renal cortical cyst, 1.5 cm. Evaluation limited on noncontrast CT. Correlating with ultrasound examination of 09/22/2018, a 1.2 cm cyst was identified in the mid right kidney. Questionable 11 mm low-density left lower pole mass not corresponding to any mass identified on sonographic examination. No other significant abnormality. The preliminary findings for this examination were reported by [facility] at 8:36 p.m. on 09/22/2018. There is concurrence of this report with the preliminary findings. Brain MRI 09/23/18 09:00 IMPRESSION: No acute intracranial findings Head MRA 09/23/18 09:00 IMPRESSION: Unremarkable MR angiography of the brain. Assessment: Pt is a 78yo M with pmhx of HTN, dementia, TIA 2 years ago, Arthritis, gout, and BPH who presents to the ED s/p syncopal episode yesterday, admitted with near syncope, weakness, acute renal insuffiency. Plan: 1. Near Syncope s/P Fall, Neuro consult pending, PT eval pending. 2. Acute REnal Insufficiency - On IVF, nephro rec no renal replacement needed currently, will continue to monitor I's O's and kidney function, baseline creatinine 3. 3. Htn - antihypertensives as per card. Will continue to monitor clinical status and follow closely.
[2018-09-23 16:15] LABS: TOTAL PSA 3.5 ng/mL (< or = 4.0)
--- NOTE | 2018-09-23 18:32 | CON ---
DATE: 09/23/2018 NEUROLOGY CONSULTATION CHIEF COMPLAINT: Near syncope. HISTORY OF PRESENT ILLNESS: The patient is a 78-year-old man with past medical history of hypertension, moderate cognitive impairment, gout, arthritis, BPH presents after having near syncopal episode. The patient is accompanied by his as the patient is a poor historian. The patient was seen he was standing up from his bed and head fell forward. The episode was witnessed by the and she states he did hit his head against the wall in front of him, but did not lose any conscious. No seizure like activity. He does have evidence of cognitive impairment on neuro exam. MRI and MRA of the head were unremarkable acute. Currently, he had some mild chronic acute kidney injury with BUN today of 82, creatinine 5.3, A1c is 6.8. Following all commands. B12 was more than 1000. No focal weakness in the extremities. PAST MEDICAL HISTORY: As above. ALLERGIES: PENICILLIN. SOCIAL HISTORY: No illicit drug use, smoking or EtOH abuse. REVIEW OF SYSTEMS: A 14-point review of systems is negative except as per HPI. FAMILY HISTORY: Noncontributory. MEDICATIONS: Reviewed by nurse's reconciliation sheet. LABORATORY DATA: Sodium 136, potassium 3.8, chloride of 100, carbon dioxide 27, BUN of 82, creatinine 5.3, and random glucose of 113. PHYSICAL EXAMINATION: GENERAL: The patient is seen up in bed and in no acute distress. VITAL SIGNS: Temperature 97.7, pulse 71, blood pressure 147/83, respiratory rate 20. HEENT: Atraumatic and normocephalic. PERRLA. Extraocular muscles intact. NECK: Supple. No JVD. No adenopathy noted. LUNGS: Clear to auscultation. No adventitious sounds. HEART: S1 and S2. Normal rate and rhythm. No murmurs, rubs, or gallops. ABDOMEN: Soft and nontender. Bowel sounds present. EXTREMITIES: No clubbing. No cyanosis. Peripheral pulses are 2+ felt bilaterally. NEUROLOGIC: The patient is alert and oriented to person, place, and month and year. Recall after 5 minutes 0 out of 3. Poor attention span. Poor thought process. Cranial nerves II through XII are intact. Motor exam; moves all extremities equally. Toes are downgoing bilaterally. Sensory exam; Decreased light touch and pinprick up to the calves bilaterally. DTRs are 2+ throughout. Coordination, [id number] is intact. No dysmetria noted. Gait is deferred for now. IMPRESSION: Near syncope secondary to underlying decondition state with possible vasovagal component. At this time; MRI of the brain and MRA of the head showed no acute intracranial abnormality. He was probably dehydrated as well. RECOMMENDATIONS: At this time; 1. Continue adequate fluid hydration since he is a ISABELL. 2. Monitor electrolytes and correct accordingly. 3. Keep his systolic blood pressure 120s to 130s and diastolic 70s to 80s. 4. Continue aspirin 81 mg and Plavix 75 mg, Lipitor 25 mg for stoke prevention. He is s clinically stable from a Neurology standpoint. Thank you for this consult. Johnny Solares MD
--- NOTE | 2018-09-23 20:53 | US ---
PROCEDURE: Lower extremity JAS exam HISTORY: Peripheral vascular disease with pain and claudication. Previous smoker. PHYSICIAN(S): Epifanio Hubbard MD. FINDINGS: The resting JAS's are borderline normal: Right, 0.93 and left, 0.92 The brachial systolic pressures are symmetric. The high thigh pressures and waveforms are relatively normal. The calf PVR waveforms augment normally. No significant gradients are noted across the thighs. The ankle and metatarsal waveforms are mildly blunted and symmetric bilaterally. This could represent mild bilateral tibial disease IMPRESSION: 1. Relatively normal resting ABIs. 2. Possible mild bilateral tibial disease
--- NOTE | 2018-09-24 01:33 | PN ---
DATE: 09/23/2018 LOCATION: The patient is seen in room 267, bed 2. SUBJECTIVE: The patient is seen sitting up in the bed. The patient is alert, awake, responsive. Confused, disoriented. The patient's is at bedside. PHYSICAL EXAMINATION: VITAL SIGNS: T-max 98.6. Telemetry shows sinus rhythm with PACs. Blood pressure 151/92, 147/83, 151/79. Respirations 18, O2 sat is 98%. HEAD: Normocephalic, atraumatic. EENT: Shows pinkish conjunctivae, anicteric sclerae. No oropharyngeal lesion. NECK: No neck rigidity. CHEST: Shows kyphosis. LUNGS: Show occasional rhonchi. CARDIOVASCULAR: S1 and S2, regular rhythm. Positive systolic murmur at the left sternal border, right second intercostal space, left second intercostal space. ABDOMEN: Soft. Positive bowel sound. No palpable hepatosplenomegaly. GENITALIA: Male. RECTAL: Examination deferred. EXTREMITIES: Show trace swelling of the lower extremities. MUSCULOSKELETAL: Shows a body mass index of 30.1. NEUROLOGIC: Cranial nerves II through XII limited. Gait examination is not tested. DIAGNOSTICS: On 09/23/2018, hemoglobin and hematocrit are 11.2 and 33.8, BUN and creatinine are 82 and 5.3. Hemoglobin A1c 6.8. Uric acid 10.5, calcium 4.7, magnesium 3.1. LFTs are normal. PSA 2.7. IMPRESSION: 1. Unwitnessed fall versus unwitnessed syncope versus near-syncope. 2. Questionable vasovagal syncope. 3. Hypertension. 4. Normocytic anemia. 5. Eosinophilia. 6. Acute renal failure and acute kidney injury. 7. Early diabetes mellitus with a hemoglobin A1c of 6.8. 8. Hyperuricemia. 9. Hyperphosphatemia with secondary hyperparathyroidism with an elevated parathyroid hormone of 134. 10. Mildly elevated prostate-specific antigen of 2.7. 11. Proteinuria. 12. Severe chronic microvascular ischemic disease with periventricular white matter and cerebral cortical atrophy of the brain. 13. Vertebrobasilar system tortuosity and flattening of the medulla. 14. Possible mild bilateral tibial occlusive disease. 15. Right renal cyst. 16. Sigmoid diverticulosis. 17. Right kidney upper pole exophytic mass, 7 mm, unchanged. 18. Right renal cortical cyst. 19. Questionable 11 mm low density left lower pole renal mass. 20. Fatty infiltration of the liver and hepatic steatosis. 21. Multiple left renal cysts. 22. Possible cortical calcification versus nonobstructing calculi of the left renal collecting system. 23. Diffuse medical renal disease with diffusely increased renal cortical echogenicity bilaterally. 24. Hepatic steatosis. 25. Diffuse cerebral cortical atrophy of the brain with ventriculomegaly. 26. Severe aortic tortuosity and mild cardiomegaly. 27. Acute kidney injury, probably secondary to hypotension, hemodynamic. 28. Stage IV chronic kidney disease with proteinuria. PLAN: At this time, the patient is being seen by Nephrology, Cardiology and Neurology. The patient is currently on Bactroban cream to the affected area, Colace 100 mg three times a day, Ecotrin 81 mg daily, ferrous gluconate 324 mg three times a day, heparin 5000 subcu every 8 hours, Lipitor 20 mg daily, Lopressor 25 twice a day, Namenda 10 mg daily, Nephro-Zay one tablet daily, Norvasc 5 mg daily, Plavix 75 mg daily, IV fluid 0.9 normal saline at 100 mL an hour, Tylenol p.r.n., Zofran 4 mg IV every 4 hours p.r.n. EEG is pending. The patient was unable to undergo physical therapy and ambulation therapy and gait training today. The patient was seen by the transition social worker. The patient's case was referred to TCU. The patient's further management will be dependent upon the patient's clinical condition, hemodynamic status and as per the patient's recommendations and as per recommendations from Nephrology, Neurology and Cardiology. Dictated and electronically signed, not read. Bogdan Asencio MD
[2018-09-24 08:18] LABS: ALB/GLOB RATIO 1.1 (1.1-1.8); BILIRUBIN,DIRECT 0.3 mg/dL (0.0-0.4); CALCIUM 9.2 mg/dL (8.4-10.5)
[2018-09-24] MEDS: Multivitamin Vitamin B Complex (Nephro-Vite) Tab PO SCH (08:19)
[2018-09-24] MEDS: Mupirocin 2% Ointment 15 GM TUBE TOP SCH ×3 (08:21→22:33)
--- NOTE | 2018-09-24 10:08 | CARD ---
APPROVED REPORT Date of service: 09/24/2018 EKG Measurement Heart [id number] <Conclusion> Sinus rhythm with 1st degree AV block Otherwise normal ECG
[2018-09-24 10:49] LABS: 23 KD (IGG) BAND Reactive
[2018-09-24 12:36] LABS: GLYCOMARK(R) 10.8 mcg/mL (7.3-36.6)
[2018-09-24] MEDS ORDERED: Ergocalciferol 50,000 Intl Units Cap PO SCH (14:45)
--- NOTE | 2018-09-24 15:20 | PN ---
DATE: 09/24/2018 SUBJECTIVE: The patient is in room 267 bed 2. Overnight nurse's notes were reviewed. The patient was found to be episodically confused and disoriented. Overnight last 12-24 hours vital signs revealed T-max 97.7. Telemetry normal sinus rhythm, heart rate 67, 74; blood pressure 157, 68, respiration 18, O2 sat 100%. HEENT: Head is normocephalic, atraumatic. Right frontal forehead area contusion, resolving. Eyes; shows pinkish conjunctivae. Anicteric sclerae. No oropharyngeal lesion. NECK: No neck rigidity. Questionable soft carotid bruit. CHEST: Kyphosis. LUNGS: Shows no audible crackle, rales or wheezing. CARDIOVASCULAR: S1, S2, regular rhythm. Questionable soft systolic murmur left sternal border, right second intercostal space, left second intercostal space. ABDOMEN: Soft. Positive bowel sound. No palpable hepatosplenomegaly. GENITALIA: Male. RECTAL: Deferred. EXTREMITIES: Shows no pitting edema, no calf tenderness, no Homans' sign. MUSCULOSKELETAL: Shows an elevated body mass index. Motor strength is 5/5 in upper extremity. Gait examination is not tested. The patient's CMP from this morning is still pending, which will be reviewed when available. IMPRESSION: 1. Status post unwitnessed fall. 2. Questionable and possible questionable unwitnessed syncope versus near syncope versus vasovagal syncope. 3. Right frontal forehead contusion. 4. Status post epistaxis. 5. Hypertension. 6. Acute renal failure with underlying chronic kidney disease stage III-IV. 7. Eosinophilia. 8. Normocytic anemia. 9. 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 10. History of hypertension. 11. History of cerebral infarct. 12. Dementia. 13. questionable possible mild bilateral tibial occlusive disease. 14. Deconditioning. 15. Gait dysfunction. 16. Hyperlipidemia. PLAN: At this time, the patient at present is awaiting morning labs. Current consultation Nephrology, Cardiology, and Neurology. The patient is to be continued on IV fluid. The patient with daily monitoring of the patient's renal profile. Holding the patient's ARBs and diuretics have been stopped. Medications are as per the MAR of today which was reviewed. The patient has been ordered out of bed to chair, physical therapy, occupational therapy, ambulation therapy, gait training. The patient will be considered for discharge once the patient is clinically with stabilized subjective, objective issues and once cleared by Neurology, Cardiology, Nephrology. The patient's labs will be monitored daily. The patient will be continued on GI, DVT prophylaxis as ordered. Dictated and electronically signed, not read. Bogdan Asencio MD
--- NOTE | 2018-09-24 15:45 | CP.PCM.PN ---
Subjective - Date & Time of Evaluation Date of Evaluation: 09/24/18 Time of Evaluation: 15:44 - Subjective Subjective: Nephrology Consultation Note: Assessment: Stable Acute Kidney Injury (N17.9) likely due to low BP/hemodynamic. peripheral eosinophila + symptomatic hypotension with fall Hypertensive Chronic Kidney Disease (I12.9) Chronic Kidney Disease (N18.4) Stage 4 with 500 mg proteinuria (R80.9) likely due to HTn Anemia (D64.9), Hyperphosphatemia (E83.39), Secondary Hyperparathyroidism (E21.1), HTN (I12.9) BPH, TIA hyperlipidemia gout Plan No acute need for renal replacement therapy at this time. was told that dialysis will be needed in future. pt himself refused for it. says she will d/w her children and decide later Hypertension control with meds as ordered. Maintain hemodynamics stable. Avoid hypotension. Patient not on ACEI/ARB due to recent ISABELL. hold diuretic Monitor Input/Output, daily weights and renal function with basic metabolic panel continue with IVF, BP better, can d/c IVF in next 1-2 days with peripheral eosinophilia and ISABLEL, hold allopurinol for now one dose of vit d today Dose meds/antibiotics for reduced GFR. Avoid fleets enema/magnesium based laxatives. Avoid nephrotoxins/NSAIDs/ iodinated contrast (unless needed emergently) Glycemic control Further work up/management as per primary team Thanks for allowing me to participate in care of your patient. Will follow patient with you. Please call if any Qs. had d/w team and Dr Zaheer Ulloa Office: [phone] Chief Complaint; fall Reason for consult: Acute Kidney Injury HPI: Pt is a 78 M with hx of hypertension (years) BPH, TIA hyperlipidemia gout and CKD 4 with baseline cr ~ 3 presented with complaints of feeling weak and dizzy with fall. low BP as per Denies OTC/herbal meds or NSAIDs No recent iodinated contrast exposure. Noted obvious episodes of low BP (105/60). ROS: pt not very reliable in his hx and irritable. no much interactive Cardiovascular: No chest pain. Pulmonary: No shortness of breath Gastrointestinal: denies abdominal pain No nausea. No vomiting. Genitourinary: No pain while urinating. Denies blood in urine. All other negative except as mentioned in HPI Physical Examination: General Appearance: Comfortable, in no acute respiratory distress, co-operative . Vitals reviewed and noted as below Head; Rt forehead superficial abrasion + normocephalic ENT: no ulcers no thrush. Tongue is midline. Oropharynx: no rash or ulcers. EYES: Pupils are equal, round and reactive to light accommodation. Eye muscles and extraocular movement intact. Sclera is anicteric. Neck; supple no lymphadenopathy, no thyromegaly or bruit Lungs: Normal respiratory rate/effort. Breath sounds bilateral equal and clear Heart: Normal rate. s1s2 normal. No rub or gallop. Extremities: no edema. No varicose veins Neurological: Patient has dementia. No focal deficit. Strength bilateral appropriate and equal Skin: Warm and dry. Normal turgor. No rash. Palpitation: Normal elasticity for age Abdomen: Abdomen is soft. Bowel sounds +. There is no abdominal tenderness, no guarding/rigidity no organomegaly Psych: lack insight and irritable MSK: no joint tenderness or swelling. Digits and nails normal, no deformity : kidney or bladder not palpable Labs/imaging reviewed. Past medical history, past surgical history, family history, social history, allergy reviewed and noted as below Family hx: no hx of CKD. Rest non-contributory renal sono: increased echogenicity and b/l cyst urin p/c 500 mg/g PTH 209 Hep B/C neg SPEP and TRE neg urine no eos echo normal LVEF Objective - Vital Signs/Intake and Output Vital Signs (last 24 hours): Temp Pulse Resp BP Pulse Ox 97.8 F 76 20 138/78 100 09/24/18 12:00 09/24/18 12:00 09/24/18 12:00 09/24/18 12:00 09/24/18 06:00 Intake and Output: 09/24/18 09/24/18 06:59 18:59 Intake Total 1280 Output Total 18999 Balance -73026 - Medications Medications: Current Medications Acetaminophen (Tylenol 325mg Tab) 650 mg PO Q6 PRN PRN Reason: TEMP>=99.5F Acetaminophen (Tylenol 650 Mg Supp) 650 mg RC Q6H PRN PRN Reason: TEMP>=99.5F Acetaminophen (Tylenol 325mg Tab) 650 mg PO Q6H PRN PRN Reason: Pain, severe (8-10) Last Admin: 09/24/18 14:12 Dose: 650 mg Amlodipine Besylate (Norvasc) 5 mg PO DAILY [facility] Last Admin: 09/24/18 10:22 Dose: 5 mg Aspirin (Ecotrin) 81 mg PO DAILY [facility] Last Admin: 09/24/18 10:19 Dose: 81 mg Atorvastatin Calcium (Lipitor) 20 mg PO DIN [facility] Last Admin: 09/23/18 16:13 Dose: 20 mg Clopidogrel Bisulfate (Plavix) 75 mg PO DAILY [facility] Last Admin: 09/24/18 10:20 Dose: 75 mg Docusate Sodium (Colace) 100 mg PO TID [facility] Last Admin: 09/24/18 14:11 Dose: 100 mg Ferrous Gluconate (Fergon) 324 mg PO TID [facility] Last Admin: 09/24/18 14:11 Dose: 324 mg Heparin Sodium (Porcine) (Heparin) 5,000 units SC Q8 [facility]; Protocol Last Admin: 09/24/18 14:13 Dose: 5,000 units Memantine (Namenda) 10 mg PO DAILY [facility] Last Admin: 09/24/18 10:20 Dose: 10 mg Metoprolol Tartrate (Lopressor) 25 mg PO BID [facility] Last Admin: 09/24/18 10:21 Dose: 25 mg Mupirocin (Bactroban Ointment) 0 gm TOP Q8H [facility] Last Admin: 09/24/18 14:19 Dose: 1 applic Ondansetron HCl (Zofran Inj) 4 mg IVP Q4H PRN PRN Reason: Nausea/Vomiting Vitamin B Complex/Vit C/Folic Acid (Nephro-Zay) 1 tab PO 0800 [facility] Last Admin: 09/24/18 08:19 Dose: 1 tab - Labs Labs: 09/23/18 03:25 09/24/18 08:00 PT 12.2 SECONDS (9.4-12.5) 09/22/18 17:00 INR 1.10 09/22/18 17:00 APTT 39.7 Seconds (26.9-38.3) H 09/22/18 17:00
--- NOTE | 2018-09-24 18:16 | PN ---
DATE: 09/24/2018 CARDIOLOGY FOLLOWUP SUBJECTIVE: The patient is resting comfortably. His heart rate is better on decreasing beta-blockers. PHYSICAL EXAMINATION: VITAL SIGNS: Blood pressure is 140/69 and heart rates in the 80s. NECK: Negative JVD. LUNGS: Without rales. HEART: S1 and S2. EXTREMITIES: Without edema. LABORATORY DATA: Hemoglobin is 11.2. Chemistries; BUN and creatinine is 73 and 4.2. IMPRESSION: 1. Status post dizziness and weakness. 2. Renal insufficiency. 3. Mild aortic stenosis. 4. Chronic dizziness. 5. Bradycardia which is better on decreasing beta-blockers. PLAN: Given these findings, the patient's symptoms cannot be attributed to his cardiac status. No arrhythmias noted. We will discontinue telemetry today. No further cardiac workup is necessary at this time. Epifanio Martinez MD
[2018-09-24 20:25] LABS: LYME IGG NEGATIVE (NEGATIVE)
[2018-09-24 20:28] LABS: LYME IGM NEGATIVE (NEGATIVE)
[2018-09-25 06:58] LABS: ALB/GLOB RATIO 1.2 (1.1-1.8); ALBUMIN 4.1 g/dL (3.0-4.8); ALT/SGPT < 6 U/L (7-56); AST/SGOT 36 U/L (17-59); BILIRUBIN,DIRECT 0.2 mg/dL (0.0-0.4); BLOOD UREA NITROGEN 71 mg/dL (7-21); CALCIUM 9.4 mg/dL (8.4-10.5); GFR NON-AFRICAN AMERICAN 14
[2018-09-25] MEDS ORDERED: Sodium Chloride 0.9% 1,000 ML IV SCH (08:15)
--- NOTE | 2018-09-25 08:59 | CP.PCM.PN ---
Subjective - Date & Time of Evaluation Date of Evaluation: 09/25/18 Time of Evaluation: 08:50 - Subjective Subjective: Patient seen and examined at bedside stating he just woke up. Patient has noticeably weak pelvic muscles as he struggled to get up and walking out of bed. Discussed with patient the need for dialysis in the future. No complaints overnight. Objective - Vital Signs/Intake and Output Vital Signs (last 24 hours): Temp Pulse Resp BP Pulse Ox 98.8 F 73 20 159/75 H 100 09/25/18 06:00 09/25/18 06:00 09/25/18 06:00 09/25/18 06:00 09/24/18 06:00 Intake and Output: 09/25/18 09/25/18 06:59 18:59 Intake Total 260 Balance 260 - Medications Medications: Current Medications Acetaminophen (Tylenol 325mg Tab) 650 mg PO Q6 PRN PRN Reason: TEMP>=99.5F Acetaminophen (Tylenol 650 Mg Supp) 650 mg RC Q6H PRN PRN Reason: TEMP>=99.5F Acetaminophen (Tylenol 325mg Tab) 650 mg PO Q6H PRN PRN Reason: Pain, severe (8-10) Last Admin: 09/24/18 14:12 Dose: 650 mg Amlodipine Besylate (Norvasc) 10 mg PO DAILY [facility] Aspirin (Ecotrin) 81 mg PO DAILY [facility] Last Admin: 09/24/18 10:19 Dose: 81 mg Atorvastatin Calcium (Lipitor) 20 mg PO DIN [facility] Last Admin: 09/24/18 17:55 Dose: 20 mg Clopidogrel Bisulfate (Plavix) 75 mg PO DAILY [facility] Last Admin: 09/24/18 10:20 Dose: 75 mg Docusate Sodium (Colace) 100 mg PO TID [facility] Last Admin: 09/24/18 17:55 Dose: 100 mg Ferrous Gluconate (Fergon) 324 mg PO TID [facility] Last Admin: 09/24/18 17:55 Dose: 324 mg Heparin Sodium (Porcine) (Heparin) 5,000 units SC Q8 [facility]; Protocol Last Admin: 09/25/18 05:50 Dose: 5,000 units Sodium Chloride (Sodium Chloride 0.9%) 1,000 mls @ 100 mls/hr IV .Q10H [facility] Memantine (Namenda) 10 mg PO BID [facility] Metoprolol Tartrate (Lopressor) 25 mg PO BID [facility] Last Admin: 09/24/18 17:55 Dose: 25 mg Mupirocin (Bactroban Ointment) 0 gm TOP Q8H [facility] Last Admin: 09/24/18 22:33 Dose: 1 applic Ondansetron HCl (Zofran Inj) 4 mg IVP Q4H PRN PRN Reason: Nausea/Vomiting Vitamin B Complex/Vit C/Folic Acid (Nephro-Zay) 1 tab PO 0800 [facility] Last Admin: 09/24/18 08:19 Dose: 1 tab - Labs Labs: 09/23/18 03:25 09/25/18 06:10 PT 12.2 SECONDS (9.4-12.5) 09/22/18 17:00 INR 1.10 09/22/18 17:00 APTT 39.7 Seconds (26.9-38.3) H 09/22/18 17:00 - Constitutional Appears: Non-toxic, No Acute Distress - Head Exam Head Exam: ATRAUMATIC, NORMAL INSPECTION, NORMOCEPHALIC - Eye Exam Eye Exam: Normal appearance - Respiratory Exam Respiratory Exam: Clear to Ausculation Bilateral, NORMAL BREATHING PATTERN - Cardiovascular Exam Cardiovascular Exam: REGULAR RHYTHM, +S1, +S2 - GI/Abdominal Exam GI & Abdominal Exam: Soft, Normal Bowel Sounds - Extremities Exam Extremities Exam: Normal Inspection - Back Exam Back Exam: NORMAL INSPECTION - Neurological Exam Neurological Exam: Alert, Awake, Oriented x3 - Psychiatric Exam Psychiatric exam: Normal Affect, Normal Mood - Skin Skin Exam: Normal Color, Warm Assessment and Plan - Assessment and Plan (Free Text) Assessment: Pt is a 78yo M with pmhx of HTN, dementia, TIA 2 years ago, Arthritis, gout, and BPH who presents to the ED s/p syncopal episode yesterday. Pt is accompanied by as pt is poor historian. Plan: 1) Syncope: - CT head reveals mod to severe white matter changes and small right frontal scalp hematoma - MRI Brain reveals no acute abnormalities - Echo ordered - Vitamin B12, folate levels normal to high - Neuro checks q2 - Elevate HOB 30 degrees - Seizure precautions - Cardio - Dr. Martinez - Neuro - Dr. 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
[2018-09-25] MEDS: Multivitamin Vitamin B Complex (Nephro-Vite) Tab PO SCH (11:09)
--- NOTE | 2018-09-25 12:26 | PN ---
DATE: 09/25/2018 SUBJECTIVE: The patient is seen in room 267, bed 2 with the medical front desk coordinator and the patient's present at the bedside. I was just informed and it came to my attention while examining the patient that the patient did not have an IV bag connected and the IV fluid was not connected. Upon further investigation, we discovered that the patient refused IV fluids and none of the physicians including me and the medical residents were not informed by the nursing that the patient refused IV fluid access and IV Hep-Lock. Today is the first day we were told regarding this issue about having IV access was discussed and explained to the patient and the patient's at length. The patient's was explained that the patient needs IV access and IV fluid to be continued for his renal failure issues. The patient is seen sitting up in the bed, the patient has extreme difficulty standing up from the sitting posture and need assistance. OBJECTIVE: GENERAL: The patient is found to be alert, awake, responsive, confused. VITAL SIGNS: T-max 98.8. Telemetry shows sinus rhythm with PACs, PVCs. Blood pressure 159/75, 138/80, 142/94, respiration 20, O2 sat is 98%-100%. HEENT: Head examination normocephalic, atraumatic. HEENT examination shows pinkish pale conjunctivae. Anicteric sclerae. No oropharyngeal lesion. NECK: No neck rigidity. Questionable soft carotid bruit. CHEST: Kyphosis. LUNGS: Shows no audible crackle, rales or wheezing. CARDIOVASCULAR: Shows S1, S2, regular rhythm. Questionable soft systolic murmur, left sternal border, right second intercostal space, left second intercostal space. ABDOMEN: Soft. Positive bowel sounds. GENITALIA: Male. RECTAL: Examination deferred. EXTREMITIES: Shows no pitting edema, no calf tenderness, no Homans' sign. NEUROLOGIC: The patient is alert, awake, responsive, oriented to person, need assistance with standing from the sitting up position. Motor strength is 5/5 in upper and lower extremities. MUSCULOSKELETAL: Examination shows a body mass index of 25. DIAGNOSTIC DATA: From 09/25/2018, sodium 42, potassium 3.9, chloride 105, CO2 of 28, anion gap 13, BUN down to 71, creatinine 4.1, GFR 14, glucose 96, calcium 9.4, phosphorus 3.9, magnesium 2.6. LFTs are normal. Lyme titers are negative. RPR is negative. No CBC today. Urine cultures are negative. IMPRESSION AND PLAN: 1. Near syncope. 2. Dizziness. 3. Status post unwitnessed fall. 4. Questionable status post unwitnessed syncope. 5 Right frontal forehead abrasion and contusion. 6. Post fall transient epistaxis. 7. Acute renal failure on acute kidney injury. 8 Hypotension and hypovolemia. 9. History of hypertension. 10. Normocytic anemia. 11. Poor compliance. 12. Eosinophilia. 13. Acute renal failure and acute kidney injury, probably secondary to angiotensin receptive blockers and diuretics. 14. Well-controlled diabetes mellitus with hemoglobin A1c of 6.8 and fructosamine of 252. 15. Questionable hypovitaminosis D. 16. Secondary hyperparathyroidism with elevated PTH. 17. Proteinuria. 18. Severe chronic microvascular ischemic disease of the periventricular white matter and cerebral cortical atrophy of the brain. 19. Vertebrobasilar system toxicity and flattening of the medulla. 20. Possible mild bilateral tibial occlusive disease. 21. Right renal cortical cyst and right renal exophytic mass. 22. Abdominal aortic atherosclerotic calcification. 23. Sigmoid diverticulosis without diverticulitis. 24. Medical renal disease with diffuse increased renal cortical echogenicity. 25. Bilateral renal cortical cyst. 26. Possible left renal punctate foci. 27. Questionable first degree AV block. 28. Status post hypotension. 29. Hypertensive chronic kidney disease stage IV with proteinuria. 30. Hyperphosphatemia. 31. Secondary hyperparathyroidism. PLAN: At this time, we have discussed with the patient's nurse and the nurse in charge of the telemetry and I have also spoke to the patient and the patient's the importance of having an IV fluid to be resumed and the patient to have an IV access for management of his renal failure and hydration. All of the above was emphasized at length to the patient and the patient's . They plan at this time, the patient has been ordered repeat labs. PSA is pending. The patient has been followed with consultation Nephrology, Cardiology, Neurology. CURRENT MEDICATIONS: Colace 100 mg three times a day, Ecotrin 81 mg daily Fergon 324 three times a day, heparin 5000 subcu every 8 hours, Lipitor 20 mg daily, Lopressor 25 mg twice a day, Namenda 10 mg daily, which will be increased to Namenda 10 mg twice a day... The patient is on Nephro-Zay 1 tablet daily, Norvasc 5 mg daily, Plavix 75 mg daily, IV fluid 0.9 normal saline at 100 ml an hour, Tylenol p.r.n., Zofran 4 mg IV every 4 hours p.r.n. EEG is pending. The patient is on heart-healthy diet. Physical therapy, occupational therapy ordered. Physical therapy recommendation is rehab. The patient's has been updated about the patient's condition, need for further diagnostic therapeutic intervention, need for further management, evaluation, follow up Cardiology, Neurology, Nephrology was explained to the patient's at length and all questions concerned answered. Dictated and electronically signed, not read. Bogdan Asencio MD
[2018-09-25] MEDS: Mupirocin 2% Ointment 15 GM TUBE TOP SCH ×3 (12:44→22:48)
--- NOTE | 2018-09-25 14:54 | CP.PCM.PN ---
Subjective - Date & Time of Evaluation Date of Evaluation: 09/25/18 Time of Evaluation: 14:53 - Subjective Subjective: Nephrology Consultation Note: Assessment: Stable Acute Kidney Injury (N17.9) likely due to low BP/hemodynamic. peripheral eosinophila + symptomatic hypotension with fall Hypertensive Chronic Kidney Disease (I12.9) Chronic Kidney Disease (N18.4) Stage 4 with 500 mg proteinuria (R80.9) likely due to HTn Anemia (D64.9), Hyperphosphatemia (E83.39), Secondary Hyperparathyroidism (E21.1), HTN (I12.9) BPH, TIA hyperlipidemia gout Plan No acute need for renal replacement therapy at this time. was told that dialysis will be needed in future. pt himself refused for it. says she will d/w her children and decide later Hypertension control with meds as ordered. Maintain hemodynamics stable. Avoid hypotension. Patient not on ACEI/ARB due to recent ISABELL. hold diuretic Monitor Input/Output, daily weights and renal function with basic metabolic panel BP better, can d/c IVF now, serum cr has platued with peripheral eosinophilia and ISABELL, hold allopurinol for now one dose of vit d given Dose meds/antibiotics for reduced GFR. Avoid fleets enema/magnesium based laxatives. Avoid nephrotoxins/NSAIDs/ iodinated contrast (unless needed emergently) Glycemic control Further work up/management as per primary team Thanks for allowing me to participate in care of your patient. Will follow patient with you. Please call if any Qs. had d/w team and Dr Zaheer Ulloa Office: [phone] Chief Complaint; fall Reason for consult: Acute Kidney Injury HPI: Pt is a 78 M with hx of hypertension (years) BPH, TIA hyperlipidemia gout and CKD 4 with baseline cr ~ 3 presented with complaints of feeling weak and dizzy with fall. low BP as per Denies OTC/herbal meds or NSAIDs No recent iodinated contrast exposure. Noted obvious episodes of low BP (105/60). ROS: pt not very reliable in his hx and irritable. no much interactive Cardiovascular: No chest pain. Pulmonary: No shortness of breath Gastrointestinal: denies abdominal pain No nausea. No vomiting. Genitourinary: No pain while urinating. Denies blood in urine. All other negative except as mentioned in HPI Physical Examination: General Appearance: Comfortable, in no acute respiratory distress, co-operative . Vitals reviewed and noted as below Head; Rt forehead superficial abrasion + normocephalic ENT: no ulcers no thrush. Tongue is midline. Oropharynx: no rash or ulcers. EYES: Pupils are equal, round and reactive to light accommodation. Eye muscles and extraocular movement intact. Sclera is anicteric. Neck; supple no lymphadenopathy, no thyromegaly or bruit Lungs: Normal respiratory rate/effort. Breath sounds bilateral equal and clear Heart: Normal rate. s1s2 normal. No rub or gallop. Extremities: no edema. No varicose veins Neurological: Patient has dementia. No focal deficit. Strength bilateral appropr iate and equal Skin: Warm and dry. Normal turgor. No rash. Palpitation: Normal elasticity for age Abdomen: Abdomen is soft. Bowel sounds +. There is no abdominal tenderness, no guarding/rigidity no organomegaly Psych: lack insight and irritable MSK: no joint tenderness or swelling. Digits and nails normal, no deformity : kidney or bladder not palpable Labs/imaging reviewed. Past medical history, past surgical history, family history, social history, allergy reviewed and noted as below Family hx: no hx of CKD. Rest non-contributory renal sono: increased echogenicity and b/l cyst urin p/c 500 mg/g PTH 209 Hep B/C neg SPEP and TRE neg urine no eos echo normal LVEF Objective - Vital Signs/Intake and Output Vital Signs (last 24 hours): Temp Pulse Resp BP Pulse Ox 97.7 F 76 18 152/96 H 100 09/25/18 12:00 09/25/18 12:00 09/25/18 12:00 09/25/18 12:00 09/24/18 06:00 Intake and Output: 09/25/18 09/25/18 06:59 18:59 Intake Total 260 Balance 260 - Medications Medications: Current Medications Acetaminophen (Tylenol 325mg Tab) 650 mg PO Q6 PRN PRN Reason: TEMP>=99.5F Acetaminophen (Tylenol 650 Mg Supp) 650 mg RC Q6H PRN PRN Reason: TEMP>=99.5F Acetaminophen (Tylenol 325mg Tab) 650 mg PO Q6H PRN PRN Reason: Pain, severe (8-10) Last Admin: 09/24/18 14:12 Dose: 650 mg Amlodipine Besylate (Norvasc) 10 mg PO DAILY [facility] Last Admin: 09/25/18 11:10 Dose: 10 mg Aspirin (Ecotrin) 81 mg PO DAILY [facility] Last Admin: 09/25/18 11:11 Dose: 81 mg Atorvastatin Calcium (Lipitor) 20 mg PO DIN [facility] Last Admin: 09/24/18 17:55 Dose: 20 mg Clopidogrel Bisulfate (Plavix) 75 mg PO DAILY [facility] Last Admin: 09/25/18 11:13 Dose: 75 mg Docusate Sodium (Colace) 100 mg PO TID [facility] Last Admin: 09/25/18 14:10 Dose: 100 mg Ferrous Gluconate (Fergon) 324 mg PO TID [facility] Last Admin: 09/25/18 14:10 Dose: 324 mg Heparin Sodium (Porcine) (Heparin) 5,000 units SC Q8 [facility]; Protocol Last Admin: 09/25/18 14:11 Dose: 5,000 units Memantine (Namenda) 10 mg PO BID [facility] Last Admin: 09/25/18 11:11 Dose: 10 mg Metoprolol Tartrate (Lopressor) 25 mg PO BID [facility] Last Admin: 09/25/18 11:11 Dose: 25 mg Mupirocin (Bactroban Ointment) 0 gm TOP Q8H [facility] Last Admin: 09/25/18 12:44 Dose: 1 applic Ondansetron HCl (Zofran Inj) 4 mg IVP Q4H PRN PRN Reason: Nausea/Vomiting Vitamin B Complex/Vit C/Folic Acid (Nephro-Zay) 1 tab PO 0800 [facility] Last Admin: 09/25/18 11:09 Dose: 1 tab - Labs Labs: 09/23/18 03:25 09/25/18 06:10 PT 12.2 SECONDS (9.4-12.5) 09/22/18 17:00 INR 1.10 09/22/18 17:00 APTT 39.7 Seconds (26.9-38.3) H 09/22/18 17:00
--- NOTE | 2018-09-25 18:54 | CARD ---
APPROVED REPORT Date of service: 09/25/2018 EKG Measurement Heart [id number] CT 210P-10 [id number] <Conclusion> Normal sinus rhythm Normal Electrocardiogram
[2018-09-25] MEDS: Sodium Chloride 0.9% 1,000 ML IV SCH (22:33)
[2018-09-26 07:43] LABS: ALB/GLOB RATIO 1.1 (1.1-1.8); ALT/SGPT < 6 U/L (7-56); AST/SGOT 29 U/L (17-59); BILIRUBIN,DIRECT 0.2 mg/dL (0.0-0.4); BLOOD UREA NITROGEN 58 mg/dL (7-21); CALCIUM 9.2 mg/dL (8.4-10.5); GFR NON-AFRICAN AMERICAN 18
--- NOTE | 2018-09-26 08:25 | CP.PCM.PN ---
Subjective - Date & Time of Evaluation Date of Evaluation: 09/26/18 Time of Evaluation: 08:00 - Subjective Subjective: (covering for Dr. Asencio) Patient is seen this morning. He is sitting up in the chair with beside him. He is drowsy and confused at times. Objective - Vital Signs/Intake and Output Vital Signs (last 24 hours): Temp Pulse Resp BP Pulse Ox 97.9 F 64 20 180/97 H 95 09/26/18 06:00 09/26/18 07:15 09/26/18 06:00 09/26/18 07:15 09/26/18 00:01 Intake and Output: 09/26/18 09/26/18 06:59 18:59 Intake Total 1580 Output Total 2600 Balance -1020 - Medications Medications: Current Medications Acetaminophen (Tylenol 325mg Tab) 650 mg PO Q6 PRN PRN Reason: TEMP>=99.5F Acetaminophen (Tylenol 650 Mg Supp) 650 mg RC Q6H PRN PRN Reason: TEMP>=99.5F Acetaminophen (Tylenol 325mg Tab) 650 mg PO Q6H PRN PRN Reason: Pain, severe (8-10) Last Admin: 09/24/18 14:12 Dose: 650 mg Amlodipine Besylate (Norvasc) 10 mg PO DAILY [facility] Last Admin: 09/26/18 07:15 Dose: 10 mg Aspirin (Ecotrin) 81 mg PO DAILY [facility] Last Admin: 09/25/18 11:11 Dose: 81 mg Atorvastatin Calcium (Lipitor) 20 mg PO DIN [facility] Last Admin: 09/25/18 17:15 Dose: 20 mg Clopidogrel Bisulfate (Plavix) 75 mg PO DAILY [facility] Last Admin: 09/25/18 11:13 Dose: 75 mg Docusate Sodium (Colace) 100 mg PO TID [facility] Last Admin: 09/25/18 17:17 Dose: 100 mg Ferrous Gluconate (Fergon) 324 mg PO TID [facility] Last Admin: 09/25/18 17:17 Dose: 324 mg Heparin Sodium (Porcine) (Heparin) 5,000 units SC Q8 [facility]; Protocol Last Admin: 09/26/18 05:38 Dose: 5,000 units Sodium Chloride (Sodium Chloride 0.9%) 1,000 mls @ 100 mls/hr IV .Q10H [facility] Last Admin: 09/25/18 22:33 Dose: 100 mls/hr Memantine (Namenda) 10 mg PO BID [facility] Last Admin: 09/25/18 17:17 Dose: 10 mg Metoprolol Tartrate (Lopressor) 25 mg PO BID [facility] Last Admin: 09/26/18 07:15 Dose: 25 mg Mupirocin (Bactroban Ointment) 0 gm TOP Q8H [facility] Last Admin: 09/25/18 22:48 Dose: 1 applic Ondansetron HCl (Zofran Inj) 4 mg IVP Q4H PRN PRN Reason: Nausea/Vomiting Vitamin B Complex/Vit C/Folic Acid (Nephro-Zay) 1 tab PO 0800 [facility] Last Admin: 09/25/18 11:09 Dose: 1 tab - Labs Labs: 09/23/18 03:25 09/26/18 07:00 PT 12.2 SECONDS (9.4-12.5) 09/22/18 17:00 INR 1.10 09/22/18 17:00 APTT 39.7 Seconds (26.9-38.3) H 09/22/18 17:00 - Constitutional Appears: No Acute Distress - Head Exam Head Exam: ATRAUMATIC, NORMOCEPHALIC Additional comments: bruise on right side of forehead - Respiratory Exam Respiratory Exam: Clear to Ausculation Bilateral, NORMAL BREATHING PATTERN - Cardiovascular Exam Cardiovascular Exam: REGULAR RHYTHM, +S1, +S2 - GI/Abdominal Exam GI & Abdominal Exam: Soft, Normal Bowel Sounds. absent: Tenderness - Neurological Exam Neurological Exam: Alert, Awake Assessment and Plan - Assessment and Plan (Free Text) Assessment: Acute on Chronic kidney disease Near syncope HTN DMII Atrophy of the brain Plan: Patient is undergoing cardiac and neurological evaluation for syncope. Awaiting EEG. continue Lopressor and Norvasc for hypertension. continue namenda for dementia Patient was started on IV fluids yesterday. BUN and creatinine have decreased to 58 and 3.4 from 71 and 4.1 the day before. continue IV fluids and repeat chemistry in AM.
[2018-09-26] MEDS: Multivitamin Vitamin B Complex (Nephro-Vite) Tab PO SCH (09:12)
[2018-09-26] MEDS: Mupirocin 2% Ointment 15 GM TUBE TOP SCH ×3 (09:13→22:22)
[2018-09-26] MEDS: Sodium Chloride 0.9% 1,000 ML IV SCH (09:48)
--- NOTE | 2018-09-26 21:28 | CP.PCM.PN ---
Subjective - Date & Time of Evaluation Date of Evaluation: 09/26/18 Time of Evaluation: 13:20 - Subjective Subjective: Nephrology Consultation Note: Assessment: Stable Acute Kidney Injury (N17.9) likely due to low BP/hemodynamic. peripheral eosinophila + symptomatic hypotension with fall Hypertensive Chronic Kidney Disease (I12.9) Chronic Kidney Disease (N18.4) Stage 4 with 500 mg proteinuria (R80.9) likely due to HTn Anemia (D64.9), Hyperphosphatemia (E83.39), Secondary Hyperparathyroidism (E21.1), HTN (I12.9) BPH, TIA hyperlipidemia gout Plan No acute need for renal replacement therapy at this time. lytes reviewed volume stable Hypertension control with meds as ordered. Maintain hemodynamics stable. Avoid hypotension. Patient not on ACEI/ARB due to recent ISABELL. Monitor Input/Output, daily weights and renal function with basic metabolic p lizbeth BP ok with peripheral eosinophilia and ISABELL, hold allopurinol for now, is concerned about gout as patiennt has hx of significant gout in the past, may have to consider uloric monitor uric acid levels Physical Examination: General Appearance: Comfortable, in no acute respiratory distress, co-operative . Vitals reviewed and noted as below Head; Rt forehead superficial abrasion + normocephalic ENT: no ulcers EYES: Eye muscles and extraocular movement intact. Sclera is anicteric. Neck; supple no lymphadenopathy, no thyromegaly or bruit Lungs: Normal respiratory rate/effort. Breath sounds bilateral equal and clear Heart: Normal rate. s1s2 normal. No rub or gallop. Extremities: no edema. No varicose veins Neurological: Patient has dementia. No focal deficit. Strength bilateral appropriate and equal Skin: Warm and dry. Normal turgor. Abdomen: Abdomen is soft. Bowel sounds +. There is no abdominal tenderness, no guarding/rigidity no organomegaly Psych: lack insight and irritable MSK: no joint tenderness or swelling Objective - Vital Signs/Intake and Output Vital Signs (last 24 hours): Temp Pulse Resp BP Pulse Ox 98.4 F 69 18 141/83 95 09/26/18 17:53 09/26/18 18:03 09/26/18 17:53 09/26/18 18:03 09/26/18 00:01 Intake and Output: 02/08/19 02/09/19 18:59 06:59 Intake Total 2240 Output Total 1425 Balance 815 - Medications Medications: Current Medications Acetaminophen (Tylenol 325mg Tab) 650 mg PO Q6 PRN PRN Reason: TEMP>=99.5F Acetaminophen (Tylenol 650 Mg Supp) 650 mg RC Q6H PRN PRN Reason: TEMP>=99.5F Acetaminophen (Tylenol 325mg Tab) 650 mg PO Q6H PRN PRN Reason: Pain, severe (8-10) Last Admin: 09/24/18 14:12 Dose: 650 mg Amlodipine Besylate (Norvasc) 10 mg PO DAILY [facility] Last Admin: 09/26/18 12:04 Dose: Not Given Aspirin (Ecotrin) 81 mg PO DAILY [facility] Last Admin: 09/26/18 09:12 Dose: 81 mg Atorvastatin Calcium (Lipitor) 20 mg PO DIN [facility] Last Admin: 09/26/18 18:03 Dose: 20 mg Clopidogrel Bisulfate (Plavix) 75 mg PO DAILY [facility] Last Admin: 09/26/18 09:12 Dose: 75 mg Docusate Sodium (Colace) 100 mg PO TID [facility] Last Admin: 09/26/18 18:03 Dose: 100 mg Ferrous Gluconate (Fergon) 324 mg PO TID [facility] Last Admin: 09/26/18 18:03 Dose: 324 mg Heparin Sodium (Porcine) (Heparin) 5,000 units SC Q8 [facility]; Protocol Last Admin: 09/26/18 14:09 Dose: 5,000 units Sodium Chloride (Sodium Chloride 0.9%) 1,000 mls @ 100 mls/hr IV .Q10H [facility] Last Admin: 09/26/18 09:48 Dose: 100 mls/hr Memantine (Namenda) 10 mg PO BID [facility] Last Admin: 09/26/18 18:03 Dose: 10 mg Metoprolol Tartrate (Lopressor) 25 mg PO BID [facility] Last Admin: 09/26/18 18:03 Dose: 25 mg Mupirocin (Bactroban Ointment) 0 gm TOP Q8H [facility] Last Admin: 09/26/18 14:10 Dose: 1 applic Ondansetron HCl (Zofran Inj) 4 mg IVP Q4H PRN PRN Reason: Nausea/Vomiting Vitamin B Complex/Vit C/Folic Acid (Nephro-Zay) 1 tab PO 0800 [facility] Last Admin: 09/26/18 09:12 Dose: 1 tab - Labs Labs: 09/23/18 03:25 09/26/18 07:00 PT 12.2 SECONDS (9.4-12.5) 09/22/18 17:00 INR 1.10 09/22/18 17:00 APTT 39.7 Seconds (26.9-38.3) H 09/22/18 17:00
[2018-09-27] MEDS: Mupirocin 2% Ointment 15 GM TUBE TOP SCH (06:02)
[2018-09-27 06:37] VITALS: PULSE 71
[2018-09-27 06:49] VITALS: RESP 18; TEMP 98.4; O2SAT 97
[2018-09-27 06:50] VITALS: BP 188/94
[2018-09-27 07:50] LABS: ALB/GLOB RATIO 1.1 (1.1-1.8); ALBUMIN 3.6 g/dL (3.0-4.8); BILIRUBIN,DIRECT 0.2 mg/dL (0.0-0.4); CALCIUM 8.7 mg/dL (8.4-10.5)
[2018-09-27] MEDS: Multivitamin Vitamin B Complex (Nephro-Vite) Tab PO SCH (09:24)
--- NOTE | 2018-09-27 11:26 | CP.PCM.PN ---
Subjective - Date & Time of Evaluation Date of Evaluation: 09/27/18 Time of Evaluation: 11:23 - Subjective Subjective: Nephrology Consultation Note: Assessment: Stable Acute Kidney Injury (N17.9) likely due to low BP/hemodynamic. peripheral eosinophila + symptomatic hypotension with fall Hypertensive Chronic Kidney Disease (I12.9) Chronic Kidney Disease (N18.4) Stage 4 with 500 mg proteinuria (R80.9) likely due to HTn Anemia (D64.9), Hyperphosphatemia (E83.39), Secondary Hyperparathyroidism (E21.1), HTN (I12.9) BPH, TIA hyperlipidemia gout Plan No acute need for renal replacement therapy at this time. Cr improving lytes reviewed volume stable Hypertension control with meds as ordered. Maintain hemodynamics stable. Avoid hypotension. Patient not on ACEI/ARB due to recent ISABELL. S: no acute events o/n Physical Examination: General Appearance: Comfortable, in no acute respiratory distress, co-operative . Vitals reviewed and noted as below Head; Rt forehead superficial abrasion + normocephalic ENT: no ulcers EYES: Eye muscles and extraocular movement intact. Sclera is anicteric. Neck; supple no lymphadenopathy, no thyromegaly or bruit Lungs: Normal respiratory rate/effort. Breath sounds reduced Heart: Normal rate. s1s2 normal. No rub or gallop. Extremities: no edema. No varicose veins Neurological: Patient has dementia. No focal deficit. Strength bilateral appropriate and equal Skin: Warm and dry. Normal turgor. Abdomen: Abdomen is soft. Bowel sounds +. There is no abdominal tenderness, no guarding/rigidity no organomegaly Psych: lack insight and irritable MSK: no joint tenderness or swelling Objective - Vital Signs/Intake and Output Vital Signs (last 24 hours): Temp Pulse Resp BP Pulse Ox 98.4 F 71 18 188/94 H 97 09/27/18 06:00 09/27/18 06:35 09/27/18 06:00 09/27/18 06:35 09/27/18 06:00 Intake and Output: 09/27/18 09/27/18 06:59 18:59 Intake Total 2960 Output Total 3075 Balance -115 - Medications Medications: Current Medications Acetaminophen (Tylenol 325mg Tab) 650 mg PO Q6 PRN PRN Reason: TEMP>=99.5F Acetaminophen (Tylenol 650 Mg Supp) 650 mg RC Q6H PRN PRN Reason: TEMP>=99.5F Acetaminophen (Tylenol 325mg Tab) 650 mg PO Q6H PRN PRN Reason: Pain, severe (8-10) Last Admin: 09/24/18 14:12 Dose: 650 mg Amlodipine Besylate (Norvasc) 10 mg PO DAILY [facility] Last Admin: 09/27/18 09:25 Dose: Not Given Aspirin (Ecotrin) 81 mg PO DAILY [facility] Last Admin: 09/27/18 09:24 Dose: 81 mg Atorvastatin Calcium (Lipitor) 20 mg PO DIN [facility] Last Admin: 09/26/18 18:03 Dose: 20 mg Clopidogrel Bisulfate (Plavix) 75 mg PO DAILY [facility] Last Admin: 09/27/18 09:24 Dose: 75 mg Docusate Sodium (Colace) 100 mg PO TID [facility] Last Admin: 09/27/18 09:24 Dose: 100 mg Ferrous Gluconate (Fergon) 324 mg PO TID [facility] Last Admin: 09/27/18 09:24 Dose: 324 mg Heparin Sodium (Porcine) (Heparin) 5,000 units SC Q8 [facility]; Protocol Last Admin: 09/27/18 05:55 Dose: 5,000 units Sodium Chloride (Sodium Chloride 0.9%) 1,000 mls @ 100 mls/hr IV .Q10H [facility] Last Admin: 09/26/18 09:48 Dose: 100 mls/hr Memantine (Namenda) 10 mg PO BID [facility] Last Admin: 09/27/18 09:24 Dose: 10 mg Metoprolol Tartrate (Lopressor) 25 mg PO BID [facility] Last Admin: 09/27/18 09:25 Dose: Not Given Mupirocin (Bactroban Ointment) 0 gm TOP Q8H [facility] Last Admin: 09/27/18 06:02 Dose: 1 applic Ondansetron HCl (Zofran Inj) 4 mg IVP Q4H PRN PRN Reason: Nausea/Vomiting Vitamin B Complex/Vit C/Folic Acid (Nephro-Zay) 1 tab PO 0800 [facility] Last Admin: 09/27/18 09:24 Dose: 1 tab - Labs Labs: 09/23/18 03:25 09/27/18 07:00 PT 12.2 SECONDS (9.4-12.5) 09/22/18 17:00 INR 1.10 09/22/18 17:00 APTT 39.7 Seconds (26.9-38.3) H 09/22/18 17:00
--- NOTE | 2018-09-28 01:02 | DS ---
HISTORY OF PRESENT ILLNESS: The patient is seen in room 267, bed 2. The patient's is at bedside. The patient is alert, awake, responsive, but confused and disoriented periodically. Overnight nurse's notes were reviewed. The patient slept well. Nurses' notes were reviewed. PHYSICAL EXAMINATION: VITAL SIGNS: T-max 98.4, pulse 71 to 63, blood pressure of 129/71, 141/83, 181/84, 180/94. The patient received antihypertensive, respiration 18, O2 sat 97%. HEENT: Head is normocephalic, atraumatic. HEENT examination shows pinkish pale conjunctivae. Anicteric sclerae. No oropharyngeal lesion. NECK: No neck rigidity. CHEST: Kyphosis. LUNGS: Shows occasional rhonchi in upper lung [place]. CARDIOVASCULAR: S1, S2, regular rhythm. Questionable soft systolic murmur at left sternal border, right second intercostal space, left second intercostal space. ABDOMEN: Soft. Positive bowel sounds. No palpable hepatosplenomegaly. GENITALIA: Male. RECTAL: Deferred. EXTREMITIES: Shows no pitting edema, no calf tenderness, no Homans' sign. NEUROLOGIC: The patient is alert, awake, responsive, oriented to person, but not clearly oriented to year, date, month, time. Follows simple commands, able to stand up with assistance. Gait examination is not tested. MUSCULOSKELETAL: Shows a body mass index of 25. ABDOMEN: Text. NEUROLOGIC: Text. MEDICATIONS: Text, text, text. LABORATORY DATA: Imaging studies, cardiovascular studies and all consult recommendations reviewed. Chemistry from this morning up from 09/27/2018, sodium 138, potassium 3.8, chloride 108, CO2 of 23, anion gap 10, BUN down to 51 from 82, creatinine is down to 3.1 from 5.2. LFTs are normal. Urine cultures are negative. The patient was seen by Nephrology. The patient was seen by Neurology. The patient was seen by Cardiology. The patient was seen by physical therapy. The patient was seen by physical therapist. Their recommendation was the patient was recommended for rehab, but the patient's refused to send the patient to rehab, but the patient was accepted to [facility], but the patient's declined, and the patient's stated that she wants to take him home. FINAL IMPRESSION, PLAN AND DISCHARGE DIAGNOSIS: 1. Status post unwitnessed fall versus unwitnessed syncope. 2. Status post fall. 3. Right frontal forehead contusion. 4. Transient epistaxis, post fall transient epistaxis. 5. Hypertension. 6. Dementia. 7. Normocytic anemia. 8. Eosinophilia. 9. Acute renal failure and acute kidney injury, slow resolving. 10. Underlying chronic kidney disease stage III. 11. Hypermagnesemia. 12. Hypovitaminosis D. 13. Elevated prostate-specific antigen of 2.7. 14. Hyperglycemia. 15. Hemoglobin A1c of 6.8 with questionable early diabetes. 16. Proteinuria. 17. Severe chronic microvascular ischemic disease of the periventricular white matter with cerebral cortical atrophy of the brain. 18. Vertebrobasilar system tortuosity with flattening of the medulla. 19. Possible mild bilateral tibial disease. 20. Bilateral renal cyst with 7 mm right renal upper pole exophytic mass. 21. Sigmoid diverticulosis. 22. Bilateral renal increased cortical echogenicity with right renal mid pole cyst. 23. Hepatic steatosis. 24. Possible renal cortical calcification versus non-obstructing calculi of the renal collecting system. 25. Left renal possible cortical calcification versus non-obstructing left nephrolithiasis. 26. Deconditioning. 27. Gait dysfunction. 28. Cerebral cortical atrophy of the brain with ventriculomegaly. 29. Chronic microvascular ischemic disease of the brain with [id number] periventricular and subcortical white matter hypodensities. 30. Right frontal scalp hematoma. 31. Mild cardiomegaly. 32. Mild aortic calcification and severe aortic toxicity. 33. Acute kidney injury, probably secondary to hypotension peripheral eosinophilia. 34. Hypertensive chronic kidney disease stage IV with proteinuria with sepsis secondary hyperparathyroidism. 35. History of hyperuricemia. 36. Near syncope versus unwitnessed fall and unwitnessed syncope, vasovagal near syncope versus syncope. PLAN: At this time, the patient's and the patient was advised by the physical therapy for rehab discharge, but the patient's refuses the patient to be sent to rehab, so the patient is considered for discharge. The patient has been ordered to be discharged to [facility] rehab and the patient and the agrees, otherwise, may discharge home with [facility]. The patient's case is referred to [facility] Sched[facility] or [facility] home PT. Followup Dr. Asencio within 1 week and next discharge medications as per updated ambulatory orders. Next, the patient's allopurinol and diuretics were stopped. The patient's discharge medications, Norvasc 10 mg daily, Ecotrin 81 mg daily, Plavix 75 mg daily, ferrous gluconate 324 mg three times a day, Namenda 10 mg twice a day, Lopressor 25 mg twice a day, Nephro-Zay 1 tablet daily. Discharge followup with Dr. Asencio within 1 week. Time spent in the entire discharge process is 45 minutes. Dictated and electronically signed, not read. Bogdan Asencio MD
== END 2018-09-27 14:23 | disposition home health service (06) | DRG 684 ==
LOC: ED 15:29 → ERH 18:36 → 2RNO 23:40
PROVIDERS: ADMIT Internal Medicine; ATTEND Internal Medicine
DX: N17.9 Acute kidney failure, unspecified (principal); I95.9 Hypotension, unspecified; E86.0 Dehydration; E86.1 Hypovolemia; I13.10 Hypertensive heart and chronic kidney disease without heart failure, with stage 1 through stage 4 chronic kidney disease, or unspecified chronic kidney disease; N18.4 Chronic kidney disease, stage 4 (severe); S00.81XA Abrasion of other part of head, initial encounter; S00.03XA Contusion of scalp, initial encounter; R04.0 Epistaxis; K76.0 Fatty (change of) liver, not elsewhere classified; N20.0 Calculus of kidney; K57.30 Diverticulosis of large intestine without perforation or abscess without bleeding; E11.51 Type 2 diabetes mellitus with diabetic peripheral angiopathy without gangrene; G93.89 Other specified disorders of brain; R16.0 Hepatomegaly, not elsewhere classified; E11.65 Type 2 diabetes mellitus with hyperglycemia; R00.1 Bradycardia, unspecified; D64.9 Anemia, unspecified; R41.89 Other symptoms and signs involving cognitive functions and awareness; E11.22 Type 2 diabetes mellitus with diabetic chronic kidney disease; N40.0 Benign prostatic hyperplasia without lower urinary tract symptoms; N25.81 Secondary hyperparathyroidism of renal origin; N28.1 Cyst of kidney, acquired; M10.9 Gout, unspecified; E11.43 Type 2 diabetes mellitus with diabetic autonomic (poly)neuropathy; K31.84 Gastroparesis; F03.90 Unspecified dementia, unspecified severity, without behavioral disturbance, psychotic disturbance, mood disturbance, and anxiety; R26.9 Unspecified abnormalities of gait and mobility; D72.1 Eosinophilia; E78.00 Pure hypercholesterolemia, unspecified; R55 Syncope and collapse; E55.9 Vitamin D deficiency, unspecified; I35.0 Nonrheumatic aortic (valve) stenosis; E83.39 Other disorders of phosphorus metabolism; I44.0 Atrioventricular block, first degree; E78.5 Hyperlipidemia, unspecified; W22.01XA Walked into wall, initial encounter; Z86.73 Personal history of transient ischemic attack (TIA), and cerebral infarction without residual deficits; Z79.82 Long term (current) use of aspirin; Z79.02 Long term (current) use of antithrombotics/antiplatelets; Z87.891 Personal history of nicotine dependence; Z88.0 Allergy status to penicillin